=== PATIENT | male | born 1945 | race Caucasian/White ===

== ENCOUNTER 2023-08-13 09:29 | Outpatient (OUT) | payer MEDICARE, SELFPAY ==
--- NOTE | 2023-08-13 09:44 | XR_ITS ---
The [address] [address] Patient Name: JASEN MUELLER MRN: [id number] date: 1945 Sex: M Assigned Patient Location: LAB Current Patient Location: LAB Accession/Order Number: [id number] Exam Date: 08/13/2023 10:05 Report Date: 08/13/2023 10:46 At the request of: PERFECTO LOMELI Procedure: XR thoracic spine 3V EXAMINATION: XR cervical spine 2-3V, XR thoracic spine 3V HISTORY: Kyphosis Of Cervical thoracic region COMPARISON: No relevant comparison available. FINDINGS: BONES: Marked kyphosis of lower cervical and upper thoracic spine; normal lordotic curvature of upper cervical spine. Mild grade 1 anterolisthesis of C4 on 5. Minimal anterior wedging of C6 and C7 vertebral bodies without increased trabecular or endplate density. DISC SPACES: Moderate narrowing and posterior disc-osteophyte complex at C5-6. Mild narrowing C6-C7, C7-T1. Multilevel mild narrowing of the upper thoracic spine. PARASPINOUS: Negative. No paraspinous abnormality is seen. OTHER: Negative. XR/XR thoracic spine 3V IMPRESSION: 1. Multilevel degenerative changes predominantly involving the lower cervical spine. No prior studies for comparison. 2. Marked kyphosis of the cervicothoracic spine. Electronically authenticated by: FABI MADRIGAL Date: 08/13/2023 10:46
--- NOTE | 2023-08-13 09:44 | XR_ITS ---
The [address] [address] Patient Name: JASEN MUELLER MRN: [id number] date: 1945 Sex: M Assigned Patient Location: LAB Current Patient Location: LAB Accession/Order Number: [id number] Exam Date: 08/13/2023 10:05 Report Date: 08/13/2023 10:46 At the request of: PERFECTO LOMELI Procedure: XR cervical spine 2-3V EXAMINATION: XR cervical spine 2-3V, XR thoracic spine 3V HISTORY: Kyphosis Of Cervical thoracic region COMPARISON: No relevant comparison available. FINDINGS: BONES: Marked kyphosis of lower cervical and upper thoracic spine; normal lordotic curvature of upper cervical spine. Mild grade 1 anterolisthesis of C4 on 5. Minimal anterior wedging of C6 and C7 vertebral bodies without increased trabecular or endplate density. DISC SPACES: Moderate narrowing and posterior disc-osteophyte complex at C5-6. Mild narrowing C6-C7, C7-T1. Multilevel mild narrowing of the upper thoracic spine. PARASPINOUS: Negative. No paraspinous abnormality is seen. OTHER: Negative. XR/XR cervical spine 2-3V IMPRESSION: 1. Multilevel degenerative changes predominantly involving the lower cervical spine. No prior studies for comparison. 2. Marked kyphosis of the cervicothoracic spine. Electronically authenticated by: FABI MADRIGAL Date: 08/13/2023 10:46
== END 2023-08-13 09:30 | disposition home or self-care (01) ==
LOC: LAB 09:34
PROVIDERS: PCP Internal Medicine; Visit Provider Internal Medicine
DX: M40.203 Unspecified kyphosis, cervicothoracic region (principal); M47.812 Spondylosis without myelopathy or radiculopathy, cervical region
CPT/HCPCS: 72040; 72072

== ENCOUNTER 2023-09-02 09:05 | Outpatient (OUT) | payer MEDICARE, SELFPAY ==
--- NOTE | 2023-09-02 09:20 | XR_ITS ---
The [address] [address] Patient Name: JASEN MUELLER MRN: [id number] date: 1945 Sex: M Assigned Patient Location: [facility] Current Patient Location: [facility] Accession/Order Number: [id number] Exam Date: 09/02/2023 09:25 Report Date: 09/02/2023 12:28 At the request of: PERFECTO LOMELI Procedure: XR thoracic spine 3V EXAMINATION: XR thoracic spine 3V HISTORY: Kyphosis Of Cervicothoracic Region M40.203 COMPARISON: No relevant comparison available. FINDINGS: BONES: Prominent kyphosis of upper and mid thoracic spine. No significant spondylosis, fracture, or visible bony lesion. DISC SPACES: No significant disc height narrowing, subluxation, or endplate abnormality. PARASPINOUS: Negative. No paraspinous abnormality is seen. OTHER: Negative. XR/XR thoracic spine 3V IMPRESSION: 1. Prominent kyphosis. 2. No compression fracture or significant degenerative changes. Electronically authenticated by: FABI MADRIGAL Date: 09/02/2023 12:28
--- NOTE | 2023-09-02 09:20 | XR_ITS ---
The [address] [address] Patient Name: JASEN MUELLER MRN: [id number] date: 1945 Sex: M Assigned Patient Location: [facility] Current Patient Location: Accession/Order Number: [id number] Exam Date: 09/02/2023 09:25 Report Date: 09/03/2023 06:34 At the request of: PERFECTO LOMELI Procedure: XR cervical spine 2-3V EXAMINATION: XR cervical spine 2-3V HISTORY: Kyphosis Of Cervicothoracic Region M40.203 COMPARISON: XR cervical spine 08/13/2023 FINDINGS: BONES: Reversal normal lordotic curvature C5-T1. Mild grade 1 anterolisthesis of C4 on 5. Multilevel mild-moderate degenerative facet arthropathy. DISC SPACES: Mild narrowing C4-5. Marked narrowing C5-6. Moderate narrowing C6-7 and C7-T1. PARASPINOUS: Negative. No paraspinous abnormality is seen. OTHER: Negative. XR/XR cervical spine 2-3V IMPRESSION: 1. Stable kyphosis and multilevel degenerative changes. Electronically authenticated by: FABI MADRIGAL Date: 09/03/2023 06:34
== END 2023-09-02 09:06 | disposition home or self-care (01) ==
LOC: RAD 09:07
PROVIDERS: PCP Internal Medicine; Visit Provider Internal Medicine
DX: M40.203 Unspecified kyphosis, cervicothoracic region (principal); M47.812 Spondylosis without myelopathy or radiculopathy, cervical region
CPT/HCPCS: 72040; 72072

== ENCOUNTER 2023-09-15 07:58 | Outpatient (OUT) | payer MEDICARE, SELFPAY ==
--- NOTE | 2023-09-15 08:03 | XR_ITS ---
The [address] [address] Patient Name: JASEN MUELLER MRN: [id number] date: 1945 Sex: M Assigned Patient Location: [facility] Current Patient Location: RAD Accession/Order Number: [id number] Exam Date: 09/15/2023 08:10 Report Date: 09/15/2023 08:43 At the request of: PERFECTO LOMELI Procedure: XR DEXA axial skeleton EXAMINATION: XR DEXA axial skeleton HISTORY: Compression Fracture C7 S12.690A COMPARISON: No relevant comparison available. TECHNIQUE: Dual-energy X-ray absorptiometry (DXA) was performed. FINDINGS: SPINE ANALYSIS: Average bone mineral density is 1.193 g/cm2. T-score (standard deviation relative to young adult mean): -0.4 . HIP ANALYSIS: Lowest bone mineral density is within the left femoral neck, 0.826 g/cm2. T-score (standard deviation relative to young adult mean): -1.9 . XR/XR DEXA axial skeleton IMPRESSION: [employer] Classification: Osteopenia - Moderate Fracture Risk Electronically authenticated by: FABI MADRIGAL Date: 09/15/2023 08:43
== END 2023-09-15 07:59 | disposition home or self-care (01) ==
LOC: RAD 07:58
PROVIDERS: PCP Internal Medicine; Visit Provider Internal Medicine
DX: S12.690A Other displaced fracture of seventh cervical vertebra, initial encounter for closed fracture (principal); M85.80 Other specified disorders of bone density and structure, unspecified site
CPT/HCPCS: 77080

== ENCOUNTER 2024-01-08 12:56 | Observation (INO) | payer MEDICARE, SELFPAY ==
[2024-01-08] VITALS (15 sets, daily range): BP systolic 123–164; BP diastolic 63–80; PULSE 66–95; RESP 12–23; TEMP 36.7–36.9; O2SAT 92–99; BMI 27.5; BMI 28.6
--- NOTE | 2024-01-08 13:14 | CT_ITS ---
The [address] [address] Patient Name: JASEN MUELLER MRN: [id number] date: 1945 Sex: M Assigned Patient Location: ER Current Patient Location: Accession/Order Number: [id number] Exam Date: 01/08/2024 13:37 Report Date: 01/08/2024 14:12 At the request of: RITCHIE MCKEON Procedure: CT abdomen pelvis wo con EXAM: CT abdomen pelvis wo con HISTORY: pain COMPARISON: Intermittent vomiting since November 2023, nausea, vomiting, diarrhea, upper abdominal pain beginning today TECHNIQUE: CT abdomen and CT pelvis studies were performed without the use of intravenous contrast. Multiple axial images were obtained. Reformatted coronal and sagittal images were obtained and reviewed. FINDINGS: Abdomen: Mild atelectatic and/or fibrotic changes in the lower lung barrientos greater on the right. Postoperative sternotomy wires are present. Mild to moderate gynecomastia bilaterally. Mildly lobulated contour of the liver which can be correlated for cirrhosis. No obvious hepatic mass or intrahepatic ductal dilatation. Spleen appears mildly enlarged measuring approximately 17.0 x 10.6 x 14.2 cm in longitudinal, transverse and AP dimensions. In the gallbladder there multiple small gallstones without evidence of gallbladder wall thickening or obvious pericholecystic fluid. Mild atrophy of the pancreas without focal mass or ductal dilatation. Adrenal glands appear grossly unremarkable. Retained fluid in the stomach with mild generalized gastric enlargement which is nonspecific. Mild wall thickening of the gastroduodenal junction level, correlate for any possibility of mild gastroduodenitis. Mildly dilated small bowel loops with retained fluid, no obvious transition zone. No obvious bowel obstruction. Atherosclerotic calcifications within the abdominal aorta. No evidence of aneurysm. No evidence of adenopathy in the retroperitoneum. No obvious renal mass or obstructive uropathy. A few small parapelvic left renal cysts and a small parapelvic right renal cyst. Small vascular calcification or nonobstructive calculus at the mid level of the right kidney measuring 2 mm. No evidence of ureteral calculus. Ctnr-tv-[id number] degree of free intraperitoneal fluid throughout the abdomen greatest at the perihepatic level. Findings may be related to cirrhosis. Correlate for gastroduodenitis and generalized gastroenteritis. Peritonitis would be less likely consideration. Correlate clinically. Small to moderate size umbilical hernia with retained fluid, no obvious associated bowel content. Pelvis: Bladder appears grossly unremarkable. Likely enlarged prostate gland. Perirectal fat planes appear grossly intact. Mildly dilated small bowel loops with retained fluid. Fluid within the rectum. Correlate for gastroenteritis. Peritonitis would be less likely consideration. Correlate clinically. Moderate diverticulosis of the sigmoid colon, no evidence of acute diverticulitis. A few calcifications are compatible with phleboliths. Atherosclerotic calcifications within portions of the iliofemoral arteries. No evidence of aneurysm. No evidence of adenopathy. The appendix is suggested and appears retrocecal in position, no evidence of appendicitis. Mild to moderate free intraperitoneal fluid with considerations as noted above. [id number]-cv-[id number] degenerative changes visualized lower dorsal spine with mild degenerative changes in the lumbar spine. Moderate to large size right inguinal hernia with retained fluid, no obvious bowel content. CT/CT abdomen pelvis wo con IMPRESSION: CT abdomen and CT pelvis studies demonstrate findings suggestive of hepatic cirrhosis. Mild splenomegaly. Mild to moderate free intraperitoneal fluid in the abdomen and pelvis which may be related to cirrhosis. Mildly dilated small bowel loops with retained fluid. Mild wall thickening at the gastroduodenal junction level. Correlate for mild gastroduodenitis and gastroenteritis. No obvious bowel obstruction. Peritonitis would be less likely consideration. Correlate clinically. Small gallstones in the gallbladder without obvious associated cholecystitis. Colon diverticulosis without evidence of acute diverticulitis. Small to moderate-sized umbilical hernia with retained fluid, no obvious associated bowel content. Moderate to large right inguinal hernia with fluid content, no evidence of bowel content. Likely bilateral parapelvic renal cysts as noted. Small vascular calcification or nonobstructive calculus in the right kidney. Electronically authenticated by: RUSSELL LIEBERMAN Date: 01/08/2024 14:12
--- NOTE | 2024-01-08 13:14 | ECG_ITS ---
The [facility] Test Date: 2024-01-08 Pat Name: JASEN MUELLER Department: Room: - Gender: Male [employer] Up Operator: : 1945 Requested By: PERFECTO LOMELI Order Number: [id number] Reading MD: HARVINDER JACKSON Measurements Intervals [place] Rate: 74 P: 53 CT: 234 QRS: -19 QRSD: 96 T: -22 QT: 370 QTc: 397 Interpretive Statements 1100 Sinus rhythm 2231 First degree AV block 3634 Inferior myocardial infarction, age undetermined 5233 Voltage criteria for LVH 9150 abnormal ECG No previous ECG available for comparison Electronically Signed On 01-09-2024 7:29:58 EST by HARVINDER JACKSON
[2024-01-08 13:21] LABS: Hematocrit 35.5 % (42.0-54.0); Hemoglobin 11.1 g/dL (14.0-18.0); Mean Corpuscular HGB Conc 31.3 g/dL (29.9-35.2); Mean Corpuscular Hemoglobin 29.6 pg (25.9-34.0); Mean Corpuscular Volume 94.7 fL (80.0-94.0); Mean Platelet Volume 10.9 fL (9.5-13.5); Red Blood Count 3.75 10^6/uL (4.70-6.10); Red Cell Distribution Width 14.8 % (11.0-15.0); White Blood Count 6.4 10^3/uL (4.0-11.0)
[2024-01-08] MEDS: 0.9 % SODIUM CHLORIDE 1,000 ML 999 ML IV (13:25)
[2024-01-08] MEDS: ONDANSETRON PF 4 MG/2 ML VIAL IV (13:25)
--- OUTSIDE RECORDS SUMMARY | 2024-01-08 13:26 | XMS_ITS | CCD ---
Author Name Unknown Address [address] [place] [address] Organization [facility] Care Team Providers Care Kelp Gatherer Name Role Phone MATTI ASH Primary Care Unavailable KWAME CRUZ Admitting Unavailable KWAME CRUZ Attending Unavailable KWAME CRUZ Consulting Unavailable JAYA SR Consulting Unavailable JOHN VENTURA Admitting Unavailable MATTI ASH Primary Care Unavailable JOHN VENTURA Attending Unavailable JOHN VENTURA Consulting Unavailable MATTI ASH Primary Care Unavailable MARIAH BERNARD Admitting Unavailable FABI MADRIGAL Consulting Unavailable CHU BERNARDISON Attending Unavailable PETJOANNE, MARIAH Consulting Unavailable MATTI ASH Primary Care Unavailable KWAME CRUZ Admitting Unavailable KWAME CRUZ Attending Unavailable KWAME CRUZ Consulting Unavailable VARGHESE Ash Primary Care Provider [phone] LISA Soares Attending Provider VARGHESE Ash Referring Provider MD John Ventura Attending Provider Unavailable Estevan Lester Unavailable MD Estevan Lester Attending Provider VARGHESE Ash Referring Provider DO Luciano Ramirez II Attending Provider VARGHESE Ash Primary Care Provider [phone] VARGHESE Ash Referring Provider [phone] DO Luciano Ramirez II Attending Provider [phone] MD Estevan Lester Attending Provider VARGHESE Ash Primary Care Provider VARGHESE Ash Referring Provider [phone] DO Luciano Ramirez II Attending Provider [phone] VARGHESE Ash Primary Care Provider [phone] VARGHESE Ash Referring Provider [phone] LISA Soares Attending Provider DO Mariah Bernard Attending Provider [phone] RIOS CURRY Attending Unavailable MATTI ASH Attending Unavailable Matti Ash MD Unavailable Matti Ash MD Primary Care Provider [phone] Mariah Bernard Admitting Unavailable Mariah Bernard Attending Unavailable Matti Ash Primary Care Unavailable Matti Ash Referring Unavailable Luciano Ramirez II Admitting Unavaila Luciano Salzaar II Attending Unavaila Matti Lee Primary Care Unavailable Matti Ash Primary Care Unavailable Simi Freeman Admitting Unavailable Simi Freeman Attending Unavailable Allergies Allergy Classification Reported Allergen(s) Allergy Type Date of Onset Reaction(s) Facility (13 sources) rOPINIRole Drug Allergy Unknown [facility] Repository (9 sources) rOPINIRole; Translations: [ropinirole] Drug Allergy 09-19-2021 [facility] Medications Current Medications Medication Drug Class(es) Dates Sig (Normalized) Sig (Original) Aspir-81 (12 sources) Aspir-81 Active aspirin 81 mg oral tablet (15 sources) Platelet Aggregation Inhibitor, Nonsteroidal Anti-inflammatory Drug Start: 12-11-2020 take 81 mg by mouth once daily Aspirin Active 81 MG PO Daily December 11, 2020 1:00am Start: 08-14-2020 End: 12-11-2020 take 325 mg by mouth once daily Aspirin Discontinued 3 25 MG PO Daily August 14, 2020 12:00am December 11, 2020 3:13pm take 1 tablet by ablaro th in the morning aspirin 81 MG EC tablet Take 81 mg by mouth in the morning. 0 Active calcium citrate 2380 mg / cholecalciferol 0.01 mg chewable tablet (1 source) Vitamin D Start: 10-05-2023 Calcium Citrate-Vitamin D 500-10 MG-MCG chewable tablet Indications: Osteopenia of neck of left femur Chew 1 tablet in the morning and 1 tablet before bedtime. 60 tablet 11 10/05/2023 Active carvedilol 6.25 mg oral tablet (18 sources) alpha-Adrener gic Anjum, beta-Adrenerg ic Anjum Start: 12-16-2022 take 6.25 mg by mouth twice daily at mealtime Carvedilol Active 6.25 MG PO Twice daily 60 December 16, 2022 1:00am must administer with a meal/food Start: 09-09-2022 End: 12-16-2022 take 3.125 mg by mouth twice daily at mealtime Carvedilol Discontinued 3.125 MG PO Twice daily September 09, 2022 12:00am December 16, 2022 1:42pm must administer with a meal/food furosemide 20 mg oral tablet (19 sources) Loop Diuretic Start: 08-15-2022 take 1 tablet by mouth every twenty-four hours Furosemide 20 MG 1 tablet Orally Once a day for 30 days Jul, Active 3 ml insulin glargine 100 unt/ml pen injector (7 sources) Insulin Analog Start: 06-19-2023 Basaglar KwikPen 100 UNIT/ML pen Indications: 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) TAKE 1 TABLET BY MOUTH TWICE A DAY 180 tablet 3 11/19/2023 Active Start: 08-14-2020 take 1000 mg by mout h twice daily Metformin Active 1000 MG PO Twice daily August 14, 2020 12:00am metFORMIN HCl Ac tive omeprazole 40 mg delayed release oral capsule (16 sources) Proton Pump Inhibitor Start: 11-19-2022 take 1 capsule by mouth once daily Omeprazole 40 MG 1 capsule 30 minutes before morning meal Orally Once a day for 90 days Oct, Active Start: 09-09-2022 take 40 mg by mouth twice diane y Omeprazole Active 40 MG PO Twice daily 112 56 September 09, 2022 12:00am Ozempic (0.25 or 0.5 MG/DOSE) 2 MG/1.5ML (3 sources) Ozempic (0.25 or 0.5 MG/DOSE) 2 MG/1.5ML as directed Subcutaneous Active pramipexole dihydrochloride 0.125 mg oral tablet (20 sources) Nonergot Dopamine Agonist Start: 0 take 0.125 mg by mouth twice daily Pramipexole Active 0.125 MG PO Twice daily August 14, 2020 12:00am Start: 08-14-2020 take 2 mg by mouth twice daily Pramipexole Active 2 MG PO Twice daily August 14, 2020 12:00am take 2 tablets by mo [facility] in the morning pramipexole (Mirapex) 0.125 MG tablet Take 2 tablets by mouth in the morning and 2 tablets before bedtime. 0 Active Pramipexole Dihy drochloride Active pregabalin 200 mg oral capsule (20 sources) Start: 08-14-2020 take 200 mg by mouth twice daily Pregabalin Active 200 MG PO Twice daily August 14, 2020 12:00am take 2 capsules by mouth in the morning pregabalin (Lyrica) 100 MG capsule Take 200 mg by mouth in the morning and 200 mg before bedtime. 0 Active take 1 capsule by mo [facility] every twelve hours Pregabalin 100 MG 1 capsule Orally Twice a day Active Pregabalin Activ e ramipril 5 mg oral capsule (20 sources) Angiotensin Converting Enzyme Inhibitor Start: 08-14-2020 take 10 mg by mouth once daily Ramipril Active 10 MG PO Daily August 14, 2020 12:00am Start: 08-14-2020 take 5 mg by mouth once daily Ramipril Active 5 MG PO Daily August 14, 2020 12:00am take 1 capsule by mo ut in the morning ramipril (Altace) 10 MG capsule Take 10 mg by mouth in the morning. 0 Active Ramipril Active rifAXIMin 550 mg oral tablet (19 sources) Rifamycin Antibacterial Start: 08-15-2022 take 1 tablet by mouth every twelve hours Xifaxan 550 MG 1 tablet Orally Twice a day for 30 day(s) Jul, Active 0.25 mg, 0.5 mg dose 1.5 ml semaglutide 1.34 mg/ml pen injector (4 sources) Ozempic (0.25 or 0.5 MG/DOSE) 2 MG/1.5ML as directed Subcutaneous Active Semaglutide (3 sources) Start: 03-20-2023 Semaglutide (Ozempic) 0.25 mg or 0.5 mg (2 mg/3 mL) Pen Injector Active 0.25 MG SUBCUT every week March 20, 2023 12:00am for 4 weeks semaglutide (Ozempic, 1 MG/DOSE,) 4 MG/3ML solution pen-injector (1 source) Start: 11-12-2023 inject 1 mg by subcutaneous injection every week semaglutide (Ozempic, 1 MG/DOSE,) 4 MG/3ML solution pen-injector Indications: 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 90 tablet 3 07/30/2023 07/29/2024 Active Simvastatin Acti ve spironolactone 50 mg oral tablet (20 sources) Aldosterone Antagonist Start: 08-15-2022 End: 09-15-2022 take 1 tablet by mouth every twenty-four hours Spironolactone 50 MG 1 tablet Orally Once a day for 90 days Jul, Active Completed/Discontinued Medications Medication Drug Class(es) Dates Sig (Normalized) Sig (Original) folic acid 0.8 mg oral capsule (14 sources) Start: 12-11-2020 End: 07-08-2022 take 0.8 mg by mouth once daily Folic Acid Discontinued 0.8 MG PO Daily December 11, 2020 1:00am July 08, 2022 11:01am Start: 08-21-2020 End: 09-25-2020 Folic Acid Discontinued 1 MG PO Daily August 21, 2020 12:00am September 25, 2020 11:31am take one a day for 30 days and then stop 3 ml liraglutide 6 mg/ml pen injector (12 sources) GLP-1 Receptor Agonist Start: 08-14-2020 End: 03-20-2023 Liraglutide (Victoza 2-Ulices) 0.6 mg/0.1 mL (18 mg/3 mL) Pen Injector Discontinued 1.8 MG SUBCUT Q24H August 14, 2020 12:00am March 20, 2023 1:20pm Victoza Active 24 hr metoprolol succinate 25 mg extended release oral tablet (12 sources) beta-Adrenergic Anjum Start: 08-14-2020 End: 09-09-2022 take 12.5 mg by mouth once daily Metoprolol Succinate Discontinued 12.5 MG PO Daily August 14, 2020 12:00am September 09, 2022 1:48pm Metoprolol Tartr ate Active pioglitazone 15 mg oral tablet (7 sources) Peroxisome Proliferator Receptor alpha Agonist, Peroxisome Proliferator Receptor gamma Agonist, Thiazolidinedione Start: 08-14-2020 End: 07-08-2022 take 15 mg by mouth once daily Pioglitazone Discontinued 15 MG PO Daily August 14, 2020 12:00am July 08, 2022 11:02am Problems Active Problems Problem Classification Problem Date Documented Date Episodic/Chronic Anxiety disorders (1 source) Anxiety state; Translations: [Generalized anxiety disorder] Onset: 01-29-20 16 06-19-2023 Chronic Coagulation and hemorrhagic disorders (16 sources) Platelet count below reference range; Translations: [Thrombocytopenia, unspecified] Onset: 02-12-20 16 12-11-2020 Chronic Coronary atherosclerosis and other heart disease (2 sources) Atherosclerotic heart disease of [place] coronary artery without angina pectoris; Translations: [Atherosclerosis of coronary artery without angina pectoris] Onset: 01-29-20 16 06-19-2023 Chronic Deficiency and other anemia (12 sources) Other pancytopenia; Translations: [Other pancytopenia] Onset: 06-21-20 20 07-22-2022 Chronic Deficiency and other anemia (7 sources) Pancytopenia; Translations: [Other pancytopenia] 08-14-2020 Chronic Deficiency and other anemia (5 sources) Iron deficiency anemia, unspecified; Translations: [IRON DEFICIENCY ANEMIA UNSPECIFIED] Onset: 09-05-20 Episodic Deficiency and other anemia (7 sources) Pernicious anemia; Translations: [Vitamin B12 deficiency anemia due to intrinsic factor deficiency] 08-15-2020 Episodic Deficiency and other anemia (7 sources) Iron deficiency anemia; Translations: [Iron deficiency anemia, unspecified] 08-15-2020 Episodic Deficiency and other anemia (1 source) Vitamin B12 deficiency anemia due to intrinsic factor deficiency; Translations: [Vitamin B12 deficiency anemia due to intrinsic factor deficiency] Onset: 12-25-19 Episodic Diabetes mellitus with complications (5 sources) Peripheral vascular disorder due to diabetes mellitus; Translations: [Type 2 diabetes mellitus with diabetic peripheral angiopathy without gangrene] Onset: 08-23-20 Resolved : 06-19-2006-19-2023 Chronic Diabetes mellitus without complication (5 sources) Type 2 diabetes mellitus without complications; Translations: [TYPE 2 DM WITHOUT COMPLICATIONS] Onset: 09-07-20 Chronic Diseases of white blood cells (16 sources) Leukopenia; Translations: [Decreased white blood cell count, unspecified] Onset: 01-13-20 18 07-02-2021 Chronic Disorders of lipid metabolism (1 source) Mixed hyperlipidemia; Translations: [Mixed hyperlipidemia] Onset: 01-29-20 16 06-19-2023 Chronic Disorders of lipid metabolism (1 source) Pure hypercholesterolemia, unspecified; Translations: [PURE HYPERCHOLESTEROLEMIA UNSPEC] Onset: 09-07-20 Esophageal disorders (17 sources) Gastro-esophageal reflux disease without esophagitis; Translations: [Esophageal varices] Onset: 01-29-20 Chronic Essential hypertension (2 sources) Essential (primary) hypertension; Translations: [Benign essential hypertension] Onset: 01-29-20 16 06-19-2023 Chronic Malaise and fatigue (1 source) Weakness; Translations: [Weakness] Onset: 12-01-19 Episodic Other aftercare (1 source) FPC (current) use of oral hypoglycemic drugs; Translations: [PHOTOGRAPHER USE ORAL HYPOGLYCEMIC DX] Onset: 09-07-20 Other and ill-defined cerebrovascular disease (1 source) Cerebrovascular disease; Translations: [Cerebrovascular disease, unspecified] Onset: 01-29-20 16 06-19-2023 Chronic Other and ill-defined heart disease (1 source) Cardiomegaly; Translations: [Cardiomegaly] Onset: 01-29-20 16 06-19-2023 Chronic Other and ill-defined heart disease (1 source) Diastolic dysfunction; Translations: [Other ill-defined heart diseases] Onset: 01-29-20 16 06-19-2023 Chronic Other and ill-defined heart disease (1 source) Left atrial enlargement; Translations: [Cardiomegaly] Onset: 06-19-20 23 06-19-2023 Chronic Other bone disease and musculoskeletal deformities (1 source) Osteopenia; Translations: [Other specified disorders of bone density and structure, left thigh] Onset: 10-05-2010-05-2023 Episodic Other gastrointestinal disorders (7 sources) Splenomegaly; Translations: [Splenomegaly, not elsewhere classified] 10-08-2021 Episodic Other gastrointestinal disorders (7 sources) Splenomegaly, not elsewhere classified; Translations: [Splenomegaly] 07-22-2022 Episodic Other hereditary and degenerative nervous system conditions (1 source) Restless legs; Translations: [Restless legs syndrome] Onset: 01-29-20 16 06-19-2023 Chronic Other liver diseases (13 sources) Cirrhosis of liver; Translations: [Unspecified cirrhosis of liver] Onset: 06-19-2006-19-2023 Chronic Other liver diseases (8 sources) Unspecified cirrhosis of liver Chronic Other nervous system disorders (7 sources) Peripheral nerve disease ; Translations: [Polyneuropathy, unspecified] 12-11-2020 Chronic Other nervous system disorders (7 sources) Polyneuropathy, unspecified; Translations: [Unspecified hereditary and idiopathic peripheral neuropathy] 07-22-2022 Chronic Peripheral and visceral atherosclerosis (1 source) Peripheral vascular disease, unspecified; Translations: [PERIPHERAL VASCULAR DISEASE UNS] Onset: 09-07-20 Chronic Unclassified (1 source) Diarrhea, unspecified; Translations: [Diarrhea, unspecified] Onset: 12-01-19 Past or Other Problems Problem Classification Problem Date Documented Date Episodic/Chronic Immunizations and screening for infectious disease (4 sources) Contact with and (suspected) exposure to other viral communicable diseases; Translations: [CONTCT EXPS OTH VIRL COMMUNICABL DZ] Onset: 08-31-2020 Episodic Nutritional deficiencies (20 sources) Cobalamin deficiency; Translations: [Deficiency of other specified B group vitamins] Onset: 08-27-2020 08-15-2020 Episodic Other aftercare (1 source) Other prison (current) drug therapy; Translations: [OTH HALFWAY CURRENT DRUG THERAPY] Onset: 09-07-2020 Episodic Other aftercare (1 source) Long-term current use of insulin; Translations: [terminal carman (current) use of insulin] Onset: 06-19-2023 06-19-2023 Episodic Other nervous system disorders (1 source) Polyneuropathy; Translations: [Polyneuropathy, unspecified] Onset: 01-29-2016 Resolved: 06-19-2023 06-19-2023 Chronic Other nervous system disorders (1 source) Polyneuropathy associated with another disorder; Translations: [Polyneuropathy in diseases classified elsewhere] Onset: 06-19-2023 Resolved: 06-19-2023 06-19-2023 Chronic Results Test Name Value Interpretation Reference Range Facility Complete Blood Count Auto Di ffon 12-23-2023 Basophils (Bld) [#/Vol] 0.0 10*3/uL Normal 0.0-0.2 [facility] Comment on above: Performed By: #### P TT, PT #### [facility] [address] [place] [address] [place] Basophils/100 WBC (Bld) 0.4 % Normal . [facility] Comment on above: Performed By: #### P TT, PT #### [facility] [address] [place] [address] [place] Eosinophils (Bld) [#/Vol] 0.1 10*3/uL Normal 0.0-0.45 [facility] Comment on above: Performed By: #### P TT, PT #### [facility] [address] [place] [address] [place] Eosinophils/100 WBC (Bld) 2.6 % Normal . [facility] Comment on above: Performed By: #### P TT, PT #### [facility] [address] Erythrocyte distribution width (RBC) [Ratio] 15.2 % High 12.0-14.8 [facility] Comment on above: Performed By: #### P TT, PT #### [facility] [address] Hematocrit (Bld) [Volume fraction] 34.2 % Low 38.8-50.0 [facility] Comment on above: Performed By: #### P TT, PT #### [facility] [address] Hemoglobin (Bld) [Mass/Vol] 11.2 g/dL Low 13.0-17.0 [facility] Comment on above: Performed By: #### P TT, PT #### [facility] [address] Lymphocytes (Bld) [#/Vol] 0.7 10*3/uL Low 1.00-4.8 [facility] Comment on above: Performed By: #### P TT, PT #### [address] Lymphocytes/100 WBC (Bld) 24.6 % Normal . [facility] Comment on above: Performed By: #### P TT, PT #### [address] MCH (RBC) [Entitic mass] 29.4 pg Normal 27.5-35.2 [facility] Comment on above: Performed By: #### P TT, PT #### [address] MCV (RBC) [Entitic vol] 89.5 fL Normal 83.5-101 [facility] Comment on above: Performed By: #### P TT, PT #### [address] Mean Corpuscular HGB Conc 32.9 g/dL Normal 32.5-35.6 [facility] Comment on above: Performed By: #### P TT, PT #### [address] Monocytes (Bld) [#/Vol] 0.3 10*3/uL Normal 0.0-0.8 [facility] Comment on above: Performed By: #### P TT, PT #### [facility] [address] [place] [address] [place] Monocytes/100 WBC (Bld) 12.2 % Normal . [facility] Comment on above: Performed By: #### P TT, PT #### [facility] [address] [place] [address] [place] Neutrophils (Bld) [#/Vol] 1.7 10*3/uL Low 1.8-7.7 [facility] Comment on above: Performed By: #### P TT, PT #### [facility] [address] Neutrophils/100 WBC (Bld) 60.2 % Normal . [facility] Comment on above: Performed By: #### P TT, PT #### [facility] [address] NRBC% 0.2 /100{WBC} Normal 0-0.5 [facility] Comment on above: Performed By: #### P TT, PT #### [facility] [address] [place] [address] [place] Platelet mean volume (Bld) [Entitic vol] 8.8 fL Normal 6.6-10.1 [facility] Comment on above: Performed By: #### P TT, PT #### [facility] [address] [place] [address] [place] Platelets (Bld) [#/Vol] 60 10*3/uL Low 150-450 [facility] Comment on above: Performed By: #### P TT, PT #### [facility] [address] [place] [address] [place] RBC (Bld) [#/Vol] 3.82 10*6/uL Low 3.90-5.60 [facility] Comment on above: Performed By: #### P TT, PT #### [facility] [address] [place] [address] [place] WBC (Bld) [#/Vol] 2.8 10*3/uL Low 4.1-10.5 [facility] Comment on above: Performed By: #### P TT, PT #### [facility] [address] Comprehensive Metabolic Pane alejandra 12-23-2023 Albumin [Mass/Vol] 4.1 g/dL Normal 3.5-5.7 [facility] Comment on above: Performed By: #### P TT, PT #### [facility] [address] Albumin/Globulin [Mass ratio] 1.6 {ratio} Normal [facility] Comment on above: Performed By: #### P TT, PT #### [facility] [address] ALP [Catalytic activity/Vol] 76 U/L Normal 34-104 [facility] Comment on above: Performed By: #### P TT, PT #### [facility] [address] [place] [address] ALT [Catalytic activity/Vol] 19 U/L Normal 7-52 [facility] Comment on above: Performed By: #### P TT, PT #### [facility] [address] [place] [address] Anion gap [Moles/Vol] 11.7 mmol/L Normal 6.0-15.0 [facility] Comment on above: Performed By: #### P TT, PT #### [facility] [address] [place] [address] AST [Catalytic activity/Vol] 26 U/L Normal 13-39 [facility] Comment on above: Performed By: #### P TT, PT #### [facility] [address] [place] [address] [place] Bilirubin [Mass/Vol] 1.0 mg/dL Normal 0.3-1.0 [facility] Comment on above: Performed By: #### P TT, PT #### [facility] [address] [place] [address] Calcium [Mass/Vol] 9.7 mg/dL Normal 8.6-10.3 [facility] Comment on above: Performed By: #### P TT, PT #### [facility] [address] Chloride [Moles/Vol] 104 mmol/L Normal 98-107 [facility] Comment on above: Performed By: #### P TT, PT #### [facility] [address] CO2 [Moles/Vol] 29.3 mmol/L Normal 21.0-31.0 [facility] Comment on above: Performed By: #### P TT, PT #### [facility] [address] Creatinine [Mass/Vol] 1.04 mg/dL Normal 0.70-1.30 [facility] Comment on above: Performed By: #### P TT, PT #### [address] Creatinine Clr Calc Pharmacy 65.87 [facility] Comment on above: Performed By: #### P TT, PT #### [address] GFR/1.73 sq M.predicted MDRD (S/P/Bld) [Vol rate/Area] mL/min/{1.73_m2} [facility] Comment on above: Performed By: #### P TT, PT #### [address] Globulin (S) [Mass/Vol] 2.6 g/dL [facility] Comment on above: Performed By: #### P TT, PT #### [address] Glucose [Mass/Vol] 164 mg/dL High 70-100 [facility] Comment on above: Result Comment: [place] om Glucose Reference Range is dependent on time and content of last meal. Glucose of more than 200 mg/dL in a nonstressed, ambulatory subject supports the diagnosis of Diabetes Mellitus. ADA recommended reference range Performed By: #### P TT, PT #### [address] Potassium [Moles/Vol] 4.0 mmol/L Normal 3.5-5.1 [facility] Comment on above: Performed By: #### P TT, PT #### [address] Protein [Mass/Vol] 6.7 g/dL Normal 6.4-8.9 [facility] Comment on above: Performed By: #### P TT, PT #### [address] Sodium [Moles/Vol] 141 mmol/L Normal 136-145 [facility] Comment on above: Performed By: #### P TT, PT #### [address] Urea nitrogen [Mass/Vol] 21 mg/dL Normal 7-25 [facility] Comment on above: Performed By: #### P TT, PT #### [address] Erythrocyte Sedimentation Ra shreyas 12-23-2023 ESR (Bld) [Velocity] 25 mm/h High 0-19 [facility] Comment on above: Result Comment: PERF ORMED BY: [place] [address] PATHOLOGIST WATCH ENGINEER AGGIE ENGLISH M.D. Performed By: #### P TT, PT #### [address] Erythropoetin (EPO), Serumon 12-23-2023 Erythropoetin (EPO), Serum 41.8 m[iU]/mL High 2.6-18.5 [facility] Comment on above: Result Comment: [place] UniCel DxI 800 Immunoassay System Values obtained with different assay methods or kits cannot be used interchangeably. Results cannot be interpreted as absolute evidence of the presence or absence of malignant disease. Performed at: [address] [id number] Combined [employer] Operator: Otis Sanders PhD, Phone: [phone] Performed By: #### P TT, PT #### [address] Ferritinon 12-23-2023 Ferritin [Mass/Vol] 22.4 ng/mL Low 23.9-336.2 [facility] Comment on above: Performed By: #### P TT, PT #### [address] Free K+L LT Chains, Qn, Son 12-23-2023 Free [place] Light Chains, S 83.8 mg/L High 3.3-19.4 [facility] Comment on above: Performed By: #### P TT, PT #### [address] Free Lambda Light Chains, S 28.9 mg/L High 5.7-26.3 [facility] Comment on above: Performed By: #### P TT, PT #### [address] [place]/Lambda Ratio, S 2.90 High 0.26-1.65 [facility] Comment on above: Result Comment: Perf ormed at: CB - [facility] [place] [id number] Combined Rail Operator: Otis Sanders PhD, Phone: [phone] PERFORMED BY: [place] [address] PATHOLOGIST WATCH ENGINEER AGGIE EGNLISH M.D. Performed By: #### P TT, PT #### [place] [address] [place] Immunofixation,Serumon 12-23 Immunofixation, Serum Normal . [facility] Comment on above: Result Comment: No m onoclonality detected. Performed By: #### P TT, PT #### [place] [address] [place] Immunoglobulin A, Serum 292 mg/dL Normal 61-437 [facility] Comment on above: Performed By: #### P TT, PT #### [place] [address] [place] Immunoglobulin G 1243 mg/dL Normal 603-1613 [facility] Comment on above: Performed By: #### P TT, PT #### [address] Immunoglobulin M, Serum 88 mg/dL Normal 15-143 [facility] Comment on above: Result Comment: Perf ormed at: - [facility] [address] [id number] Combined Rail Operator: Otis Sanders PhD, Phone: [phone] Performed By: #### P TT, PT #### [address] Iron and TIBC Profileon 11-25 % Iron Saturation 15.3 % Low 20-50 [facility] Comment on above: Performed By: #### P TT, PT #### [address] Iron [Mass/Vol] 65 ug/dL Normal 50-212 [facility] Comment on above: Performed By: #### P TT, PT #### [address] Total Iron Binding Capacity 424 ug/dL Normal 255-450 [facility] Comment on above: Performed By: #### P TT, PT #### [address] Transferrin [Mass/Vol] 303 mg/dL Normal 203-362 [facility] Comment on above: Performed By: #### P TT, PT #### [place] [address] [place] Protein Electrophoresis, Ser umon 12-23-2023 Albumin [Mass/Vol] 3.6 g/dL Normal 2.9-4.4 [facility] Comment on above: Performed By: #### P TT, PT #### [address] Albumin/Globulin [Mass ratio] 1.1 {ratio} Normal 0.7-1.7 [facility] Comment on above: Performed By: #### P TT, PT #### [address] Adpsy-5-Msacsbtz 0.3 g/dL Normal 0.0-0.4 [facility] Comment on above: Performed By: #### P TT, PT #### [address] Eovnc-1-Ejltvnid 0.7 g/dL Normal 0.4-1.0 [facility] Comment on above: Performed By: #### P TT, PT #### [facility] [address] [place] [address] Beta Globulin 1.0 g/dL Normal 0.7-1.3 [facility] Comment on above: Performed By: #### P TT, PT #### [facility] [address] [place] [address] Gamma Globulin 1.3 g/dL Normal 0.4-1.8 [facility] Comment on above: Performed By: #### P TT, PT #### [facility] [address] [place] [address] Globulin (S) [Mass/Vol] 3.3 g/dL Normal 2.2-3.9 [facility] Comment on above: Performed By: #### P TT, PT #### [facility] [address] [place] [address] M-Sean Not Observed Normal Not Observed [facility] Comment on above: Performed By: #### P TT, PT #### [address] Protein [Mass/Vol] 6.9 g/dL Normal 6.0-8.5 [facility] Comment on above: Performed By: #### P TT, PT #### [facility] [address] [place] [address] SPE-Note Normal . [facility] Comment on above: Result Comment: Prot ein electrophoresis scan will follow via computer, mail, or machinist mate delivery. Performed By: #### P TT, PT #### [address] Vit. B12/Folate Profileon Cobalamin (Vitamin B12) [Mass/Vol] 597 pg/mL Normal 180-914 [facility] Comment on above: Performed By: #### P TT, PT #### [facility] [address] Folate 15.5 ng/mL Normal >5.9 [facility] Comment on above: Result Comment: So te reference range: >5.9 ng/ml The WHO technical consultation on folate and vitamin b12 deficiencies has determined that folate concentrations less than 4 ng/ml are considered deficient. PERFORMED BY: [place] [address] PATHOLOGIST WATCH ENGINEER AGGIE ENGLISH M.D. Performed By: #### P TT, PT #### [facility] [address] COVID-19 / Flu A/B / RSV PCR on 2023 SARS-CoV-2 (COVID-19) RNA SHERI+probe Ql (Unsp spec) COVID-19 Cepheid Result Negative for SARS-CoV-2 RNA by RT-PCR Flu A Cepheid Result Negative for Flu A RNA by RT-PCR Flu B Cepheid Result Negative for Flu B RNA by RT-PCR RSV Cepheid Result Negative for RSV RNA by RT-PCR COVID19 Blank Space Reference: Negative COVID19 Blank Space Cepheid Disclaimer The Cepheid Xpert Xpress CoV-2/Flu/RSV Plus has Cepheid Disclaimer not been FDA cleared or approved; this test has Cepheid Disclaimer been authorized by FDA under an EUA for use by Cepheid Disclaimer authorized laboratories; this test has been Cepheid Disclaimer authorized only for the simultaneous qualitative Cepheid Disclaimer detection and differentiation of nucleic acids from Cepheid Disclaimer SARS-CoV-2, influenza A, influenza B, and Cepheid Disclaimer respiratory syncytial virus (RSV), and not for any Cepheid Disclaimer other viruses or pathogens; and this test is only Cepheid Disclaimer authorized for the duration of the declaration that Cepheid Disclaimer circumstances exist justifying the authorization of Cepheid Disclaimer emergency use of in vitro diagnostic tests for Cepheid Disclaimer detection and/or diagnosis of COVID-19 under Cepheid Disclaimer Section 564(b)(1) of the Act, 21 U.S.C. 360bbb- Cepheid Disclaimer 3(b)(1), unless the authorization is terminated or Cepheid Disclaimer revoked sooner. PERFORMED BY: [place] [address] PATHOLOGIST WATCH ENGINEER AGGIE ENGLISH M.D. [facility] Comment on above: Performed By: #### F ER, CMP, FE and TIBC, CBC #### [address] abdomen pelvis w conon CT abdomen pelvis w con [facility] [place] [address] [place] [address] CT Scan Report Signed Patient: Galen Doss JR MR#: [id number] : 1945 Acct:[id number] Age/Sex: 78 / M ADM Date: 12/01/23 Loc: ER Room: Type: [facility] ER Attending Dr: Copies to: Simi Freeman MD Ordering Provider: Simi Freeman MD Date of Service: 12/01/23 CT/CT abdomen pelvis w con: generalized abd pain, diarrhea CT ABDOMEN AND PELVIS WITH CONTRAST COMPARISON: 09/23/2021 CLINICAL DATA: Abdominal cramping and diarrhea for the past 5 days. Recent travel to [place]. Spiral images were obtained through the abdomen and pelvis following 80 mL of Isovue-300. This CT exam was performed using one or more following dose reduction techniques: Automated exposure control, adjustment of the mA and/or kV according to patient size, or use of iterative reconstruction technique. Limited cuts through the lung bases show bilateral gynecomastia. There is atelectasis, predominantly dependent. The liver has a nodular contour and there is continued splenomegaly (17.5 cm). The findings are suspicious for cirrhosis. No developing intrahepatic masses are noted. A persistent subtle splenic hypodensity is seen. There are small calcified gallstones. The pancreas and adrenal glands show no acute findings. There is minor bilateral perinephric fibrofatty stranding. Parapelvic renal cysts are visualized. There is no hydronephrosis. There is atherosclerotic plaque involving the aorta and iliac arteries. There is a recanalized umbilical vein. There are small lymph nodes. A small amount of perihepatic and perisplenic ascites is present. The small bowel loops are not distended though there are loops with possible wall thickening. There are clips within the stomach at the fundus. There is mild fluid within the colon and there are some segments with apparent wall thickening. Descending colonic diverticula are present. There is mild degenerative change involving the lower lumbar facets. Images through the pelvis show no dilated small bowel though there are some loops that contain fluid and have possible wall thickening. The distal colon is not well distended and there are some segments of apparent wall thickening. Sigmoid and descending colonic diverticula are noted, without associated active inflammation. The appendix is not obvious. There is trace amount of free pelvic fluid. The bladder shows no abnormalities for the degree of distention. There is an enlarged prostate. Additional atherosclerotic disease is seen. CT/CT abdomen pelvis w con IMPRESSION: MILD BIBASILAR ATELECTASIS. 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 CHOLELITHIASIS. RENAL CYSTS. NO BOWEL OR URINARY TRACT OBSTRUCTION. SEGMENTS OF APPARENT SMALL BOWEL AND COLONIC WALL THICKENING. THIS MAY RELATE TO INCOMPLETE DISTENTION HOWEVER ENTEROCOLITIS IS ALSO POSSIBLE. DIVERTICULOSIS. PROSTATE HYPERTROPHY. Impression dictated by: Allison Amezquita M.D.12/01/2023 12:26 PM Dictation Location: [place] [address] Transcribed By: [facility] 12/01/23 1226 Dictated By: Allison Amezquita MD 12/01/23 1210 Signed By: 12/01/23 1226 [facility] CT angio headon 2023 CT angio head [facility] Main [place] [address] [place] [address] CT Scan Report Signed Patient: Galen Doss JR MR#: [id number] : 1945 Acct:[id number] Age/Sex: 78 / M ADM Date: 12/01/23 Loc: ER Room: Type: [facility] ER Attending Dr: Copies to: Simi Freeman MD Ordering Provider: Simi Freeman MD Date of Service: 12/01/23 CT/CT angio head: balance issues x 1 year, worse x 1 week ([id number]) CT/CT angio neck: balance issues x 1 year, worse x 1 week ([id number]) CT/CT head/brain wo con: balance issues x 1 year, worse x 1 week CLINICAL DATA: Balance issues and unsteady gait for the past year, worsening over the past week. CT BRAIN WITHOUT CONTRAST: COMPARISON: None TECHNIQUE: Contiguous axial unenhanced images were obtained through the brain. This CT exam was performed using one or more following dose reduction techniques: Automated exposure control, adjustment of the mA and/or kV according to patient size, or use of iterative reconstruction technique. FINDINGS: There is generalized atrophy. The ventricles are normal in size and position. Mild periventricular and subcortical hypodensity is present, asymmetric on the left. There is also extension into the basal ganglia region on both sides and also possibly some change at the brianna. This is probably chronic microvascular disease. Physiologic basal ganglia calcifications are present. There are no additional areas of abnormal attenuation. There is no obvious hemorrhage given administration of intravenous contrast a couple hours previous to the exam for an abdominal CT. There is no mass effect or extra-axial collections. There is mucosal thickening of the right maxillary sinus and some at the ethmoid air cells. The mastoid air cells are clear. There is vertebral artery and carotid siphon plaque. CT/CT head/brain wo con IMPRESSION: ATROPHY AND SMALL VESSEL ISCHEMIC CHANGES. 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 NO DEFINITE ACUTE INTRACRANIAL ABNORMALITY. CTA OF THE HEAD AND NECK WITH CONTRAST COMPARISON: None Spiral images were obtained through the head and neck following 70 mL of Isovue 370. Sagittal coronal MIP as well as 3-D volume rendered reconstructions the carotid arteries and [place] were reviewed. Stenosis is evaluated using NASCET criteria. This CT exam was performed using one or more following dose reduction techniques: Automated exposure control, adjustment of the mA and/or kV according to patient size, or use of iterative reconstruction technique. There is mild plaque at the aortic arch. The proximal great vessels are unremarkable. There are bilateral patent vertebral arteries, without focal stenosis or evidence of dissection. The left vertebral is slightly larger in caliber than the right. There is minor plaque at the carotid bulbs on both sides. There is no significant luminal narrowing. There is also mild plaque at the proximal internal carotid artery on the left with less than 50% luminal narrowing. Degenerative changes are present at the cervical spine, greatest at C5-6. The upper imaged lungs show minor apical scarring. There is bilateral V4 plaque, right slightly greater than left where there is mild associated luminal narrowing. The basilar and posterior cerebral arteries show no significant findings. There is carotid siphon plaque with mild to moderate associated stenosis. The anterior and middle cerebral arteries are patent. No focal stenosis or suspected thrombosis is identified. No aneurysms are seen. The dural venous sinuses are patent. IMPRESSION: CAROTID AND VERTEBRAL ATHEROSCLEROTIC DISEASE, WITHOUT HEMODYNAMICALLY SIGNIFICANT STENOSIS. Impression dictated by: Allison Amezquita M.D.12/01/2023 3:09 PM Dictation Location: [place] [address] Transcribed By: [facility] 12/01/23 1509 Dictated By: Allison Amezquita MD 12/01/23 1436 Signed By: 12/01/23 1509 Normal [facility] Cepheid COVID PCR Negativeon 2023 SARS-CoV-2 (COVID-19) RNA SHERI+probe Ql (Unsp spec) Negative Normal Negative [facility] Comment on above: Result Comment: This is a duplicate Cepheid Xpert Xpress CoV-2/Flu/RSV Plus RNA by RT-PCR result to be used for statistical tracking purpose only. PERFORMED BY: [place] [address] PATHOLOGIST WATCH ENGINEER AGGIE ENGLISH M.D. Performed By: #### F ER, CMP, FE and TIBC, CBC #### [address] Clostridium Difficileon Clostridium Difficile Negative Normal Negative [facility] Comment on above: Order Comment: > or = to 3 loose/watery stools in the last 24 HRS? Y Is patient on promotility agents or tube feeding? N Result Comment: Test ing performed by RT-PCR PERFORMED BY: [place] [address] PATHOLOGIST WATCH ENGINEER AGGIE ENGLISH M.D. Performed By: #### P TT, PT #### [address] Complete Blood Count Auto Di ffon 2023 Basophils (Bld) [#/Vol] 0.0 10*3/uL Normal 0.0-0.2 [facility] Comment on above: Result Comment: PERF ORMED BY: [place] [address] PATHOLOGIST WATCH ENGINEER AGGIE ENGLISH M.D. Performed By: #### F ER, CMP, FE and TIBC, CBC #### [address] Basophils/100 WBC (Bld) 0.4 % Normal . [facility] Comment on above: Performed By: #### F ER, CMP, FE and TIBC, CBC #### [address] Eosinophils (Bld) [#/Vol] 0.1 10*3/uL Normal 0.0-0.45 [facility] Comment on above: Performed By: #### F ER, CMP, FE and TIBC, CBC #### [address] Eosinophils/100 WBC (Bld) 1.6 % Normal . [facility] Comment on above: Performed By: #### F ER, CMP, FE and TIBC, CBC #### [address] Erythrocyte distribution width (RBC) [Ratio] 14.6 % Normal 12.0-14.8 [facility] Comment on above: Performed By: #### F ER, CMP, FE and TIBC, CBC #### [address] Hematocrit (Bld) [Volume fraction] 34.4 % Low 38.8-50.0 [facility] Comment on above: Performed By: #### F ER, CMP, FE and TIBC, CBC #### [address] Hemoglobin (Bld) [Mass/Vol] 11.6 g/dL Low 13.0-17.0 [facility] Comment on above: Performed By: #### F ER, CMP, FE and TIBC, CBC #### [address] Lymphocytes (Bld) [#/Vol] 0.6 10*3/uL Low 1.00-4.8 [facility] Comment on above: Performed By: #### F ER, CMP, FE and TIBC, CBC #### [address] Lymphocytes/100 WBC (Bld) 14.9 % Normal . [facility] Comment on above: Performed By: #### F ER, CMP, FE and TIBC, CBC #### [address] MCH (RBC) [Entitic mass] 30.3 pg Normal 27.5-35.2 [facility] Comment on above: Performed By: #### F ER, CMP, FE and TIBC, CBC #### [address] MCV (RBC) [Entitic vol] 89.4 fL Normal 83.5-101 [facility] Comment on above: Performed By: #### F ER, CMP, FE and TIBC, CBC #### [address] Mean Corpuscular HGB Conc 33.8 g/dL Normal 32.5-35.6 [facility] Comment on above: Performed By: #### F ER, CMP, FE and TIBC, CBC #### [address] Monocytes (Bld) [#/Vol] 0.6 10*3/uL Normal 0.0-0.8 [facility] Comment on above: Performed By: #### F ER, CMP, FE and TIBC, CBC #### [address] Monocytes/100 WBC (Bld) 28.77 % High 0.00-20.00 [facility] Comment on above: Result Comment: For adults in ED, MDW > 20.0 may be associated with a higher risk of sepsis during the first 12 hrs of hospital admission Performed By: #### F ER, CMP, FE and TIBC, CBC #### [address] Monocytes/100 WBC (Bld) 14.4 % Normal . [facility] Comment on above: Performed By: #### F ER, CMP, FE and TIBC, CBC #### [address] Neutrophils (Bld) [#/Vol] 3.0 10*3/uL Normal 1.8-7.7 [facility] Comment on above: Performed By: #### F ER, CMP, FE and TIBC, CBC #### [place] [address] [place] Neutrophils/100 WBC (Bld) 68.7 % Normal . [facility] Comment on above: Performed By: #### F ER, CMP, FE and TIBC, CBC #### [place] [address] [place] NRBC% 0.1 /100{WBC} Normal 0-0.5 [facility] Comment on above: Performed By: #### F ER, CMP, FE and TIBC, CBC #### [place] [address] [place] Platelet mean volume (Bld) [Entitic vol] 8.6 fL Normal 6.6-10.1 [facility] Comment on above: Performed By: #### F ER, CMP, FE and TIBC, CBC #### [place] [address] [place] Platelets (Bld) [#/Vol] 81 10*3/uL Low 150-450 [facility] Comment on above: Performed By: #### F ER, CMP, FE and TIBC, CBC #### [address] RBC (Bld) [#/Vol] 3.84 10*6/uL Low 3.90-5.60 [facility] Comment on above: Performed By: #### F ER, CMP, FE and TIBC, CBC #### [address] WBC (Bld) [#/Vol] 4.3 10*3/uL Normal 4.1-10.5 [facility] Comment on above: Performed By: #### F ER, CMP, FE and TIBC, CBC #### [address] Comprehensive Metabolic Pane alejandra 2023 Albumin [Mass/Vol] 3.7 g/dL Normal 3.5-5.7 [facility] Comment on above: Performed By: #### F ER, CMP, FE and TIBC, CBC #### [address] Albumin/Globulin [Mass ratio] 1.2 {ratio} Normal [facility] Comment on above: Performed By: #### F ER, CMP, FE and TIBC, CBC #### [address] ALP [Catalytic activity/Vol] 55 U/L Normal 34-104 [facility] Comment on above: Performed By: #### F ER, CMP, FE and TIBC, CBC #### [address] ALT [Catalytic activity/Vol] 21 U/L Normal 7-52 [facility] Comment on above: Performed By: #### F ER, CMP, FE and TIBC, CBC #### [address] Anion gap [Moles/Vol] 12.0 mmol/L Normal 6.0-15.0 [facility] Comment on above: Performed By: #### F ER, CMP, FE and TIBC, CBC #### [facility] [address] AST [Catalytic activity/Vol] 22 U/L Normal 13-39 [facility] Comment on above: Performed By: #### F ER, CMP, FE and TIBC, CBC #### [address] Bilirubin [Mass/Vol] 1.1 mg/dL High 0.3-1.0 [facility] Comment on above: Performed By: #### F ER, CMP, FE and TIBC, CBC #### [address] Calcium [Mass/Vol] 8.8 mg/dL Normal 8.6-10.3 [facility] Comment on above: Performed By: #### F ER, CMP, FE and TIBC, CBC #### [address] Chloride [Moles/Vol] 107 mmol/L Normal 98-107 [facility] Comment on above: Performed By: #### F ER, CMP, FE and TIBC, CBC #### [address] CO2 [Moles/Vol] 22.6 mmol/L Normal 21.0-31.0 [facility] Comment on above: Performed By: #### F ER, CMP, FE and TIBC, CBC #### [address] Creatinine [Mass/Vol] 1.66 mg/dL High 0.70-1.30 [facility] Comment on above: Performed By: #### F ER, CMP, FE and TIBC, CBC #### [address] Creatinine Clr Calc Pharmacy 41.27 Normal [facility] Comment on above: Performed By: #### F ER, CMP, FE and TIBC, CBC #### [address] [place] [address] [place] GFR/1.73 sq M.predicted MDRD (S/P/Bld) [Vol rate/Area] 41.416 mL/min/{1.73_m2} Normal [facility] Comment on above: Performed By: #### F ER, CMP, FE and TIBC, CBC #### [facility] [address] [place] [address] [place] Globulin (S) [Mass/Vol] 3.0 g/dL [facility] Comment on above: Performed By: #### F ER, CMP, FE and TIBC, CBC #### [facility] [address] [place] [address] [place] Glucose [Mass/Vol] 123 mg/dL High 70-100 [facility] Comment on above: Result Comment: [facility] Glucose Reference Range is dependent on time and content of last meal. Glucose of more than 200 mg/dL in a nonstressed, ambulatory subject supports the diagnosis of Diabetes Mellitus. ADA recommended reference range Performed By: #### F ER, CMP, FE and TIBC, CBC #### [facility] [address] [place] [address] [place] Potassium [Moles/Vol] 3.6 mmol/L Normal 3.5-5.1 [facility] Comment on above: Performed By: #### F ER, CMP, FE and TIBC, CBC #### [facility] [address] [place] [id number] [place] Protein [Mass/Vol] 6.7 g/dL Normal 6.4-8.9 [facility] Comment on above: Performed By: #### F ER, CMP, FE and TIBC, CBC #### [facility] [address] [place] [id number] [place] Sodium [Moles/Vol] 138 mmol/L Normal 136-145 [facility] Comment on above: Performed By: #### F ER, CMP, FE and TIBC, CBC #### [facility] [address] [place] [id number] [place] Urea nitrogen [Mass/Vol] 41 mg/dL High 7-25 [facility] Comment on above: Performed By: #### F ER, CMP, FE and TIBC, CBC #### [facility] [address] [place] [address] [place] Dipstick and Microscopicon 0 2023 Appearance (U) Clear Normal Clear [facility] Comment on above: Order Comment: Name Collection Type:: Clean-Voided Midstream Performed By: #### F ER, CMP, FE and TIBC, CBC #### [facility] [address] [place] [address] [place] Bacteria,Urine None Seen Normal None Seen [facility] Comment on above: Order Comment: Name Collection Type:: Clean-Voided Midstream Performed By: #### F ER, CMP, FE and TIBC, CBC #### [facility] [address] [place] [address] [place] Bilirubin,Urine Negative Normal Negative [facility] Comment on above: Order Comment: Name Collection Type:: Clean-Voided Midstream Performed By: #### F ER, CMP, FE and TIBC, CBC #### [facility] [address] [place] [address] [place] Color (U) Yellow Normal Yellow [facility] Comment on above: Order Comment: Name Collection Type:: Clean-Voided Midstream Performed By: #### F ER, CMP, FE and TIBC, CBC #### [facility] [address] [place] [address] [place] Glucose Ql (U) Normal Normal Normal [facility] Comment on above: Order Comment: Name Collection Type:: Clean-Voided Midstream Performed By: #### F ER, CMP, FE and TIBC, CBC #### [facility] [address] [place] [address] [place] Hyaline Casts,Urine 9-19 High 0-8 [facility] Comment on above: Order Comment: Name Collection Type:: Clean-Voided Midstream Result Comment: PERF ORMED BY: [place] [address] PATHOLOGIST WATCH ENGINEER AGGIE ENGLISH M.D. Performed By: #### F ER, CMP, FE and TIBC, CBC #### [facility] [address] Ketones Ql (U) Trace High Negative [facility] Comment on above: Order Comment: Name Collection Type:: Clean-Voided Midstream Performed By: #### F ER, CMP, FE and TIBC, CBC #### [address] Leukocyte esterase Test strip Ql (U) Negative Normal Negative [facility] Comment on above: Order Comment: Name Collection Type:: Clean-Voided Midstream Performed By: #### F ER, CMP, FE and TIBC, CBC #### [place] [address] [place] Nitrite,Urine Negative Normal Negative [facility] Comment on above: Order Comment: Name Collection Type:: Clean-Voided Midstream Performed By: #### F ER, CMP, FE and TIBC, CBC #### [address] Occult Blood,Urine Negative Normal Negative [facility] Comment on above: Order Comment: Name Collection Type:: Clean-Voided Midstream Result Comment: PERF ORMED BY: [place] [address] PATHOLOGIST WATCH ENGINEER AGGIE ENGLISH M.D. Performed By: #### F ER, CMP, FE and TIBC, CBC #### [address] pH (U) 5.0 [pH] Normal 5.0-9.0 [facility] Comment on above: Order Comment: Name Collection Type:: Clean-Voided Midstream Performed By: #### F ER, CMP, FE and TIBC, CBC #### [place] [address] [place] Protein (U) [Mass/Vol] 30 mg/dL High Negative [facility] Comment on above: Order Comment: Name Collection Type:: Clean-Voided Midstream Performed By: #### F ER, CMP, FE and TIBC, CBC #### [address] RBC LM.HPF (Urine sed) [#/Area] 0 /[HPF] Normal 0-4 [facility] Comment on above: Order Comment: Name Collection Type:: Clean-Voided Midstream Performed By: #### F ER, CMP, FE and TIBC, CBC #### [address] Specificy [place],Urine 1.033 High 1.001-1.03 0 [facility] Comment on above: Order Comment: Name Collection Type:: Clean-Voided Midstream Performed By: #### F ER, CMP, FE and TIBC, CBC #### [address] Squamous Epithelial Cell,Urine 0-1 Normal 0-2 [facility] Comment on above: Order Comment: Name Collection Type:: Clean-Voided Midstream Performed By: #### F ER, CMP, FE and TIBC, CBC #### [address] Urobilinogen,Urine Normal Normal Normal [facility] Comment on above: Order Comment: Name Collection Type:: Clean-Voided Midstream Performed By: #### F ER, CMP, FE and TIBC, CBC #### [address] WBC,Urine 1-2 Normal 0-4 [facility] Comment on above: Order Comment: Name Collection Type:: Clean-Voided Midstream Performed By: #### F ER, CMP, FE and TIBC, CBC #### [address] ECG 12 lead ECGon 2023 ECG 12 lead ECG [facility] Main [place] [address] [place] [address] Electrocardiograph Report Signed Patient: Galen Doss JR MR#: [id number] : 1945 Acct:[id number] Age/Sex: 78 / M ADM Date: 12/01/23 Loc: ER Room: Type: [facility] ER Attending Dr: Ordering Provider: Simi Freeman MD Date of Service: 12/01/2308/16/1327 ECG/ECG 12 lead ECG: Nausea/Vomiting/Diarrhea Copies to: Test Reason : Blood Pressure : / mmHG Vent. Rate : 066 BPM Atrial Rate : 066 BPM P-R Int : 232 ms QRS Dur : 094 ms QT Int : 416 ms P-R-T Axes : 058 -15 -03 degrees QTc Int : 436 ms Sinus rhythm with 1st degree AV block Cannot rule out Anterior infarct , age undetermined Abnormal ECG When compared with ECG of 13-MAY-2011 12:40, No significant change was found Confirmed by Terence Greene DO ([id number]) on 2023 3:25:13 PM Referred By: Electronically Signed By:Terence Greene DO Transcribed By: MUS Signed By Terence Greene DO 4 1525 Normal [facility] Lipaseon 2023 Lipase [Catalytic activity/Vol] 35.0 U/L Normal 11.0-82.0 [facility] Comment on above: Result Comment: PERF ORMED BY: [place] [address] PATHOLOGIST WATCH ENGINEER AGGIE ENGLISH M.D. Performed By: #### F ER, CMP, FE and TIB, CBC #### [address] OVA AND PARASITEon 4 OVA AND PARASITE Final report These results were obtained using wet preparation(s) and trichrome stained smear. This test does not include testing for Cryptosporidium parvum, Cyclospora, or Microsporidia. No ova, cysts, or parasites seen. One negative specimen does not rule out the possibility of a parasitic infection. Performed at: [address] [id number] Combined Rail Operator: Otis Sanders PhD, Phone: [phone] PERFORMED BY: [place] [address] PATHOLOGIST WATCH ENGINEER AGGIE ENGLISH M.D. [facility] Comment on above: Performed By: #### F ER, CMP, FE and TIBC, CBC #### [facility] [address] [place] [id number] [place] Partial Thromboplastin Timeo n 2023 aPTT Coag (Bld) [Time] 29.7 s Normal 25.1-36.5 [facility] Comment on above: Result Comment: A he matocrit value greater than 55% may lead to inaccurate results in coagulation testing. Patients having hematocrit values >55% require a special collection tube for coagulation studies. Please contact the laboratory at [phone] for redraw instructions. PERFORMED BY: [place] [address] PATHOLOGIST WATCH ENGINEER AGGIE ENGLISH M.D. Performed By: #### P TT, PT #### [place] [id number] [facility] Prothrombin Time INRon 12-01 INR Coag (PPP) [Relative time] 1.2 {INR} Normal [facility] Comment on above: Result Comment: INR Therapeutic Range A) Pre- and Peroperative OAT started two weeks before surgery. NOT HIP SURGERY: 1.5 - 2.5 HIP SURGERY: 2 - 3 B) Primary and secondary prevention of venous THROMBOSIS: 2 - 3 C) Active venous thrombosis, pulmonary embolism and prevention of recurrent venous thrombosis: 2 - 3 D) Prevention of arterial thromboembolism including patients with mechanical heart valves: 3 - 4.5 Performed By: #### P TT, PT #### [place] [id number] [facility] PT Coag (PPP) [Time] 13.1 s High 9.0-12.9 [facility] Comment on above: Result Comment: A he matocrit value greater than 55% may lead to inaccurate results in coagulation testing. Patients having hematocrit values >55% require a special collection tube for coagulation studies. Please contact the laboratory at [phone] for redraw instructions. Performed By: #### P TT, PT #### [place] [id number] [facility] Stool Cultureon 2023 Stool culture Negative for Shiga T oxin 1 Negative for Shiga Toxin 2 A negative Shiga Toxin result may occur if the antigen level in the specimen is below the detection limit of the assay. Stool culture results No Salmonella, Shigella, Campy or E. coli 0157:H7 Isolated PERFORMED BY: [facility] [address] [place] [address] PATHOLOGIST WATCH ENGINEER AGGIE ENGLISH M.D. Normal [facility] Comment on above: Performed By: #### F ER, CMP, FE and TIBC, CBC #### [facility] [address] [place] [address] Alanine aminotransferase [En zymatic activity/volume] in Serum or PlasmaOrdered By: Mariah Bernard on 06-22-2023 ALT [Catalytic activity/Vol] 17 U/L 7-52 [facility] Albumin [Mass/volume] in Ser um or Plasma by Bromocresol green (BCG) dye binding methoOrdered By: [facility] on 06-22-2023 Albumin BCG dye [Mass/Vol] 4.5 g/dL 3.5-5.7 [facility] Alkaline phosphatase [Enzyma tic activity/volume] in Serum or PlasmaOrdered By: [facility] on 06-22-2023 ALP [Catalytic activity/Vol] 59 U/L 34-104 [facility] Aspartate aminotransferase [ Enzymatic activity/volume] in Serum or PlasmaOrdered By: [facility] on 06-22-2023 AST [Catalytic activity/Vol] 28 U/L 13-39 [facility] Basophils Auto (Bld) [#/Vol] Ordered By: Mariah Ida on 06-22-2023 Basophils (Bld) [#/Vol] 0.0 10*3/uL 0.0-0.2 [facility] Basophils/100 WBC Auto (Bld) Ordered By: [facility] on 06-22-2023 Basophils/100 WBC (Bld) 0.4 % . [facility] Bilirubin.total [Mass/volume ] in Serum or PlasmaOrdered By: Mariah Bernard on 06-22-2023 Bilirubin [Mass/Vol] 1.2 mg/dL 0.3-1.0 [facility] Calcium [Mass/volume] in Ser um or PlasmaOrdered By: Mariah Bernard on 06-22-2023 Calcium [Mass/Vol] 9.5 mg/dL 8.6-10.3 [facility] Carbon dioxide, total [Moles /volume] in Serum or PlasmaOrdered By: Mariah Bernard on 06-22-2023 CO2 [Moles/Vol] 23.8 mmol/L 21.0-31.0 [facility] Chloride [Moles/volume] in S shy or PlasmaOrdered By: Mariah Bernard on 06-22-2023 Chloride [Moles/Vol] 106 mmol/L 98-107 [facility] Cholesterol [Mass/volume] in Serum or PlasmaOrdered By: Mariah Bernard on 06-22-2023 Cholesterol [Mass/Vol] 98 mg/dL 140-200 [facility] Comment on above: Chol less than 200 m g/dl low riskChol 201-239 mg/dl borderline riskChol 240 mg/dl and greater high risk Cholesterol in LDL Calc [Mas s/Vol]Ordered By: Mariah Bernard on 06-22-2023 Cholesterol in LDL [Mass/Vol] 42 mg/dL 0-100 [facility] Comment on above: LDL ATP III CLASSIFI CATIONLDL less than 100 mg/dL OptimalLDL 100-129 mg/dL Near or above optimalLDL 130-159 mg/dL Borderline highLDL 160-189 mg/dL HighLDL greater than 189 mg/dL Very high Cholesterol in VLDL Calc [Ma ss/Vol]Ordered By: Mariah Bernard on 06-22-2023 Cholesterol in VLDL [Mass/Vol] 28 mg/dL [facility] Complete Blood Count Auto Di ffon 06-22-2023 Basophils (Bld) [#/Vol] 0.0 10*3/uL Normal 0.0-0.2 [facility] Comment on above: Result Comment: PERF ORMED BY: [facility] [address] [place] [address] PATHOLOGIST WATCH ENGINEER AGGIE ENGLISH M.D. Performed By: #### C MP, URMACRERAT, LIPID, TSH3, CBC #### [address] Basophils/100 WBC (Bld) 0.4 % Normal . [facility] Comment on above: Performed By: #### C MP, URMACRERAT, LIPID, TSH3, CBC #### [address] Eosinophils (Bld) [#/Vol] 0.1 10*3/uL Normal 0.0-0.45 [facility] Comment on above: Performed By: #### C MP, URMACRERAT, LIPID, TSH3, CBC #### [address] Eosinophils/100 WBC (Bld) 2.1 % Normal . [facility] Comment on above: Performed By: #### C MP, URMACRERAT, LIPID, TSH3, CBC #### [address] Erythrocyte distribution width (RBC) [Ratio] 14.8 % Normal 12.0-14.8 [facility] Comment on above: Performed By: #### C MP, URMACRERAT, LIPID, TSH3, CBC #### [address] Hematocrit (Bld) [Volume fraction] 36.2 % Low 38.8-50.0 [facility] Comment on above: Performed By: #### C MP, URMACRERAT, LIPID, TSH3, CBC #### [address] Hemoglobin (Bld) [Mass/Vol] 12.3 g/dL Low 13.0-17.0 [facility] Comment on above: Performed By: #### C MP, URMACRERAT, LIPID, TSH3, CBC #### [address] Lymphocytes (Bld) [#/Vol] 1.4 10*3/uL Normal 1.00-4.8 [facility] Comment on above: Performed By: #### C MP, URMACRERAT, LIPID, TSH3, CBC #### [address] Lymphocytes/100 WBC (Bld) 40.1 % Normal . [facility] Comment on above: Performed By: #### C MP, URMACRERAT, LIPID, TSH3, CBC #### [address] MCH (RBC) [Entitic mass] 32.2 pg Normal 27.5-35.2 [facility] Comment on above: Performed By: #### C MP, URMACRERAT, LIPID, TSH3, CBC #### [address] MCV (RBC) [Entitic vol] 94.7 fL Normal 83.5-101 [facility] Comment on above: Performed By: #### C MP, URMACRERAT, LIPID, TSH3, CBC #### [address] Mean Corpuscular HGB Conc 34.0 g/dL Normal 32.5-35.6 [facility] Comment on above: Performed By: #### C MP, URMACRERAT, LIPID, TSH3, CBC #### [address] Monocytes (Bld) [#/Vol] 0.3 10*3/uL Normal 0.0-0.8 [facility] Comment on above: Performed By: #### C MP, URMACRERAT, LIPID, TSH3, CBC #### [address] Monocytes/100 WBC (Bld) 7.7 % Normal . [facility] Comment on above: Performed By: #### C MP, URMACRERAT, LIPID, TSH3, CBC #### [address] Neutrophils (Bld) [#/Vol] 1.7 10*3/uL Low 1.8-7.7 [facility] Comment on above: Performed By: #### C MP, URMACRERAT, LIPID, TSH3, CBC #### [facility] [address] Neutrophils/100 WBC (Bld) 49.7 % Normal . [facility] Comment on above: Performed By: #### C MP, URMACRERAT, LIPID, TSH3, CBC #### [facility] [address] NRBC% 0.1 /100{WBC} Normal 0-0.5 [facility] Comment on above: Performed By: #### C MP, URMACRERAT, LIPID, TSH3, CBC #### [address] Platelet mean volume (Bld) [Entitic vol] 9.4 fL Normal 6.6-10.1 [facility] Comment on above: Performed By: #### C MP, URMACRERAT, LIPID, TSH3, CBC #### [facility] [address] Platelets (Bld) [#/Vol] 56 10*3/uL Low 150-450 [facility] Comment on above: Performed By: #### C MP, URMACRERAT, LIPID, TSH3, CBC #### [facility] [address] RBC (Bld) [#/Vol] 3.82 10*6/uL Low 3.90-5.60 [facility] Comment on above: Performed By: #### C MP, URMACRERAT, LIPID, TSH3, CBC #### [facility] [address] WBC (Bld) [#/Vol] 3.4 10*3/uL Low 4.1-10.5 [facility] Comment on above: Performed By: #### C MP, URMACRERAT, LIPID, TSH3, CBC #### [facility] [address] Comprehensive Metabolic Pane alejandra 06-22-2023 Albumin [Mass/Vol] 4.5 g/dL Normal 3.5-5.7 [facility] Comment on above: Performed By: #### C MP, URMACRERAT, LIPID, TSH3, CBC #### [facility] [address] Albumin/Globulin [Mass ratio] 1.7 {ratio} Normal [facility] Comment on above: Performed By: #### C MP, URMACRERAT, LIPID, TSH3, CBC #### [facility] [address] ALP [Catalytic activity/Vol] 59 U/L Normal 34-104 [facility] Comment on above: Performed By: #### C MP, URMACRERAT, LIPID, TSH3, CBC #### [facility] [address] [place] [address] ALT [Catalytic activity/Vol] 17 U/L Normal 7-52 [facility] Comment on above: Performed By: #### C MP, URMACRERAT, LIPID, TSH3, CBC #### [facility] [address] [place] [address] Anion gap [Moles/Vol] 13.8 mmol/L Normal 6.0-15.0 [facility] Comment on above: Performed By: #### C MP, URMACRERAT, LIPID, TSH3, CBC #### [address] AST [Catalytic activity/Vol] 28 U/L Normal 13-39 [facility] Comment on above: Performed By: #### C MP, URMACRERAT, LIPID, TSH3, CBC #### [address] Bilirubin [Mass/Vol] 1.2 mg/dL High 0.3-1.0 [facility] Comment on above: Performed By: #### C MP, URMACRERAT, LIPID, TSH3, CBC #### [place] [address] [address] Calcium [Mass/Vol] 9.5 mg/dL Normal 8.6-10.3 [facility] Comment on above: Performed By: #### C MP, URMACRERAT, LIPID, TSH3, CBC #### [facility] [address] Chloride [Moles/Vol] 106 mmol/L Normal 98-107 [facility] Comment on above: Performed By: #### C MP, URMACRERAT, LIPID, TSH3, CBC #### [facility] [address] CO2 [Moles/Vol] 23.8 mmol/L Normal 21.0-31.0 [facility] Comment on above: Performed By: #### C MP, URMACRERAT, LIPID, TSH3, CBC #### [facility] [address] Creatinine [Mass/Vol] 1.46 mg/dL High 0.70-1.30 [facility] Comment on above: Performed By: #### C MP, URMACRERAT, LIPID, TSH3, CBC #### [facility] [address] GFR/1.73 sq M.predicted MDRD (S/P/Bld) [Vol rate/Area] 48.616 mL/min/{1.73_m2} [facility] Comment on above: Performed By: #### C MP, URMACRERAT, LIPID, TSH3, CBC #### [facility] [address] Globulin (S) [Mass/Vol] 2.6 g/dL [facility] Comment on above: Performed By: #### C MP, URMACRERAT, LIPID, TSH3, CBC #### [facility] [address] Glucose [Mass/Vol] 73 mg/dL Normal 70-100 [facility] Comment on above: Result Comment: [place] om Glucose Reference Range is dependent on time and content of last meal. Glucose of more than 200 mg/dL in a nonstressed, ambulatory subject supports the diagnosis of Diabetes Mellitus. ADA recommended reference range Performed By: #### C MP, URMACRERAT, LIPID, TSH3, CBC #### [facility] [address] Potassium [Moles/Vol] 5.6 mmol/L High 3.5-5.1 [facility] Comment on above: Result Comment: Hemo lysis is present at a level that could interfere with the result. Performed By: #### C MP, URMACRERAT, LIPID, TSH3, CBC #### [address] Protein [Mass/Vol] 7.1 g/dL Normal 6.4-8.9 [facility] Comment on above: Performed By: #### C MP, URMACRERAT, LIPID, TSH3, CBC #### [address] Sodium [Moles/Vol] 138 mmol/L Normal 136-145 [facility] Comment on above: Performed By: #### C MP, URMACRERAT, LIPID, TSH3, CBC #### [address] Urea nitrogen [Mass/Vol] 34 mg/dL High 7-25 [facility] Comment on above: Performed By: #### C MP, URMACRERAT, LIPID, TSH3, CBC #### [address] Creatinine [Mass/volume] in Serum or PlasmaOrdered By: Mariah Bernard on 06-22-2023 Creatinine [Mass/Vol] 1.46 mg/dL 0.70-1.30 [facility] Creatinine [Mass/volume] in UrineOrdered By: Mariah Bernard on 06-22-2023 Creatinine (U) [Mass/Vol] 116.0 mg/dL 14.0-26.0 [facility] Eosinophils Auto (Bld) [#/Vo l]Ordered By: Mariah Bernard on 06-22-2023 Eosinophils (Bld) [#/Vol] 0.1 10*3/uL 0.0-0.45 [facility] Eosinophils/100 WBC Auto (Bl d)Ordered By: Mariah Bernard on 06-22-2023 Eosinophils/100 WBC (Bld) 2.1 % . [facility] Erythrocyte distribution wid th Auto (RBC) [Ratio]Ordered By: Mariah Bernard on 06-22-2023 Erythrocyte distribution width (RBC) [Ratio] 14.8 % 12.0-14.8 [facility] Globulin Calc (S) [Mass/Vol] Ordered By: Mariah [facility] on 06-22-2023 Globulin (S) [Mass/Vol] 2.6 g/dL [facility] Glucose [Mass/volume] in Ser um or PlasmaOrdered By: Mariah Bernard on 06-22-2023 Glucose [Mass/Vol] 73 mg/dL 70-100 [facility] Comment on above: ADA recommended refe rence rangeRandom Glucose Reference Range is dependent on time and content of last meal. Glucose of more than 200 mg/dL in a nonstressed, ambulatory subject supports the diagnosis of Diabetes Mellitus. Hematocrit Auto (Bld) [Volum e fraction]Ordered By: Mariah Bernard on 06-22-2023 Hematocrit (Bld) [Volume fraction] 36.2 % 38.8-50.0 [facility] Hemoglobin [Mass/volume] in BloodOrdered By: Mariah Bernard on 06-22-2023 Hemoglobin (Bld) [Mass/Vol] 12.3 g/dL 13.0-17.0 [facility] Leukocytes [#/volume] correc [place] for nucleated erythrocytes in Blood by Automated counOrdered By: Mariah Bernard on 06-22-2023 WBC corrected for nucl RBC Auto (Bld) [#/Vol] 3.4 10*3/uL 4.1-10.5 [facility] Lipid Panelon 06-22-2023 Cholesterol [Mass/Vol] 98 mg/dL Low 140-200 [facility] Comment on above: Result Comment: Chol less than 200 mg/dl low risk Chol 201-239 mg/dl borderline risk Chol 240 mg/dl and greater high risk Performed By: #### P TT, PT #### [facility] [address] Cholesterol in HDL [Mass/Vol] 28 mg/dL Normal 23-92 [facility] Comment on above: Result Comment: HDL CHOL ATP-III CLASSIFICATION Cardiovascular Risk HDL > or equal to 60 mg/dL LOW HDL < 40 mg/dL HIGH Performed By: #### P TT, PT #### [facility] [address] Cholesterol.total/Chol esterol in HDL [Mass ratio] 3.5 {ratio} Normal <5.0 [facility] Comment on above: Performed By: #### P TT, PT #### [facility] [address] LDL Cholesterol,Calculated 42 mg/dL Normal 0-100 [facility] Comment on above: Result Comment: LDL ATP III CLASSIFICATION LDL less than 100 mg/dL Optimal LDL 100-129 mg/dL Near or above optimal LDL 130-159 mg/dL Borderline high LDL 160-189 mg/dL High LDL greater than 189 mg/dL Very high Performed By: #### P TT, PT #### [facility] [address] [place] [address] [place] Triglyceride w/Reflex 140 mg/dL Normal 0-149 [facility] Comment on above: Result Comment: TRIG ATP III CLASSIFICATION TRIG less than 150 mg/dL Normal TRIG 150-199 mg/dL Borderline high TRIG 200-500 mg/dL High TRIG greater than 500 mg/dL Very high Standard traceable to the Center for Disease Conrtrol and Prevention (CDC) test method. Performed By: #### P TT, PT #### [facility] [address] [place] [address] [place] VLDL CHOLESTEROL 28 mg/dL Normal [facility] Comment on above: Performed By: #### P TT, PT #### [facility] [address] [place] [address] [place] Lymphocytes Auto (Bld) [#/Vo l]Ordered By: Mariah Bernard on 06-22-2023 Lymphocytes (Bld) [#/Vol] 1.4 10*3/uL 1.00-4.8 [facility] Lymphocytes/100 WBC Auto (Bl d)Ordered By: Mariah Ida on 06-22-2023 Lymphocytes/100 WBC (Bld) 40.1 % . [facility] MCH Auto (RBC) [Entitic mass ]Ordered By: Mariah Ida on 06-22-2023 MCH (RBC) [Entitic mass] 32.2 pg 27.5-35.2 [facility] MCHC Auto (RBC) [Mass/Vol]Or dered By: Mariah Bernard on 06-22-2023 MCHC (RBC) [Mass/Vol] 34.0 g/dL 32.5-35.6 [facility] MCV Auto (RBC) [Entitic vol] Ordered By: Mariah Ida on 06-22-2023 MCV (RBC) [Entitic vol] 94.7 fL 83.5-101 [facility] MicroAlb Creat Ratio,Uon Albumin DL <= 20 mg/L (U) [Mass/Vol] 2.0 mg/dL High 0.0-1.8 [facility] Comment on above: Performed By: #### C MP, URMACRERAT, LIPID, TSH3, CBC #### [facility] [address] Creatinine, Urine (Random) 116.0 mg/dL High 14.0-26.0 [facility] Comment on above: Performed By: #### C MP, URMACRERAT, LIPID, TSH3, CBC #### [facility] [address] Microalbumin/Creatinin e Ratio 17.0 mg/g Normal 0.0-30.0 [facility] Comment on above: Result Comment: 30-3 00 mg/g indicates an increased risk for diabetic nephropathy. Greater than 300 mg/g is consistent with clinical nephropathy. (Am. J. Kidney Disease 1995, 25:107) PERFORMED BY: [place] [address] PATHOLOGIST WATCH ENGINEER JIANLAN SUN M.D. Performed By: #### C MP, URMACRERAT, LIPID, TSH3, CBC #### [facility] [address] Microalbumin [Mass/volume] i n UrineOrdered By: Mariah Bernard on 06-22-2023 Albumin DL <= 20 mg/L (U) [Mass/Vol] 2.0 mg/dL 0.0-1.8 [facility] Monocytes Auto (Bld) [#/Vol] Ordered By: Mariah Bernard on 06-22-2023 Monocytes (Bld) [#/Vol] 0.3 10*3/uL 0.0-0.8 [facility] Monocytes/100 WBC Auto (Bld) Ordered By: Mariah Bernard on 06-22-2023 Monocytes/100 WBC (Bld) 7.7 % . [facility] Neutrophils Auto (Bld) [#/Vo l]Ordered By: Ripley Ida on 06-22-2023 Neutrophils (Bld) [#/Vol] 1.7 10*3/uL 1.8-7.7 [facility] Neutrophils/100 WBC Auto (Bl d)Ordered By: Mariah Ida on 06-22-2023 Neutrophils/100 WBC (Bld) 49.7 % . [facility] No Panel InformationOrdered By: Mariah Bernard on 06-22-2023 Estimated GFR (CKD-EPI) 48.616 mL/Min [facility] Creatinine Clearance (Chem N/A [facility] Nucleated erythrocytes [Pres ence] in Blood by Automated countOrdered By: Mariah Bernard on 06-22-2023 Nucleated RBC Auto Ql (Bld) 0.1 /100{WBC} 0-0.5 [facility] Platelet mean volume Auto (B ld) [Entitic vol]Ordered By: Mariah Bernard on 06-22-2023 Platelet mean volume (Bld) [Entitic vol] 9.4 fL 6.6-10.1 [facility] Platelets Auto (Bld) [#/Vol] Ordered By: Mariah Bernard on 06-22-2023 Platelets (Bld) [#/Vol] 56 10*3/uL 150-450 [facility] Potassium [Moles/volume] in Serum or PlasmaOrdered By: Mariah Bernard on 06-22-2023 Potassium [Moles/Vol] 5.6 mmol/L 3.5-5.1 [facility] Comment on above: Hemolysis is present at a level that could interfere with the result. Protein [Mass/volume] in Ser um or PlasmaOrdered By: Mariah Bernard on 06-22-2023 Protein [Mass/Vol] 7.1 g/dL 6.4-8.9 [facility] RBC Auto (Bld) [#/Vol]Ordere d By: Mariah Bernard on 06-22-2023 RBC (Bld) [#/Vol] 3.82 10*6/uL 3.90-5.60 [facility] Serum or plasma albumin/glob ulin mass ratioOrdered By: Mariah Bernard on 06-22-2023 Albumin/Globulin [Mass ratio] 1.7 {ratio} [facility] Serum or plasma anion gap de terminationOrdered By: Mariah Bernard on 06-22-2023 Anion gap [Moles/Vol] 13.8 mmol/L 6.0-15.0 [facility] Serum or plasma high density lipoprotein (HDL) cholesterol measurementOrdered By: Mariah Bernard on 06-22-2023 Cholesterol in HDL [Mass/Vol] 28 mg/dL 23-92 [facility] Comment on above: HDL CHOL ATP-III CLA SSIFICATION Cardiovascular RiskHDL > or equal to 60 mg/dL LOWHDL < 40 mg/dL HIGH Serum or plasma total choles terol/high density lipoprotein (HDL) cholesterol mass ratOrdered By: Mariah Bernard on 06-22-2023 Cholesterol.total/Chol esterol in HDL [Mass ratio] 3.5 {ratio} <5.0 [facility] Sodium [Moles/volume] in Ser um or PlasmaOrdered By: Mariah Bernard on 06-22-2023 Sodium [Moles/Vol] 138 mmol/L 136-145 [facility] Thyroid Stimulating Hormoneo n 06-22-2023 TSH Qn 2.99 m[IU]/L Normal 0.45-5.33 [facility] Comment on above: Result Comment: PERF ORMED BY: [facility] [address] [place] [address] PATHOLOGIST WATCH ENGINEER AGGIE ENGLISH M.D. Performed By: #### P TT, PT #### [facility] [address] Thyrotropin [Units/volume] i n Serum or PlasmaOrdered By: Mariah Bernard on 06-22-2023 TSH Qn 2.99 m[IU]/L 0.45-5.33 [facility] Triglyceride [Mass/volume] i n Serum or PlasmaOrdered By: Mariah Bernard on 06-22-2023 Triglyceride [Mass/Vol] 140 mg/dL 0-149 [facility] Comment on above: TRIG ATP III CLASSIF ICATIONTRIG less than 150 mg/dL NormalTRIG 150-199 mg/dL Borderline highTRIG 200-500 mg/dL High TRIG greater than 500 mg/dL Very highStandard traceable to the Center for Disease Conrtrol and Prevention (CDC) test method. Urea nitrogen [Mass/volume] in Serum or PlasmaOrdered By: Mariah Bernard on 06-22-2023 Urea nitrogen [Mass/Vol] 34 mg/dL 06-16 [facility] Urine microalbumin/creatinin e mass ratioOrdered By: Mariah Bernard on 06-22-2023 Albumin/Creatinine DL <= 20 mg/L (U) [Mass ratio] 17.0 mg/g 0.0-30.0 [facility] Comment on above: 30-300 mg/g indicate s an increased risk for diabetic nephropathy. Greater than 300 mg/g is consistent with clinical nephropathy. (Am. J. Kidney Disease 1995, 25:107) WBC Auto (Bld) [#/Vol]Ordere d By: Mariah Bernard on 06-22-2023 WBC (Bld) [#/Vol] 3.4 10*3/uL 4.1-10.5 [facility] Alanine aminotransferase [En zymatic activity/volume] in Serum or PlasmaOrdered By: Alisha Soares on 06-19-2023 ALT [Catalytic activity/Vol] 18 U/L 7-52 [facility] Albumin [Mass/volume] in Ser um or Plasma by Bromocresol green (BCG) dye binding methoOrdered By: Alisha Soares on 06-19-2023 Albumin BCG dye [Mass/Vol] 4.5 g/dL 3.5-5.7 [facility] Alkaline phosphatase [Enzyma tic activity/volume] in Serum or PlasmaOrdered By: Alisha Soares on 06-19-2023 ALP [Catalytic activity/Vol] 63 U/L 34-104 [facility] Aspartate aminotransferase [ Enzymatic activity/volume] in Serum or PlasmaOrdered By: Alisha Soares on 06-19-2023 AST [Catalytic activity/Vol] 23 U/L 13-39 [facility] Basophils Auto (Bld) [#/Vol] Ordered By: Luciano Ramirez on 06-19-2023 Basophils (Bld) [#/Vol] 0.0 10*3/uL 0.0-0.2 [facility] Basophils/100 WBC Auto (Bld) Ordered By: Luciano Ramirez on 06-19-2023 Basophils/100 WBC (Bld) 0.4 % . [facility] Bilirubin.total [Mass/volume ] in Serum or PlasmaOrdered By: Alisha Soares on 06-19-2023 Bilirubin [Mass/Vol] 1.1 mg/dL 0.3-1.0 [facility] Calcium [Mass/volume] in Ser um or PlasmaOrdered By: Alisha Soares on 06-19-2023 Calcium [Mass/Vol] 9.6 mg/dL 8.6-10.3 [facility] Carbon dioxide, total [Moles /volume] in Serum or PlasmaOrdered By: Alisha Soares on 06-19-2023 CO2 [Moles/Vol] 26.0 mmol/L 21.0-31.0 [facility] Chloride [Moles/volume] in S shy or PlasmaOrdered By: Alisha Soares on 06-19-2023 Chloride [Moles/Vol] 103 mmol/L 98-107 [facility] Complete Blood Count Auto Di ffon 06-19-2023 Basophils (Bld) [#/Vol] 0.0 10*3/uL Normal 0.0-0.2 [facility] Comment on above: Result Comment: PERF ORMED BY: [place] [address] PATHOLOGIST WATCH ENGINEER AGGIE ENGLISH M.D. Performed By: #### C BC #### [address] Basophils/100 WBC (Bld) 0.4 % Normal . [facility] Comment on above: Performed By: #### C BC #### [address] Eosinophils (Bld) [#/Vol] 0.1 10*3/uL Normal 0.0-0.45 [facility] Comment on above: Performed By: #### C BC #### [address] Eosinophils/100 WBC (Bld) 1.6 % Normal . [facility] Comment on above: Performed By: #### C BC #### [address] Erythrocyte distribution width (RBC) [Ratio] 15.4 % High 12.0-14.8 [facility] Comment on above: Performed By: #### C BC #### [address] Hematocrit (Bld) [Volume fraction] 36.4 % Low 38.8-50.0 [facility] Comment on above: Performed By: #### C BC #### [address] Hemoglobin (Bld) [Mass/Vol] 12.3 g/dL Low 13.0-17.0 [facility] Comment on above: Performed By: #### C BC #### [address] Lymphocytes (Bld) [#/Vol] 1.6 10*3/uL Normal 1.00-4.8 [facility] Comment on above: Performed By: #### C BC #### [address] Lymphocytes/100 WBC (Bld) 34.7 % Normal . [facility] Comment on above: Performed By: #### C BC #### [address] MCH (RBC) [Entitic mass] 31.8 pg Normal 27.5-35.2 [facility] Comment on above: Performed By: #### C BC #### [address] MCV (RBC) [Entitic vol] 93.8 fL Normal 83.5-101 [facility] Comment on above: Performed By: #### C BC #### [address] Mean Corpuscular HGB Conc 33.9 g/dL Normal 32.5-35.6 [facility] Comment on above: Performed By: #### C BC #### [address] Monocytes (Bld) [#/Vol] 0.4 10*3/uL Normal 0.0-0.8 [facility] Comment on above: Performed By: #### C BC #### [address] Monocytes/100 WBC (Bld) 7.9 % Normal . [facility] Comment on above: Performed By: #### C BC #### [address] Neutrophils (Bld) [#/Vol] 2.5 10*3/uL Normal 1.8-7.7 [facility] Comment on above: Performed By: #### C BC #### [address] Neutrophils/100 WBC (Bld) 55.4 % Normal . [facility] Comment on above: Performed By: #### C BC #### [address] NRBC% 0.2 /100{WBC} Normal 0-0.5 [facility] Comment on above: Performed By: #### C BC #### [facility] [address] Platelet mean volume (Bld) [Entitic vol] 9.2 fL Normal 6.6-10.1 [facility] Comment on above: Performed By: #### C BC #### [facility] [address] Platelets (Bld) [#/Vol] 56 10*3/uL Low 150-450 [facility] Comment on above: Performed By: #### C BC #### [facility] [address] RBC (Bld) [#/Vol] 3.88 10*6/uL Low 3.90-5.60 [facility] Comment on above: Performed By: #### C BC #### [address] WBC (Bld) [#/Vol] 4.5 10*3/uL Normal 4.1-10.5 [facility] Comment on above: Performed By: #### C BC #### [address] Comprehensive Metabolic Pane alejandra 06-19-2023 Albumin [Mass/Vol] 4.5 g/dL Normal 3.5-5.7 [facility] Comment on above: Performed By: #### P TT, PT #### [address] Albumin/Globulin [Mass ratio] 1.8 {ratio} Normal [facility] Comment on above: Performed By: #### P TT, PT #### [address] ALP [Catalytic activity/Vol] 63 U/L Normal 34-104 [facility] Comment on above: Performed By: #### P TT, PT #### [address] ALT [Catalytic activity/Vol] 18 U/L Normal 7-52 [facility] Comment on above: Performed By: #### P TT, PT #### [facility] [address] [place] [address] [place] Anion gap [Moles/Vol] 12.8 mmol/L Normal 6.0-15.0 [facility] Comment on above: Performed By: #### P TT, PT #### [facility] [address] AST [Catalytic activity/Vol] 23 U/L Normal 13-39 [facility] Comment on above: Performed By: #### P TT, PT #### [facility] [address] Bilirubin [Mass/Vol] 1.1 mg/dL High 0.3-1.0 [facility] Comment on above: Performed By: #### P TT, PT #### [facility] [address] Calcium [Mass/Vol] 9.6 mg/dL Normal 8.6-10.3 [facility] Comment on above: Performed By: #### P TT, PT #### [facility] [address] [place] [address] [place] Chloride [Moles/Vol] 103 mmol/L Normal 98-107 [facility] Comment on above: Performed By: #### P TT, PT #### [facility] [address] [place] [address] [place] CO2 [Moles/Vol] 26.0 mmol/L Normal 21.0-31.0 [facility] Comment on above: Performed By: #### P TT, PT #### [facility] [address] [place] [address] [place] Creatinine [Mass/Vol] 1.78 mg/dL High 0.70-1.30 [facility] Comment on above: Performed By: #### P TT, PT #### [facility] [address] [place] [address] [place] Creatinine Clr Calc Pharmacy 42.82 Normal [facility] Comment on above: Performed By: #### P TT, PT #### [facility] [address] [place] [address] [place] GFR/1.73 sq M.predicted MDRD (S/P/Bld) [Vol rate/Area] 38.326 mL/min/{1.73_m2} Normal [facility] Comment on above: Performed By: #### P TT, PT #### [facility] [address] Globulin (S) [Mass/Vol] 2.5 g/dL [facility] Comment on above: Performed By: #### P TT, PT #### [address] Glucose [Mass/Vol] 82 mg/dL Normal 70-100 [facility] Comment on above: Result Comment: [place] Glucose Reference Range is dependent on time and content of last meal. Glucose of more than 200 mg/dL in a nonstressed, ambulatory subject supports the diagnosis of Diabetes Mellitus. ADA recommended reference range Performed By: #### P TT, PT #### [address] Potassium [Moles/Vol] 5.8 mmol/L High 3.5-5.1 [facility] Comment on above: Performed By: #### P TT, PT #### [place] [address] [place] Protein [Mass/Vol] 7.0 g/dL Normal 6.4-8.9 [facility] Comment on above: Performed By: #### P TT, PT #### [place] [address] [place] Sodium [Moles/Vol] 136 mmol/L Normal 136-145 [facility] Comment on above: Performed By: #### P TT, PT #### [place] [address] [place] Urea nitrogen [Mass/Vol] 37 mg/dL High 7-25 [facility] Comment on above: Performed By: #### P TT, PT #### [place] [address] [place] Creatinine [Mass/volume] in Serum or PlasmaOrdered By: Alisha Soares on 06-19-2023 Creatinine [Mass/Vol] 1.78 mg/dL 0.70-1.30 [facility] Eosinophils Auto (Bld) [#/Vo l]Ordered By: Luciano Ramirez on 06-19-2023 Eosinophils (Bld) [#/Vol] 0.1 10*3/uL 0.0-0.45 [facility] Eosinophils/100 WBC Auto (Bl d)Ordered By: Luciano Ramirez on 06-19-2023 Eosinophils/100 WBC (Bld) 1.6 % . [facility] Erythrocyte distribution wid th Auto (RBC) [Ratio]Ordered By: Luciano Ramirez on 06-19-2023 Erythrocyte distribution width (RBC) [Ratio] 15.4 % 12.0-14.8 [facility] Ferritinon 06-19-2023 Ferritin [Mass/Vol] 195.7 ng/mL Normal 23.9-336.2 [facility] Comment on above: Result Comment: PERF ORMED BY: [place] [address] PATHOLOGIST WATCH ENGINEER AGGIE ENGLISH M.D. Performed By: #### F ER, CMP, FE and TIBC, CBC #### [address] Ferritin [Mass/volume] in Se rum or PlasmaOrdered By: Alisha Soares on 06-19-2023 Ferritin [Mass/Vol] 195.7 ng/mL 23.9-336.2 [facility] Globulin Calc (S) [Mass/Vol] Ordered By: Alisha Soares on 06-19-2023 Globulin (S) [Mass/Vol] 2.5 g/dL [facility] Glucose [Mass/volume] in Ser um or PlasmaOrdered By: Alisha Soares on 06-19-2023 Glucose [Mass/Vol] 82 mg/dL 70-100 [facility] Comment on above: ADA recommended refe rence rangeRandom Glucose Reference Range is dependent on time and content of last meal. Glucose of more than 200 mg/dL in a nonstressed, ambulatory subject supports the diagnosis of Diabetes Mellitus. Hematocrit Auto (Bld) [Volum e fraction]Ordered By: Luciano Ramirez on 06-19-2023 Hematocrit (Bld) [Volume fraction] 36.4 % 38.8-50.0 [facility] Hemoglobin [Mass/volume] in BloodOrdered By: Luciano Ramirez on 06-19-2023 Hemoglobin (Bld) [Mass/Vol] 12.3 g/dL 13.0-17.0 [facility] Iron [Mass/volume] in Serum or PlasmaOrdered By: Alisha Soares on 06-19-2023 Iron [Mass/Vol] 102 ug/dL 50-212 [facility] Iron and TIBC Profileon 05-24 % Iron Saturation 31.4 % Normal 20-50 [facility] Comment on above: Performed By: #### F ER, CMP, FE and TIBC, CBC #### [facility] [address] [place] [address] [facility] Iron [Mass/Vol] 102 ug/dL Normal 50-212 [facility] Comment on above: Performed By: #### F ER, CMP, FE and TIBC, CBC #### [facility] [address] [place] [address] [place] Total Iron Binding Capacity 325 ug/dL Normal 255-450 [facility] Comment on above: Performed By: #### F ER, CMP, FE and TIBC, CBC #### [facility] [address] [place] [address] [place] Transferrin [Mass/Vol] 232 mg/dL Normal 203-362 [facility] Comment on above: Performed By: #### F ER, CMP, FE and TIBC, CBC #### [facility] [address] [place] [address] [place] Iron binding capacity [Mass/ volume] in Serum or PlasmaOrdered By: Alisha Soares on 06-19-2023 Iron binding capacity [Mass/Vol] 325 ug/dL 255-450 [facility] Iron saturation [Mass Fracti on] in Serum or PlasmaOrdered By: Alisha Soares on 06-19-2023 Iron saturation [Mass fraction] 31.4 % 20-50 [facility] Leukocytes [#/volume] correc [place] for nucleated erythrocytes in Blood by Automated counOrdered By: Luciano Ramirez on 06-19-2023 WBC corrected for nucl RBC Auto (Bld) [#/Vol] 4.5 10*3/uL 4.1-10.5 [facility] Lymphocytes Auto (Bld) [#/Vo l]Ordered By: Luciano Ramirez on 06-19-2023 Lymphocytes (Bld) [#/Vol] 1.6 10*3/uL 1.00-4.8 [facility] Lymphocytes/100 WBC Auto (Bl d)Ordered By: Luciano Ramirez on 06-19-2023 Lymphocytes/100 WBC (Bld) 34.7 % . [facility] MCH Auto (RBC) [Entitic mass ]Ordered By: Luciano Ramirez on 06-19-2023 MCH (RBC) [Entitic mass] 31.8 pg 27.5-35.2 [facility] MCHC Auto (RBC) [Mass/Vol]Or dered By: Luciano Ramirez on 06-19-2023 MCHC (RBC) [Mass/Vol] 33.9 g/dL 32.5-35.6 [facility] MCV Auto (RBC) [Entitic vol] Ordered By: Luciano Ramirez on 06-19-2023 MCV (RBC) [Entitic vol] 93.8 fL 83.5-101 [facility] Monocytes Auto (Bld) [#/Vol] Ordered By: Luciano Ramirez on 06-19-2023 Monocytes (Bld) [#/Vol] 0.4 10*3/uL 0.0-0.8 [facility] Monocytes/100 WBC Auto (Bld) Ordered By: Luciano Ramirez on 06-19-2023 Monocytes/100 WBC (Bld) 7.9 % . [facility] Neutrophils Auto (Bld) [#/Vo l]Ordered By: Luciano Ramirez on 06-19-2023 Neutrophils (Bld) [#/Vol] 2.5 10*3/uL 1.8-7.7 [facility] Neutrophils/100 WBC Auto (Bl d)Ordered By: Luciano Ramirez on 06-19-2023 Neutrophils/100 WBC (Bld) 55.4 % . [facility] No Panel InformationOrdered By: Alisha Soares on 06-19-2023 Estimated GFR (CKD-EPI) 38.326 mL/Min [facility] Creatinine Clearance (Chem 42.82 [facility] Nucleated erythrocytes [Pres ence] in Blood by Automated countOrdered By: Luciano Ramirez on 06-19-2023 Nucleated RBC Auto Ql (Bld) 0.2 /100{WBC} 0-0.5 [facility] Platelet mean volume Auto (B ld) [Entitic vol]Ordered By: Luciano Ramirez on 06-19-2023 Platelet mean volume (Bld) [Entitic vol] 9.2 fL 6.6-10.1 [facility] Platelets Auto (Bld) [#/Vol] Ordered By: Luciano Ramirez on 06-19-2023 Platelets (Bld) [#/Vol] 56 10*3/uL 150-450 [facility] Potassium [Moles/volume] in Serum or PlasmaOrdered By: Alisha Soares on 06-19-2023 Potassium [Moles/Vol] 5.8 mmol/L 3.5-5.1 [facility] Protein [Mass/volume] in Ser um or PlasmaOrdered By: Alisha Soares on 06-19-2023 Protein [Mass/Vol] 7.0 g/dL 6.4-8.9 [facility] RBC Auto (Bld) [#/Vol]Ordere d By: Luciano Ramirez on 06-19-2023 RBC (Bld) [#/Vol] 3.88 10*6/uL 3.90-5.60 [facility] Serum or plasma albumin/glob ulin mass ratioOrdered By: Alisha Soares on 06-19-2023 Albumin/Globulin [Mass ratio] 1.8 {ratio} [facility] Serum or plasma anion gap de terminationOrdered By: Alisha Soares on 06-19-2023 Anion gap [Moles/Vol] 12.8 mmol/L 6.0-15.0 [facility] Sodium [Moles/volume] in Ser um or PlasmaOrdered By: Alisha Soares on 06-19-2023 Sodium [Moles/Vol] 136 mmol/L 136-145 [facility] Transferrin [Mass/volume] in Serum or PlasmaOrdered By: Alisha Rodger on 06-19-2023 Transferrin [Mass/Vol] 232 mg/dL 203-362 [facility] Urea nitrogen [Mass/volume] in Serum or PlasmaOrdered By: Alisha Soares on 06-19-2023 Urea nitrogen [Mass/Vol] 37 mg/dL 7-25 [facility] WBC Auto (Bld) [#/Vol]Ordere d By: Luciano Ramirez on 06-19-2023 WBC (Bld) [#/Vol] 4.5 10*3/uL 4.1-10.5 [facility] Alanine aminotransferase [En zymatic activity/volume] in Serum or PlasmaOrdered By: Luciano Ramirez on 03-18-2023 ALT [Catalytic activity/Vol] 19 U/L 7-52 [facility] Albumin [Mass/volume] in Ser um or Plasma by Bromocresol green (BCG) dye binding methoOrdered By: Luciano Ramirez on 03-18-2023 Albumin BCG dye [Mass/Vol] 4.0 g/dL 3.5-5.7 [facility] Alkaline phosphatase [Enzyma tic activity/volume] in Serum or PlasmaOrdered By: Luciano Ramirez on 03-18-2023 ALP [Catalytic activity/Vol] 58 U/L 34-104 [facility] Aspartate aminotransferase [ Enzymatic activity/volume] in Serum or PlasmaOrdered By: Luciano Ramirez on 03-18-2023 AST [Catalytic activity/Vol] 27 U/L 13-39 [facility] Basophils Auto (Bld) [#/Vol] Ordered By: Luciano Ramirez on 03-18-2023 Basophils (Bld) [#/Vol] 0.0 10*3/uL 0.0-0.2 [facility] Basophils/100 WBC Auto (Bld) Ordered By: Luciano Ramirez on 03-18-2023 Basophils/100 WBC (Bld) 0.3 % . [facility] Bilirubin.total [Mass/volume ] in Serum or PlasmaOrdered By: Luciano Ramirez on 03-18-2023 Bilirubin [Mass/Vol] 0.7 mg/dL 0.3-1.0 [facility] Calcium [Mass/volume] in Ser um or PlasmaOrdered By: Luciano Ramirez on 03-18-2023 Calcium [Mass/Vol] 8.9 mg/dL 8.6-10.3 [facility] Carbon dioxide, total [Moles /volume] in Serum or PlasmaOrdered By: Luciano Ramirez on 03-18-2023 CO2 [Moles/Vol] 25.7 mmol/L 21.0-31.0 [facility] Chloride [Moles/volume] in S shy or PlasmaOrdered By: Luciano Ramirez on 03-18-2023 Chloride [Moles/Vol] 106 mmol/L 98-107 [facility] Complete Blood Count Auto Di ffon 03-18-2023 Basophils (Bld) [#/Vol] 0.0 10*3/uL Normal 0.0-0.2 [facility] Comment on above: Result Comment: PERF ORMED BY: [place] [address] PATHOLOGIST WATCH ENGINEER AGGIE ENGLISH M.D. Performed By: #### F ER, CMP, FE and TIBC, CBC #### [facility] [address] Basophils/100 WBC (Bld) 0.3 % Normal . [facility] Comment on above: Performed By: #### F ER, CMP, FE and TIBC, CBC #### [facility] [address] [place] [address] [place] Eosinophils (Bld) [#/Vol] 0.1 10*3/uL Normal 0.0-0.45 [facility] Comment on above: Performed By: #### F ER, CMP, FE and TIBC, CBC #### [facility] [address] [place] [address] [place] Eosinophils/100 WBC (Bld) 1.9 % Normal . [facility] Comment on above: Performed By: #### F ER, CMP, FE and TIBC, CBC #### [address] Erythrocyte distribution width (RBC) [Ratio] 14.9 % High 12.0-14.8 [facility] Comment on above: Performed By: #### F ER, CMP, FE and TIBC, CBC #### [address] Hematocrit (Bld) [Volume fraction] 31.2 % Low 38.8-50.0 [facility] Comment on above: Performed By: #### F ER, CMP, FE and TIBC, CBC #### [address] Hemoglobin (Bld) [Mass/Vol] 10.2 g/dL Low 13.0-17.0 [facility] Comment on above: Performed By: #### F ER, CMP, FE and TIBC, CBC #### [address] Lymphocytes (Bld) [#/Vol] 0.9 10*3/uL Low 1.00-4.8 [facility] Comment on above: Performed By: #### F ER, CMP, FE and TIBC, CBC #### [address] Lymphocytes/100 WBC (Bld) 33.2 % Normal . [facility] Comment on above: Performed By: #### F ER, CMP, FE and TIBC, CBC #### [address] MCH (RBC) [Entitic mass] 28.9 pg Normal 27.5-35.2 [facility] Comment on above: Performed By: #### F ER, CMP, FE and TIBC, CBC #### [address] MCV (RBC) [Entitic vol] 88.7 fL Normal 83.5-101 [facility] Comment on above: Performed By: #### F ER, CMP, FE and TIBC, CBC #### [address] Mean Corpuscular HGB Conc 32.6 g/dL Normal 32.5-35.6 [facility] Comment on above: Performed By: #### F ER, CMP, FE and TIBC, CBC #### [address] Monocytes (Bld) [#/Vol] 0.3 10*3/uL Normal 0.0-0.8 [facility] Comment on above: Performed By: #### F ER, CMP, FE and TIBC, CBC #### [address] Monocytes/100 WBC (Bld) 10.0 % Normal . [facility] Comment on above: Performed By: #### F ER, CMP, FE and TIBC, CBC #### [address] Neutrophils (Bld) [#/Vol] 1.5 10*3/uL Low 1.8-7.7 [facility] Comment on above: Performed By: #### F ER, CMP, FE and TIBC, CBC #### [address] Neutrophils/100 WBC (Bld) 54.6 % Normal . [facility] Comment on above: Performed By: #### F ER, CMP, FE and TIBC, CBC #### [address] NRBC% 0.1 /100{WBC} Normal 0-0.5 [facility] Comment on above: Performed By: #### F ER, CMP, FE and TIBC, CBC #### [address] Platelet mean volume (Bld) [Entitic vol] 9.0 fL Normal 6.6-10.1 [facility] Comment on above: Performed By: #### F ER, CMP, FE and TIBC, CBC #### [place] [address] [place] Platelets (Bld) [#/Vol] 51 10*3/uL Low 150-450 [facility] Comment on above: Performed By: #### F ER, CMP, FE and TIBC, CBC #### [address] RBC (Bld) [#/Vol] 3.51 10*6/uL Low 3.90-5.60 [facility] Comment on above: Performed By: #### F ER, CMP, FE and TIBC, CBC #### [address] WBC (Bld) [#/Vol] 2.8 10*3/uL Low 4.1-10.5 [facility] Comment on above: Performed By: #### F ER, CMP, FE and TIBC, CBC #### [address] Comprehensive Metabolic Pane alejandra 03-18-2023 Albumin [Mass/Vol] 4.0 g/dL Normal 3.5-5.7 [facility] Comment on above: Performed By: #### F ER, CMP, FE and TIBC, CBC #### [address] Albumin/Globulin [Mass ratio] 1.5 {ratio} Normal [facility] Comment on above: Performed By: #### F ER, CMP, FE and TIBC, CBC #### [address] ALP [Catalytic activity/Vol] 58 U/L Normal 34-104 [facility] Comment on above: Performed By: #### F ER, CMP, FE and TIBC, CBC #### [address] ALT [Catalytic activity/Vol] 19 U/L Normal 7-52 [facility] Comment on above: Performed By: #### F ER, CMP, FE and TIBC, CBC #### [address] Anion gap [Moles/Vol] 10.9 mmol/L Normal 6.0-15.0 [facility] Comment on above: Performed By: #### F ER, CMP, FE and TIBC, CBC #### [address] AST [Catalytic activity/Vol] 27 U/L Normal 13-39 [facility] Comment on above: Performed By: #### F ER, CMP, FE and TIBC, CBC #### [address] Bilirubin [Mass/Vol] 0.7 mg/dL Normal 0.3-1.0 [facility] Comment on above: Performed By: #### F ER, CMP, FE and TIBC, CBC #### [address] Calcium [Mass/Vol] 8.9 mg/dL Normal 8.6-10.3 [facility] Comment on above: Performed By: #### F ER, CMP, FE and TIBC, CBC #### [address] Chloride [Moles/Vol] 106 mmol/L Normal 98-107 [facility] Comment on above: Performed By: #### F ER, CMP, FE and TIBC, CBC #### [address] CO2 [Moles/Vol] 25.7 mmol/L Normal 21.0-31.0 [facility] Comment on above: Performed By: #### F ER, CMP, FE and TIBC, CBC #### [address] Creatinine [Mass/Vol] 1.11 mg/dL Normal 0.70-1.30 [facility] Comment on above: Performed By: #### F ER, CMP, FE and TIBC, CBC #### [address] Creatinine Clr Calc Pharmacy 68.72 Normal [facility] Comment on above: Performed By: #### F ER, CMP, FE and TIBC, CBC #### [address] [place] [address] [place] GFR/1.73 sq M.predicted MDRD (S/P/Bld) [Vol rate/Area] mL/min/{1.73_m2} [facility] Comment on above: Performed By: #### F ER, CMP, FE and TIBC, CBC #### [facility] [address] [place] [address] [place] Globulin (S) [Mass/Vol] 2.7 g/dL [facility] Comment on above: Performed By: #### F ER, CMP, FE and TIBC, CBC #### [facility] [address] [place] [address] [place] Glucose [Mass/Vol] 120 mg/dL High 70-100 [facility] Comment on above: Result Comment: [facility] Glucose Reference Range is dependent on time and content of last meal. Glucose of more than 200 mg/dL in a nonstressed, ambulatory subject supports the diagnosis of Diabetes Mellitus. ADA recommended reference range Performed By: #### F ER, CMP, FE and TIBC, CBC #### [facility] [address] [place] [address] [place] Potassium [Moles/Vol] 4.6 mmol/L Normal 3.5-5.1 [facility] Comment on above: Performed By: #### F ER, CMP, FE and TIBC, CBC #### [facility] [address] [place] [id number] [place] Protein [Mass/Vol] 6.7 g/dL Normal 6.4-8.9 [facility] Comment on above: Performed By: #### F ER, CMP, FE and TIBC, CBC #### [facility] [address] [id number] [place] Sodium [Moles/Vol] 138 mmol/L Normal 136-145 [facility] Comment on above: Performed By: #### F ER, CMP, FE and TIBC, CBC #### [facility] [address] [id number] [place] Urea nitrogen [Mass/Vol] 21 mg/dL Normal 7-25 [facility] Comment on above: Performed By: #### F ER, CMP, FE and TIBC, CBC #### [facility] [address] Creatinine [Mass/volume] in Serum or PlasmaOrdered By: Luciano Ramirez on 03-18-2023 Creatinine [Mass/Vol] 1.11 mg/dL 0.70-1.30 [facility] Eosinophils Auto (Bld) [#/Vo l]Ordered By: Luciano Ramirez on 03-18-2023 Eosinophils (Bld) [#/Vol] 0.1 10*3/uL 0.0-0.45 [facility] Eosinophils/100 WBC Auto (Bl d)Ordered By: Luciano Ramirez on 03-18-2023 Eosinophils/100 WBC (Bld) 1.9 % . [facility] Erythrocyte distribution wid th Auto (RBC) [Ratio]Ordered By: Luciano Ramirez on 03-18-2023 Erythrocyte distribution width (RBC) [Ratio] 14.9 % 12.0-14.8 [facility] Ferritinon 03-18-2023 Ferritin [Mass/Vol] 7.3 ng/mL Low 23.9-336.2 [facility] Comment on above: Result Comment: PERF ORMED BY: [place] [address] PATHOLOGIST WATCH ENGINEER AGGIE ENGLISH M.D. Performed By: #### F ER, CMP, FE and TIBC, CBC #### [facility] [address] Ferritin [Mass/volume] in Se rum or PlasmaOrdered By: Luciano Ramirez on 03-18-2023 Ferritin [Mass/Vol] 7.3 ng/mL 23.9-336.2 [facility] Globulin Calc (S) [Mass/Vol] Ordered By: Luciano Ramirez on 03-18-2023 Globulin (S) [Mass/Vol] 2.7 g/dL [facility] Glucose [Mass/volume] in Ser um or PlasmaOrdered By: Luciano Ramirez on 03-18-2023 Glucose [Mass/Vol] 120 mg/dL 70-100 [facility] Comment on above: ADA recommended refe rence rangeRandom Glucose Reference Range is dependent on time and content of last meal. Glucose of more than 200 mg/dL in a nonstressed, ambulatory subject supports the diagnosis of Diabetes Mellitus. Hematocrit Auto (Bld) [Volum e fraction]Ordered By: Luciano Ramirez on 03-18-2023 Hematocrit (Bld) [Volume fraction] 31.2 % 38.8-50.0 [facility] Hemoglobin [Mass/volume] in BloodOrdered By: Luciano Ramirez on 03-18-2023 Hemoglobin (Bld) [Mass/Vol] 10.2 g/dL 13.0-17.0 [facility] Iron [Mass/volume] in Serum or PlasmaOrdered By: Luciano Ramirez on 03-18-2023 Iron [Mass/Vol] 50 ug/dL 50-212 [facility] Iron and TIBC Profileon 02-22 % Iron Saturation 10.0 % Low 20-50 [facility] Comment on above: Performed By: #### F ER, CMP, FE and TIBC, CBC #### [facility] [address] [id number] [place] Iron [Mass/Vol] 50 ug/dL Normal 50-212 [facility] Comment on above: Performed By: #### F ER, CMP, FE and TIBC, CBC #### [facility] [address] [place] [address] [place] Total Iron Binding Capacity 501 ug/dL High 255-450 [facility] Comment on above: Performed By: #### F ER, CMP, FE and TIBC, CBC #### [facility] [address] [place] [address] [place] Transferrin [Mass/Vol] 358 mg/dL Normal 203-362 [facility] Comment on above: Performed By: #### F ER, CMP, FE and TIBC, CBC #### [facility] [address] [id number] [place] Iron binding capacity [Mass/ volume] in Serum or PlasmaOrdered By: Luciano Ramirez on 03-18-2023 Iron binding capacity [Mass/Vol] 501 ug/dL 255-450 [facility] Iron saturation [Mass Fracti on] in Serum or PlasmaOrdered By: Luciano Ramirez on 03-18-2023 Iron saturation [Mass fraction] 10.0 % 20-50 [facility] Leukocytes [#/volume] correc lebron for nucleated erythrocytes in Blood by Automated counOrdered By: Luciano Ramirez on 03-18-2023 WBC corrected for nucl RBC Auto (Bld) [#/Vol] 2.8 10*3/uL 4.1-10.5 [facility] Lymphocytes Auto (Bld) [#/Vo l]Ordered By: Luciano Ramirez on 03-18-2023 Lymphocytes (Bld) [#/Vol] 0.9 10*3/uL 1.00-4.8 [facility] Lymphocytes/100 WBC Auto (Bl d)Ordered By: Luciano Ramirez on 03-18-2023 Lymphocytes/100 WBC (Bld) 33.2 % . [facility] MCH Auto (RBC) [Entitic mass ]Ordered By: Luciano Ramirez on 03-18-2023 MCH (RBC) [Entitic mass] 28.9 pg 27.5-35.2 [facility] MCHC Auto (RBC) [Mass/Vol]Or dered By: Luciano Ramirez on 03-18-2023 MCHC (RBC) [Mass/Vol] 32.6 g/dL 32.5-35.6 [facility] MCV Auto (RBC) [Entitic vol] Ordered By: Luciano Ramirez on 03-18-2023 MCV (RBC) [Entitic vol] 88.7 fL 83.5-101 [facility] Monocytes Auto (Bld) [#/Vol] Ordered By: Luciano Ramirez on 03-18-2023 Monocytes (Bld) [#/Vol] 0.3 10*3/uL 0.0-0.8 [facility] Monocytes/100 WBC Auto (Bld) Ordered By: Luciano Ramirez on 03-18-2023 Monocytes/100 WBC (Bld) 10.0 % . [facility] Neutrophils Auto (Bld) [#/Vo l]Ordered By: Luciano Ramirez on 03-18-2023 Neutrophils (Bld) [#/Vol] 1.5 10*3/uL 1.8-7.7 [facility] Neutrophils/100 WBC Auto (Bl d)Ordered By: Luciano Ramirez on 03-18-2023 Neutrophils/100 WBC (Bld) 54.6 % . [facility] No Panel InformationOrdered By: Luciano Ramirez on 03-18-2023 Estimated GFR (CKD-EPI) > 60.0 mL/Min [facility] Creatinine Clearance (Chem 68.72 [facility] Nucleated erythrocytes [Pres ence] in Blood by Automated countOrdered By: Luciano Ramirez on 03-18-2023 Nucleated RBC Auto Ql (Bld) 0.1 /100{WBC} 0-0.5 [facility] Platelet mean volume Auto (B ld) [Entitic vol]Ordered By: Luciano Ramirez on 03-18-2023 Platelet mean volume (Bld) [Entitic vol] 9.0 fL 6.6-10.1 [facility] Platelets Auto (Bld) [#/Vol] Ordered By: Luciano Ramirez on 03-18-2023 Platelets (Bld) [#/Vol] 51 10*3/uL 150-450 [facility] Potassium [Moles/volume] in Serum or PlasmaOrdered By: Luciano Ramirez on 03-18-2023 Potassium [Moles/Vol] 4.6 mmol/L 3.5-5.1 [facility] Protein [Mass/volume] in Ser um or PlasmaOrdered By: Luciano Ramirez on 03-18-2023 Protein [Mass/Vol] 6.7 g/dL 6.4-8.9 [facility] RBC Auto (Bld) [#/Vol]Ordere d By: Luciano Ramirez on 03-18-2023 RBC (Bld) [#/Vol] 3.51 10*6/uL 3.90-5.60 [facility] Serum or plasma albumin/glob ulin mass ratioOrdered By: Luciano Ramirez on 03-18-2023 Albumin/Globulin [Mass ratio] 1.5 {ratio} [facility] Serum or plasma anion gap de terminationOrdered By: Luciano Ramirez on 03-18-2023 Anion gap [Moles/Vol] 10.9 mmol/L 6.0-15.0 [facility] Sodium [Moles/volume] in Ser um or PlasmaOrdered By: Luciano Ramirez on 03-18-2023 Sodium [Moles/Vol] 138 mmol/L 136-145 [facility] Transferrin [Mass/volume] in Serum or PlasmaOrdered By: Luciano Ramirez on 03-18-2023 Transferrin [Mass/Vol] 358 mg/dL 203-362 [facility] Urea nitrogen [Mass/volume] in Serum or PlasmaOrdered By: Luciano Ramirez on 03-18-2023 Urea nitrogen [Mass/Vol] 21 mg/dL 7-25 [facility] WBC Auto (Bld) [#/Vol]Ordere d By: Luciano Ramirez on 03-18-2023 WBC (Bld) [#/Vol] 2.8 10*3/uL 4.1-10.5 [facility] Complete Blood Count Auto Di ffon 03-04-2023 Basophils (Bld) [#/Vol] 0.0 10*3/uL Normal 0.0-0.2 [facility] Comment on above: Result Comment: PERF ORMED BY: [place] [place] [address] PATHOLOGIST WATCH ENGINEER AGGIE ENGLISH M.D. Performed By: #### P TT, PT #### [facility] [address] [place] [address] [place] Basophils/100 WBC (Bld) 0.2 % Normal . [facility] Comment on above: Performed By: #### P TT, PT #### [facility] [address] [place] [address] [place] Eosinophils (Bld) [#/Vol] 0.0 10*3/uL Normal 0.0-0.45 [facility] Comment on above: Performed By: #### P TT, PT #### [facility] [address] [place] [address] [place] Eosinophils/100 WBC (Bld) 1.1 % Normal . [facility] Comment on above: Performed By: #### P TT, PT #### [address] Erythrocyte distribution width (RBC) [Ratio] 14.8 % Normal 12.0-14.8 [facility] Comment on above: Performed By: #### P TT, PT #### [address] Hematocrit (Bld) [Volume fraction] 32.7 % Low 38.8-50.0 [facility] Comment on above: Performed By: #### P TT, PT #### [address] Hemoglobin (Bld) [Mass/Vol] 10.7 g/dL Low 13.0-17.0 [facility] Comment on above: Performed By: #### P TT, PT #### [address] Lymphocytes (Bld) [#/Vol] 1.0 10*3/uL Normal 1.00-4.8 [facility] Comment on above: Performed By: #### P TT, PT #### [address] Lymphocytes/100 WBC (Bld) 31.9 % Normal . [facility] Comment on above: Performed By: #### P TT, PT #### [address] MCH (RBC) [Entitic mass] 29.0 pg Normal 27.5-35.2 [facility] Comment on above: Performed By: #### P TT, PT #### [address] MCV (RBC) [Entitic vol] 88.7 fL Normal 83.5-101 [facility] Comment on above: Performed By: #### P TT, PT #### [address] Mean Corpuscular HGB Conc 32.7 g/dL Normal 32.5-35.6 [facility] Comment on above: Performed By: #### P TT, PT #### [facility] [address] [place] [address] [place] Monocytes (Bld) [#/Vol] 0.2 10*3/uL Normal 0.0-0.8 [facility] Comment on above: Performed By: #### P TT, PT #### [facility] [address] [place] [address] [place] Monocytes/100 WBC (Bld) 8.3 % Normal . [facility] Comment on above: Performed By: #### P TT, PT #### [facility] [address] Neutrophils (Bld) [#/Vol] 1.7 10*3/uL Low 1.8-7.7 [facility] Comment on above: Performed By: #### P TT, PT #### [address] Neutrophils/100 WBC (Bld) 58.5 % Normal . [facility] Comment on above: Performed By: #### P TT, PT #### [facility] [address] [place] [address] NRBC% 0.3 /100{WBC} Normal 0-0.5 [facility] Comment on above: Performed By: #### P TT, PT #### [facility] [address] Platelet mean volume (Bld) [Entitic vol] 9.6 fL Normal 6.6-10.1 [facility] Comment on above: Performed By: #### P TT, PT #### [facility] [address] [place] [address] [place] Platelets (Bld) [#/Vol] 59 10*3/uL Low 150-450 [facility] Comment on above: Performed By: #### P TT, PT #### [facility] [address] [place] [address] [place] RBC (Bld) [#/Vol] 3.69 10*6/uL Low 3.90-5.60 [facility] Comment on above: Performed By: #### P TT, PT #### [facility] [address] [place] [address] WBC (Bld) [#/Vol] 3.0 10*3/uL Low 4.1-10.5 [facility] Comment on above: Performed By: #### P TT, PT #### [address] Ferritinon 03-04-2023 Ferritin [Mass/Vol] 6.6 ng/mL Low 23.9-336.2 [facility] Comment on above: Result Comment: PERF ORMED BY: [place] [place] [address] PATHOLOGIST WATCH ENGINEER AGGIE ENGLISH M.D. Performed By: #### P TT, PT #### [address] Iron and TIBC Profileon 02-21 % Iron Saturation 8.4 % Low 20-50 [facility] Comment on above: Performed By: #### P TT, PT #### [address] Iron [Mass/Vol] 44 ug/dL Low 50-212 [facility] Comment on above: Performed By: #### P TT, PT #### [address] Total Iron Binding Capacity 525 ug/dL High 255-450 [facility] Comment on above: Performed By: #### P TT, PT #### [address] Transferrin [Mass/Vol] 375 mg/dL High 203-362 [facility] Comment on above: Performed By: #### P TT, PT #### [address] Complete Blood Count Auto Di ffon 02-10-2023 Basophils (Bld) [#/Vol] 0.0 10*3/uL Normal 0.0-0.2 [facility] Comment on above: Result Comment: PERF ORMED BY: [place] [place] [address] PATHOLOGIST WATCH ENGINEER AGGIE ENGLISH M.D. Performed By: #### P TT, PT #### [address] Basophils/100 WBC (Bld) 0.3 % Normal . [facility] Comment on above: Performed By: #### P TT, PT #### [facility] [address] [place] [address] [place] Eosinophils (Bld) [#/Vol] 0.0 10*3/uL Normal 0.0-0.45 [facility] Comment on above: Performed By: #### P TT, PT #### [address] Eosinophils/100 WBC (Bld) 0.9 % Normal . [facility] Comment on above: Performed By: #### P TT, PT #### [address] Erythrocyte distribution width (RBC) [Ratio] 13.9 % Normal 12.0-14.8 [facility] Comment on above: Performed By: #### P TT, PT #### [address] Hematocrit (Bld) [Volume fraction] 32.3 % Low 38.8-50.0 [facility] Comment on above: Performed By: #### P TT, PT #### [place] [address] [place] Hemoglobin (Bld) [Mass/Vol] 10.7 g/dL Low 13.0-17.0 [facility] Comment on above: Performed By: #### P TT, PT #### [address] Lymphocytes (Bld) [#/Vol] 1.3 10*3/uL Normal 1.00-4.8 [facility] Comment on above: Performed By: #### P TT, PT #### [address] Lymphocytes/100 WBC (Bld) 32.0 % Normal . [facility] Comment on above: Performed By: #### P TT, PT #### [address] MCH (RBC) [Entitic mass] 29.6 pg Normal 27.5-35.2 [facility] Comment on above: Performed By: #### P TT, PT #### [address] MCV (RBC) [Entitic vol] 89.3 fL Normal 83.5-101 [facility] Comment on above: Performed By: #### P TT, PT #### [address] Mean Corpuscular HGB Conc 33.1 g/dL Normal 32.5-35.6 [facility] Comment on above: Performed By: #### P TT, PT #### [address] Monocytes (Bld) [#/Vol] 0.4 10*3/uL Normal 0.0-0.8 [facility] Comment on above: Performed By: #### P TT, PT #### [address] Monocytes/100 WBC (Bld) 9.4 % Normal . [facility] Comment on above: Performed By: #### P TT, PT #### [address] Neutrophils (Bld) [#/Vol] 2.3 10*3/uL Normal 1.8-7.7 [facility] Comment on above: Performed By: #### P TT, PT #### [address] Neutrophils/100 WBC (Bld) 57.4 % Normal . [facility] Comment on above: Performed By: #### P TT, PT #### [place] [address] [place] NRBC% 0.1 /100{WBC} Normal 0-0.5 [facility] Comment on above: Performed By: #### P TT, PT #### [address] Platelet mean volume (Bld) [Entitic vol] 9.3 fL Normal 6.6-10.1 [facility] Comment on above: Performed By: #### P TT, PT #### [address] Platelets (Bld) [#/Vol] 61 10*3/uL Low 150-450 [facility] Comment on above: Performed By: #### P TT, PT #### [address] RBC (Bld) [#/Vol] 3.62 10*6/uL Low 3.90-5.60 [facility] Comment on above: Performed By: #### P TT, PT #### [address] WBC (Bld) [#/Vol] 3.9 10*3/uL Low 4.1-10.5 [facility] Comment on above: Performed By: #### P TT, PT #### [address] Ferritinon 02-10-2023 Ferritin [Mass/Vol] 9.5 ng/mL Low 23.9-336.2 [facility] Comment on above: Result Comment: PERF ORMED BY: [place] [place] [address] PATHOLOGIST WATCH ENGINEER AGGIE ENGLISH M.D. Performed By: #### P TT, PT #### [address] Iron and TIBC Profileon 01-22 % Iron Saturation 16.1 % Low 20-50 [facility] Comment on above: Performed By: #### P TT, PT #### [address] Iron [Mass/Vol] 85 ug/dL Normal 50-212 [facility] Comment on above: Performed By: #### P TT, PT #### [facility] [address] Total Iron Binding Capacity 528 ug/dL High 255-450 [facility] Comment on above: Performed By: #### P TT, PT #### [facility] [address] Transferrin [Mass/Vol] 377 mg/dL High 203-362 [facility] Comment on above: Performed By: #### P TT, PT #### [facility] [address] Basophils Auto (Bld) [#/Vol] Ordered By: Estevan Lester on 12-16-2022 Basophils (Bld) [#/Vol] 0.0 10*3/uL 0.0-0.2 [facility] Basophils/100 WBC Auto (Bld) Ordered By: Estevan Lester on 12-16-2022 Basophils/100 WBC (Bld) 0.3 % . [facility] Eosinophils Auto (Bld) [#/Vo l]Ordered By: Estevan Lester on 12-16-2022 Eosinophils (Bld) [#/Vol] 0.0 10*3/uL 0.0-0.45 [facility] Eosinophils/100 WBC Auto (Bl d)Ordered By: Estevan Lester on 12-16-2022 Eosinophils/100 WBC (Bld) 1.0 % . [facility] Erythrocyte distribution wid th Auto (RBC) [Ratio]Ordered By: Estevan Lester on 12-16-2022 Erythrocyte distribution width (RBC) [Ratio] 15.2 % 12.0-14.8 [facility] Glucose Glucometer (BldC) [M ass/Vol]Ordered By: Estevan Lester on 12-16-2022 Glucose [Mass/Vol] 230 mg/dL [facility] Comment on above: Random Glucose Refer ence Range is dependent on time and content of last meal. Glucose of more than 200 mg/dL in a nonstressed, ambulatory subject supports the diagnosis of Diabetes Mellitus. Hematocrit Auto (Bld) [Volum e fraction]Ordered By: Estevan Lester on 12-16-2022 Hematocrit (Bld) [Volume fraction] 31.5 % 38.8-50.0 [facility] Hemoglobin [Mass/volume] in BloodOrdered By: Estevan Lester on 12-16-2022 Hemoglobin (Bld) [Mass/Vol] 10.5 g/dL 13.0-17.0 [facility] Laboratory - CoagulationOrde red By: Estevan Lester on 12-16-2022 PT Coag (PPP) [Time] 12.9 s 9.0-12.9 [facility] Leukocytes [#/volume] correc lebron for nucleated erythrocytes in Blood by Automated counOrdered By: Estevan Lester on 12-16-2022 WBC corrected for nucl RBC Auto (Bld) [#/Vol] 3.0 10*3/uL 4.1-10.5 [facility] Lymphocytes Auto (Bld) [#/Vo l]Ordered By: Estevan Lester on 12-16-2022 Lymphocytes (Bld) [#/Vol] 0.7 10*3/uL 1.00-4.8 [facility] Lymphocytes/100 WBC Auto (Bl d)Ordered By: Estevan Lester on 12-16-2022 Lymphocytes/100 WBC (Bld) 23.9 % . [facility] MCH Auto (RBC) [Entitic mass ]Ordered By: Estevan Lester on 12-16-2022 MCH (RBC) [Entitic mass] 30.3 pg 27.5-35.2 [facility] MCHC Auto (RBC) [Mass/Vol]Or dered By: Estevan Lester on 12-16-2022 MCHC (RBC) [Mass/Vol] 33.4 g/dL 32.5-35.6 [facility] MCV Auto (RBC) [Entitic vol] Ordered By: Estevan Lester on 12-16-2022 MCV (RBC) [Entitic vol] 90.9 fL 83.5-101 [facility] Monocytes Auto (Bld) [#/Vol] Ordered By: Estevan Lester on 12-16-2022 Monocytes (Bld) [#/Vol] 0.3 10*3/uL 0.0-0.8 [facility] Monocytes/100 WBC Auto (Bld) Ordered By: Esetvan Lester on 12-16-2022 Monocytes/100 WBC (Bld) 10.1 % . [facility] Neutrophils Auto (Bld) [#/Vo l]Ordered By: Estevan Lester on 12-16-2022 Neutrophils (Bld) [#/Vol] 2.0 10*3/uL 1.8-7.7 [facility] Neutrophils/100 WBC Auto (Bl d)Ordered By: Estevan Lester on 12-16-2022 Neutrophils/100 WBC (Bld) 64.7 % . [facility] No Panel InformationOrdered By: Estevan Lester on 12-16-2022 Bedside Glucose Comment Glu2: cleaned meter [facility] Nucleated erythrocytes [Pres ence] in Blood by Automated countOrdered By: Estevan Lester on 12-16-2022 Nucleated RBC Auto Ql (Bld) 0.2 /100{WBC} 0-0.5 [facility] Platelet mean volume Auto (B ld) [Entitic vol]Ordered By: Estevan Lester on 12-16-2022 Platelet mean volume (Bld) [Entitic vol] 8.6 fL 6.6-10.1 [facility] Platelet poor plasma interna tional normalized ratio (INR) by coagulation assay (relatOrdered By: Estevan Lester on 12-16-2022 INR Coag (PPP) [Relative time] 1.1 {INR} [facility] Comment on above: INR Therapeutic Rang e A) Pre- and Peroperative OAT started two weeks before surgery. NOT HIP SURGERY: 1.5 - 2.5 HIP SURGERY: 2 - 3B) Primary and secondary prevention of venous THROMBOSIS: 2 - 3C) Active venous thrombosis, pulmonary embolismand prevention of recurrent venous thrombosis: 2 - 3D) Prevention of arterial thromboembolismincluding patients with mechanical heart valves: 3 - 4.5 Platelets Auto (Bld) [#/Vol] Ordered By: Estevan Lester on 12-16-2022 Platelets (Bld) [#/Vol] 54 10*3/uL 150-450 [facility] RBC Auto (Bld) [#/Vol]Ordere d By: Estevan Lester on 12-16-2022 RBC (Bld) [#/Vol] 3.46 10*6/uL 3.90-5.60 [facility] WBC Auto (Bld) [#/Vol]Ordere d By: Estevan Lester on 12-16-2022 WBC (Bld) [#/Vol] 3.0 10*3/uL 4.1-10.5 [facility] Basophils Auto (Bld) [#/Vol] Ordered By: Luciano Ramirez on 12-15-2022 Basophils (Bld) [#/Vol] 0.0 10*3/uL 0.0-0.2 [facility] Basophils/100 WBC Auto (Bld) Ordered By: Luciano Ramirez on 12-15-2022 Basophils/100 WBC (Bld) 0.4 % . [facility] CT biopsyOrdered By: Luciano Ramirez on 12-15-2022 Transferrin [Mass/Vol] 337 mg/dL 180-380 [facility] Eosinophils Auto (Bld) [#/Vo l]Ordered By: Luciano Ramirez on 12-15-2022 Eosinophils (Bld) [#/Vol] 0.0 10*3/uL 0.0-0.45 [facility] Eosinophils/100 WBC Auto (Bl d)Ordered By: Luciano Ramirez on 12-15-2022 Eosinophils/100 WBC (Bld) 1.4 % . [facility] Erythrocyte distribution wid th Auto (RBC) [Ratio]Ordered By: Luciano Ramirez on 12-15-2022 Erythrocyte distribution width (RBC) [Ratio] 15.7 % 12.0-14.8 [facility] Ferritin [Mass/volume] in Se rum or PlasmaOrdered By: Luciano Ramirez on 12-15-2022 Ferritin [Mass/Vol] See comment 23.9-336.2 [facility] Comment on above: REDRAW SPECIMEN Hematocrit Auto (Bld) [Volum e fraction]Ordered By: Luciano Ramirez on 12-15-2022 Hematocrit (Bld) [Volume fraction] 33.3 % 38.8-50.0 [facility] Hemoglobin [Mass/volume] in BloodOrdered By: Luciano Ramirez on 12-15-2022 Hemoglobin (Bld) [Mass/Vol] 10.9 g/dL 13.0-17.0 [facility] Iron [Mass/volume] in Serum or PlasmaOrdered By: Luciano Ramirez on 12-15-2022 Iron [Mass/Vol] 64 ug/dL 40-160 [facility] Iron binding capacity [Mass/ volume] in Serum or PlasmaOrdered By: Luciano Ramirez on 12-15-2022 Iron binding capacity [Mass/Vol] 472 ug/dL 255-450 [facility] Iron saturation [Mass Fracti on] in Serum or PlasmaOrdered By: Luciano Ramirez on 12-15-2022 Iron saturation [Mass fraction] 13.6 % 20-50 [facility] Leukocytes [#/volume] correc lebron for nucleated erythrocytes in Blood by Automated counOrdered By: Luciano Ramirez on 12-15-2022 WBC corrected for nucl RBC Auto (Bld) [#/Vol] 3.5 10*3/uL 4.1-10.5 [facility] Lymphocytes Auto (Bld) [#/Vo l]Ordered By: Luciano Ramirez on 12-15-2022 Lymphocytes (Bld) [#/Vol] 1.1 10*3/uL 1.00-4.8 [facility] Lymphocytes/100 WBC Auto (Bl d)Ordered By: Luciano Ramirez on 12-15-2022 Lymphocytes/100 WBC (Bld) 31.2 % . [facility] MCH Auto (RBC) [Entitic mass ]Ordered By: Luciano Ramirez on 12-15-2022 MCH (RBC) [Entitic mass] 30.0 pg 27.5-35.2 [facility] MCHC Auto (RBC) [Mass/Vol]Or dered By: Luciano Ramirez on 12-15-2022 MCHC (RBC) [Mass/Vol] 32.7 g/dL 32.5-35.6 [facility] MCV Auto (RBC) [Entitic vol] Ordered By: Luciano Ramirez on 12-15-2022 MCV (RBC) [Entitic vol] 91.5 fL 83.5-101 [facility] Monocytes Auto (Bld) [#/Vol] Ordered By: Luciano Ramirez on 12-15-2022 Monocytes (Bld) [#/Vol] 0.3 10*3/uL 0.0-0.8 [facility] Monocytes/100 WBC Auto (Bld) Ordered By: Luciano Ramirez on 12-15-2022 Monocytes/100 WBC (Bld) 9.7 % . [facility] Neutrophils Auto (Bld) [#/Vo l]Ordered By: Luciano Ramirez on 12-15-2022 Neutrophils (Bld) [#/Vol] 2.0 10*3/uL 1.8-7.7 [facility] Neutrophils/100 WBC Auto (Bl d)Ordered By: Luciano Ramirez on 12-15-2022 Neutrophils/100 WBC (Bld) 57.3 % . [facility] Nucleated erythrocytes [Pres ence] in Blood by Automated countOrdered By: Luciano Ramirez on 12-15-2022 Nucleated RBC Auto Ql (Bld) 0.2 /100{WBC} 0-0.5 [facility] Platelet mean volume Auto (B ld) [Entitic vol]Ordered By: Luciano Ramirez on 12-15-2022 Platelet mean volume (Bld) [Entitic vol] 8.9 fL 6.6-10.1 [facility] Platelets Auto (Bld) [#/Vol] Ordered By: Luciano Ramirez on 12-15-2022 Platelets (Bld) [#/Vol] 71 10*3/uL 150-450 [facility] RBC Auto (Bld) [#/Vol]Ordere d By: Luciano Ramirez on 12-15-2022 RBC (Bld) [#/Vol] 3.64 10*6/uL 3.90-5.60 [facility] WBC Auto (Bld) [#/Vol]Ordere d By: Luciano Ramirez on 12-15-2022 WBC (Bld) [#/Vol] 3.5 10*3/uL 4.1-10.5 [facility] Laboratory - Hematology and Cell countsOrdered By: Luciano Ramirez on 10-09-2022 Nucleated RBC/100 WBC (Bld) [Ratio] 0.2 % 0-0.5 [facility] Basophils Auto (Bld) [#/Vol] Ordered By: Alisha Soares on 09-15-2022 Basophils (Bld) [#/Vol] 0.0 10*3/uL 0.0-0.2 [facility] Basophils/100 WBC Auto (Bld) Ordered By: Alisha Soares on 09-15-2022 Basophils/100 WBC (Bld) 0.3 % . [facility] CT biopsyOrdered By: Alisha Gonzalez on 09-15-2022 Transferrin [Mass/Vol] 396 mg/dL 180-380 [facility] Eosinophils Auto (Bld) [#/Vo l]Ordered By: Alisha Soares on 09-15-2022 Eosinophils (Bld) [#/Vol] 0.0 10*3/uL 0.0-0.45 [facility] Eosinophils/100 WBC Auto (Bl d)Ordered By: Alisha Soares on 09-15-2022 Eosinophils/100 WBC (Bld) 1.2 % . [facility] Erythrocyte distribution wid th Auto (RBC) [Ratio]Ordered By: Alisha Soares on 09-15-2022 Erythrocyte distribution width (RBC) [Ratio] 16.3 % 12.0-14.8 [facility] Ferritin [Mass/volume] in Se rum or PlasmaOrdered By: Alisha Soares on 09-15-2022 Ferritin [Mass/Vol] 29.4 ng/mL 23.9-336.2 [facility] Hematocrit Auto (Bld) [Volum e fraction]Ordered By: Alisha Soares on 09-15-2022 Hematocrit (Bld) [Volume fraction] 30.3 % 38.8-50.0 [facility] Hemoglobin [Mass/volume] in BloodOrdered By: Alisha Soares on 09-15-2022 Hemoglobin (Bld) [Mass/Vol] 9.7 g/dL 13.0-17.0 [facility] Iron [Mass/volume] in Serum or PlasmaOrdered By: Alisha Soares on 09-15-2022 Iron [Mass/Vol] 42 ug/dL 40-160 [facility] Iron binding capacity [Mass/ volume] in Serum or PlasmaOrdered By: Alisha Soares on 09-15-2022 Iron binding capacity [Mass/Vol] 554 ug/dL 255-450 [facility] Iron saturation [Mass Fracti on] in Serum or PlasmaOrdered By: Alisha Soares on 09-15-2022 Iron saturation [Mass fraction] 7.0 % 20-50 [facility] Laboratory - Hematology and Cell countsOrdered By: Alisha Soares on 09-15-2022 Nucleated RBC/100 WBC (Bld) [Ratio] 0.1 % 0-0.5 [facility] Leukocytes [#/volume] in Blo od by Automated countOrdered By: Alisha Soares on 09-15-2022 WBC (Bld) [#/Vol] 3.6 10*3/uL 4.5-11.0 [facility] Lymphocytes Auto (Bld) [#/Vo l]Ordered By: Alisha Soares on 09-15-2022 Lymphocytes (Bld) [#/Vol] 1.0 10*3/uL 1.00-4.8 [facility] Lymphocytes/100 WBC Auto (Bl d)Ordered By: Alisha Soares on 09-15-2022 Lymphocytes/100 WBC (Bld) 27.1 % . [facility] MCH Auto (RBC) [Entitic mass ]Ordered By: Alisha Soares on 09-15-2022 MCH (RBC) [Entitic mass] 26.6 pg 27.5-35.2 [facility] MCHC Auto (RBC) [Mass/Vol]Or dered By: Alisha Soares on 09-15-2022 MCHC (RBC) [Mass/Vol] 32.1 g/dL 32.5-35.6 [facility] MCV Auto (RBC) [Entitic vol] Ordered By: Alisha Soares on 09-15-2022 MCV (RBC) [Entitic vol] 83.1 fL 83.5-101 [facility] Monocytes Auto (Bld) [#/Vol] Ordered By: Alisha Soares on 09-15-2022 Monocytes (Bld) [#/Vol] 0.3 10*3/uL 0.0-0.8 [facility] Monocytes/100 WBC Auto (Bld) Ordered By: Alisha Rodger on 09-15-2022 Monocytes/100 WBC (Bld) 8.3 % . [facility] Neutrophils Auto (Bld) [#/Vo l]Ordered By: Alisha Rodger on 09-15-2022 Neutrophils (Bld) [#/Vol] 2.3 10*3/uL 1.8-7.7 [facility] Neutrophils/100 WBC Auto (Bl d)Ordered By: Alisha Rodger on 09-15-2022 Neutrophils/100 WBC (Bld) 63.1 % . [facility] Platelet mean volume Auto (B ld) [Entitic vol]Ordered By: Alisha Rodger on 09-15-2022 Platelet mean volume (Bld) [Entitic vol] 8.9 fL 6.6-10.1 [facility] Platelets Auto (Bld) [#/Vol] Ordered By: Alisha Rodger on 09-15-2022 Platelets (Bld) [#/Vol] 77 10*3/uL 150-450 [facility] RBC Auto (Bld) [#/Vol]Ordere d By: Alisha Rodger on 09-15-2022 RBC (Bld) [#/Vol] 3.65 10*6/uL 3.90-5.60 [facility] Glucose Glucometer (dC) [M ass/Vol]Ordered By: Estevan Lester on 09-09-2022 Glucose [Mass/Vol] 139 mg/dL [facility] Comment on above: Random Glucose Refer ence Range is dependent on time and content of last meal. Glucose of more than 200 mg/dL in a nonstressed, ambulatory subject supports the diagnosis of Diabetes Mellitus. No Panel InformationOrdered By: Estevan Lester on 09-09-2022 Bedside Glucose Comment Glu2: cleaned meter [facility] COVID-19 Positive/NegativeOr dered By: Estevan Lester on 09-05-2022 SARS-CoV-2 (COVID-19) N gene SHERI+probe Ql (Resp) Negative Negative [facility] Comment on above: Testing for SARS-CoV -2 by RT-PCRThis test was developed and its performance characteristics determined by [employer] ([employer]) and validated at the [facility]. This test has not been FDA cleared or approved. This test has been authorized by FDA under an Emergency Use Authorization (EUA). This test has been validated in accordance with the FDA's Guidance Document (Policy for Diagnostics Testing in Laboratories Certified to Perform High Complexity Testing under CLIA prior to Emergency Use Authorization for Coronavirus Disease-2019 during the Public Health Emergency) issued on February 23, 2020. This test is only authorized for the duration of time the declaration that circumstances exist justifying the authorization of the emergency use of in vitro diagnostic tests for detection of SARS-CoV-2 virus and/or diagnosis of COVID-19 infection under section 564(b)(1) of the Act, 21 U.S.C. 360bbb-3(b)(1), unless the authorization is terminated or revoked sooner. Actin smooth muscle IgG Ab [ Units/volume] in SerumOrdered By: Estevan Lester on 08-15-2022 Actin smooth muscle IgG Qn (S) 10 Units 0-19 [facility] Comment on above: Negative 0 - 19 Weak positive 20 - 30 Moderate to strong positive >30 Actin Antibodies are found in 52-85% of patients with autoimmune hepatitis or chronic active hepatitis and in 22% of patients with primary biliary cirrhosis.Performed at: [facility] [id number] Director: Otis Sanders PhD, Phone: [phone] Albumin [Mass/volume] in Ser um or PlasmaOrdered By: Estevan Lester on 08-15-2022 Albumin [Mass/Vol] 3.8 g/dL 3.2-5.5 [facility] Basophils Auto (Bld) [#/Vol] Ordered By: Estevan Lester on 08-15-2022 Basophils (Bld) [#/Vol] 0.0 10*3/uL 0.0-0.2 [facility] Basophils/100 WBC Auto (Bld) Ordered By: Estevan Lester on 08-15-2022 Basophils/100 WBC (Bld) 0.3 % . [facility] CT biopsyOrdered By: Estevan Lester on 08-15-2022 Transferrin [Mass/Vol] 392 mg/dL 180-380 [facility] Cholesterol [Mass/volume] in Serum or PlasmaOrdered By: Estevan Lester on 08-15-2022 Cholesterol [Mass/Vol] 119 mg/dL 140-200 [facility] Comment on above: Chol less than 200 m g/dl low riskChol 201-239 mg/dl borderline riskChol 240 mg/dl and greater high risk Cholesterol in LDL Calc [Mas s/Vol]Ordered By: Estevan Lester on 08-15-2022 Cholesterol in LDL [Mass/Vol] 68 mg/dL 0-100 [facility] Comment on above: LDL ATP III CLASSIFI CATIONLDL less than 100 mg/dL OptimalLDL 100-129 mg/dL Near or above optimalLDL 130-159 mg/dL Borderline highLDL 160-189 mg/dL HighLDL greater than 189 mg/dL Very high Cholesterol in VLDL Calc [Ma ss/Vol]Ordered By: Estevan Lester on 08-15-2022 Cholesterol in VLDL [Mass/Vol] 16 mg/dL [facility] Creatinine and Glomerular fi ltration rate.predicted panel (S/P/Bld)Ordered By: Estevan Lester on 08-15-2022 Creatinine [Mass/Vol] 0.82 mg/dL 0.64-1.27 [facility] Direct bilirubin measurement Ordered By: Estevan Lester on 08-15-2022 Bilirubin.direct [Mass/Vol] 0.2 mg/dL 0.0-0.4 [facility] Eosinophils Auto (Bld) [#/Vo l]Ordered By: Estevan Lester on 08-15-2022 Eosinophils (Bld) [#/Vol] 0.0 10*3/uL 0.0-0.45 [facility] Eosinophils/100 WBC Auto (Bl d)Ordered By: Estevan Lester on 08-15-2022 Eosinophils/100 WBC (Bld) 0.5 % . [facility] Erythrocyte distribution wid th Auto (RBC) [Ratio]Ordered By: Estevan Lester on 08-15-2022 Erythrocyte distribution width (RBC) [Ratio] 15.3 % 12.0-14.8 [facility] Estimated glomerular filtrat ion rate (GFR) non- AmericanOrdered By: Estevan Lester on 08-15-2022 GFR/1.73 sq M.predicted among non-blacks MDRD (S/P/Bld) [Vol rate/Area] > 60 mL/Min [facility] Ferritin [Mass/volume] in Se rum or PlasmaOrdered By: Estevan Lester on 08-15-2022 Ferritin [Mass/Vol] 6.4 ng/mL 23.9-336.2 [facility] Globulin Calc (S) [Mass/Vol] Ordered By: Estevan Lester on 08-15-2022 Globulin (S) [Mass/Vol] 3.1 g/dL [facility] Hematocrit Auto (Bld) [Volum e fraction]Ordered By: Estevan Lester on 08-15-2022 Hematocrit (Bld) [Volume fraction] 31.8 % 38.8-50.0 [facility] Hemoglobin [Mass/volume] in BloodOrdered By: Estevan Lester on 08-15-2022 Hemoglobin (Bld) [Mass/Vol] 10.3 g/dL 13.0-17.0 [facility] Hepatitis B virus surface Ag [Presence] in Serum or Plasma by ImmunoassayOrdered By: Estevan Lester on 08-15-2022 HBV surface Ag IA Ql Negative Negative [facility] Iron [Mass/volume] in Serum or PlasmaOrdered By: Estevan Lester on 08-15-2022 Iron [Mass/Vol] 40 ug/dL 40-160 [facility] Iron binding capacity [Mass/ volume] in Serum or PlasmaOrdered By: Estevan Lester on 08-15-2022 Iron binding capacity [Mass/Vol] 549 ug/dL 255-450 [facility] Iron saturation [Mass Fracti on] in Serum or PlasmaOrdered By: Estevan Lester on 08-15-2022 Iron saturation [Mass fraction] 7.0 % 20-50 [facility] Laboratory - CoagulationOrde red By: Estevan Lester on 08-15-2022 PT Coag (PPP) [Time] 12.8 s 9.0-12.9 [facility] - Hematology and Cell countsOrdered By: Estevan Lester on 08-15-2022 Nucleated RBC/100 WBC (Bld) [Ratio] 0.0 % 0-0.5 [facility] Leukocytes [#/volume] in Blo od by Automated countOrdered By: Estevan Lester on 08-15-2022 WBC (Bld) [#/Vol] 2.9 10*3/uL 4.5-11.0 [facility] Lymphocytes Auto (Bld) [#/Vo l]Ordered By: Estevan Lester on 08-15-2022 Lymphocytes (Bld) [#/Vol] 0.6 10*3/uL 1.00-4.8 [facility] Lymphocytes/100 WBC Auto (Bl d)Ordered By: Estevan Lester on 08-15-2022 Lymphocytes/100 WBC (Bld) 19.3 % . [facility] MCH Auto (RBC) [Entitic mass ]Ordered By: Estevan Lester on 08-15-2022 MCH (RBC) [Entitic mass] 27.2 pg 27.5-35.2 [facility] MCHC Auto (RBC) [Mass/Vol]Or dered By: Estevan Lester on 08-15-2022 MCHC (RBC) [Mass/Vol] 32.4 g/dL 32.5-35.6 [facility] MCV Auto (RBC) [Entitic vol] Ordered By: Estevan Lester on 08-15-2022 MCV (RBC) [Entitic vol] 83.9 fL 83.5-101 [facility] Monocytes Auto (Bld) [#/Vol] Ordered By: Estevan Lester on 08-15-2022 Monocytes (Bld) [#/Vol] 0.2 10*3/uL 0.0-0.8 [facility] Monocytes/100 WBC Auto (Bld) Ordered By: Estevan Lester on 08-15-2022 Monocytes/100 WBC (Bld) 6.8 % . [facility] Neutrophils Auto (Bld) [#/Vo l]Ordered By: Estevan Lester on 08-15-2022 Neutrophils (Bld) [#/Vol] 2.1 10*3/uL 1.8-7.7 [facility] Neutrophils/100 WBC Auto (Bl d)Ordered By: Estevan Lester on 08-15-2022 Neutrophils/100 WBC (Bld) 73.1 % . [facility] No Panel InformationOrdered By: Estevan Lester on 08-15-2022 Estimated GFR () > 60 mL/Min [facility] Comment on above: GFR estimated refere nce range: According to KDOQI guidelines, <60 ml/min/1.73m2 is sufficient to diagnose a patient with chronic kidney disease. Hepatitis B Core Total Antibody Negative Negative [facility] Comment on above: Performed at: [facility] [employer] [address] [id number] Director: Otis Sanders PhD, Phone: [phone] Hepatitis C Interpretation See comment . [facility] Comment on above: NegativeNot infected with HCV, unless recent infection issuspected or other evidence exists to indicate HCVinfection. Hepatitis C RNA Quantitative N/A [facility] Creatinine Clearance (Chem N/A [facility] Platelet mean volume Auto (B ld) [Entitic vol]Ordered By: Estevan Lester on 08-15-2022 Platelet mean volume (Bld) [Entitic vol] 8.6 fL 6.6-10.1 [facility] Platelet poor plasma interna tional normalized ratio (INR) by coagulation assay (relatOrdered By: Estevan Lester on 08-15-2022 INR Coag (PPP) [Relative time] 1.1 {INR} [facility] Comment on above: INR Therapeutic Rang e A) Pre- and Peroperative OAT started two weeks before surgery. NOT HIP SURGERY: 1.5 - 2.5 HIP SURGERY: 2 - 3B) Primary and secondary prevention of venous THROMBOSIS: 2 - 3C) Active venous thrombosis, pulmonary embolismand prevention of recurrent venous thrombosis: 2 - 3D) Prevention of arterial thromboembolismincluding patients with mechanical heart valves: 3 - 4.5 Platelets Auto (Bld) [#/Vol] Ordered By: Estevan Lester on 08-15-2022 Platelets (Bld) [#/Vol] 68 10*3/uL 150-450 [facility] Protein [Mass/volume] in Ser um or PlasmaOrdered By: Estevan Lester on 08-15-2022 Protein [Mass/Vol] 6.9 g/dL 6.1-7.9 [facility] RBC Auto (Bld) [#/Vol]Ordere d By: Estevan Lester on 08-15-2022 RBC (Bld) [#/Vol] 3.79 10*6/uL 3.90-5.60 [facility] Serum [id number] me asurementOrdered By: Estevan Lester on 08-15-2022 Alpha 1 antitrypsin [Mass/Vol] 173 mg/dL 101-187 [facility] Comment on above: Performed at: [address] Director: Otis Sanders PhD, Phone: [phone] Serum hepatitis B virus surf ida antibody detectionOrdered By: Estevan Lester on 08-15-2022 HBV surface Ab Ql (S) Non-Reactive . [facility] Comment on above: Non Reactive: Incons istent with immunity, less than 10 mIU/mL Reactive: Consistent with immunity, greater than 9.9 mIU/mL Serum or plasma alanine abraham otransferase measurement without P-5'-P (enzymatic activiOrdered By: Estevan Lester on 08-15-2022 ALT No additional P-5'-P [Catalytic activity/Vol] 26 U/L 10-60 [facility] Serum or plasma albumin/glob ulin mass ratioOrdered By: Estevan Lester on 08-15-2022 Albumin/Globulin [Mass ratio] 1.2 {ratio} [facility] Serum or plasma alkaline clayton sphatase measurement (enzymatic activity/volume)Ordered By: Estevan Lester on 08-15-2022 ALP [Catalytic activity/Vol] 63 U/L 32-92 [facility] Serum or plasma [id number] protein tumor marker measurement (mass/volume)Ordered By: Estevan Lester on 08-15-2022 AFP.tumor marker [Mass/Vol] 1.6 ng/mL 0.0-8.4 [facility] Comment on above: [facility] [employer] El ectrochemiluminescence Immunoassay(ECLIA)Values obtained with different assay methods or kits cannotbe used interchangeably. Results cannot be interpreted asabsolute evidence of the presence or absence of malignantdisease.This test is not interpretable in females.Performed at: [facility] [address] [id number] Director: Otis Sanders PhD, Phone: [phone] Serum or plasma anion gap de terminationOrdered By: Estevan Lester on 08-15-2022 Anion gap [Moles/Vol] 14.7 mmol/L 6.0-15.0 [facility] Serum or plasma aspartate am inotransferase measurement (enzymatic activity/volume)Ordered By: Estevan Lester on 08-15-2022 AST [Catalytic activity/Vol] 34 U/L 10-42 [facility] Serum or plasma calcium avelina urement (mass/volume)Ordered By: Estevan Lester on 08-15-2022 Calcium [Mass/Vol] 9.4 mg/dL 8.2-10.2 [facility] Serum or plasma ceruloplasmi n measurement (mass/volume)Ordered By: Estevan Lester on 08-15-2022 Ceruloplasmin [Mass/Vol] 26.4 mg/dL 16.0-31.0 [facility] Serum or plasma chloride veronica surement (moles/volume)Ordered By: Estevan Lester on 08-15-2022 Chloride [Moles/Vol] 101 mmol/L 95-114 [facility] Serum or plasma free cefurox george measurement (mass/volume)Ordered By: Estevan Lester on 08-15-2022 Cefuroxime free [Mass/Vol] Negative Negative [facility] Comment on above: Performed at: [facility] [address] [id number] Director: Otis Sanders PhD, Phone: [phone] Serum or plasma glucose avelina urement (mass/volume)Ordered By: Estevan Lester on 08-15-2022 Glucose [Mass/Vol] 139 mg/dL 70-100 [facility] Comment on above: ADA recommended refe rence rangeRandom Glucose Reference Range is dependent on time and content of last meal. Glucose of more than 200 mg/dL in a nonstressed, ambulatory subject supports the diagnosis of Diabetes Mellitus. Serum or plasma hepatitis C virus antibody signal/cutoff ratio by immunoassay (relatiOrdered By: Estevan Lester on 08-15-2022 HCV Ab Signal/Cutoff IA [Rel units/Vol] <0.1 s/co ratio 0.0-0.9 [facility] Serum or plasma high density lipoprotein (HDL) cholesterol measurementOrdered By: Estevan Lester on 08-15-2022 Cholesterol in HDL [Mass/Vol] 35 mg/dL 29-71 [facility] Comment on above: HDL CHOL ATP-III CLA SSIFICATION Cardiovascular RiskHDL > or equal to 60 mg/dL LOWHDL < 40 mg/dL HIGH Serum or plasma non-glucuron idated bilirubin measurement (mass/volume)Ordered By: Estevan Lester on 08-15-2022 Bilirubin.indirect [Mass/Vol] 0.8 mg/dL [facility] Serum or plasma potassium me asurement (moles/volume)Ordered By: Estevan Lester on 08-15-2022 Potassium [Moles/Vol] 4.3 mmol/L 3.5-5.1 [facility] Serum or plasma sodium measu rement (moles/volume)Ordered By: Estevan Lester on 08-15-2022 Sodium [Moles/Vol] 138 mmol/L 136-146 [facility] Serum or plasma total biliru bin measurement (mass/volume)Ordered By: Estevan Lester on 08-15-2022 Bilirubin [Mass/Vol] 1.0 mg/dL 0.3-1.2 [facility] Serum or plasma total carbon dioxide measurement (moles/volume)Ordered By: Estevan Lester on 08-15-2022 CO2 [Moles/Vol] 26.6 mmol/L 22.0-30.0 [facility] Serum or plasma total choles terol/high density lipoprotein (HDL) cholesterol mass ratOrdered By: Estevan Lester on 08-15-2022 Cholesterol.total/Chol esterol in HDL [Mass ratio] 3.4 {ratio} <5.0 [facility] Serum or plasma urea nitroge n measurement (mass/volume)Ordered By: Estevan Lester on 08-15-2022 Urea nitrogen [Mass/Vol] 12 mg/dL 08-15 [facility] Triglyceride [Mass/volume] i n Serum or PlasmaOrdered By: Estevan Lester on 08-15-2022 Triglyceride [Mass/Vol] 80 mg/dL 35-149 [facility] Comment on above: TRIG ATP III CLASSIF ICATIONTRIG less than 150 mg/dL NormalTRIG 150-199 mg/dL Borderline highTRIG 200-500 mg/dL High TRIG greater than 500 mg/dL Very highStandard traceable to the Center for Disease Conrtrol and Prevention (CDC) test method. HIV 1 and HIV-2 antibody ass ay with HIV-1 p24 antigen detectionOrdered By: Alisha Soares on 07-22-2022 HIV 1+2 Ab+HIV1 p24 Ag IA Ql Non-Reactive Non Reactive [facility] Comment on above: HIV Negative HIV-1/HIV-2 antibodies and HIV-1 p24 antigen were NOT detected. There is no laboratory evidence of HIV infection. Performed at: [facility] [id number] [employer] Operator: Otis Sanders PhD, Phone: [phone] HIV NegativeHIV-1/HI V-2 antibodies and HIV-1 p24 antigen were NOTdetected. There is no laboratory evidence of HIV infection.Performed at: [facility] [id number] Director: Otis Sanders PhD, Phone: [phone] Hepatitis B virus surface Ag [Presence] in Serum or Plasma by ImmunoassayOrdered By: Alisha Soaers on 07-22-2022 HBV surface Ag IA Ql Negative Negative [facility] Monocyte %Ordered By: Alisha tcuker on 07-22-2022 Monocyte % 133 ug/dL 69-132 [facility] Comment on above: This test was christopher deal and its performance characteristics determined by [employer]. It has not been cleared or approved by the Food and Drug Administration. Detection Limit = 5 Performed at: [facility] [employer] [id number] [employer] Operator: Di Matamoros MD, Phone: [phone] This test was develo ped and its performance characteristicsdetermined by [employer]. It has not been cleared orapproved by the Food and Drug Administration. Detection Limit = 5Performed at: [facility] [employer] [id number] Director: Di Matamoros MD, Phone: [phone] No Panel InformationOrdered By: Alisha Soares on 07-22-2022 Hepatitis B Core Total Antibody Negative Negative [facility] Comment on above: Performed at: [facility] [employer] [address] [id number] [employer] Operator: Otis Sanders PhD, Phone: [phone] Performed at: [facility] [address] [id number] Director: Otis Sanders PhD, Phone: [phone] Hepatitis C Interpretation See comment . [facility] Comment on above: Negative Not infected with HCV, unless recent infection is suspected or other evidence exists to indicate HCV infection. NegativeNot infected with HCV, unless recent infection issuspected or other evidence exists to indicate HCVinfection. Hepatitis C RNA Quantitative N/A [facility] Serum hepatitis B virus surf ida antibody detectionOrdered By: Alisha Soares on 07-22-2022 HBV surface Ab Ql (S) Non-Reactive . [facility] Comment on above: Non Reactive: Incons istent with immunity, less than 10 mIU/mL Reactive: Consistent with immunity, greater than 9.9 mIU/mL Non Reactive: Incons istent with immunity, less than 10 mIU/mL Reactive: Consistent with immunity, greater than 9.9 mIU/mL Serum mitochondria M2 IgG an tibody assay (units/volume)Ordered By: Alisha Soares on 07-22-2022 Mitochondria M2 IgG Qn (S) <20.0 Units 0.0-20.0 [facility] Comment on above: Negative 0.0 - 20.0 Equivocal 20.1 - 24.9 Positive >24.9 Mitochondrial (M2) Antibodies are found in 90-96% of patients with primary biliary cirrhosis. Performed at: [facility] [address], [place] [id number] [employer] Operator: Otis Sanders PhD, Phone: [phone] Negative 0.0 - 20.0 Equivocal 20.1 - 24.9 Positive >24.9Mitochondrial (M2) Antibodies are found in 90-96% ofpatients with primary biliary cirrhosis.Performed at: [facility] [employer] [id number] Director: Otis Sanders PhD, Phone: [phone] Serum or plasma hepatitis C virus antibody signal/cutoff ratio by immunoassay (relatiOrdered By: Alisha Soares on 07-22-2022 HCV Ab Signal/Cutoff IA [Rel units/Vol] <0.1 s/co ratio 0.0-0.9 [facility] Basophils Auto (Bld) [#/Vol] Ordered By: John Ventura on 07-04-2022 Basophils (Bld) [#/Vol] 0.0 10*3/uL 0.0-0.2 [facility] Basophils/100 WBC Auto (Bld) Ordered By: John Ventura on 07-04-2022 Basophils/100 WBC (Bld) 0.2 % . [facility] Blood hemoglobin measurement (mass/volume)Ordered By: John Ventura on 07-04-2022 Hemoglobin (Bld) [Mass/Vol] 11.2 g/dL 13.0-17.0 [facility] Blood leukocytes automated c ount (number/volume)Ordered By: John Ventura on 07-04-2022 WBC (Bld) [#/Vol] 2.5 10*3/uL 4.5-11.0 [facility] CT biopsyOrdered By: John hinojosa on 07-04-2022 Transferrin [Mass/Vol] 387 mg/dL 180-380 [facility] Eosinophils Auto (Bld) [#/Vo l]Ordered By: John Ventura on 07-04-2022 Eosinophils (Bld) [#/Vol] 0.0 10*3/uL 0.0-0.45 [facility] Eosinophils/100 WBC Auto (Bl d)Ordered By: John Ventura on 07-04-2022 Eosinophils/100 WBC (Bld) 0.7 % . [facility] Erythrocyte distribution wid th Auto (RBC) [Ratio]Ordered By: John Ventura on 07-04-2022 Erythrocyte distribution width (RBC) [Ratio] 15.4 % 12.0-14.8 [facility] Ferritin [Mass/volume] in Se rum or PlasmaOrdered By: John Ventura on 07-04-2022 Ferritin [Mass/Vol] 7.1 ng/mL 23.9-336.2 [facility] Hematocrit Auto (Bld) [Volum e fraction]Ordered By: John Ventura on 07-04-2022 Hematocrit (Bld) [Volume fraction] 34.5 % 38.8-50.0 [facility] Iron [Mass/volume] in Serum or PlasmaOrdered By: John Ventura on 07-04-2022 Iron [Mass/Vol] 46 ug/dL 40-160 [facility] Iron binding capacity [Mass/ volume] in Serum or PlasmaOrdered By: John Ventura on 07-04-2022 Iron binding capacity [Mass/Vol] 542 ug/dL 255-450 [facility] Iron saturation [Mass Fracti on] in Serum or PlasmaOrdered By: John Ventura on 07-04-2022 Iron saturation [Mass fraction] 8.0 % 20-50 [facility] - Hematology and Cell countsOrdered By: John Ventura on 07-04-2022 Nucleated RBC/100 WBC (Bld) [Ratio] 0.1 % 0-0.5 [facility] Lymphocytes Auto (Bld) [#/Vo l]Ordered By: John Ventura on 07-04-2022 Lymphocytes (Bld) [#/Vol] 0.7 10*3/uL 1.00-4.8 [facility] Lymphocytes/100 WBC Auto (Bl d)Ordered By: John Ventura on 07-04-2022 Lymphocytes/100 WBC (Bld) 27.6 % . [facility] MCH Auto (RBC) [Entitic mass ]Ordered By: John Ventura on 07-04-2022 MCH (RBC) [Entitic mass] 27.8 pg 27.5-35.2 [facility] MCHC Auto (RBC) [Mass/Vol]Or dered By: John Ventura on 07-04-2022 MCHC (RBC) [Mass/Vol] 32.4 g/dL 32.5-35.6 [facility] MCV Auto (RBC) [Entitic vol] Ordered By: John Ventura on 07-04-2022 MCV (RBC) [Entitic vol] 85.8 fL 83.5-101 [facility] Monocytes Auto (Bld) [#/Vol] Ordered By: John Ventura on 07-04-2022 Monocytes (Bld) [#/Vol] 0.2 10*3/uL 0.0-0.8 [facility] Monocytes/100 WBC Auto (Bld) Ordered By: John Ventura on 07-04-2022 Monocytes/100 WBC (Bld) 10.0 % . [facility] Neutrophils Auto (Bld) [#/Vo l]Ordered By: John Ventura on 07-04-2022 Neutrophils (Bld) [#/Vol] 1.5 10*3/uL 1.8-7.7 [facility] Neutrophils/100 WBC Auto (Bl d)Ordered By: John Ventura on 07-04-2022 Neutrophils/100 WBC (Bld) 61.5 % . [facility] Platelet mean volume Auto (B ld) [Entitic vol]Ordered By: John Ventura on 07-04-2022 Platelet mean volume (Bld) [Entitic vol] 8.8 fL 6.6-10.1 [facility] Platelets Auto (Bld) [#/Vol] Ordered By: John Ventura on 07-04-2022 Platelets (Bld) [#/Vol] 69 10*3/uL 150-450 [facility] RBC Auto (Bld) [#/Vol]Ordere d By: John Ventura on 07-04-2022 RBC (Bld) [#/Vol] 4.03 10*6/uL 3.90-5.60 [facility] Creatinine and Glomerular fi ltration rate.predicted panel (S/P/Bld)Ordered By: Lars Zhang on 09-23-2021 Creatinine [Mass/Vol] 0.84 mg/dL 0.64-1.27 [facility] Estimated glomerular filtrat ion rate (GFR) non- AmericanOrdered By: Lars Zhang on 09-23-2021 GFR/1.73 sq M.predicted among non-blacks MDRD (S/P/Bld) [Vol rate/Area] > 60 mL/Min [facility] No Panel InformationOrdered By: Lars Zhang on 09-23-2021 Estimated GFR () > 60 mL/Min [facility] Comment on above: GFR estimated refere nce range: According to KDOQI guidelines, <60 ml/min/1.73m2 is sufficient to diagnose a patient with chronic kidney disease. Pharmacy Creatinine Clearance (Chem 92.77 [facility] Serum or plasma urea nitroge n measurement (mass/volume)Ordered By: Lars Zhang on 09-23-2021 Urea nitrogen [Mass/Vol] 18 mg/dL 9 [facility] Body fluid albumin measureme nt (mass/volume)Ordered By: John Ventura on 06-25-2021 Albumin (Body fld) [Mass/Vol] 4.0 g/dL 3.2-5.5 [facility] Globulin Calc (S) [Mass/Vol] Ordered By: John Ventura on 06-25-2021 Globulin (S) [Mass/Vol] 2.4 g/dL [facility] No Panel InformationOrdered By: Lars Zhang on 06-25-2021 Methylmalonic Acid Comment See comment . [facility] Comment on above: This test was develo ped and its performance characteristics determined by [employer]. It has not been cleared or approved by the Food and Drug Administration. Performed at: [facility] [address] [id number] [employer] Operator: Di Matamoros MD, Phone: [phone] This test was develo ped and its performance characteristicsdetermined by [employer]. It has not been cleared orapproved by the Food and Drug Administration.Performed at: [facility] [address] [id number] Director: Di Matamoros MD, Phone: [phone] Vitamin B12 Level > 7500 pg/mL 180-914 [facility] Protein [Mass/volume] in Ser um or PlasmaOrdered By: John Ventura on 06-25-2021 Protein [Mass/Vol] 6.4 g/dL 6.1-7.9 [facility] Serum or plasma alanine abraham otransferase measurement without P-5'-P (enzymatic activiOrdered By: John Ventura on 06-25-2021 ALT No additional P-5'-P [Catalytic activity/Vol] 36 U/L 10-60 [facility] Serum or plasma albumin/glob ulin mass ratioOrdered By: John Ventura on 06-25-2021 Albumin/Globulin [Mass ratio] 1.7 {ratio} [facility] Serum or plasma alkaline clayton sphatase measurement (enzymatic activity/volume)Ordered By: John Ventura on 06-25-2021 ALP [Catalytic activity/Vol] 64 U/L 32-92 [facility] Serum or plasma aspartate am inotransferase measurement (enzymatic activity/volume)Ordered By: John Ventura on 06-25-2021 AST [Catalytic activity/Vol] 50 U/L 10-42 [facility] Serum or plasma calcium avelina urement (mass/volume)Ordered By: John Ventura on 06-25-2021 Calcium [Mass/Vol] 9.0 mg/dL 8.2-10.2 [facility] Serum or plasma chloride veronica surement (moles/volume)Ordered By: John Ventura on 06-25-2021 Chloride [Moles/Vol] 98 mmol/L 95-114 [facility] Serum or plasma glucose avelina urement (mass/volume)Ordered By: John Ventura on 06-25-2021 Glucose [Mass/Vol] 133 mg/dL 70-100 [facility] Comment on above: ADA recommended refe rence range Random Glucose Reference Range is dependent on time and content of last meal. Glucose of more than 200 mg/dL in a nonstressed, ambulatory subject supports the diagnosis of Diabetes Mellitus. ADA recommended refe rence rangeRandom Glucose Reference Range is dependent on time and content of last meal. Glucose of more than 200 mg/dL in a nonstressed, ambulatory subject supports the diagnosis of Diabetes Mellitus. Serum or plasma methylmalona te measurement (moles/volume)Ordered By: Lars Zhang on 06-25-2021 Methylmalonate [Moles/Vol] 287 nmol/L 0-378 [facility] Serum or plasma potassium me asurement (moles/volume)Ordered By: John Ventura on 06-25-2021 Potassium [Moles/Vol] See comment 3.5-5.1 [facility] Comment on above: Specimen hemolyzed, redraw requested Serum or plasma sodium measu rement (moles/volume)Ordered By: John Ventura on 06-25-2021 Sodium [Moles/Vol] 135 mmol/L 136-146 [facility] Serum or plasma total biliru bin measurement (mass/volume)Ordered By: John Ventura on 06-25-2021 Bilirubin [Mass/Vol] 1.4 mg/dL 0.3-1.2 [facility] Comment on above: Samples from patient s who have taken Naproxen have shown spurious elevation in Total Bilirubin levels. A metabolite of Naproxen, O-desmethylnaproxen, has been shown to interfere with the Sahara-Jomar method for measuring Total Bilirubin. Serum or plasma total carbon dioxide measurement (moles/volume)Ordered By: John Ventura on 06-25-2021 CO2 [Moles/Vol] 27.4 mmol/L 22.0-30.0 [facility] Blood copper measurement (ma ss/volume)on 03-27-2021 Copper (Bld) [Mass/Vol] 0.72 ug/mL 0.50-1.50 [facility] Comment on above: Analysis performed b y Inductively-Coupled Plasma/Mass Spectrometry (ICP/MS). This test was developed and its performance characteristics determined by [employer]. It has not been cleared or approved by the Food and Drug Administration. Performed at: [facility] [address] [place] [id number] [employer] Operator: Aura Ramires [facility], Phone: [phone] Analysis performed b y Inductively-Coupled Plasma/MassSpectrometry (ICP/MS).This test was developed and its performance characteristicsdetermined by [employer]. It has not been cleared or approvedby the Food and Drug Administration.Performed at: [facility] [place] [id number] Director: Aura Ramires [facility], Phone: [phone] Folate [Mass/volume] in Seru m or Plasmaon 03-27-2021 Folate [Mass/Vol] ng/mL >5.9 [facility] Comment on above: Folate reference ran ge: >5.9 ng/ml The WHO technical consultation on folate and vitamin b12 deficiencies has determined that folate concentrations less than 4 ng/ml are considered deficient. Folate reference ran ge: >5.9 ng/mlThe [facility] technical consultation on folate and vitamin [id number] has determined that folate concentrations lessthan 4 ng/ml are considered deficient. No Panel Informationon 03-27 Whole Blood Zinc 660 ug/dL 440-860 [facility] Comment on above: Performed at: [facility] [address] [id number] [employer] Operator: Di Matamoros MD, Phone: [phone] Performed at: [facility] [address] [id number] Director: Di Matamoros MD, Phone: [phone] CBC AUTO DIFFon 12-04-2020 Basophils (Bld) [#/Vol] 0.0 103/ul Normal 0.0-0.1 [facility] Comment on above: Performed By: #### C BC #### [facility] [address] [place] [address] Iram Allison Basophils/100 WBC (Bld) 0.5 % Normal 0.2-2.0 [facility] Comment on above: Performed By: #### C BC #### [facility] [address] [place], [place] [address] Iram Allison Eosinophils (Bld) [#/Vol] 0.0 103/ul Normal 0.0-0.7 [facility] Comment on above: Performed By: #### C BC #### [facility] [address] [place], [place] [address] Iram Allison Eosinophils/100 WBC (Bld) 0.8 % Critically low 0.9-7.0 [facility] Comment on above: Performed By: #### C BC #### [facility] [address] [place], [place] [address] Iram Allison Erythrocyte distribution width (RBC) [Ratio] 14.6 % Normal 11.0-15.0 [facility] Comment on above: Performed By: #### C BC #### [facility] [address] [place], [place] [address] Iram Allison Hematocrit (Bld) [Volume fraction] 43.2 % Normal 42.0-54.0 [facility] Comment on above: Performed By: #### C BC #### [facility] [address] [place] [address] Iram Allison Hemoglobin (Bld) [Mass/Vol] 13.7 g/dL Critically low 14.0-18.0 [facility] Comment on above: Performed By: #### C BC #### [facility] [address] [place] [address] Iram Allison IG # 0.02 10e3/ul Normal 0.00-0.03 [facility] Comment on above: Performed By: #### C BC #### [facility] [address] [place] [address] Iram Allison IG % 0.5 % Normal 0.0-0.5 [facility] Comment on above: Performed By: #### C BC #### [facility] [address] [place] [address] Iram Allison Lymphocytes (Bld) [#/Vol] 1.4 103/ul Normal 1.2-3.8 [facility] Comment on above: Performed By: #### C BC #### [facility] [address] [place], [place] [address] Iram Allison Lymphocytes/100 WBC (Bld) 34.8 % Normal 20.5-60.0 [facility] Comment on above: Performed By: #### C BC #### [facility] [address] [place] [address] Iram Allison MANUAL DIFF REQ NO Normal [facility] Comment on above: Performed By: #### C BC #### [facility] [address] [place] [address] Iram Cooper MCH (RBC) [Entitic mass] 29.7 pg Normal 25.9-34.0 [facility] Comment on above: Performed By: #### C BC #### [facility] [address] [place] [id number] Iram Cooper MCHC (RBC) [Mass/Vol] 31.7 g/dL Normal 29.9-35.2 [facility] Comment on above: Performed By: #### C BC #### [facility] [address] [place], [place] [address] Iramelvira Cooper MCV (RBC) [Entitic vol] 93.5 fL Normal 80.0-94.0 [facility] Comment on above: Performed By: #### C BC #### [facility] [address] [place], [place] [address] Iram Allison Monocytes (Bld) [#/Vol] 0.3 103/ul Normal 0.3-0.8 [facility] Comment on above: Performed By: #### C BC #### [facility] [address] [place], [place] [address] Iramelvira Nielsonen Monocytes/100 WBC (Bld) 8.4 % Normal 1.7-12.0 [facility] Comment on above: Performed By: #### C BC #### [facility] [address] [place], [place] [address] Iram Allison Neutrophils (Bld) [#/Vol] 2.2 103/ul Normal 1.4-6.5 [facility] Comment on above: Performed By: #### C BC #### [facility] [address] [place], [place] [address] Iram Allison Neutrophils/100 WBC (Bld) 55.0 % Normal 43.0-75.0 [facility] Comment on above: Performed By: #### C BC #### [facility] [address] [place], [place] [address] Iramelvira Cooper Platelet mean volume (Bld) [Entitic vol] 10.7 fL Normal 9.5-13.5 [facility] Comment on above: Performed By: #### C BC #### [facility] [address] [place], [place] [address] Iramelvira Cooper Platelets (Bld) [#/Vol] 76 103/ul Critically low 150-450 [facility] Comment on above: Performed By: #### C BC #### [facility] [address] [place] [address] Iramelvira Nielsonen RBC (Bld) [#/Vol] 4.62 106/ul Critically low 4.70-6.10 [facility] Comment on above: Performed By: #### C BC #### [facility] [address] [place], [place] [address] Iram Allison WBC (Bld) [#/Vol] 3.9 103/ul Critically low 4.0-11.0 [facility] Comment on above: Performed By: #### C BC #### [facility] [address] [place], [place] [address] Iram Cooper PROF 14(COMP METB)on 021 Albumin [Mass/Vol] 3.7 g/dL Normal 3.5-5.0 [facility] Comment on above: Performed By: #### C MP #### [facility] [address] [place], [place] [address] Iram Allison Albumin/Globulin [Mass ratio] 0.9 {ratio} Normal [facility] Comment on above: Performed By: #### C MP #### [facility] [address] [place], [place] [address] Iram Allison ALP [Catalytic activity/Vol] 79 U/L Normal 38-126 [facility] Comment on above: Performed By: #### C MP #### [facility] [address] [place], [place] [address] Iram Allison ALT [Catalytic activity/Vol] 48 U/L Normal 21-72 [facility] Comment on above: Performed By: #### C MP #### [facility] [address] [place], [place] [address] Iram Allison Anion gap [Moles/Vol] 10.5 mmol/L Normal [facility] Comment on above: Performed By: #### C MP #### [facility] [address] [place] [address] Iram Allison AST [Catalytic activity/Vol] 47 U/L Normal 17-59 [facility] Comment on above: Performed By: #### C MP #### [facility] [address] [place] [address] Iram Allison Bilirubin Ql (U) 0.6 mg/dL Normal 0.2-1.3 [facility] Comment on above: Performed By: #### C MP #### [facility] [address] [place] [address] Iram Allison Calcium [Mass/Vol] 9.8 mg/dL Normal 8.4-10.2 [facility] Comment on above: Performed By: #### C MP #### [facility] [address] [place] [address] Iram Allison Chloride [Moles/Vol] 101 mmol/L Normal 98-107 [facility] Comment on above: Performed By: #### C MP #### [facility] [address] [place] [address] Iram Allison CO2 [Moles/Vol] 30.0 mmol/L Normal 22.0-30.0 [facility] Comment on above: Performed By: #### C MP #### [facility] [address] [place] [address] Iram Allison Creatinine [Mass/Vol] 0.89 mg/dL Normal 0.66-1.25 [facility] Comment on above: Performed By: #### C MP #### [facility] [address] [place] [address] Iram Allison EGFR-AF GIBRALTARIAN >60 Normal >=60 [facility] Comment on above: Performed By: #### C MP #### [facility] [address] [place], [place] [address] Iram Allison EGFR-NON AF GIBRALTARIAN >60 Normal >=60 [facility] Comment on above: Performed By: #### C MP #### [facility] [address] [place], [place] [address] Iram Allison Globulin (S) [Mass/Vol] 3.9 g/dL Normal [facility] Comment on above: Performed By: #### C MP #### [facility] [address] [place] [id number] Iram Allison Glucose [Mass/Vol] 154 mg/dL Critically high 74-106 [facility] Comment on above: Performed By: #### C MP #### [facility] [address] [place] [id number] Iram Allison Potassium [Moles/Vol] 4.5 mmol/L Normal 3.4-5.0 [facility] Comment on above: Performed By: #### C MP #### [facility] [address] [place] [address] Iram Allison Protein [Mass/Vol] 7.6 g/dL Normal 6.1-8.2 [facility] Comment on above: Performed By: #### C MP #### [facility] [address] [place] [address] Iram Allison Sodium [Moles/Vol] 137 mmol/L Normal 137-145 [facility] Comment on above: Performed By: #### C MP #### [facility] [address] [place] [address] Iram Allison Urea nitrogen [Mass/Vol] 20.0 mg/dL Normal 9.0-20.0 [facility] Comment on above: Performed By: #### C MP #### [facility] [address] [place] [id number] Iram Allison Urea nitrogen/Creatinine [Mass ratio] 22.5 mg/mg Normal [facility] Comment on above: Performed By: #### C MP #### [facility] [address] [place], [place] [address] [facility] - Hematology and Cell countson 10-16-2020 WBC (Bld) [#/Vol] 3.7 10*3/uL 4.5-11.0 [facility] POINT OF CARE GLUCOSEon 08-23 Glucose [Mass/Vol] 169 mg/dL Critically high 74-106 [facility] Comment on above: Performed By: #### P OCGLUC #### [facility] [address] [place] [id number] Iram Cooper COVID-19 PCRon 09-01-2020 SARS-CoV-2, SHERI Not Detected Normal Not Detected [facility] Comment on above: Result Comment: This nucleic acid amplification test was developed and its performance characteristics determined by [employer]. Nucleic acid amplification tests include PCR and TMA. This test has not been FDA cleared or approved. This test has been authorized by FDA under an Emergency Use Authorization (EUA). This test is only authorized for the duration of time the declaration that circumstances exist justifying the authorization of the emergency use of in vitro diagnostic tests for detection of SARS-CoV-2 virus and/or diagnosis of COVID-19 infection under section 564(b)(1) of the Act, 21 U.S.C. 360bbb-3(b) (1), unless the authorization is terminated or revoked sooner. When diagnostic testing is negative, the possibility of a false negative result should be considered in the context of a patient's recent exposures and the presence of clinical signs and symptoms consistent with COVID-19. An individual without symptoms of COVID-19 and who is not shedding SARS-CoV-2 virus would expect to have a negative (not detected) result in this assay. Performed By: #### C VDSTAT, CVDPCR #### [facility] [address] [place] [address] Iram Cooper PRIORITY COVID PROCESSINGon 09-01-2020 Comment Comment Normal [facility] Comment on above: Result Comment: Rece ived Performed By: #### C VDSTAT, CVDPCR #### [facility] [address] [place] [address] Iram Cooper Serum or plasma gastrin avelina urement (mass/volume)on 08-21-2020 Gastrin [Mass/Vol] 238 pg/mL 0-115 [facility] Comment on above: Siemens Immulite 200 0 Immunochemiluminometric assay (ICMA) Values obtained with different assay methods or kits cannot be used interchangeably. Results cannot be interpreted as absolute evidence of the presence or absence of malignant disease. Performed at: [address] [id number] [employer] Operator: Di Matamoros MD, Phone: [phone] Siemens Immulite 200 0 Immunochemiluminometric assay (ICMA)Values obtained with different assay methods or kits cannotbe used interchangeably. Results cannot be interpreted asabsolute evidence of the presence or absence of malignantdisease.Performed at: [facility] [place] [id number] Director: Di Matamoros MD, Phone: [phone] Serum parietal cell antibody assay (units/volume)on 08-21-2020 Parietal cell Ab Qn (S) 84.7 Units 0.0-20.0 [facility] Comment on above: Negative 0.0 - 20.0 Equivocal 20.1 - 24.9 Positive >24.9 Parietal Cell Antibodies are found in 90% of patients with pernicious anemia and 30% of first degree relatives with pernicious anemia. Performed at: [facility] [place] [id number] [employer] Operator: Otis Sanders PhD, Phone: [phone] Negative 0.0 - 20.0 Equivocal 20.1 - 24.9 Positive >24.9Parietal Cell Antibodies are found in 90% of patientswith pernicious anemia and 30% of first degreerelatives with pernicious anemia.Performed at: [address] [id number] Director: Otis Sanders PhD, Phone: [phone] Albumin [Mass/volume] in Ser um or Plasmaon 08-14-2020 Albumin [Mass/Vol] 3.6 g/dL 2.9-4.4 [facility] Direct bilirubin measurement on 08-14-2020 Bilirubin.direct [Mass/Vol] 0.2 mg/dL 0.0-0.4 [facility] Immunoglobulin light chains. kappa.free [Mass/volume] in Serumon 08-14-2020 Immunoglobulin light chains.kappa.free (S) [Mass/Vol] 36.3 mg/L 3.3-19.4 [facility] Immunoglobulin light chains. kappa.free/Immunoglobulin light chains.lambda.free [Mariana 08-14-2020 Immunoglobulin light chains.kappa.free/Immu noglobulin light chains.lambda.free (S) [Mass ratio] 2.11 0.26-1.65 [facility] Comment on above: Performed at: [address] [id number] [employer]: Otis Sanders PhD, Phone: [phone] Performed at: [address] [id number] Director: Otis Sanders PhD, Phone: [phone] Immunoglobulin light chains. lambda.free [Mass/volume] in Serum or Plasmaon 08-14-2020 Immunoglobulin light chains.lambda.free [Mass/Vol] 17.2 mg/L 5.7-26.3 [facility] No Panel Informationon 08-14 Absolute Reticulocyte Count 0.078 10*6/uL 0.024-0.08 4 [facility] Percent Reticulocyte Count 1.9 % 0.5-1.5 [facility] Protein Electrophoresis M-Sean Not observed g/dL Not Observed [facility] Protein Electrophoresis Note See comment . [facility] Comment on above: Protein electrophore sis scan will follow via computer, mail, or machinist mate delivery. Performed at: [facility] [place] [id number] [employer] Operator: Otis Sanders PhD, Phone: [phone] Protein electrophore sis scan will follow via computer,mail, or machinist mate delivery.Performed at: [facility] [place] [id number] Director: Otis Sanders PhD, Phone: [phone] Serum Immunofixation Reflexed N/A [facility] Protein [Mass/volume] in Ser um or Plasmaon 08-14-2020 Protein [Mass/Vol] 7.2 g/dL 6.0-8.5 [facility] Serum globulin measurement ( mass/volume)on 08-14-2020 Globulin (S) [Mass/Vol] 3.6 g/dL 2.2-3.9 [facility] Serum or plasma albumin/glob ulin mass ratioon 08-14-2020 Albumin/Globulin [Mass ratio] 1.0 {ratio} 0.7-1.7 [facility] Serum or plasma alpha 1 glob ulin measurement by electrophoresis (mass/volume)on 08-14-2020 Alpha 1 globulin Elph [Mass/Vol] 0.3 g/dL 0.0-0.4 [facility] Serum or plasma alpha 2 glob ulin measurement by electrophoresis (mass/volume)on 08-14-2020 Alpha 2 globulin Elph [Mass/Vol] 0.9 g/dL 0.4-1.0 [facility] Serum or plasma beta globuli n measurement by electrophoresis (mass/volume)on 08-14-2020 Beta globulin Elph [Mass/Vol] 1.2 g/dL 0.7-1.3 [facility] Serum or plasma gamma globul in measurement by electrophoresis (mass/volume)on 08-14-2020 Gamma globulin Elph [Mass/Vol] 1.1 g/dL 0.4-1.8 [facility] Serum or plasma non-glucuron idated bilirubin measurement (mass/volume)on 08-14-2020 Bilirubin.indirect [Mass/Vol] 0.8 mg/dL [facility] TSH DL <= 0.005 mIU/L Qnon 0 08-14-2020 TSH Qn 4.44 m[IU]/L 0.45-5.33 [facility] US SINGLE QUAD RT UPPERon US SINGLE QUAD RT UPPER EXAMINATION: US SINGLE QUAD RT UPPER HISTORY: Pancytopenia COMPARISON: No relevant comparison available. TECHNIQUE: Transabdominal evaluation of the right upper quadrant. FINDINGS: LIVER: Trace amount of fluid along the lateral margin of the liver, 8 mm in thickness. Normal size and echotexture of the liver except for small area of fatty sparing adjacent to gallbladder.. Color Doppler demonstrates patent hepatic veins. PORTAL VEIN: Duplex Doppler demonstrates normal hepatopetal flow pattern with flow velocity averaging 32 cm/s. GALLBLADDER: Contains an 8 mm concrete stone fabricator a small amount sludge. No visible gallstones, wall thickening, or pericholecystic free fluid. Negative sonographic Bautista's sign. BILIARY: No abnormal dilation or stones. Common bile duct diameter is within normal limits. PANCREASE: No visible mass, abnormal atrophy, or duct dilation. KIDNEY: No hydronephrosis. No visible mass or stones. Size: 12.6 cm in length IMPRESSION: 1. Cholelithiasis without acute cholecystitis. 2. Trace amount of fluid along the lateral margin of the liver of uncertain etiology. Electronically authenticated by: FABI MADRIGAL Date: 2020-06-21 09:49 Normal [facility] Vital Signs Date Time Vital Sign Value Performing Clinician Facility 10-01-2023 14:30-0500 Body height 187.96 cm Estevan Lester Other [facility] Other 10-01-2023 14:30-0500 Body mass index (BMI) [Ratio] 26.86 kg/m2 Estevan Lester Other [facility] Other 10-01-2023 14:30-0500 Body weight 94.89 kg Estevan Lester Other [facility] Other 10-01-2023 14:30-0500 Diastolic blood pressure 69 mm[Hg] Estevan Lester Other [facility] Other 10-01-2023 14:30-0500 Systolic blood pressure 151 mm[Hg] Estevan Lester Other [facility] Other 06-22-2023 09:37-0400 Body height 187.96 cm II Matti Ash Work Phone: [facility] 06-22-2023 09:37-0400 Body temperature 97.4 [degF] II Matti Ash Work Phone: [facility] 06-22-2023 09:37-0400 Body weight 92.44 kg II Matti Ash Work Phone: [facility] 06-22-2023 09:37-0400 Diastolic blood pressure 68 mm[Hg] II Matti Ash Work Phone: [facility] 06-22-2023 09:37-0400 Heart rate 52 /min II Matti Ash Work Phone: [facility] 06-22-2023 09:37-0400 Respiratory rate 20 /min II Matti Ash Work Phone: [facility] 06-22-2023 09:37-0400 SaO2% (BldA) [Mass fraction] 96 % II Matti Ash Work Phone: [facility] 06-22-2023 09:37-0400 Systolic blood pressure 121 mm[Hg] II Matti Ash Work Phone: [facility] 03-20-2023 13:21-0400 Body temperature 97.8 [degF] II Matti Ash Work Phone: [facility] 03-20-2023 13:21-0400 Body weight 101.6 kg II Matti Ash Work Phone: [facility] 03-20-2023 13:21-0400 Diastolic blood pressure 78 mm[Hg] II Matti Ash Work Phone: [facility] 03-20-2023 13:21-0400 Heart rate 66 /min II Matti Ash Work Phone: [facility] 03-20-2023 13:21-0400 Respiratory rate 16 /min II Matti Ash Work Phone: [facility] 03-20-2023 13:21-0400 SaO2% (BldA) [Mass fraction] 98 % II Matti Ash Work Phone: [facility] 03-20-2023 13:21-0400 Systolic blood pressure 122 mm[Hg] II Matti Ash Work Phone: [facility] 01-21-2023 13:00-0500 Body height 187.96 cm Estevan Lester Other [facility] Other 01-21-2023 13:00-0500 Body mass index (BMI) [Ratio] 29.53 kg/m2 Estevan Lester Other [facility] Other 01-21-2023 13:00-0500 Body weight 104.33 kg Estevan Lester Other [facility] [employer] Other 01-21-2023 13:00-0500 Diastolic blood pressure 64 mm[Hg] Estevan Lester Other [facility] [employer] Other 01-21-2023 13:00-0500 Systolic blood pressure 133 mm[Hg] Estevan Lester Other [facility] [employer] Other 12-16-2022 13:12-0500 Diastolic blood pressure 73 mm[Hg] II Matti Ash Work Phone: [facility] 12-16-2022 13:12-0500 Heart rate 61 /min II Matti Ash Work Phone: [facility] 12-16-2022 13:12-0500 Respiratory rate 18 /min II Matti Ash Work Phone: [facility] 12-16-2022 13:12-0500 SaO2% (BldA) [Mass fraction] 100 % II Matti Ash Work Phone: [facility] 12-16-2022 13:12-0500 Systolic blood pressure 146 mm[Hg] II Matti Ash Work Phone: [facility] 12-16-2022 11:34-0500 Body height 187.96 cm II Matti Ash Work Phone: [facility] 12-16-2022 11:34-0500 Body temperature 98.2 [degF] II Matti Ash Work Phone: [facility] 12-16-2022 11:34-0500 Body weight 104.32 kg II Matti Ash Work Phone: [facility] 09-26-2022 15:02-0400 Body temperature 97.8 [degF] II Matti Ash Work Phone: [facility] 09-26-2022 15:02-0400 Diastolic blood pressure 57 mm[Hg] II Matti Ash Work Phone: [facility] 09-26-2022 15:02-0400 Heart rate 68 /min II Matti Ash Work Phone: [facility] 09-26-2022 15:02-0400 Respiratory rate 18 /min II Matti Ash Work Phone: [facility] 09-26-2022 15:02-0400 SaO2% (BldA) [Mass fraction] 99 % II Matti Ash Work Phone: [facility] 09-26-2022 15:02-0400 Systolic blood pressure 133 mm[Hg] II Matti Ash Work Phone: [facility] 09-15-2022 14:40-0400 Body height 187.96 cm II Matti Ash Work Phone: [facility] 09-15-2022 14:40-0400 Body weight 101.78 kg II Matti Ash Work Phone: [facility] 09-15-2022 14:40-0400 Diastolic blood pressure 91 mm[Hg] II Matti Ash Work Phone: [facility] 09-15-2022 14:40-0400 Heart rate 55 /min II Matti Ash Work Phone: [facility] 09-15-2022 14:40-0400 Respiratory rate 18 /min II Matti Ash Work Phone: [facility] 09-15-2022 14:40-0400 SaO2% (BldA) [Mass fraction] 99 % II Matti Ash Work Phone: [facility] 09-15-2022 14:40-0400 Systolic blood pressure 151 mm[Hg] II Matti Ash Work Phone: [facility] 09-09-2022 14:17-0400 Diastolic blood pressure 64 mm[Hg] II Matti Ash Work Phone: [facility] 09-09-2022 14:17-0400 Heart rate 88 /min II Matti Ash Work Phone: [facility] 09-09-2022 14:17-0400 Respiratory rate 16 /min II Matti Ash Work Phone: [facility] 09-09-2022 14:17-0400 SaO2% (BldA) [Mass fraction] 98 % II Matti Ash Work Phone: [facility] 09-09-2022 14:17-0400 Systolic blood pressure 125 mm[Hg] II Matti Ash Work Phone: [facility] 09-09-2022 12:49-0400 Body height 187.96 cm II Matti Ash Work Phone: [facility] 09-09-2022 12:49-0400 Body weight 97.52 kg II Matti Ash Work Phone: [facility] 08-15-2022 10:45-0400 Body weight 102.06 kg Estevan Lester Other [facility] [employer] Other 07-08-2022 12:01-0400 Body weight 0 kg II Matti Ash Work Phone: [facility] 07-08-2022 11:04-0400 Body temperature 97.5 [degF] II Matti Ash Work Phone: [facility] 07-08-2022 11:04-0400 Body weight 103.87 kg II Matti Ash Work Phone: [facility] 07-08-2022 11:04-0400 Diastolic blood pressure 80 mm[Hg] II Matti Ash Work Phone: [facility] 07-08-2022 11:04-0400 Heart rate 59 /min II Matti Ash Work Phone: [facility] 07-08-2022 11:04-0400 Respiratory rate 16 /min II Matti Ash Work Phone: [facility] 07-08-2022 11:04-0400 SaO2% (BldA) [Mass fraction] 98 % II Matti Ash Work Phone: [facility] 07-08-2022 11:04-0400 Systolic blood pressure 158 mm[Hg] II Matti Ash Work Phone: [facility] 08-14-2020 09:08-0400 Body height 187.96 cm II Matti Ash Work Phone: [facility] Encounters Encounter Date Encounter Type Care Provider Facility Start: 12-25-2023 ambulatory Matti Ash Facility:[facility] Start: 12-23-2023 External Result Encounter Luciano Ramirez DO Work Phone: [facility] Unsolicited Start: 12-23-2023 External Result Encounter Luciano Ryanne Ramirez DO Work Phone: [facility] Unsolicited Start: 12-15-2023 End: 12-15-2023 ambulatory Estevan Lester Other [facility] Other Start: 12-15-2023 Telephone encounter [facility] Start: 12-03-2023 End: 12-03-2023 ambulatory RIOS CURRY Not Available Start: 12-02-2023 End: 12-02-2023 ambulatory Estevan Lester Other [facility] Other Start: 12-02-2023 Telephone encounter [facility] Start: 2023 End: 2023 Emergency department patient visit Matti Ash Facility:[facility] Start: 10-05-2023 End: 10-05-2023 ambulatory MATTI Raj ARMANI Not Available Start: 10-01-2023 End: 10-01-2023 ambulatory Estevan Lester Other [facility] Other Start: 10-01-2023 Patient encounter procedure Estevan Fannieantoinettemaicol [facility] Start: 07-30-2023 End: 07-30-2023 ambulatory Estevan Fannieantoinettemaicol Other [facility] Other Start: 07-30-2023 Telephone encounter Estevan Lester [facility] Start: 06-22-2023 End: 06-22-2023 ambulatory Mariah Bernard Facility:[facility] Start: 06-22-2023 End: 06-22-2023 Patient encounter procedure II Matti Ash Work Phone: [facility] [place] Work Phone: Start: 06-22-2023 End: 06-22-2023 ambulatory II Matti Ahs Work Phone: [facility] Work Phone: Start: 06-22-2023 End: 06-22-2023 Registered Recurring II Matti Ash Work Phone: [facility] Work Phone: Start: 03-20-2023 End: 03-20-2023 ambulatory II Matti Ash Work Phone: [facility] Work Phone: Start: 03-20-2023 End: 03-20-2023 Registered Recurring II Matti Ash Work Phone: [facility] Work Phone: Start: 01-21-2023 End: 01-21-2023 ambulatory Estevan Fannieantoinettemaicol Other [facility] Other Start: 01-21-2023 Patient encounter procedure Estevan Fanniewest [facility] Start: 01-08-2023 End: 01-08-2023 ambulatory Estevan Fannieantoinettemaicol Other [facility] Other Start: 01-08-2023 Telephone encounter Estevan [facility] Start: 12-17-2022 End: 12-17-2022 ambulatory Estevan Lester Other [facility] Other Start: 12-17-2022 Telephone encounter Estevan [facility] Start: 12-16-2022 End: 12-16-2022 Admission to same day surgery center II Matti Ash Work Phone: [facility] Work Phone: Start: 12-16-2022 End: 12-16-2022 ambulatory II Mtati Ash Work Phone: [facility] Work Phone: Start: 12-15-2022 End: 12-15-2022 ambulatory Estevan Lester Other [facility] Other Start: 12-15-2022 Telephone encounter Estevan [facility] Start: 12-15-2022 Registered Recurring II Matti Ash Work Phone: [facility] Work Phone: Start: 11-13-2022 End: 11-13-2022 ambulatory Estevan Lester Other [facility] Other Start: 11-13-2022 Telephone encounter Estevan [facility] Start: 09-15-2022 End: 09-15-2022 ambulatory II Matti Ash Work Phone: [facility] Work Phone: Start: 09-15-2022 End: 09-15-2022 Registered Recurring II [facility] Start: 09-10-2022 End: 09-10-2022 ambulatory Estevan Lester Other [facility] Other Start: 09-10-2022 Telephone encounter Estevan [facility] Start: 09-09-2022 End: 09-09-2022 Admission to same day surgery center II Matti Ash Work Phone: [facility] Start: 09-09-2022 End: 09-09-2022 ambulatory II Matti Ash Work Phone: [facility] Work Phone: Start: 09-05-2022 End: 09-05-2022 Patient encounter procedure II Matti Ash Work Phone: [facility] Start: 08-15-2022 End: 08-15-2022 ambulatory Estevan Lester Other [facility] Other Start: 08-15-2022 End: 08-15-2022 Patient encounter procedure Estevan [facility] Start: 07-22-2022 Registered Recurring II Matti Ash Work Phone: [facility] Start: 07-09-2022 End: 07-09-2022 Patient encounter procedure II Matti Ash Work Phone: [facility] Start: 12-04-2020 End: 12-05-2020 Patient encounter procedure JOHN VENTURA Facility:[facility] Start: 09-05-2020 End: 09-05-2020 Patient encounter procedure MATTI ASH Facility:[facility] Start: 08-31-2020 End: 09-01-2020 Patient encounter procedure MATTI ASH Facility:[facility] Start: 06-21-2020 End: 06-22-2020 Patient encounter procedure MATTI ASH Facility:[facility] Procedures Date Procedure Procedure Detail Performing Clinician Start: 12-16-2022 Esophagogastroduodenoscopy II Matti fernandez Work Phone: Start: 09-09-2022 Esophagogastroduodenoscopy II Matti Leong ry Work Phone: Start: 07-09-2022 DH Fibroscan (Not Applicable) II Matti Ash Work Phone: Start: 09-23-2021 Computed tomography of abdomen and pelvis with contrast II Matti Ash Work Phone: Start: 02-12-2021 US scan of spleen II Matti Ash Work Phone: Start: 01-29-2016 History of coronary artery bypass grafting History of coronary artery bypass graft Luciano Ramirez DO Work Phone: Plan of Treatment Date Care Activity Detail Author Start: 07-30-2024 Medicare Annual Well ness (AWV) Medicare Annual Wellness (AWV) [facility] Start: 07-06-2024 Urine screening for protein Diabetes: Urine Protein Screening [facility] Start: 05-22-2024 Influenza vaccination Influenza Vacc ine (#1) [facility] Comment on above: Postponed from 07/24 (Patient Refused) Start: 04-04-2024 End: 04-04-2024 Patient encounter procedure 04/04/2024 8:30 AM EDT Office Visit [facility] [address] [facility] [address] [place] [address] Matti Ash MD [address] [facility] [address] [place] [address] [facility] Start: 01-21-2024 End: 01-21-2024 Patient encounter procedure 01/21/2024 9:45 AM EST Office Visit [facility] [address] [place] [id number] Mariah Bernard DO [address] [place] [address] [facility] Start: 12-23-2023 Hemoglobin A1c measurement Luz betes: Hemoglobin A1C [facility] Start: 08-01-2023 Glaucoma screening Diabetes: R etinopathy Screening [facility] Start: 06-22-2023 [facility] Start: 05-13-2023 [facility] Start: 03-27-2023 [facility] Start: 03-20-2023 [facility] Start: 03-09-2023 [facility] Start: 12-19-2022 [facility] Start: 12-16-2022 [facility] Start: 11-11-2022 [facility] Start: 10-14-2022 [facility] Start: 09-26-2022 [facility] Start: 09-19-2022 [facility] Start: 09-09-2022 [facility] Start: 07-22-2022 Registered Recurring B12 deficiency [facility] Start: 07-09-2022 [facility] Start: 04-14-2022 [facility] Start: 03-04-2022 End: 03-04-2022 [facility] Start: 12-10-2021 [facility] Start: 02-19-2021 [facility] Start: 02-12-2021 [facility] Start: 01-07-2021 [facility] Start: 09-19-2020 [facility] Start: 09-04-2020 [facility] Start: 08-28-2020 End: 08-28-2020 [facility] Start: 08-28-2020 [facility] Start: 1951 Pneumococcal Vaccine : 65+ Years (1 - PCV) Pneumococcal Vaccine: 65+ Years (1 - PCV) [facility] Alanine aminotransfe rase [Enzymatic activity/volume] in Serum or Plasma by No addition of P-5'-P [facility] Albumin [Mass/volume ] in Serum or Plasma [facility] Albumin/Globulin ratio [facility] Alkaline phosphatase [Enzymatic activity/volume] in Serum or Plasma [facility] Cohpt-6-mqlohzlwzxq. tumor marker [Mass/volume] in Serum or Plasma [facility] Anion gap measurement [facility] Aspartate aminotrans ferase [Enzymatic activity/volume] in Serum or Plasma [facility] Bilirubin.total [Mass/volume] in Serum or Plasma [facility] Calcium [Mass/volume ] in Serum or Plasma [facility] Carbon dioxide, tota l [Moles/volume] in Serum or Plasma [facility] Chloride [Moles/volu me] in Serum or Plasma [facility] Comprehensive metabo lic 1999 panel - Serum or Plasma [facility] Comprehensive metabo lic 1999 panel - Serum or Plasma [facility] Comprehensive metabo lic 1999 panel - Serum or Plasma [facility] Creatinine and Glome rular filtration rate.predicted panel - Serum, Plasma or Blood [facility] Erythropoietin (EPO) [Units/volume] in Serum or Plasma [facility] Ferritin [Mass/volum e] in Serum or Plasma [facility] Work Phone: Ferritin [Mass/volum e] in Serum or Plasma [facility] Ferritin [Mass/volum e] in Serum or Plasma [facility] Globulin [Mass/volum e] in Serum [facility] Glucose [Mass/volume ] in Serum or Plasma [facility] IMMUNOFIXATION,SERUM ([facility]) IMMUNOFIXATION,SERUM ([facility]) Lab Routine 12/23/2023 12:11 PM EST [facility] Work Phone: Measurement of renal function [facility] Patient Education Gastritis [facility] Work Phone: Potassium [Moles/vol ume] in Serum or Plasma [facility] Protein [Mass/volume ] in Serum or Plasma [facility] Sodium [Moles/volume ] in Serum or Plasma [facility] Urea nitrogen [Mass/volume] in Serum or Plasma [facility] Work Phone: [facility] Immunizations Immunization Date Immunization Notes Care Provider Lea irby 10-24-2022 Moderna Bivalent [place] [facility] Vaccination Luciano Ramirez DO Work Phone: [facility] Payers Date Payer Category Payer Self-pay [id number] 2022 Unknown AARP AARP [id number] 2022-Present [address] [place] [address] [id number] 2008 Medicare MEDICARE MEDICAR E PART B [id number] 2008-Present [address] [address] [place] [address] Medicare [id number] 1959 Medicare [id number] 1959 Unknown [id number] 1943 Unknown [id number] 1943 Unknown [id number] 1943 Unknown [id number] 1943 Unknown [id number] 1943 Unknown [id number] 1943 Unknown [id number] Unknown [id number] Unknown [id number] Unknown [id number] Social History Date Type Detail Facility Start: 07-08-2022 End: 05-02-2023 Tobacco smoking status NHIS Never smoked tobacco (finding) [facility] Start: 1945 Sex Assigned At Male [facility] Start: 06-19-2023 End: 07-30-2023 Sex Assigned At [facility] Other Start: 05-02-2023 Tobacco use and exposure Smokeless tobacco non-user [facility] Start: 12-03-2023 Alcohol intake Lifetime non-d mary (finding) [facility] Start: 06-19-2023 End: 07-30-2023 History of Social function [facility] How often to you hav e a drink containing alcohol? Never [facility] How many standard drinks containing alcohol do you have on a typical day? Patient does not drink [facility] Start: 1945 Sex Assigned At Not on file [facility] Medical Equipment Procedure Code Equipment Code Equipment Original Text Equipment Identifier Dates 1 each by Other route in the morning. [id number] INJECT SUBCUTANE OUSLY TWICE A DAY [id number] Start: 04-30-2023 1 each by Other route in the morning. [id number] Start: 06-19-2023 End: 06-18-2024 Goals Date Patient Goal Desired Activity /State Clinical Notes 08-14-2020 to 12-15-2023 Note Date & Type Note Facility 12-15-2023 Evaluation note Encounter Date Diagnosis Assessment Notes Nov, Cirrhosis of liver (ICD-10 - K74.60) [facility] Other 11-09-2023 Evaluation note* Encounter Date Diagnosis Assessment Notes Treatment Notes Treatment Clinical Notes Sep, Cirrhosis of liver (ICD-10 - K74.60) Pt states he is moving his bowels ok Pt RTO in 6 months Labs ordered Sep, Esophageal varices (ICD-10 - I85.00) [facility] Other 09-07-2023 Evaluation note* Encounter Date Diagnosis Assessment Notes Treatment Notes Treatment Clinical Notes Jul, Cirrhosis of liver (ICD-10 - K74.60) [facility] Other 04-28-2023 Progress note Author Alisha Soares [facility] March 20, 2023 3:21pm Note Date/Time March 20, 2023 2:0 4pm [facility] at [address] [address] Hem/Onc Follow Up Note - OP Signed Patient: Galen Doss JR MR#: [id number] : 1945 Acct:[id number] Age/Sex: 77 / M Type: REG RCR Copies to: MD Luciano Cabral II, VARGHESE, DO~ Date of Service: 03/20/2023 Time of Service: 13:57 - Assessment & Plan (1) Iron deficiency Plan: Esophageal varices and 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 He has persistently been iron deficient despite IV iron repletion in aug 2020. aug 2022 will order additional IV Injectafer x 2 doses February 2023 iron studies low, will get additional IV Injectafer x 2 Pancytopenia - secondary to cirrhosis likely, offered. BM biopsy and he declined. February 2023 considering bone marrow, he will call us if he wants this scheduled B12 deficiency Continues B12 injections. Thrombocytopenia Possibly due to liver disease Fibroscan was consistent with cirrhosis. Flow cytometry done in September 2021 revealed 3% monoclonal B-cells. No further work-up done at the time. (2) Thrombocytopenia Follow Up Instructions: Injectafer today and next week cbc, cmp, iron studies in 3mo follow-up in 3mo - History of Present Illness Chief Complaint: Patient is here for a 6 month follow up visit for iron deficiency and thrombocytopenia and go over labs HPI: This is a 75-year-old gentleman with a history of pernicious anemia, splenomegaly with resultant leukopenia and thrombocytopenia and iron deficiency. He is receiving parenteral B12 monthly and doing well with this. 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 He is on folic acid and I recommend that he stop this for now. He had a CT of the abdomen which confirmed splenomegaly. The CT is reviewed below: IMPRESSION: There is no evidence of bowel obstruction or obstructive uropathy. There is findings suggesting hepatic cirrhosis with a small amount of intra-abdominal ascites. There is splenomegaly with the spleen measuring 16.9 cm in craniocaudal dimension. There is a nonenhancing 14 mm focus within the spleen posterior to the hilum andinferiorly. This is of uncertain etiology. An underlying malignancy is not excluded. Uncomplicated colonic diverticula are noted. Impression dictated by: Hardik Gutierrez M.D.09/23/2021 3:06 PM He is also on iron which was started not too far ago. We talked about iron deficiency in people his age, AVM or angiodysplasia related. His iron stores are noted today and not optimal. I have recommended that he stop the oral iron as I want a second see what his iron stores do the next couple months. If he елена patient needs iron we will either put him back on it or consider IV iron. In sum, I recommend he stop the iron and folic acid today. We will check his CBC in 2 months and continue the parenteral IM B12. He has chronic leukopenia and thrombocytopenia likely secondary to splenomegaly. The cause of the splenomegaly is either idiopathic portal hypertension, liver disease etc. he does not have any symptoms or signs of lymphoma at this time. He is followed by Dr. Ash. He had an EGD and colonoscopy which were negative. He presented last year with pernicious anemia presenting with pancytopenia found to have B12 deficiency and iron deficiency. He did receive supplemental B12 and IV iron. He was then put on oral iron recently in my absence. 07/08/22 He feels well overall, without new complaints His energy is stable, maybe a bit lower than his normal. He is active still, butcan get winded with activity denies dyspnea at rest, chest pain, new pain anywhere. No fevers, chills, sweats, weight loss, appetite changes He was told his spleen is enlarged, but has not been told outright that he has any cirrhosis of his liver or not wbc, plt, hgb appear to be trending down a bit. continues to be iron deficient despite IV replacement 09/15/22 [facility] EGD perforemd by Dr. Lester. STOMACH: Mild antral gastritis, biopsies obtained, bottle 1-rule out H. pylori. There was a blood clot observed on the anterior body wall best viewed in retroflexed position, when washed away this revealed 2 punctate lesions without ulcerated base consistent with Dieulafoy, actively bleeding. A resolution 360 Endo Clip was placed over both of these lesions with hemostasis observed. No gastric varices ESOPHAGUS: Diaphragmatic hiatus was 45 cm from incisors and GE junction (upper margin of gastric folds) was at 45 cm from incisors. Squamocolumnar junction was at 45 cm from incisors. There was a hypertrophic, muscular appearance of the esophagus. MThere were 2-3 columns of large esophageal varices. Gastroscopewas subsequently withdrawn and reintroduced after placing 7 speed band ligator. A total of 3 bands were deployed with last band placement approximately at 30 cmfrom the incisors. All bands successfully deployed with ligation of varices and complete collapse proximally. His fibroscan was f4 cirrhosis and s4 steatosis. He feels well enough overall. He fell and is very sore on his left chest wall. Energy is a bit low. 03/20/23 He thinks he feels well/fine, his notes he is more tired than usual recently fell off a seat and bumped his head, no other injuries associated with this. States he dozed off and fell he denies shortness of breath, chest pain, dark/tarry stool or other new complaints hgb 10.2, iron saturation 10%, ferritin 7.3. wbc 2.8, plt 51 - Physical Exam ECOG PS: 0 General : patient is alert and oriented to person place and time, no acute distress. He has a cut and mild bruise on his scalp related to a recent fall Neck: no JVD or thyromegaly. Lymph: no cervical, supraclavicular, axillary adenopathy. Heart: regular rate and rhythm no murmurs rubs or gallops. Abdomen: soft nontender nondistended, no hepatosplenomegaly. Lungs: cta bl, no wheezes, rales, rhonchi. Extremities: no clubbing cyanosis. - Time with Patient Coordination of Care & Counseling Time: Greater than 50% of time spent with patient was for coordination of care (as documented) and [id number]-[id number]-[id number] counseling of patient and/or family. [facility] - Medical History Medical History: Medical History (Last Reviewed 12/16/22 @ 11:36 by Payal Valentin RN) Aneurysm artery, iliac Anxiety CAD (coronary artery disease) Diabetes mellitus, type 2 Neuropathy Restless leg - Surgical History Surgical History: Surgical History (Last Reviewed 12/16/22 @ 11:36 by Payal Valentin RN) History of heart bypass surgery Hx of tonsillectomy - Family History Family History: Family History (Last Reviewed 12/16/22 @ 11:36 by Payal Valentin RN) Other Diabetes mellitus, type 2 Hypertension - Social History Smoking Status: Never smoker Substance Use Type: None Additional Data - Additional Objective Data Height/Weight: Height 6 ft 2 in Weight 101.605 kg BSA for Today's Weight 2.35 Vital Signs: 03/20/23 13:21 Temperature 97.8 F Pulse Rate [Right Brachial] 66 Respiratory Rate 16 Blood Pressure [Left Arm] 122/78 02 Sat by Pulse Oximetry 98 Oxygen Delivery Method Room Air Distress Screening: RN Distress Screening Start: 08/14/20 08:52 Freq: Status: Active Protocol: Document 08/14/20 09:09 AA (Rec: 08/14/20 09:09 AA [id number]) Distress Screening Distress Score: 0 No worry/distress Distress Screening Total 0 - Lab Results Diagram of Most Recent CBC and CMP 03/18/23 08:37 03/18/23 08:37 Labs - Last 7 Days 03/18/23 08:37: PHA Creatinine Clear 68.72, Sodium 138, Potassium 4.6, Chloride 106, Carbon Dioxide 25.7, Anion Gap 10.9, BUN 21, Creatinine 1.11, Est GFR (CKD-EPI) > 60.0, Glucose 120 H, Calcium 8.9, Iron 50, TIBC 501 H, Iron Saturation 10.0 L, Transferrin 358, Ferritin 7.3 L, Total Bilirubin 0.7, AST 27,ALT 19, Alkaline Phosphatase 58, Total Protein 6.7, Albumin 4.0, Globulin 2.7, Albumin/Globulin Ratio 1.5 03/18/23 08:37: Corrected WBC 2.8 L, Uncorrected WBC Count 2.8 L, RBC 3.51 L, Hgb 10.2 L, Hct 31.2 L, MCV 88.7, MCH 28.9, MCHC 32.6, RDW 14.9 H, Plt Count 51 L, MPV 9.0, Neut % (Auto) 54.6, Lymph % (Auto) 33.2, [place] % (Auto) 10.0, Eos % (Auto) 1.9, Baso % (Auto) 0.3, Nucleat RBC Rel Count 0.1, Neut # (Auto) 1.5 L, Lymph # (Auto) 0.9 L, [place] # (Auto) 0.3, Eos # (Auto) 0.1, Baso # (Auto) 0.0 - Home Medications and Allergies Allergies/Adverse Reactions: Allergies ropinirole [From Requip] Allergy (Verified 03/20/23 13:21) Fainting Home Medications: Home Medications metformin 1,000 mg tablet 1,000 mg PO BID 08/14/20 [History Confirmed 03/20/23] pramipexole 0.125 mg tablet 0.125 mg PO BID 08/14/20 [History Confirmed 03/20/23] pregabalin 100 mg capsule 200 mg PO BID 08/14/20 [History Confirmed 03/20/23] ramipril 5 mg capsule 10 mg PO DAILY 08/14/20 [History Confirmed 03/20/23] simvastatin 20 mg tablet 20 mg PO HS 08/14/20 [History Confirmed 03/20/23] aspirin 81 mg tablet 81 mg PO DAILY 12/11/20 [History Confirmed 03/20/23] furosemide 20 mg tablet 20 mg PO DAILY 09/09/22 [History Confirmed 03/20/23] omeprazole 40 mg capsule,delayed release 40 mg PO BID 8 weeks #112 caps 09/09/22[Rx Confirmed 03/20/23] rifaximin 550 mg tablet (Xifaxan) 550 mg PO BID 09/09/22 [History Confirmed 03/20/23] carvedilol 6.25 mg tablet 6.25 mg PO BID #60 tabs 12/16/22 [Rx Confirmed 03/20/23] spironolactone 50 mg tablet 50 mg PO DAILY 12/16/22 [History Confirmed 03/20/23] semaglutide 0.25 mg or 0.5 mg (2 mg/3 mL) subcutaneous pen injector (Ozempic) 0.25 mg subcut QWEEK 03/20/23 [History Confirmed 03/20/23] Dictated By: Alisha Soares APRN DD/ 1357 Signed By: <Electronically signed by LISA Soares> 03/20/23 1521 [facility] Work Phone: 1(219) 687-216003-01-2023 Evaluation note* Encounter Date Diagnosis Assessment Notes Treatment Notes Treatment Clinical Notes Jan, Cirrhosis of liver (ICD-10 - K74.60) Continue Aldactone 50 mg daily Continue Xifaxan 550 mg twice a day Continue Lasix 20 mg daily Rto 6 months Jan, Esophageal varices (ICD-10 - I85.00) [facility] Other 02-16-2023 Evaluation note* Encounter Date Diagnosis Assessment Notes Treatment Notes Treatment Clinical Notes Dec, Cirrhosis of liver (ICD-10 - K74.60) [facility] Author Luciano Ramirez [facility] September 15, 2022 3:31pm Note Date/Time September 15, 2022 3 :13pm [facility] at [address] [address] Hem/Onc Follow Up Note - OP Signed Patient: Galen Doss JR MR#: [id number] : 1945 Acct:[id number] Age/Sex: 76 / M Type: REG RCR Copies to: Matti Ash II, MD~ Date of Service: 09/15/2022 Time of Service: 15:12 - Assessment & Plan (1) Iron deficiency Plan: Esophageal varices and 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 He has persistently been iron deficient despite IV iron repletion in aug 2020. aug 2022 will order additional IV Injectafer x 2 doses Pancytopenia - secondary to cirrhosis likely, offered. BM biopsy and he declined. B12 deficiency Resume B12 injections. Thrombocytopenia Possibly due to liver disease Fibroscan was consistent with cirrhosis. Flow cytometry done in September 2021 revealed 3% monoclonal B-cells. No further work-up done at the time. (2) Thrombocytopenia Follow Up Instructions: cbc, iron studies monthly cmp prior to f/u in 6 months. f/u with deyanira in 6 months. cont monthly b12 give IV iron injectafer 750mg x 2 - History of Present Illness Chief Complaint: Patient is here for a 2 month follow up with labs 09/15/2022 for review. Had EGD with Dr Lester 09/09/2022. No concerns voiced at this time. HPI: This is a 75-year-old gentleman with a history of pernicious anemia, splenomegaly with resultant leukopenia and thrombocytopenia and iron deficiency. He is receiving parenteral B12 monthly and doing well with this. 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 He is on folic acid and I recommend that he stop this for now. He had a CT of the abdomen which confirmed splenomegaly. The CT is reviewed below: IMPRESSION: There is no evidence of bowel obstruction or obstructive uropathy. There is findings suggesting hepatic cirrhosis with a small amount of intra-abdominal ascites. There is splenomegaly with the spleen measuring 16.9 cm in craniocaudal dimension. There is a nonenhancing 14 mm focus within the spleen posterior to the hilum andinferiorly. This is of uncertain etiology. An underlying malignancy is not excluded. Uncomplicated colonic diverticula are noted. Impression dictated by: Hardik Gutierrez M.D.09/23/2021 3:06 PM He is also on iron which was started not too far ago. We talked about iron deficiency in people his age, AVM or angiodysplasia related. His iron stores are noted today and not optimal. I have recommended that he stop the oral iron as I want a second see what his iron stores do the next couple months. If he елена patient needs iron we will either put him back on it or consider IV iron. In sum, I recommend he stop the iron and folic acid today. We will check his CBC in 2 months and continue the parenteral IM B12. He has chronic leukopenia and thrombocytopenia likely secondary to splenomegaly. The cause of the splenomegaly is either idiopathic portal hypertension, liver disease etc. he does not have any symptoms or signs of lymphoma at this time. He is followed by Dr. Ash. He had an EGD and colonoscopy which were negative. He presented last year with pernicious anemia presenting with pancytopenia found to have B12 deficiency and iron deficiency. He did receive supplemental B12 and IV iron. He was then put on oral iron recently in my absence. 07/08/22 He feels well overall, without new complaints His energy is stable, maybe a bit lower than his normal. He is active still, butcan get winded with activity denies dyspnea at rest, chest pain, new pain anywhere. No fevers, chills, sweats, weight loss, appetite changes He was told his spleen is enlarged, but has not been told outright that he has any cirrhosis of his liver or not wbc, plt, hgb appear to be trending down a bit. continues to be iron deficient despite IV [facility] Dr. L[facility]. STOMACH: Mild antral gastritis, biopsies obtained, bottle 1-rule out H. pylori. There was a blood clot observed on the anterior body wall best viewed in retroflexed position, when washed away this revealed 2 punctate lesions without ulcerated base consistent with Dieulafoy, actively bleeding. A resolution 360 Endo Clip was placed over both of these lesions with hemostasis observed. No gastric varices ESOPHAGUS: Diaphragmatic hiatus was 45 cm from incisors and GE junction (upper margin of gastric folds) was at 45 cm from incisors. Squamocolumnar junction was at 45 cm from incisors. There was a hypertrophic, muscular appearance of the esophagus. MThere were 2-3 columns of large esophageal varices. Gastroscopewas subsequently withdrawn and reintroduced after placing 7 speed band ligator. A total of 3 bands were deployed with last band placement approximately at 30 cmfrom the incisors. All bands successfully deployed with ligation of varices and complete collapse proximally. His fibroscan was f4 cirrhosis and s4 steatosis. He feels well enough overall. He fell and is very sore on his left chest wall. Energy is a bit low. . - Physical Exam ECOG PS: 0 General : patient is alert and oriented to person place and time, no acute distress. Neck: no JVD or thyromegaly. Lymph: no cervical, supraclavicular, axillary adenopathy. Heart: regular rate and rhythm no murmurs rubs or gallops. Abdomen: soft nontender nondistended, no hepatosplenomegaly. Lungs: cta bl, no wheezes, rales, rhonchi. Extremities: no clubbing cyanosis. - Time with Patient Coordination of Care & Counseling Time: Greater than 50% of time spent with patient was for coordination of care (as documented) and [id number] counseling of patient and/or family. [facility] - Medical History Medical History: Medical History (Last Reviewed 09/09/22 @ 12:50 by Stephanie Austin RN) Aneurysm artery, iliac Anxiety CAD (coronary artery disease) Diabetes mellitus, type 2 Neuropathy Restless leg - Surgical History Surgical History: Surgical History (Last Reviewed 09/09/22 @ 12:50 by Stephanie Austin RN) History of heart bypass surgery Hx of tonsillectomy - Family History Family History: Family History (Last Reviewed 09/09/22 @ 12:50 by Stephanie Austin RN) Other Diabetes mellitus, type 2 Hypertension - Social History Smoking Status: Never smoker Substance Use Type: None Additional Data - Additional Objective Data Height/Weight: Height 6 ft 2 in Weight 101.786 kg BSA for Today's Weight 2.35 Vital Signs: 09/15/22 14:40 Pulse Rate [Right Brachial] 55 L Respiratory Rate 18 Blood Pressure [Right Arm] 151/91 H 02 Sat by Pulse Oximetry 99 Oxygen Delivery Method Room Air Distress Screening: RN Distress Screening Start: 08/14/20 08:52 Freq: Status: Active Protocol: Document 08/14/20 09:09 GAGAN (Rec: 08/14/20 09:09 [id number]) Distress Screening Distress Score: 0 No worry/distress Distress Screening Total 0 - Lab Results Diagram of Most Recent CBC and CMP 09/15/22 09:08 09/23/21 08:40 Labs - Last 7 Days 09/15/22 09:08: Iron 42, TIBC 554 H, Iron Saturation 7.0 L, Transferrin 396 H, Ferritin 29.4 09/15/22 09:08: Corrected WBC 3.6 L, Uncorrected WBC Count 3.6 L, RBC 3.65 L, Hgb 9.7 L, Hct 30.3 L, MCV 83.1 L, MCH 26.6 L, MCHC 32.1 L, RDW 16.3 H, Plt Count 77 L, MPV 8.9, Neut % (Auto) 63.1, Lymph % (Auto) 27.1, [place] % (Auto) 8.3, Eos % (Auto) 1.2, Baso % (Auto) 0.3, Neut # (Auto) 2.3, Lymph # (Auto) 1.0, [place]# (Auto) 0.3, Eos # (Auto) 0.0, Baso # (Auto) 0.0, Nucleated RBC % (auto) 0.1 - Home Medications and Allergies Allergies/Adverse Reactions: Allergies ropinirole [From Requip] Allergy (Verified 09/15/22 14:40) Fainting Home Medications: Home Medications liraglutide 0.6 mg/0.1 mL (18 mg/3 mL) subcutaneous pen injector (Victoza 2- Ulices)1.8 mg subcut Q24H 08/14/20 [History Confirmed 09/15/22] metformin 1,000 mg tablet 1,000 mg PO BID 08/14/20 [History Confirmed 09/15/22] pramipexole 0.125 mg tablet 0.125 mg PO BID 08/14/20 [History Confirmed 09/15/22] pregabalin 100 mg capsule 200 mg PO BID 08/14/20 [History Confirmed 09/15/22] ramipril 5 mg capsule 10 mg PO DAILY 08/14/20 [History Confirmed 09/15/22] simvastatin 20 mg tablet 20 mg PO HS 08/14/20 [History Confirmed 09/15/22] aspirin 81 mg tablet 81 mg PO DAILY 12/11/20 [History Confirmed 09/15/22] carvedilol 3.125 mg tablet 3.125 mg PO BID #60 tabs 09/09/22 [Rx Confirmed 09/15/22] furosemide 20 mg tablet 20 mg PO DAILY 09/09/22 [History Confirmed 09/15/22] insulin glargine 100 unit/mL (3 mL) subcutaneous pen (Basaglar KwikPen U-100 Insulin) 35 unit subcut DAILY 09/09/22 [History Confirmed 09/15/22] omeprazole 40 mg capsule,delayed release 40 mg PO BID 8 weeks #112 caps 09/09/22[Rx Confirmed 09/15/22] rifaximin 550 mg tablet (Xifaxan) 550 mg PO BID 09/09/22 [History Confirmed 09/15/22] Dictated By: Luciano Ramirez II, DO DD/ 1512 Signed By: <Electronically signed by Luciano Ramirez II, DO> 09/15/22 1531 [facility] Work Phone: [phone]) 707-325710-19-2022 Evaluation note* Encounter Date Diagnosis Assessment Notes Treatment Notes Treatment Clinical Notes Aug, Cirrhosis of liver (ICD-10 - K74.60) [facility] Other 10-19-2022 Evaluation note* Encounter Date Diagnosis Assessment Notes Treatment Notes Treatment Clinical Notes Aug, Cirrhosis (ICD-10 - K74.60) Aug, Esophageal varices (ICD-10 - I85.00) [facility]* Encounter Date Diagnosis Assessment Notes Treatment Notes Treatment Clinical Notes Jul, Cirrhosis of liver (ICD-10 - K74.60) no family history of liver, lung disease patient was not a heavy alcohol drinker, no auto immune disease patient is advised we will order some labs at this time we will order the above medication at this time. [facility] Other 08-17-2022 Reason for visit NarrativePATIENT HERE AT THE REQUEST OF ALISHA PEARL NP FOR EVALUATION & TREATMENT OF CIRRHOSIS. (FIBROS CAN DONE 07/09/22), PATIENT DENIES ANY PAIN OR DISCOMFORT, PATIENT HAS NOT NOTICED ANY JAUNDICE. PATIENT STATES IMMUNE SYSTEM IS DOWN AND THATS WHY HE WAS SENT HERE.[facility] Other 08-16-2022 Progress note Author Luciano Ramirez [facility] July 08, 2022 3:04pm Note Date/Time July 08, 2022 12 :49pm [facility] [place] [address] Hem/Onc Follow Up Note - OP Signed Patient: Galen Doss JR MR#: [id number] : 1945 Acct:[id number] Age/Sex: 76 / M Type: REG RCR Copies to: Matti Ash II, MD~ Date of Service: 07/08/2022 Time of Service: 12:46 - Assessment & Plan (1) Iron deficiency Plan: Last GI work-up in 2019 negative for source of bleeding. He has persistently been iron deficient despite IV iron repletion to date --June 2022 will order additional IV Injectafer x 2 doses B12 deficiency Previously received monthly B12 injections, last dose April 2022 Splenomegaly Thrombocytopenia Possibly due to liver disease --Refer to GI --Get fibroscan, hepatitis panel, copper level and antimitochondrial antibody prior to GI consult Flow cytometry done in September 2021 revealed 3% monoclonal B-cells. No further work-up done at the time. June 2022 wbc, hgb and platelets trending down a bit. We discussed in detail his flow cytometry report and the potential causes of his pancytopenia includingunderlying malignancy, splenomegaly, cirrhotic liver, etc.. He would like to getGI work-up done regarding his liver/spleen disease to start and will tentativelyplan for bone marrow biopsy after GI work-up completed. He will follow-up with Dr. Ramirez after GI consult to discuss findings and schedule his bone marrow biopsy, likely in about 2 months. (2) Thrombocytopenia Follow Up Instructions: IV Injectafer x 2 doses refer to GI schedule fibroscan check hepatitis panel, antimitochondrial antibody, copper follow-up in [address] Mendez cbc, cmp, iron studies prior to follow-up - History of Present Illness Chief Complaint: Patient is here today for a 9 month follow up visit and go overlabs HPI: This is a 75-year-old gentleman with a history of pernicious anemia, splenomegaly with resultant leukopenia and thrombocytopenia and iron deficiency. He is receiving parenteral B12 monthly and doing well with this. 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 He is on folic acid and I recommend that he stop this for now. He had a CT of the abdomen which confirmed splenomegaly. The CT is reviewed below: IMPRESSION: There is no evidence of bowel obstruction or obstructive uropathy. There is findings suggesting hepatic cirrhosis with a small amount of intra-abdominal ascites. There is splenomegaly with the spleen measuring 16.9 cm in craniocaudal dimension. There is a nonenhancing 14 mm focus within the spleen posterior to the hilum andinferiorly. This is of uncertain etiology. An underlying malignancy is not excluded. Uncomplicated colonic diverticula are noted. Impression dictated by: Hardik Gutierrez M.D.09/23/2021 3:06 PM He is also on iron which was started not too far ago. We talked about iron deficiency in people his age, AVM or angiodysplasia related. His iron stores are noted today and not optimal. I have recommended that he stop the oral iron as I want a second see what his iron stores do the next couple months. If he елена patient needs iron we will either put him back on it or consider IV iron. In sum, I recommend he stop the iron and folic acid today. We will check his CBC in 2 months and continue the parenteral IM B12. He has chronic leukopenia and thrombocytopenia likely secondary to splenomegaly. The cause of the splenomegaly is either idiopathic portal hypertension, liver disease etc. he does not have any symptoms or signs of lymphoma at this time. He is followed by Dr. Ash. He had an EGD and colonoscopy which were negative. He presented last year with pernicious anemia presenting with pancytopenia found to have B12 deficiency and iron deficiency. He did receive supplemental B12 and IV iron. He was then put on oral iron recently in my absence. 07/08/22 He feels well overall, without new complaints His energy is stable, maybe a bit lower than his normal. He is active still, butcan get winded with activity denies dyspnea at rest, chest pain, new pain anywhere. No fevers, chills, sweats, weight loss, appetite changes He was told his spleen is enlarged, but has not been told outright that he has any cirrhosis of his liver or not wbc, plt, hgb appear to be trending down a bit. continues to be iron deficient despite IV replacement - Physical Exam CONSTITUTIONAL: The patient is in no acute distress. HEAD / FACE: Normocephalic. EYES: Pupils are equal and reactive to light. Conjunctivae and lids are benign in appearance. Ocular movement intact. EARS: Hearing grossly intact. Apparent cutaneous horn on right ear, chronic per pt NOSE / MOUTH / THROAT: Nose, mouth, tongue and oropharynx are benign in appearance. No signs of inflammation. NECK / THYROID: Neck is supple. Thyroid is symmetrical, without thyromegaly, masses or palpable nodules. LYMPHATIC: No palpable cervical, supraclavicular, axillary, or inguinal adenopathy--unchanged firm right inguinal area from prior sentinel LNB. RESPIRATORY: Normal to inspection. Lungs clear to auscultation and percussion. No wheezing, rales, rhonchi or rubs. Normal effort. CARDIOVASCULAR: Regular rate and rhythm. No murmurs, gallops, or rubs. ABDOMEN: Bowel sounds normoactive. Soft, nontender and non-distended. No hepatosplenomegaly. No masses. INTEGUMENTARY: The skin is unremarkable. No rashes. No suspicious lesions. MUSCULOSKELETAL: Normal musculature, no joint deformities or abnormalities. EXTREMITIES: no cyanosis or clubbing. No edema NEUROLOGICAL: Alert and oriented. Cranial nerves intact. No gross motor or sensory deficits. PSYCHIATRIC: No anxiety or evidence of depression. - Time with Patient Coordination of Care & Counseling Time: Greater than 50% of time spent with patient was for coordination of care (as documented) and [id number] counseling of patient and/or family. [facility] - Medical History Medical History: Medical History (Last Updated 08/14/20 @ 09:06 by Flakita Ruano RN) Aneurysm artery, iliac Anxiety CAD (coronary artery disease) Diabetes mellitus, type 2 Neuropathy Restless leg - Surgical History Surgical History: Surgical History (Last Updated 08/13/20 @ 13:39 by Flakita Ruano RN) History of heart bypass surgery Hx of tonsillectomy - Family History Family History: Family History (Last Updated 08/13/20 @ 13:40 by Flakita Ruano RN) Other Diabetes mellitus, type 2 Hypertension - Social History Smoking Status: Never smoker Substance Use Type: None Additional Data - Additional Objective Data Height/Weight: Height 6 ft 2 in Weight 103.873 kg BSA for Today's Weight 2.35 Vital Signs: 07/08/22 11:04 Temperature 97.5 F L Pulse Rate [Right Brachial] 59 L Respiratory Rate 16 Blood Pressure [Left Arm] 158/80 H 02 Sat by Pulse Oximetry 98 Oxygen Delivery Method Room Air Distress Screening: RN Distress Screening Start: 08/14/20 08:52 Freq: Status: Active Protocol: Document 08/14/20 09:09 GAGAN (Rec: 08/14/20 09:09 AA [id number]) Distress Screening Distress Score: 0 No worry/distress Distress Screening Total 0 - Lab Results Diagram of Most Recent CBC and CMP 07/04/22 08:43 09/23/21 08:40 Labs - Last 7 Days 07/04/22 08:43: Iron 46, TIBC 542 H, Iron Saturation 8.0 L, Transferrin 387 H, Ferritin 7.1 L 07/04/22 08:43: Corrected WBC 2.5 L, Uncorrected WBC Count 2.5 L, RBC 4.03, Hgb 11.2 L, Hct 34.5 L, MCV 85.8, MCH 27.8, MCHC 32.4 L, RDW 15.4 H, Plt Count 69 L,MPV 8.8, Neut % (Auto) 61.5, Lymph % (Auto) 27.6, [place] % (Auto) 10.0, Eos % (Auto) 0.7, Baso % (Auto) 0.2, Neut # (Auto) 1.5 L, Lymph # (Auto) 0.7 L, [place] #(Auto) 0.2, Eos # (Auto) 0.0, Baso # (Auto) 0.0, Nucleated RBC % (auto) 0.1 - Home Medications and Allergies Allergies/Adverse Reactions: Allergies ropinirole [From Requip] Allergy (Verified 07/08/22 11:03) Fainting Home Medications: Home Medications liraglutide 0.6 mg/0.1 mL (18 mg/3 mL) subcutaneous pen injector (Victoza 2- Ulices)1.8 mg subcut Q24H 08/14/20 [History Confirmed 07/08/22] metformin 1,000 mg tablet 1,000 mg PO BID 08/14/20 [History Confirmed 07/08/22] metoprolol succinate 25 mg tablet,extended release 24 hr 12.5 mg PO DAILY 08/14/20 [History Confirmed 07/08/22] pramipexole 0.125 mg tablet 2 mg PO BID 08/14/20 [History Confirmed 07/08/22] pregabalin 100 mg capsule 200 mg PO BID 08/14/20 [History Confirmed 07/08/22] ramipril 5 mg capsule 5 mg PO DAILY 08/14/20 [History Confirmed 07/08/22] simvastatin 20 mg tablet 20 mg PO HS 08/14/20 [History Confirmed 07/08/22] aspirin 81 mg tablet 81 mg PO DAILY 12/11/20 [History Confirmed 07/08/22] Dictated By: Alisha Soares APRN DD/ [id number] Signed By: <Electronically signed by LISA Soares> 07/08/22 1308 <Electronically signed by Luciano Ramirez II, DO> 07/08/22 1504 [facility] Work Phone: [phone]) 857-168211-16-2021 Progress note Author John Ventura [facility] October 08, 2021 10:15am Note Date/Time October 08, 2021 10:10am [facility] [place] [address] Hem/Onc Follow Up Note - OP Signed Patient: Galen Doss JR MR#: [id number] : 1945 Acct:[id number] Age/Sex: 75 / M Type: REG RCR Copies to: Matti Ash II, MD~ Subjective Date/Time of Service: Date of Service: 10/08/2021 Time of Service: 10:07 Chief Complaint: Patient is here today for 3 month follow up visit and to go over labs and CT scan. No new concerns HPI: This is a 75-year-old gentleman with a history of pernicious anemia, splenomegaly with resultant leukopenia and thrombocytopenia and iron deficiency. He is receiving parenteral B12 monthly and doing well with this. 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 He is on folic acid and I recommend that he stop this for now. He had a CT of the abdomen which confirmed splenomegaly. The CT is reviewed below: IMPRESSION: There is no evidence of bowel obstruction or obstructive uropathy. There is findings suggesting hepatic cirrhosis with a small amount of intra-abdominal ascites. There is splenomegaly with the spleen measuring 16.9 cm in craniocaudal dimension. There is a nonenhancing 14 mm focus within the spleen posterior to the hilum andinferiorly. This is of uncertain etiology. An underlying malignancy is not excluded. Uncomplicated colonic diverticula are noted. Impression dictated by: Hardik Gutierrez M.D.09/23/2021 3:06 PM He is also on iron which was started not too far ago. We talked about iron deficiency in people his age, AVM or angiodysplasia related. His iron stores are noted today and not optimal. I have recommended that he stop the oral iron as I want a second see what his iron stores do the next couple months. If he елена patient needs iron we will either put him back on it or consider IV iron. In sum, I recommend he stop the iron and folic acid today. We will check his CBC in 2 months and continue the parenteral IM B12. He has chronic leukopenia and thrombocytopenia likely secondary to splenomegaly. The cause of the splenomegaly is either idiopathic portal hypertension, liver disease etc. he does not have any symptoms or signs of lymphoma at this time. He is followed by Dr. Ash. He had an EGD and colonoscopy which were negative. He presented last year with pernicious anemia presenting with pancytopenia found to have B12 deficiency and iron deficiency. He did receive supplemental B12 and IV iron. He was then put on oral iron recently in my absence. ROS Details: All systems reviewed & no additional complaints except as documented Subjective/ROS - Narrative: Overall negative and noncontributory. [facility] - Medical History Medical History: Medical History (Last Updated 08/14/20 @ 09:06 by Flakita Ruano, RN) Aneurysm artery, iliac Anxiety CAD (coronary artery disease) Diabetes mellitus, type 2 Neuropathy Restless leg - Surgical History Surgical History: Surgical History (Last Updated 08/13/20 @ 13:39 by Flakita Ruano, RN) History of heart bypass surgery Hx of tonsillectomy - Family History Family History: Family History (Last Updated 08/13/20 @ 13:40 by Flakita Ruano RN) Other Diabetes mellitus, type 2 Hypertension - Social History Smoking Status: Never smoker Substance Use Type: None Home Medications & Allergies Allergies ropinirole [From Requip] Allergy (Verified 10/08/21 09:52) Fainting Home Medications liraglutide 0.6 mg/0.1 mL (18 mg/3 mL) subcutaneous pen injector ([employer]za 2- Ulices)1.8 mg SUBCUT Q24H 08/14/20 [History Confirmed 10/08/21] metformin 1,000 mg tablet 1,000 mg PO BID 08/14/20 [History Confirmed 10/08/21] metoprolol succinate 25 mg tablet,extended release 24 hr 12.5 mg PO DAILY 08/14/20 [History Confirmed 10/08/21] pioglitazone 15 mg tablet 15 mg PO DAILY 08/14/20 [History Confirmed 10/08/21] pramipexole 0.125 mg tablet 2 mg PO BID 08/14/20 [History Confirmed 10/08/21] pregabalin 100 mg capsule 200 mg PO BID 08/14/20 [History Confirmed 10/08/21] ramipril 5 mg capsule 5 mg PO DAILY 08/14/20 [History Confirmed 10/08/21] simvastatin 20 mg tablet 20 mg PO HS 08/14/20 [History Confirmed 10/08/21] aspirin 81 mg tablet 81 mg PO DAILY 12/11/20 [History Confirmed 10/08/21] folic acid 0.8 mg capsule 0.8 mg PO DAILY #90 cap 12/11/20 [Rx Confirmed 10/08/21] Objective - Height/Weight Height/Weight: Height 6 ft 2 in Weight 103.419 kg BSA for Today's Weight 2.35 - Vital Signs Vital Signs: 10/08/21 09:53 Temperature 98.0 F Pulse Rate [Right Brachial] 99 H Respiratory Rate 20 Blood Pressure [Left Arm] 177/80 H 02 Sat by Pulse Oximetry 99 - Distress Screening Distress Screen Results: RN Distress Screening Start: 08/14/20 08:52 Freq: Status: Active Protocol: Document 08/14/20 09:09 AA (Rec: 08/14/20 09:09 AA [id number]) Distress Screening Distress Score: 0 No worry/distress Distress Screening Total 0 Physical Exam Narrative: Essentially negative and noncontributory at this time. - ECOG Performance Status ECOG Score: 1 Results - Labs Labs: Diagram of Most Recent CBC and CMP 09/23/21 08:40 09/23/21 08:40 Assessment and Plan (1) B12 deficiency Continue IM B12. CBC and iron stores in 2 months and then every 3 months. See me yearly. (2) Iron deficiency The patient required IV iron last year and more recently was put on oral iron. His iron stores are not optimal. I recommend he stop the oral iron as a trial to see essentially what his iron stores and CBC does. We will check his CBC andiron stores in 2 months. If he drops again I will recommend going back to IV iron given that while on chronic oral iron his iron stores were really not optimal. (3) Thrombocytopenia Likely secondary to splenomegaly (4) Leukopenia Qualifiers: Neutropenia type: other As above, secondary to splenomegaly. (5) Splenomegaly Could be secondary to chronic liver disease or idiopathic portal hypertension. At this time I will recommend observation only. In my opinion it is the cause of his leukopenia and thrombocytopenia. - Time with Patient Time Spent with Patient (Follow Up Visit): 35 minutes Coordination of Care & Counseling Time: Greater than 50% of time spent with patient was for coordination of care (as documented) and [id number] counseling of patient and/or family. Dictated By: John Ventura MD DD/ 1007 Signed By: <Electronically signed by MD John Ventura> 10/08/21 101 [facility] Work Phone: [phone]) 470-777608-10-2021 Progress note Author Bill Leal [facility] July 02, 2021 10:36am Note Date/Time July 02, 2021 10 :30am [facility] [place] [address] Hem/Onc Follow Up Note - OP Signed Patient: Galen Doss JR MR#: [id number] : 1945 Acct:[id number] Age/Sex: 75 / M Type: REG RCR Copies to: Matti Ash II, MD~ Subjective Date/Time of Service: Date of Service: 07/02/2021 Time of Service: 10:26 Chief Complaint: Patient is here today for a 3 month follow up visit for iron and B-12 deficiency and to review labs. No new concerns HPI: He is here for routine follow-up. His repeat CBC shows that his anemia has resolved and his iron studies are appropriate. He still has thrombocytopenia and leukopenia which is thought to be secondary to his unexplained splenomegaly. Hehas complaints today. He reports that his energy has improved. He denies fevers, chills, night sweats. He has lost about 5 kgs over the past few months;however he was started on Victoza which has decreased his appetite. PREVIOUS ENCOUNTER (02APR2021): I am covering Dr. Ventura. Mr. Doss presents of up. He is on IM B12 monthly. He feels well. He has chronic neuropathy for a couple of years, no memory loss. He has intermittent diarrhea. He denies bleeding. His EGD and colonoscopy at [place] were negative. He denies infections, he does not drink alcohol. ROS Details: All systems reviewed & no additional complaints except as documented Subjective/ROS - Narrative: CONSTITUTIONAL: Fevers [-], Chills [-], Nightsweats [-], Weight Loss [+], Hot Flashes [-], Fatigue [-] HEENT: Changes in Vision [-], Changes in Hearing [-], Eye Pain [-], Ear Pain [- ], Mouth Sores [-], Change in Taste [-], Sore Throat [-], Hoarseness [-] CARDIOVASCULAR: Palpitations [-], Chest Pain [-], Chest Tightness [-], Swellingin Extremities [-] RESPIRATORY: Cough [-], Shortness of Breath [-], Dyspnea on Exertion [-], Wheezing [-] GASTROINTESTINAL: Abdominal Pain [-], Diarrhea [-], Constipation [-], Nausea [- ], Vomiting [-], Early Satiety [-], Hematochezia [-], Melena [-], Decreased Appetite [+] LYMPHATIC: Swollen Glands [-], Enlarged Lymph Nodes [-] INTEGUMENTARY: Rashes [-], Nodules [-], Ulcers [-], Blisters [-], Pigmentation Changes [-] HEMATOLOGIC: Easy Bruising [-], Gum Bleeding [-], Epistaxis [-], Prolonged Bleeding [-], Heavy Menses [-] GENITOURINARY: Hematuria [-], Difficulty Voiding [-], Pain with Voiding [-], Frequent Voiding [-] NEUROLOGIC: Numbness [-], Tingling [-], Altered Gait [-], Muscle Weakness [-] MUSCULOSKELETAL: Muscle Pain [-], Bone Pain [-], Joint Pain [-] PSYCHIATRIC: Depressed Mood [-], Anxiety [-], Stressed [-] [facility] - Medical History Medical History: Medical History (Last Updated 08/14/20 @ 09:06 by Flakita Ruano, LUCA) Aneurysm artery, iliac Anxiety CAD (coronary artery disease) Diabetes mellitus, type 2 Neuropathy Restless leg - Surgical History Surgical History: Surgical History (Last Updated 08/13/20 @ 13:39 by Flakita Ruano, RN) History of heart bypass surgery Hx of tonsillectomy - Family History Family History: Family History (Last Updated 08/13/20 @ 13:40 by Flakita Ruano, RN) Other Diabetes mellitus, type 2 Hypertension - Social History Smoking Status: Never smoker Substance Use Type: None Home Medications & Allergies Allergies ropinirole [From Requip] Allergy (Verified 07/02/21 09:53) Fainting Home Medications liraglutide 0.6 mg/0.1 mL (18 mg/3 mL) subcutaneous pen injector (Victoza 2- Ulices)1.8 mg SUBCUT Q24H 08/14/20 [History Confirmed 07/02/21] metformin 1,000 mg tablet 1,000 mg PO BID 08/14/20 [History Confirmed 07/02/21] metoprolol succinate 25 mg tablet,extended release 24 hr 12.5 mg PO DAILY 08/14/20 [History Confirmed 07/02/21] pioglitazone 15 mg tablet 15 mg PO DAILY 08/14/20 [History Confirmed 07/02/21] pramipexole 0.125 mg tablet 2 mg PO BID 08/14/20 [History Confirmed 07/02/21] pregabalin 100 mg capsule 200 mg PO BID 08/14/20 [History Confirmed 07/02/21] ramipril 5 mg capsule 5 mg PO DAILY 08/14/20 [History Confirmed 07/02/21] simvastatin 20 mg tablet 20 mg PO HS 08/14/20 [History Confirmed 07/02/21] aspirin 81 mg tablet 81 mg PO DAILY 12/11/20 [History Confirmed 07/02/21] folic acid 0.8 mg capsule 0.8 mg PO DAILY #90 cap 12/11/20 [Rx Confirmed 07/02/21] Objective - Height/Weight Height/Weight: Height 6 ft 2 in Weight 99.337 kg BSA for Today's Weight 2.35 - Vital Signs Vital Signs: 07/02/21 09:54 Pulse Rate [Right Brachial] 57 L Respiratory Rate 20 Blood Pressure [Left Arm] 143/68 H 02 Sat by Pulse Oximetry 100 - Emotional Needs Assessment Emotional Needs Assessment: Emotional Needs Identified? No Physical Exam Narrative: CONSTITUTIONAL: Awake, Alert and in No Acute Distress HEENT: Eyes were reactive to light bilaterally, anicteric sclere without conjunctival pallor. Nasal mucosa was non-erythematous. Mucous membranes were moist. Oral mucosa was without lesions or petechiae. Dentition was normal. NECK: There were no masses in the neck. Trachea was midline. Thyroid was not enlarged. GASTROINTESTINAL: Abdomen was non-tender. The liver was not enlarged. The spleen was not present. There were no hernias present. LYMPHATIC: No auricular, anterior/posterior cervical, supraclavicular, infraclavicular, axillary, or inguinal adenopathy appreciated MUSCULOSKELETAL: Gait was normal. No clubbing or cyanosis noted. SKIN: No rashes, lesions, nodules, ecchymoses, erythema or petechiae were noted. PSYCHIATRIC: Oriented to time, place and person. Memory was intact. Mood was normal and affect was appropriate to mood. Patient demonstrated insight into his diagnosis and judgment was adequate. Results - Labs Labs: Diagram of Most Recent CBC and CMP 06/25/21 10:59 06/25/21 10:59 Laboratory Last Values WBC 3.7 x10E3/uL (4.5-11.0) L 10/16/20 14:37 Corrected WBC 3.5 X10E3/uL (4.1-10.5) L 06/25/21 10:59 Uncorrected WBC Count 3.5 x10E3/uL (4.5-11.0) L 06/25/21 10:59 RBC 4.14 x10E6/uL (3.90-5.60) 06/25/21 10:59 Hgb 13.1 g/dL (13.0-17.0) 06/25/21 10:59 Hct 38.9 % (38.8-50.0) 06/25/21 10:59 MCV 93.9 fl (83.5-101) 06/25/21 10:59 MCH 31.7 pg (27.5-35.2) 06/25/21 10:59 MCHC 33.8 g/dL (32.5-35.6) 06/25/21 10:59 RDW 13.7 % (12.0-14.8) 06/25/21 10:59 Plt Count 75 x10E3/uL (150-450) L 06/25/21 10:59 MPV 8.4 fl (6.6-10.1) 06/25/21 10:59 Neut % (Auto) 62.7 % (.) 06/25/21 10:59 Lymph % (Auto) 28.2 % (.) 06/25/21 10:59 [place] % (Auto) 7.5 % (.) 06/25/21 10:59 Eos % (Auto) 1.2 % (.) 06/25/21 10:59 Baso % (Auto) 0.4 % (.) 06/25/21 10:59 Neut # (Auto) 2.2 x10E3/uL (1.8-7.7) 06/25/21 10:59 Lymph # (Auto) 1.0 x10E3/uL (1.00-4.8) 06/25/21 10:59 [place] # (Auto) 0.3 x10E3/uL (0.0-0.8) 06/25/21 10:59 Eos # (Auto) 0.0 x10E3/uL (0.0-0.45) 06/25/21 10:59 Baso # (Auto) 0.0 x10E3/uL (0.0-0.2) 06/25/21 10:59 Nucleated RBC % (auto) 0.0 % (0-0.5) 06/25/21 10:59 Absolute Retic 0.078 x10^6/uL (0.024-0.084) 08/14/20 09:38 Percent Retic 1.9 % (0.5-1.5) H 08/14/20 09:38 PHA Creatinine Clear 96.22 06/25/21 10:59 Sodium 135 mmol/L (136-146) L 06/25/21 10:59 Potassium mmol/L (3.5-5.1) 06/25/21 10:59 Chloride 98 mmol/L (95-114) 06/25/21 10:59 Carbon Dioxide 27.4 mmol/L (22.0-30.0) 06/25/21 10:59 BUN 13 mg/dL (9-23) 06/25/21 10:59 Creatinine 0.83 mg/dL (0.64-1.27) 06/25/21 10:59 Est GFR ( Amer) > 60 mL/Min 06/25/21 10:59 Est GFR (Non-Af Amer) > 60 mL/Min 06/25/21 10:59 Glucose 133 mg/dL (70-100) H 06/25/21 10:59 Calcium 9.0 mg/dL (8.2-10.2) 06/25/21 10:59 Iron 76 ug/dL (40-160) 06/25/21 10:59 TIBC 367 ug/dL (255-450) 06/25/21 10:59 Iron Saturation 20.0 % (20-50) 06/25/21 10:59 Transferrin 262 mg/dL (180-380) 06/25/21 10:59 Ferritin 109.1 ng/mL (23.9-336.2) 06/25/21 10:59 Direct Bilirubin 0.2 mg/dL (0.0-0.4) 08/14/20 09:38 Total Bilirubin 1.4 mg/dL (0.3-1.2) H 06/25/21 10:59 Indirect Bilirubin 0.8 mg/dL 08/14/20 09:38 AST 50 U/L (10-42) H 06/25/21 10:59 ALT 36 U/L (10-60) 06/25/21 10:59 Alkaline Phosphatase 64 U/L (32-92) 06/25/21 10:59 Serum Total Protein 7.2 g/dL (6.0-8.5) 08/14/20 09:38 Albumin (Send Out) 3.6 g/dL (2.9-4.4) 08/14/20 09:38 Total Protein 6.4 gm/dL (6.1-7.9) 06/25/21 10:59 Globulin (PEP) 3.6 g/dL (2.2-3.9) 08/14/20 09:38 Albumin/Globulin (PEP) 1.0 (0.7-1.7) 08/14/20 09:38 Albumin 4.0 gm/dL (3.2-5.5) 06/25/21 10:59 Opdiw-7-Debckcjvs 0.3 g/dL (0.0-0.4) 08/14/20 09:38 Vuhcv-1-Oitikrqqt 0.9 g/dL (0.4-1.0) 08/14/20 09:38 Beta Globulins 1.2 g/dL (0.7-1.3) 08/14/20 09:38 Globulin 2.4 gm/dL 06/25/21 10:59 Albumin/Globulin Ratio 1.7 06/25/21 10:59 Gamma Globulins 1.1 g/dL (0.4-1.8) 08/14/20 09:38 M-Sean Not observed g/dL (Not Observed) 08/14/20 09:38 PEP Note (.) 08/14/20 09:38 Vitamin B12 > 7500 pg/mL (180-914) H 06/25/21 10:59 Methylmalonic Acid 287 nmol/L (0-378) 06/25/21 10:59 MMA Comment (.) 06/25/21 10:59 Folate > 22.3 ng/mL (>5.9) 03/27/21 09:40 Gastrin 238 pg/mL (0-115) H 08/21/20 09:32 TSH 3rd Generation 4.44 uIU/mL (0.45-5.33) 08/14/20 09:38 Serum Immunofix Reflex N/A 08/14/20 09:38 RBC Copper 0.72 ug/mL (0.50-1.50) 03/27/21 09:40 Whole Blood Zinc 660 ug/dL (440-860) 03/27/21 09:40 Anti-Parietal Cell Ab 84.7 Units (0.0-20.0) H 08/21/20 09:32 Free [place] LC, Quant 36.3 mg/L (3.3-19.4) H 08/14/20 09:38 Free Lambda LC, Quant 17.2 mg/L (5.7-26.3) 08/14/20 09:38 Free [place]/Lambda Ratio 2.11 (0.26-1.65) H 08/14/20 09:38 Assessment and Plan (1) B12 deficiency 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 B12 level today is improving, maintain B12 therapy monthly injection. -B12 level is replete -He should stay on Folic acid supplement, prescribed in the past. (2) Iron deficiency ? Malabsorption, GI work up negative, tolerated IV iron well. -Received IV iron, anemia normalized. -Continue ferrous sulfate 325 mg daily, return 3 months with a CBC and iron studies. (3) Thrombocytopenia Splenomegaly 15 cm, no clear cause. He does not drink alcohol, no liver diseaseon ultrasound done at [place] except for a small patch of fatty infiltration. Normal copper levels. Can consider Peripheral Blood Flow Cytometry with his next lab draw to look for a lymphoproliferative process. We will also obtain a CT Abd/Pelvis for the same reason and to better evaluate his liver and spleen. 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 Patient and the asked many questions, all answered to their satisfaction. - Time with Patient Time Spent with Patient (Follow Up Visit): 35 minutes Coordination of Care & Counseling Time: Greater than 50% of time spent with patient was for coordination of care (as documented) and [id number] counseling of patient and/or family. Dictated By: Bill Leal MD DD/ 1026 Signed By: <Electronically signed by Bill Leal MD> 07/02/21 1036 [facility] Work Phone: [phone]) 656-292205-11-2021 Progress note Author Lars Zhang [facility] April 02, 2021 6:05pm Note Date/Time April 02, 2021 6:01p m [facility] [place] [address] Hem/Onc Follow Up Note - OP Signed Patient: Galen Doss JR MR#: [id number] : 1945 Acct:[id number] Age/Sex: 75 / M Type: REG RCR Copies to: Matti Ash II, MD~ Subjective Date/Time of Service: Date of Service: 04/02/2021 Time of Service: 10:00 Chief Complaint: Patient is here for a 2 month follow up with labs for review. HPI: I am covering Dr. Ventura. Mr. Doss presents of up. He is on IM B12 monthly. He feels well. He has chronic neuropathy for a couple of years, no memory loss. He has intermittent diarrhea. He denies bleeding. His EGD and colonoscopy at [place] were negative. He denies infections, he does not drink alcohol. ROS Details: All systems reviewed & no additional complaints except as documented [facility] - Medical History Medical History: Medical History (Last Updated 08/14/20 @ 09:06 by Flakita Ruano, RN) Aneurysm artery, iliac Anxiety CAD (coronary artery disease) Diabetes mellitus, type 2 Neuropathy Restless leg - Surgical History Surgical History: Surgical History (Last Updated 08/13/20 @ 13:39 by Flakita Ruano, RN) History of heart bypass surgery Hx of tonsillectomy - Family History Family History: Family History (Last Updated 08/13/20 @ 13:40 by Flakita Ruano, RN) Other Diabetes mellitus, type 2 Hypertension - Social History Smoking Status: Never smoker Substance Use Type: None Home Medications & Allergies Allergies ropinirole [From Requip] Allergy (Verified 04/02/21 10:25) Fainting Home Medications liraglutide [Victoza 2-Ulices] 1.8 mg SUBCUT Q24H 08/14/20 [History Confirmed 04/02/21] metformin 1,000 mg PO BID 08/14/20 [History Confirmed 04/02/21] metoprolol succinate 12.5 mg PO DAILY 08/14/20 [History Confirmed 04/02/21] pioglitazone 15 mg PO DAILY 08/14/20 [History Confirmed 04/02/21] pramipexole 2 mg PO BID 08/14/20 [History Confirmed 04/02/21] pregabalin 200 mg PO BID 08/14/20 [History Confirmed 04/02/21] ramipril 5 mg PO DAILY 08/14/20 [History Confirmed 04/02/21] simvastatin 20 mg PO HS 08/14/20 [History Confirmed 04/02/21] aspirin 81 mg PO DAILY 12/11/20 [History Confirmed 04/02/21] folic acid 0.8 mg PO DAILY #90 cap 12/11/20 [Rx Confirmed 04/02/21] Objective - Height/Weight Height/Weight: Height 6 ft 2 in Weight 104.871 kg BSA for Today's Weight 2.35 - Vital Signs Vital Signs: 04/02/21 10:26 Temperature 97.5 F L Pulse Rate [Right Brachial] 64 Respiratory Rate 18 Blood Pressure [Right Arm] 151/71 H 02 Sat by Pulse Oximetry 99 - Emotional Needs Assessment Emotional Needs Assessment: Emotional Needs Identified? No Physical Exam Narrative: GEN: NAD LUNGS: Breathing comfortably on room air. ABD : Soft, NT, ND EXT: No edema Neuro: Grossly intact. He has good memory. Results - Labs Labs: Diagram of Most Recent CBC and CMP 03/27/21 09:40 10/16/20 14:37 Labs - Last 7 Days 03/27/21 09:40: Methylmalonic Acid 278, MMA Comment , RBC Copper 0.72, Whole Blood Zinc 660 03/27/21 09:40: Iron 95, TIBC 381, Iron Saturation 24.0, Transferrin 272, Ferritin 172.4, Vitamin B12 251, Folate > 22.3 03/27/21 09:40: Corrected WBC 3.3 L, Uncorrected WBC Count 3.3 L, RBC 4.55, Hgb 14.2, Hct 42.7, MCV 93.8, MCH 31.1, MCHC 33.2, RDW 16.3 H, Plt Count 72 L, MPV 8.5, Neut % (Auto) 61.4, Lymph % (Auto) 29.2, [place] % (Auto) 7.7, Eos % (Auto) 1.1, Baso % (Auto) 0.6, Neut # (Auto) 2.0, Lymph # (Auto) 1.0, [place] # (Auto) 0.3, Eos # (Auto) 0.0, Baso # (Auto) 0.0, Nucleated RBC % (auto) 0.0 Assessment and Plan (1) B12 deficiency 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 B12 level today is improving, maintain B12 therapy monthly injection. -B12 level is still on the lower end, normal. -Return in 3 months with methylmalonic acid and B12 level. -he should stay on Folic acid supplement, prescribed in the past. (2) Iron deficiency ? Malabsorption, GI work up negative, tolerated IV iron well. -Received IV iron, anemia normalized. -Continue ferrous sulfate 325 mg daily, return 3 months with a CBC and iron studies. (3) Thrombocytopenia Splenomegaly 15 cm, no clear cause. He does not drink alcohol, no liver diseaseon ultrasound done at [place]. Normal s[place] copper level. -It is stable, will monitor for now. If needed, updated imaging to evaluate cirrhosis. 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 Patient and the asked many questions, all answered to their satisfaction. (5) Peripheral neuropathy - Time with Patient Time Spent with Patient (Follow Up Visit): 25 minutes Coordination of Care & Counseling Time: Greater than 50% of time spent with patient was for coordination of care (as documented) and [id number] counseling of patient and/or family. Dictated By: Lars Zhang MD DD/ 1800 Signed By: <Electronically signed by Lars Zhang MD> 04/02/21 9500 [facility] Work Phone: [phone]) [phone] Progress note Author Lars Zhang [facility] February 05, 2021 11:20am Note Date/Time February 05, 2021 11: 15am [facility] at [address] [address] Hem/Onc Follow Up Note - OP Signed Patient: Galen Doss JR MR#: [id number] : 1945 Acct:[id number] Age/Sex: 75 / M Type: REG RCR Copies to: Matti Ash II, MD~ Subjective Date/Time of Service: Date of Service: 02/05/2021 Time of Service: 11:14 Chief Complaint: Patient is here for a 2 month follow up with labs for review. He voices no new concerns. HPI: I am covering Dr. Ventura. Mr. Doss presents of up. He is on IM B12 monthly. He feels well. He has chronic neuropathy for a couple of years, no memory loss. He has intermittent diarrhea. He denies bleeding. His EGD and colonoscopy at [place] were negative. He denies infections, he does not drink alcohol. He thinks he had imaging studies of the abdomen about a year ago, but could not remember for sure. ROS Details: All systems reviewed & no additional complaints except as documented [facility] - Medical History Medical History: Medical History (Last Updated 08/14/20 @ 09:06 by Flakita Ruano RN) Aneurysm artery, iliac Anxiety CAD (coronary artery disease) Diabetes mellitus, type 2 Neuropathy Restless leg - Surgical History Surgical History: Surgical History (Last Updated 08/13/20 @ 13:39 by Flakita Ruano RN) History of heart bypass surgery Hx of tonsillectomy - Family History Family History: Family History (Last Updated 08/13/20 @ 13:40 by Flakita Ruano RN) Other Diabetes mellitus, type 2 Hypertension - Social History Smoking Status: Never smoker Substance Use Type: None Home Medications & Allergies Allergies ropinirole [From Requip] Allergy (Verified 02/05/21 10:24) Fainting Home Medications liraglutide [Victoza 2-Ulices] 1.8 mg SUBCUT Q24H 08/14/20 [History Confirmed 02/05/21] metformin 1,000 mg PO BID 08/14/20 [History Confirmed 02/05/21] metoprolol succinate 12.5 mg PO DAILY 08/14/20 [History Confirmed 02/05/21] pioglitazone 15 mg PO DAILY 08/14/20 [History Confirmed 02/05/21] pramipexole 2 mg PO BID 08/14/20 [History Confirmed 02/05/21] pregabalin 200 mg PO BID 08/14/20 [History Confirmed 02/05/21] ramipril 5 mg PO DAILY 08/14/20 [History Confirmed 02/05/21] simvastatin 20 mg PO HS 08/14/20 [History Confirmed 02/05/21] aspirin 81 mg PO DAILY 12/11/20 [History Confirmed 02/05/21] folic acid 0.8 mg PO DAILY #90 cap 12/11/20 [Rx Confirmed 02/05/21] Objective - Height/Weight Height/Weight: Height 6 ft 2 in Weight 107.637 kg - Vital Signs Vital Signs: 02/05/21 10:24 Temperature 97.4 F L Pulse Rate [Right Brachial] 64 Respiratory Rate 20 Blood Pressure [Right Arm] 187/90 H 02 Sat by Pulse Oximetry 98 - Emotional Needs Assessment Emotional Needs Assessment: Emotional Needs Identified? No Physical Exam Narrative: GEN: NAD LUNGS: Breathing comfortably on room air. ABD : Soft, NT, ND EXT: No edema Neuro: Grossly intact. He has good memory. Results - Labs Labs: Diagram of Most Recent CBC and CMP 01/30/21 10:17 10/16/20 14:37 Labs - Last 7 Days 01/30/21 10:17: Iron 55, TIBC 461 H, Iron Saturation 11.0 L, Transferrin 329, Ferritin 19.3 L, Vitamin B12 247, Folate > 22.3 01/30/21 10:17: Corrected WBC 3.6 L, Uncorrected WBC Count 3.6 L, RBC 4.21, Hgb 12.9 L, Hct 38.6 L, MCV 91.7, MCH 30.7, MCHC 33.5, RDW 14.1, Plt Count 70 L, MPV8.8, Neut % (Auto) 58.1, Lymph % (Auto) 32.5, [place] % (Auto) 8.4, Eos % (Auto) 0.7, Baso % (Auto) 0.3, Neut # (Auto) 2.1, Lymph # (Auto) 1.2, [place] # (Auto) 0.3, Eos # (Auto) 0.0, Baso # (Auto) 0.0, Nucleated RBC % (auto) 0.1 Assessment and Plan (1) B12 deficiency 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 B12 level today is improving, maintain B12 therapy monthly injection. -B12 level is still on the lower end, I will see him in 2 months with methylmalonic acid and B12 level, if methylmalonic acid level is still high, mayneed to alert another loading dose. -he should stay on Folic acid supplement, prescribed in the past. (2) Iron deficiency ? Malabsorption, GI work up negative, tolerated IV iron well. -Iron is low, anemia, will give another course of IV iron. Also start on ferrous sulfate 325 mg daily, he will let me know if he could not tolerate it. -see in 2 month with iron studies. (3) Leukopenia ? Nutritional, no liver disease, it is stable, monitor. -If stays low after replacing B12, may need a bone marrow biopsy. We will checkcopper and zinc levels. (4) Thrombocytopenia ? Nutritional, no liver disease, stable, monitor. -I will obtain his abdominal imaging data, if needed, updated imaging to evaluate cirrhosis and splenomegaly. (5) Peripheral neuropathy - Time with Patient Time Spent with Patient (Follow Up Visit): 25 minutes Coordination of Care & Counseling Time: Greater than 50% of time spent with patient was for coordination of care (as documented) and [id number] counseling of patient and/or family. Dictated By: Lars Zhang MD DD/ 1114 Signed By: <Electronically signed by Lars Zhang MD> 02/05/21 1120 [facility] Work Phone: [phone] Progress note Author Lars Zhang [facility] December 11, 2020 8:35pm Note Date/Time December 11, 2020 3 :00pm [facility] [place] [id number] Hem/Onc Follow Up Note - OP Signed Patient: Galen Doss JR MR#: [id number] : 1945 Acct:[id number] Age/Sex: 75 / M Type: REG RCR Copies to: Matti Ash II, MD~ Subjective Date/Time of Service: Date of Service: 12/11/2020 Time of Service: 15:00 Chief Complaint: Patient is here for a 2 month follow up for pancytopenia. HPI: I am covering Dr. Ventura. Mr. Doss presents of up. He is on IM B12 monthly. He had iron infusion, feels better. He has chronic neuropathy for a couple of years, no memory loss. He has intermittent diarrhea. He had IV iron, feels better. He denies bleeding. His EGD and colonoscopy at [place] were negative. He denies infections, he does not drink alcohol. ROS Details: All systems reviewed & no additional complaints except as documented [facility] - Medical History Medical History: Medical History (Last Updated 08/14/20 @ 09:06 by Flakita Ruano, LUCA) Aneurysm artery, iliac Anxiety CAD (coronary artery disease) Diabetes mellitus, type 2 Neuropathy Restless leg - Surgical History Surgical History: Surgical History (Last Updated 08/13/20 @ 13:39 by Flakita Ruano, RN) History of heart bypass surgery Hx of tonsillectomy - Family History Family History: Family History (Last Updated 08/13/20 @ 13:40 by Flakita Ruano, RN) Other Diabetes mellitus, type 2 Hypertension - Social History Smoking Status: Never smoker Substance Use Type: None Home Medications & Allergies Allergies ropinirole [From Requip] Allergy (Verified 08/28/20 10:54) Fainting Home Medications liraglutide [Victoza 2-Ulices] 1.8 mg SUBCUT Q24H 08/14/20 [History Confirmed 12/11/20] metformin 1,000 mg PO BID 08/14/20 [History Confirmed 12/11/20] metoprolol succinate 12.5 mg PO DAILY 08/14/20 [History Confirmed 12/11/20] pioglitazone 15 mg PO DAILY 08/14/20 [History Confirmed 12/11/20] pramipexole 2 mg PO BID 08/14/20 [History Confirmed 12/11/20] pregabalin 200 mg PO BID 08/14/20 [History Confirmed 12/11/20] ramipril 5 mg PO DAILY 08/14/20 [History Confirmed 12/11/20] simvastatin 20 mg PO HS 08/14/20 [History Confirmed 12/11/20] aspirin 81 mg PO DAILY 12/11/20 [History Confirmed 12/11/20] folic acid 0.8 mg PO DAILY #90 cap 12/11/20 [Rx] Objective - Height/Weight Height/Weight: Height 6 ft 2 in Weight 107.093 kg - Vital Signs Vital Signs: 12/11/20 14:16 Temperature 97.4 F L Pulse Rate [Right Brachial] 74 Respiratory Rate 20 Blood Pressure [Left Arm] 172/83 H 02 Sat by Pulse Oximetry 95 - Emotional Needs Assessment Emotional Needs Assessment: Emotional Needs Identified? No Distress Screening Total 0 Physical Exam Narrative: GEN: NAD LUNGS: Breathing comfortably on room air. ABD : Soft, NT, ND EXT: No edema Neuro: Grossly intact. He has good memory. Results - Labs Labs: Diagram of Most Recent CBC and CMP 10/16/20 14:37 10/16/20 14:37 Outside Labs: Reviewed, WBC and plt counts are improving. 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 B12 level today is improving, maintain B12 therapy monthly injection. -I will see him in 2 months with labs and B12 level. He should stay on Folic acid supplement, E-prescribed. (2) Iron deficiency ? Malabsorption, GI work up negative, tolerated IV iron well. -See in 2 month with iron studies. (3) Leukopenia ? Nutritional, no liver disease, it is improving, monitor. -If stays low after replacing B12, will perform a bone marrow biopsy. (4) Thrombocytopenia ? Nutritional, no liver disease, it is improving, monitor. -If stays low after replacing B12, will perform a bone marrow biopsy. (5) Peripheral neuropathy Could be due to B12 deficiency, he is also diabetic, free light chain level no spike. - Time with Patient Total Time Spent with Patient: 30 min Coordination of Care & Counseling Time: Greater than 50% of time spent with patient was for coordination of care (as documented) and [id number] counseling of patient and/or family. Dictated By: Lars Zhang MD DD/ 1500 Signed By: <Electronically signed by Lars Zhang MD> 12/11/202034 [facility] Work Phone: [phone] 625-628511-24-2020 Progress note Author John Ventura [facility] October 16, 2020 2:32pm Note Date/Time October 16, 2020 2:31pm [facility] at [address] [address] Hem/Onc Follow Up Note - OP Signed Patient: Galen Doss JR MR#: [id number] : 1945 Acct:[id number] Age/Sex: 74 / M Type: REG RCR Copies to: Matti Ash II, MD~ Subjective Date/Time of Service: Date of Service: 10/16/2020 Time of Service: 14:30 Chief Complaint: Patient is here for follow up, continues monthly B12 injectionswhich is due today. Last lab on 09/25 HPI: Galen presents of up today October 16. We will maintain his IM B12 monthly. We will check his labs today. I will see him in 2 months. If he continues to respond I will have Dr. Ash manage his monthly B12. Galen presents in follow-up. He is on B12 supplementation and has had IV iron. His EGD and colonoscopy were negative. His white count is a little bit better but still low. His hemoglobin is better but he is still somewhat anemic. His platelet count is actually down. According to his he does not feel or is doing better. The patient was diagnosed with pernicious anemia after presenting with pancytopenia found to have B12 deficiency and iron deficiency. He has been getting supplemental IM B12 and did receive IV iron. [facility] - Medical History Medical History: Medical History (Last Updated 08/14/20 @ 09:06 by Flakita Ruano RN) Aneurysm artery, iliac Anxiety CAD (coronary artery disease) Diabetes mellitus, type 2 Neuropathy Restless leg - Surgical History Surgical History: Surgical History (Last Updated 08/13/20 @ 13:39 by Flakita Ruano RN) History of heart bypass surgery Hx of tonsillectomy - Family History Family History: Family History (Last Updated 08/13/20 @ 13:40 by Flakita Ruano RN) Other Diabetes mellitus, type 2 Hypertension - Social History Smoking Status: Never smoker Substance Use Type: None Home Medications & Allergies Allergies ropinirole [From Requip] Allergy (Verified 08/28/20 10:54) Fainting Home Medications aspirin 325 mg PO DAILY 08/14/20 [History Confirmed 10/16/20] liraglutide [Victoza 2-Ulices] 1.8 mg SUBCUT Q24H 08/14/20 [History Confirmed 10/16/20] metformin 1,000 mg PO BID 08/14/20 [History Confirmed 10/16/20] metoprolol succinate 12.5 mg PO DAILY 08/14/20 [History Confirmed 10/16/20] pioglitazone 15 mg PO DAILY 08/14/20 [History Confirmed 10/16/20] pramipexole 2 mg PO BID 08/14/20 [History Confirmed 10/16/20] pregabalin 200 mg PO BID 08/14/20 [History Confirmed 10/16/20] ramipril 5 mg PO DAILY 08/14/20 [History Confirmed 10/16/20] simvastatin 20 mg PO HS 08/14/20 [History Confirmed 10/16/20] Objective - Height/Weight Height/Weight: Height 6 ft 2 in Weight 106 kg - Vital Signs Vital Signs: 10/16/20 14:11 Temperature 97.3 F L Pulse Rate [Right Brachial] 57 L Respiratory Rate 18 Blood Pressure [Left Arm] 169/79 H 02 Sat by Pulse Oximetry 99 - Emotional Needs Assessment Emotional Needs Assessment: Emotional Needs Identified? No Distress Screening Total 0 Physical Exam Narrative: Unchanged and noncontributory Results - Labs Labs: Diagram of Most Recent CBC and CMP 09/25/20 10:56 09/25/20 10:56 Assessment and Plan (1) B12 deficiency Maintain B12 therapy today and in 1 month. I will see him in 2 months for lab work and clinical follow-up. If he continues to respond I will refer him back to his primary care doctor Dr. Ash who can manage his monthly B12 (2) Iron deficiency See above - Time with Patient Coordination of Care & Counseling Time: Greater than 50% of time spent with patient was for coordination of care (as documented) and [id number] counseling of patient and/or family. Dictated By: John Ventura MD DD/ 29 Signed By: <Electronically signed by MD John Ventura> 10/16/20 143 [facility] Work Phone: [phone] 630-150911-03-2020 Progress note Author John Ventura [facility] September 25, 2020 12:45pm Note Date/Time September 25, 2020 1 2:40pm [facility] [place] [address] Hem/Onc Follow Up Note - OP Signed Patient: Galen Doss JR MR#: [id number] : 1945 Acct:[id number] Age/Sex: 74 / M Type: REG RCR Copies to: DO Matti Arredondo II, MD~ Subjective Date/Time of Service: Date of Service: 09/25/2020 Time of Service: 12:39 Chief Complaint: Patient is here for one month follow up, patient had EGD and colon since last visit. Patient is geting IM B12 and had IV Iron x2 last month. HPI: Galen presents in follow-up. He is on B12 supplementation and has had IV iron. His EGD and colonoscopy were negative. His white count is a little bit better but still low. His hemoglobin is better but he is still somewhat anemic. His platelet count is actually down. According to his he does not feel or is doing better. The patient was diagnosed with pernicious anemia after presenting with pancytopenia found to have B12 deficiency and iron deficiency. He has been getting supplemental IM B12 and did receive IV iron. [facility] - Medical History Medical History: Medical History (Last Updated 08/14/20 @ 09:06 by Flakita Ruano RN) Aneurysm artery, iliac Anxiety CAD (coronary artery disease) Diabetes mellitus, type 2 Neuropathy Restless leg - Surgical History Surgical History: Surgical History (Last Updated 08/13/20 @ 13:39 by Flakita Ruano RN) History of heart bypass surgery Hx of tonsillectomy - Family History Family History: Family History (Last Updated 08/13/20 @ 13:40 by Flakita Ruano RN) Other Diabetes mellitus, type 2 Hypertension - Social History Smoking Status: Never smoker Substance Use Type: None Home Medications & Allergies Allergies ropinirole [From Requip] Allergy (Verified 08/28/20 10:54) Fainting Home Medications aspirin 325 mg PO DAILY 08/14/20 [History Confirmed 09/25/20] liraglutide [Victoza 2-Ulices] 1.8 mg SUBCUT Q24H 08/14/20 [History Confirmed 09/25/20] metformin 1,000 mg PO BID 08/14/20 [History Confirmed 09/25/20] metoprolol succinate 12.5 mg PO DAILY 08/14/20 [History Confirmed 09/25/20] pioglitazone 15 mg PO DAILY 08/14/20 [History Confirmed 09/25/20] pramipexole 2 mg PO BID 08/14/20 [History Confirmed 09/25/20] pregabalin 200 mg PO BID 08/14/20 [History Confirmed 09/25/20] ramipril 5 mg PO DAILY 08/14/20 [History Confirmed 09/25/20] simvastatin 20 mg PO HS 08/14/20 [History Confirmed 09/25/20] Objective - Height/Weight Height/Weight: Height 6 ft 2 in Weight 107.048 kg - Vital Signs Vital Signs: 09/25/20 10:34 Temperature 97.4 F L Pulse Rate [Right Brachial] 56 L Respiratory Rate 18 Blood Pressure [Left Arm] 173/74 H 02 Sat by Pulse Oximetry 99 - Emotional Needs Assessment Emotional Needs Assessment: Emotional Needs Identified? No Distress Screening Total 0 Physical Exam Narrative: Unchanged and noncontributory Results - Labs Labs: Diagram of Most Recent CBC and CMP 09/25/20 10:56 09/25/20 10:56 Labs - Last 7 Days 09/25/20 10:56: PHA Creatinine Clear 98.68, Sodium 138, Potassium 4.4, Chloride 103, Carbon Dioxide 24.5, BUN 21, Creatinine 0.83, Est GFR ( Amer) > 60, Est GFR (Non-Af Amer) > 60, Glucose 153 H, Calcium 9.3, Total Bilirubin 0.9, AST45 H, ALT 49, Alkaline Phosphatase 66, Total Protein 6.8, Albumin 3.9, Globulin 2.9, Albumin/Globulin Ratio 1.3 09/25/20 10:56: WBC 3.3 L, Corrected WBC 3.3 L, RBC 4.48, Hgb 12.8 L, Hct 38.9, MCV 86.8, MCH 28.5, MCHC 32.8, RDW 22.8 H, Plt Count 62 L, MPV 8.8, Neut % (Auto) 62.5, Lymph % (Auto) 28.3, [place] % (Auto) 7.9, Eos % (Auto) 1.1, Baso % (Auto) 0.2, Neut # (Auto) 2.1, Lymph # (Auto) 0.9 L, [place] # (Auto) 0.3, Eos # (Auto) 0.0, Baso # (Auto) 0.0, Nucleated RBC % (auto) 0.1 Assessment and Plan (1) B12 deficiency We will continue B12 for now. His next B12 shot will be with his follow-up visit on October 16. If he is not near normalized at this we will look for other causes of cytopenias and may consider bone marrow biopsy. (2) Iron deficiency Resolved after IV iron. His hemoglobin is better after IV iron. His EGD and colonoscopy were negative. - Time with Patient Coordination of Care & Counseling Time: Greater than 50% of time spent with patient was for coordination of care (as documented) and [id number] counseling of patient and/or family. Dictated By: John Ventura MD DD/ 1239 Signed By: <Electronically signed by MD John Ventura> 09/25/20 1245 [facility] Work Phone: [phone] 451-569110-06-2020 Progress note Author John Ventura [facility] August 28, 2020 9:24am Note Date/Time August 28, 2020 9: 21am [facility] [place] [address] Hem/Onc Follow Up Note - OP Signed Patient: Galen Doss JR MR#: [id number] : 1945 Acct:[id number] Age/Sex: 74 / M Type: REG RCR Copies to: DO Matti Arredondo II, MD~ Subjective Date/Time of Service: Date of Service: 08/28/2020 Time of Service: 09:17 Chief Complaint: Patient is here for one week follow up for review of lab work. Patient is getting Iron infusion today. Patient has colonoscopy on the . No concerns voiced. HPI: The patient has antiparietal cell antibodies. He is presenting with pernicious anemia, with pancytopenia, B12 deficiency and iron deficiency. He is borderlinediabetic and does follow with Dr. Bernard. He does have neuropathy. He was started on B12 IM last week and will be given 30 days of folic acid. He will start IV iron today. My concern is with iron absorption with his diagnosis of pernicious anemia. Iron deficiency can be seen as a complication of pernicious anemia likely from achlorhydria. He will be getting colonoscopy next on September 05. [facility] - Medical History Medical History: Medical History (Last Updated 08/14/20 @ 09:06 by Flakita Ruano RN) Aneurysm artery, iliac Anxiety CAD (coronary artery disease) Diabetes mellitus, type 2 Neuropathy Restless leg - Surgical History Surgical History: Surgical History (Last Updated 08/13/20 @ 13:39 by Flakita Ruano RN) History of heart bypass surgery Hx of tonsillectomy - Family History Family History: Family History (Last Updated 08/13/20 @ 13:40 by Flakita Ruano RN) Other Diabetes mellitus, type 2 Hypertension - Social History Smoking Status: Never smoker Substance Use Type: None Home Medications & Allergies Allergies ropinirole [From Requip] Allergy (Verified 08/14/20 09:05) Fainting Home Medications aspirin 325 mg PO DAILY 08/14/20 [History Confirmed 08/28/20] liraglutide [Victoza 2-Ulices] 1.2 mg SUBCUT Q24H 08/14/20 [History Confirmed 08/28/20] metformin 1,000 mg PO BID 08/14/20 [History Confirmed 08/28/20] metoprolol succinate 12.5 mg PO DAILY 08/14/20 [History Confirmed 08/28/20] pioglitazone 15 mg PO DAILY 08/14/20 [History Confirmed 08/28/20] pramipexole 2 mg PO BID 08/14/20 [History Confirmed 08/28/20] pregabalin 200 mg PO BID 08/14/20 [History Confirmed 08/28/20] ramipril 5 mg PO DAILY 08/14/20 [History Confirmed 08/28/20] simvastatin 20 mg PO HS 08/14/20 [History Confirmed 08/28/20] folic acid 1 mg PO DAILY #30 tab 08/21/20 [Rx Confirmed 08/28/20] Objective - Height/Weight Height/Weight: Height 6 ft 2 in Weight 107.955 kg - Vital Signs Vital Signs: 08/28/20 09:00 Temperature 97.2 F L Pulse Rate [Right Brachial] 64 Respiratory Rate 18 Blood Pressure [Right Arm] 177/65 H 02 Sat by Pulse Oximetry 100 - Emotional Needs Assessment Emotional Needs Assessment: Emotional Needs Identified? No Distress Screening Total 0 Physical Exam Narrative: The patient is healthy-appearing. Head is atraumatic normocephalic. No obviousevidence of scleral icterus. Cranial nerves II through XII appear to be and grossly intact. Examination of the neck shows no lymphadenopathy. Remainder physical exam is noncontributory. Results - Labs Labs: Diagram of Most Recent CBC and CMP 08/14/20 09:38 08/14/20 09:38 Labs - Last 7 Days 08/21/20 09:32: Gastrin 238 H, Anti-Parietal Cell Ab 84.7 H Assessment and Plan (1) B12 deficiency The patient will be given B12 weekly x4 and then started on B12 monthly. The patient has pernicious anemia with antiparietal cell antibodies. The patient marshall 30 days of folic acid as well. (2) Iron deficiency The patient will be given IV iron today August 28 and in 1 week on September 04. Iron deficiency can be seen in B12 deficiency as a complication of achlorhydria. Still, I will recommend GI work-up and the patient is set to receive colonoscopy next week. I will see him in 1 month. - Time with Patient Coordination of Care & Counseling Time: Greater than 50% of time spent with patient was for coordination of care (as documented) and [id number] counseling of patient and/or family. Dictated By: John Ventura MD DD/ 6 Signed By: <Electronically signed by MD John Ventura> 08/28/20923 [facility] Work Phone: [phone] Progress note Author John Ventura [facility] August 21, 2020 9:33am Note Date/Time August 21, 2020 9:27am [facility] [place] [address] Hem/Onc Follow Up Note - OP Signed Patient: Galen Doss JR MR#: [id number] : 1945 Acct:[id number] Age/Sex: 74 / M Type: REG RCR Copies to: DO Matti Arredondo II, MD~ Subjective Date/Time of Service: Date of Service: 08/21/2020 Time of Service: 09:27 Chief Complaint: Patient is here for weekly follow up to review lab results. HPI: Galen presents in follow-up. He was found to have concomitant B12 deficiency and iron deficiency. He has never had a colonoscopy. At this point we will start him on IM B12. My concern is that he may have pernicious anemia, atrophic gastritis, or some other cause that will cause both B12 and iron deficiency. He may not be able to properly absorb oral iron. Given this I will recommend IV iron. The patient will be checked with antiparietal cell antibodies today as well as aserum gastrin level for atrophic gastritis. He will need to be seen by gastroenterology. I will make that referral now. Also, I typically recommend 30 days of folic acid while starting to treat B12. I will see him in 1 week. This is a very nice 74-year-old gentleman whose family doctor is Dr. Darron Ash and who also follows with Dr. Mariah Bernard who manages his diabetes. He wasreferred here with progressive pancytopenia. In May he was found to have a white count of 3.3, hemoglobin 11.2 and platelet count of 101. More recently onSeptember 4 his white count was down to 2.8, hemoglobin down to 10.4 and platelet count at 73. The patient does have a sustained transaminitis with an elevated AST at 44. As far back as April 2011 his AST was a bit high as well. It should be noted in April 2011 his CBC was essentially normal except for a mildly low platelet count at 128. According to his he seems tired a lot. He has exertional fatigue. He has not started any new medications. His Victozawas started over a year ago. He is retired and used to work at [employer]. He has been for 52 years. He denies night sweats fevers or weight loss. He presented August 14, 2020 in consultation. [facility] - Medical History Medical History: Medical History (Last Updated 08/14/20 @ 09:06 by Flakita Ruano RN) Aneurysm artery, iliac Anxiety CAD (coronary artery disease) Diabetes mellitus, type 2 Neuropathy Restless leg - Surgical History Surgical History: Surgical History (Last Updated 08/13/20 @ 13:39 by Flakita Ruano RN) History of heart bypass surgery Hx of tonsillectomy - Family History Family History: Family History (Last Updated 08/13/20 @ 13:40 by Flakita Ruano RN) Other Diabetes mellitus, type 2 Hypertension - Social History Smoking Status: Never smoker Substance Use Type: None Home Medications & Allergies Allergies ropinirole [From Requip] Allergy (Verified 08/14/20 09:05) Fainting Home Medications aspirin 325 mg PO DAILY 08/14/20 [History Confirmed 08/21/20] liraglutide [Victoza 2-Ulices] 1.2 mg SUBCUT Q24H 08/14/20 [History Confirmed 08/21/20] metformin 1,000 mg PO BID 08/14/20 [History Confirmed 08/21/20] metoprolol succinate 12.5 mg PO DAILY 08/14/20 [History Confirmed 08/21/20] pioglitazone 15 mg PO DAILY 08/14/20 [History Confirmed 08/21/20] pramipexole 2 mg PO BID 08/14/20 [History Confirmed 08/21/20] pregabalin 200 mg PO BID 08/14/20 [History Confirmed 08/21/20] ramipril 5 mg PO DAILY 08/14/20 [History Confirmed 08/21/20] simvastatin 20 mg PO HS 08/14/20 [History Confirmed 08/21/20] folic acid 1 mg PO DAILY #30 tab 08/21/20 [Rx] Objective - Height/Weight Height/Weight: Height 6 ft 2 in Weight 107.501 kg - Vital Signs Vital Signs: 08/21/20 09:01 Temperature 97.9 F Pulse Rate [Right Brachial] 64 Respiratory Rate 20 Blood Pressure [Right Arm] 162/69 H 02 Sat by Pulse Oximetry 96 - Emotional Needs Assessment Emotional Needs Assessment: Emotional Needs Identified? No Distress Screening Total 0 Support System Spouse Physical Exam Narrative: The patient is healthy-appearing. Head is atraumatic normocephalic. No obviousevidence of scleral icterus. Cranial nerves II through XII appear to be and grossly intact. Examination of the neck shows no lymphadenopathy. Examination of the axilla shows no evidence of lymphadenopathy. With the patient supine with percussion and palpation there is no evidence of hepatomegaly. Likewise with the patient supine I can detect no spleen tip. Remainder physical exam is noncontributory. Results - Labs Labs: Diagram of Most Recent CBC and CMP 08/14/20 09:38 08/14/20 09:38 Labs - Last 7 Days 08/14/20 09:38: Serum Total Protein 7.2, Albumin (Send Out) 3.6, Globulin (PEP) 3.6, Albumin/Globulin (PEP) 1.0, Vbbje-4-Wdwewyvuc 0.3, Wslsv-1-Cjuhyoyax 0.9, Beta Globulins 1.2, Gamma Globulins 1.1, M-Sean Not observed, PEP Note , Methylmalonic Acid 1016 H, MMA Comment , Serum Immunofix Reflex N/A, Free [place] LC, Quant 36.3 H, Free Lambda LC, Quant 17.2, Free [place]/Lambda Ratio 2.11 H 08/14/20 09:38: PHA Creatinine Clear 89.00, Sodium 137, Potassium 4.2, Chloride 100, Carbon Dioxide 24.1, BUN 20, Creatinine 0.92, Est GFR ( Amer) > 60, Est GFR (Non-Af Amer) > 60, Glucose 150 H, Calcium 9.4, Iron 30 L, TIBC 571 H, Iron Saturation 5.0 L, Transferrin 408 H, Ferritin 6.3 L, Total Bilirubin 1.0, Direct Bilirubin 0.2, Indirect Bilirubin 0.8, AST 34, ALT 30, Alkaline Phosphatase 53, Total Protein 7.3, Albumin 4.2, Globulin 3.1, Albumin/Globulin Ratio 1.4, Vitamin B12 89 L, Folate > 22.3, TSH 3rd Generation 4.44 08/14/20 09:38: WBC 2.5 L, Corrected WBC 2.5 L, RBC 4.16, Hgb 10.8 L, Hct 33.9 L, MCV 81.6 L, MCH 26.1 L, MCHC 32.0 L, RDW 16.7 H, Plt Count 78 L, MPV 8.7, Neut% (Auto) 63.5, Lymph % (Auto) 29.3, [place] % (Auto) 6.4, Eos % (Auto) 0.5, Baso % (Auto) 0.3, Neut # (Auto) 1.6 L, Lymph # (Auto) 0.7 L, [place] # (Auto) 0.2, Eos # (Auto) 0.0, Baso # (Auto) 0.0, Nucleated RBC % (auto) 0.2, Absolute Retic 0.078,Percent Retic 1.9 H Assessment and Plan (1) B12 deficiency Patient will be started on IM B12 today. I do have some concerns that he may have atrophic gastritis or some other cause leading to iron malabsorption given his iron deficiency. Given this I will recommend IV iron to fully address his iron deficiency. He will need EGD and colonoscopy and I will refer him to gastroenterology. I will check serum gastrin and antiparietal cell antibodies as well. I will start the patient on folic acid 1 mg a day for 30 days. I willsee him in 1 week for follow-up and for another B12 shot. (2) Iron deficiency See above - Time with Patient Coordination of Care & Counseling Time: Greater than 50% of time spent with patient was for coordination of care (as documented) and cutl-xj-wpek counseling of patient and/or family. Dictated By: John Ventura MD DD/ 6 Signed By: <Electronically signed by MD John Ventura> 08/21/20932 [facility] Work Phone: [phone] 150-995509-22-2020 Consult note Author John Ventura [facility] August 14, 2020 9:38am Note Date/Time August 14, 2020 9:29am [facility] [place] [address] Hem/Onc Consult Note - OP Signed Patient: Galen Doss JR MR#: [id number] : 1945 Acct:[id number] Age/Sex: 74 / M Type: REG RCR Copies to: DO Matti Arredondo II, MD~ HPI Date/Time of Service: Date of Service: 08/14/2020 Time of Service: 09:28 Referring Provider/PCP: Referring Provider: Matti Ash II, MD PCP: Matti Ash II, MD - History of Present Illness Reason for Consultation: Referred here with progressive pancytopenia Chief Complaint: Patient is here for new visit for pancytopenia. HPI: This is a very nice 74-year-old gentleman whose family doctor is Dr. Darron Ash and who also follows with Dr. Mariah Bernard who manages his diabetes. He is referred here with progressive pancytopenia. In May he was found to have a white count of 3.3, hemoglobin 11.2 and platelet count of 101. More recently onSeptember 4 his white count was down to 2.8, hemoglobin down to 10.4 and platelet count at 73. The patient does have a sustained transaminitis with an elevated AST at 44. As far back as April 2011 his AST was a bit high as well. It should be noted in April 2011 his CBC was essentially normal except for a mildly low platelet count at 128. According to his he seems tired a lot. He has exertional fatigue. He has not started any new medications. His Victozawas started over a year ago. He is retired and used to work at [employer]. He has been for 52 years. He denies night sweats fevers or weight loss. He is presenting today August 14, 2020 in consultation. [facility] - Medical History Medical History: Medical History (Last Updated 08/14/20 @ 09:06 by Flakita Ruano RN) Aneurysm artery, iliac Anxiety CAD (coronary artery disease) Diabetes mellitus, type 2 Neuropathy Restless leg - Surgical History Surgical History: Surgical History (Last Updated 08/13/20 @ 13:39 by Flakita Ruano RN) History of heart bypass surgery Hx of tonsillectomy - Family History Family History: Family History (Last Updated 08/13/20 @ 13:40 by Flakita Ruano RN) Other Diabetes mellitus, type 2 Hypertension - Social History Smoking Status: Never smoker Substance Use Type: None Home Medications & Allergies Allergies ropinirole [From Requip] Allergy (Verified 08/14/20 09:05) Fainting Home Medications aspirin 325 mg PO DAILY 08/14/20 [History Confirmed 08/14/20] liraglutide [Victoza 2-Ulices] 1.2 mg SUBCUT Q24H 08/14/20 [History Confirmed 08/14/20] metformin 1,000 mg PO BID 08/14/20 [History Confirmed 08/14/20] metoprolol succinate 12.5 mg PO DAILY 08/14/20 [History Confirmed 08/14/20] pioglitazone 15 mg PO DAILY 08/14/20 [History Confirmed 08/14/20] pramipexole 2 mg PO BID 08/14/20 [History Confirmed 08/14/20] pregabalin 200 mg PO BID 08/14/20 [History Confirmed 08/14/20] ramipril 5 mg PO DAILY 08/14/20 [History Confirmed 08/14/20] simvastatin 20 mg PO HS 08/14/20 [History Confirmed 08/14/20] Objective - Height/Weight Height/Weight: Height 6 ft 2 in Weight 107 kg - Vital Signs Vital Signs: 08/14/20 09:10 Temperature 97.1 F L Pulse Rate [Right Brachial] 60 Respiratory Rate 20 Blood Pressure [Right Arm] 175/81 H 02 Sat by Pulse Oximetry 98 - Emotional Needs Assessment Emotional Needs Assessment: Emotional Needs Identified? No Distress Screening Total 0 Support System Spouse Physical Exam Narrative: The patient is healthy-appearing. Head is atraumatic normocephalic. No obviousevidence of scleral icterus. Cranial nerves II through XII appear to be and grossly intact. Examination of the neck shows no lymphadenopathy. Examination of the axilla shows no evidence of lymphadenopathy. With the patient supine with percussion and palpation there is no evidence of hepatomegaly. Likewise with the patient supine I can detect no spleen tip. Remainder physical exam is noncontributory. Assessment and Plan (1) Pancytopenia Patient is presenting with progressive pancytopenia. He does have a sustained transaminitis. Physical exam is overall negative. We discussed common causes including B12, folate deficiency and thyroid dysfunction, potentially medicationeffects, primary marrow problems as well. We will start with a basic hematologic profile. We will proceed with CBC, BMP, retic count, LFTs, iron studies and B12 and folate. I will check a methylmalonic acid. We will also checka TSH. Free light chain assay, serum protein electrophoresis and serum IMELDA willalso be checked. I am a little concerned given the progressive cytopenias and that it might point toward a primary marrow problem such as myelodysplastic syndrome. All 3 major cell lines appear to be getting progressively worse. I will see him back in 1 week and if the above assays are negative we will proceedwith bone marrow biopsy to assess for potential MDS, etc. - Time with Patient Coordination of Care & Counseling Time: Greater than 50% of time spent with patient was for coordination of care (as documented) and snbv-dd-drew counseling of patient and/or family. Dictated By: John Ventura MD DD/ 7 Signed By: <Electronically signed by MD John Ventura> 08/14/20937 [facility] Work Phone: Evaluation note* Diagnosis Onset Date Resolution Status B12 deficiency acute Pancytopenia acute Splenomegaly acute Iron deficiency chronic Leukopenia chronic Peripheral neuropathy chroni c Thrombocytopenia chronic [facility] Work Phone: Evaluation noteNo [facility] Other History and physical note Author Estevan Lester [facility] September 09, 2022 1:31pm Note Date/Time September 09, 2022 1 :31pm [facility] [address] [place] [address] Gastroenterology H&P Signed Patient: Galen Doss JR MR#: [id number] : 1945 Acct:[id number] Age/Sex: 76 / M Adm Date: 2 Loc: Room: Type: [facility] Attending Dr: Estevan Lester MD Copies to: MD Matti Mera II, MD~ Date of Service: 09/09/2022 HISTORY & PHYSICAL: Patient's history with special attention to the cardiovascular, pulmonary systems and the current problem was reviewed with the patient immediately prior to the procedure. Present medications and doses reviewed in the EMR. Allergies and pertinent laboratory tests were also reviewedat this time in the EMR. The physical examination, as below, was then performed. 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 No PHYSICAL EXAMINATION Mouth and Pharynx : Moist mucus membranes, normal dentition Cardiac: Regular rate, regular rhythm Pulmonary: Clear to auscultation bilaterally, no wheezing Neurological: Alert and oriented x3, no focal deficits noted Abdomen: Abdomen soft, non-tender REVIEW OF SYSTEMS Constitutional: Denies malaise, fevers Cardiovascular: Denies chest pain, palpitations Respiratory: Denies shortness of breath, wheezing Gastrointestinal: Per HPI Genitourinary: Denies dysuria, polyuria Musculoskeletal: Denies joint swelling, joint stiffness Neurological: Denies numbness, tingling Integumentary: Denies rashes, skin lesions Endocrine: Denies fatigue, weight loss Written informed consent obtained from the patient. Risks (including but not limited to perforation, infection, bloating, bleeding, need for emergent surgeryand loss of life), benefits and alternatives explained and questions answered. The patient verbalized understanding. Based on history patient is an appropriate candidate for the procedure. Estevan Lester MD Documented By: Estevan Lester MD 09/09/221329 Signed By: <Electronically signed by Estevan Lester MD> 09/09/221 [facility] Work Phone: History and physical note Author Estevan Lester [facility] December 16, 2022 12:34pm Note Date/Time December 16, 2022 1 2:34pm [facility] [address] [place] [address] Gastroenterology H&P Signed Patient: Galen Doss JR MR#: [id number] : 1945 Acct:[id number] Age/Sex: 77 / M Adm Date: 3 Loc: Room: Type: [facility] Attending Dr: Estevan Lester MD Copies to: MD Matti Mera II, MD~ Date of Service: 12/16/2022 HISTORY & PHYSICAL: Patient's history with special attention to the cardiovascular, pulmonary systems and the current problem was reviewed with the patient immediately prior to the procedure. Present medications and doses reviewed in the EMR. Allergies and pertinent laboratory tests were also reviewedat this time in the EMR. The physical examination, as below, was then performed. Indication, assessment and HPI: 77-year-old male with a history of cirrhosis presents for variceal surveillance Family history of GI malignancy? No PHYSICAL EXAMINATION Mouth and Pharynx : Moist mucus membranes, normal dentition Cardiac: Regular rate, regular rhythm Pulmonary: Clear to auscultation bilaterally, no wheezing Neurological: Alert and oriented x3, no focal deficits noted Abdomen: Abdomen soft, non-tender REVIEW OF SYSTEMS Constitutional: Denies malaise, fevers Cardiovascular: Denies chest pain, palpitations Respiratory: Denies shortness of breath, wheezing Gastrointestinal: Per HPI Genitourinary: Denies dysuria, polyuria Musculoskeletal: Denies joint swelling, joint stiffness Neurological: Denies numbness, tingling Integumentary: Denies rashes, skin lesions Endocrine: Denies fatigue, weight loss Written informed consent obtained from the patient. Risks (including but not limited to perforation, infection, bloating, bleeding, need for emergent surgeryand loss of life), benefits and alternatives explained and questions answered. The patient verbalized understanding. Based on history patient is an appropriate candidate for the procedure. Estevan Lester MD Documented By: Estevan Lester MD 12/16/22 1235 Signed By: <Electronically signed by Estevan Lester MD> 12/16/22 7967 [facility] Work Phone: Hospital Discharge instructions Additional Instructions DISCHARGE INSTRUCTIONS FOR UPPER ENDOSCOPY WHAT TO EXPECT: - You may feel full, gassy or cramping after your procedure. In some cases, this may be from a few hours to a day. Walking may help relieve the discomfort. - Your throat may feel sore today from the scope that the doctor passed through your throat to visualize your stomach. Take a throat lozenge or suck on ice to ease the discomfort. - You may notice some streaks of blood in your sputum if the doctor has taken a biopsy. - You should begin to recover from anesthesia within 1 hour of the procedure, however may feel groggy for the next 24 hours. DO's AND DON'Ts: - Call your doctor right away if you have a hard abdomen, severe pain, vomiting or if you cough up large amounts of blood. - Call your doctor if you develop any rashes, hives or difficulty breathing. - If you take 81 mg aspirin for your heart it is safe to resume this medication. - If you take other blood thinner medications your doctor will instruct you when these can safely be resumed. - Do NOT drive for 24 hours. - Do NOT operate machinery such as power tools, Keelvarn mowers, snow Veenomewers, sewing machines, etc. for 24 hours. - Avoid alcoholic beverages and drugs for allergies, nerves, or sleep. - Do NOT stay alone. Do NOT leave your child unattended. - Do NOT make important personal or business decisions or sign any legal documents. - Eat solid foods and drink liquids in smaller amounts than usual until normal appetite returns. If you should experience an upset stomach, liquids high in sugar content (soda, Dat-Aid, non-acid juices) are recommended. - Do NOT smoke. - Do take it easy today. You need not stay in bed, but avoid strenuous activities such as jogging or working out. FOLLOW UP & RECOMMENDATIONS: - Stop metoprolol - Start carvedilol 3.125 mg twice daily -Start omeprazole 40 mg twice daily, take this 30 minutes before your first meal and 30 minutes before your last meal of the day - Continue your water pills - Dr. Lester's office will arrange a repeat EGD for you in about 3 months - Notify the doctor if you have any problems. - Follow up with PCP. - Office number [phone].[facility] Work Phone: Hospital Discharge instructions Additional Instructions DISCHARGE INSTRUCTIONS FOR UPPER ENDOSCOPY WHAT TO EXPECT: - You may feel full, gassy or cramping after your procedure. In some cases, this may be from a few hours to a day. Walking may help relieve the discomfort. - Your throat may feel sore today from the scope that the doctor passed through your throat to visualize your stomach. Take a throat lozenge or suck on ice to ease the discomfort. - You may notice some streaks of blood in your sputum if the doctor has taken a biopsy. - You should begin to recover from anesthesia within 1 hour of the procedure, however may feel groggy for the next 24 hours. DO's AND DON'Ts: - Call your doctor right away if you have a hard abdomen, severe pain, vomiting or if you cough up large amounts of blood. - Call your doctor if you develop any rashes, hives or difficulty breathing. - If you take 81 mg aspirin for your heart it is safe to resume this medication. - If you take other blood thinner medications your doctor will instruct you when these can safely be resumed. - Do NOT drive for 24 hours. - Do NOT operate machinery such as power tools, Keelvarn mowers, snow blowers, sewing machines, etc. for 24 hours. - Avoid alcoholic beverages and drugs for allergies, nerves, or sleep. - Do NOT stay alone. Do NOT leave your child unattended. - Do NOT make important personal or business decisions or sign any legal documents. - Eat solid foods and drink liquids in smaller amounts than usual until normal appetite returns. If you should experience an upset stomach, liquids high in sugar content (soda, Dat-Aid, non-acid juices) are recommended. - Do NOT smoke. - Do take it easy today. You need not stay in bed, but avoid strenuous activities such as jogging or working out. FOLLOW UP & RECOMMENDATIONS: -Follow-up with Dr. Lester in the office as scheduled -Increase your carvedilol to 6.25 mg twice daily -Notify the doctor if you have any problems. -Follow up with PCP. 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 He has persistently been iron deficient despite IV iron repletion in aug 2020. aug 2022 will order additional IV Injectafer x 2 doses Pancytopenia - secondary to cirrhosis likely, offered. BM biopsy and he declined. B12 deficiency Resume B12 injections. Thrombocytopenia Possibly due to liver disease Fibroscan was consistent with cirrhosis. Flow cytometry done in September 2021 revealed 3% monoclonal B-cells. No further work-up done at the time. (2) Thrombocytopenia Follow Up Instructions: cbc, iron studies monthly cmp prior to f/u in 6 months. f/u with deyanira in 6 months. cont monthly b12 give IV iron injectafer 750mg x 2 - History of Present Illness Chief Complaint: Patient is here for a 2 month follow up with labs 09/15/2022 for review. Had EGD with Dr Lester 09/09/2022. No concerns voiced at this time. HPI: This is a 75-year-old gentleman with a history of pernicious anemia, splenomegaly with resultant leukopenia and thrombocytopenia and iron deficiency. He is receiving parenteral B12 monthly and doing well with this. 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 He is on folic acid and I recommend that he stop this for now. He had a CT of the abdomen which confirmed splenomegaly. The CT is reviewed below: IMPRESSION: There is no evidence of bowel obstruction or obstructive uropathy. There is findings suggesting hepatic cirrhosis with a small amount of intra-abdominal ascites. There is splenomegaly with the spleen measuring 16.9 cm in craniocaudal dimension. There is a nonenhancing 14 mm focus within the spleen posterior to the hilum andinferiorly. This is of uncertain etiology. An underlying malignancy is not excluded. Uncomplicated colonic diverticula are noted. Impression dictated by: Hardik Gutierrez M.D.09/23/2021 3:06 PM He is also on iron which was started not too far ago. We talked about iron deficiency in people his age, AVM or angiodysplasia related. His iron stores are noted today and not optimal. I have recommended that he stop the oral iron as I want a second see what his iron stores do the next couple months. If he елена patient needs iron we will either put him back on it or consider IV iron. In sum, I recommend he stop the iron and folic acid today. We will check his CBC in 2 months and continue the parenteral IM B12. He has chronic leukopenia and thrombocytopenia likely secondary to splenomegaly. The cause of the splenomegaly is either idiopathic portal hypertension, liver disease etc. he does not have any symptoms or signs of lymphoma at this time. He is followed by Dr. Ash. He had an EGD and colonoscopy which were negative. He presented last year with pernicious anemia presenting with pancytopenia found to have B12 deficiency and iron deficiency. He did receive supplemental B12 and IV iron. He was then put on oral iron recently in my absence. 07/08/22 He feels well overall, without new complaints His energy is stable, maybe a bit lower than his normal. He is active still, butcan get winded with activity denies dyspnea at rest, chest pain, new pain anywhere. No fevers, chills, sweats, weight loss, appetite changes He was told his spleen is enlarged, but has not been told outright that he has any cirrhosis of his liver or not wbc, plt, hgb appear to be trending down a bit. continues to be iron deficient despite [facility] Dr. Lester. STOMACH: Mild antral gastritis, biopsies obtained, bottle 1-rule out H. pylori. There was a blood clot observed on the anterior body wall best viewed in retroflexed position, when washed away this revealed 2 punctate lesions without ulcerated base consistent with Dieulafoy, actively bleeding. A resolution 360 Endo Clip was placed over both of these lesions with hemostasis observed. No gastric varices ESOPHAGUS: Diaphragmatic hiatus was 45 cm from incisors and GE junction (upper margin of gastric folds) was at 45 cm from incisors. Squamocolumnar junction was at 45 cm from incisors. There was a hypertrophic, muscular appearance of the esophagus. MThere were 2-3 columns of large esophageal varices. Gastroscopewas subsequently withdrawn and reintroduced after placing 7 speed band ligator. A total of 3 bands were deployed with last band placement approximately at 30 cmfrom the incisors. All bands successfully deployed with ligation of varices and complete collapse proximally. His fibroscan was f4 cirrhosis and s4 steatosis. He feels well enough overall. He fell and is very sore on his left chest wall. Energy is a bit low. . - Physical Exam ECOG PS: 0 General : patient is alert and oriented to person place and time, no acute distress. Neck: no JVD or thyromegaly. Lymph: no cervical, supraclavicular, axillary adenopathy. Heart: regular rate and rhythm no murmurs rubs or gallops. Abdomen: soft nontender nondistended, no hepatosplenomegaly. Lungs: cta bl, no wheezes, rales, rhonchi. Extremities: no clubbing cyanosis. - Time with Patient Coordination of Care & Counseling Time: Greater than 50% of time spent with patient was for coordination of care (as documented) and hosa-dm-toom counseling of patient and/or family. [facility] - Medical History Medical History: Medical History (Last Reviewed 09/09/22 @ 12:50 by Stephanie Austin RN) Aneurysm artery, iliac Anxiety CAD (coronary artery disease) Diabetes mellitus, type 2 Neuropathy Restless leg - Surgical History Surgical History: Surgical History (Last Reviewed 09/09/22 @ 12:50 by Stephanie Austin RN) History of heart bypass surgery Hx of tonsillectomy - Family History Family History: Family History (Last Reviewed 09/09/22 @ 12:50 by Stephanie Austin RN) Other Diabetes mellitus, type 2 Hypertension - Social History Smoking Status: Never smoker Substance Use Type: None Additional Data - Additional Objective Data Height/Weight: Height 6 ft 2 in Weight 101.786 kg BSA for Today's Weight 2.35 Vital Signs: 09/15/22 14:40 Pulse Rate [Right Brachial] 55 L Respiratory Rate 18 Blood Pressure [Right Arm] 151/91 H 02 Sat by Pulse Oximetry 99 Oxygen Delivery Method Room Air Distress Screening: RN Distress Screening Start: 08/14/20 08:52 Freq: Status: Active Protocol: Document 08/14/20 09:09 GAGAN (Rec: 08/14/20 09:09 GAGAN [id number]) Distress Screening Distress Score: 0 No worry/distress Distress Screening Total 0 - Lab Results Diagram of Most Recent CBC and CMP 09/15/22 09:08 09/23/21 08:40 Labs - Last 7 Days 09/15/22 09:08: Iron 42, TIBC 554 H, Iron Saturation 7.0 L, Transferrin 396 H, Ferritin 29.4 09/15/22 09:08: Corrected WBC 3.6 L, Uncorrected WBC Count 3.6 L, RBC 3.65 L, Hgb 9.7 L, Hct 30.3 L, MCV 83.1 L, MCH 26.6 L, MCHC 32.1 L, RDW 16.3 H, Plt Count 77 L, MPV 8.9, Neut % (Auto) 63.1, Lymph % (Auto) 27.1, [place] % (Auto) 8.3, Eos % (Auto) 1.2, Baso % (Auto) 0.3, Neut # (Auto) 2.3, Lymph # (Auto) 1.0, [place]# (Auto) 0.3, Eos # (Auto) 0.0, Baso # (Auto) 0.0, Nucleated RBC % (auto) 0.1 - Home Medications and Allergies Allergies/Adverse Reactions: Allergies ropinirole [From Requip] Allergy (Verified 09/15/22 14:40) Fainting Home Medications: Home Medications liraglutide 0.6 mg/0.1 mL (18 mg/3 mL) subcutaneous pen injector (Cloudmarkza 2- Ulices)1.8 mg subcut Q24H 08/14/20 [History Confirmed 09/15/22] metformin 1,000 mg tablet 1,000 mg PO BID 08/14/20 [History Confirmed 09/15/22] pramipexole 0.125 mg tablet 0.125 mg PO BID 08/14/20 [History Confirmed 09/15/22] pregabalin 100 mg capsule 200 mg PO BID 08/14/20 [History Confirmed 09/15/22] ramipril 5 mg capsule 10 mg PO DAILY 08/14/20 [History Confirmed 09/15/22] simvastatin 20 mg tablet 20 mg PO HS 08/14/20 [History Confirmed 09/15/22] aspirin 81 mg tablet 81 mg PO DAILY 12/11/20 [History Confirmed 09/15/22] carvedilol 3.125 mg tablet 3.125 mg PO BID #60 tabs 09/09/22 [Rx Confirmed 09/15/22] furosemide 20 mg tablet 20 mg PO DAILY 09/09/22 [History Confirmed 09/15/22] insulin glargine 100 unit/mL (3 mL) subcutaneous pen (Basaglar KwikPen U-100 Insulin) 35 unit subcut DAILY 09/09/22 [History Confirmed 09/15/22] omeprazole 40 mg capsule,delayed release 40 mg PO BID 8 weeks #112 caps 09/09/22[Rx Confirmed 09/15/22] rifaximin 550 mg tablet (Xifaxan) 550 mg PO BID 09/09/22 [History Confirmed 09/15/22] Dictated By: Luciano Ramirez II, DO DD/ 1512 Signed By: <Electronically signed by Luciano Ramirez II DO> 09/15/22 1531 [facility] Work Phone: Progress note Author Alisha Soares [facility] March 20, 2023 3:21pm Note Date/Time March 20, 2023 2:0 4pm [facility] [place] [address] Hem/Onc Follow Up Note - OP Signed Patient: ArmidaeleazarGalen JR MR#: [id number] : 1945 Acct:[id number] Age/Sex: 77 / M Type: REG RCR Copies to: MD Luciano Cabral II, II, DO~ Date of Service: 03/20/2023 Time of Service: 13:57 - Assessment & Plan (1) Iron deficiency Plan: Esophageal varices and 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 He has persistently been iron deficient despite IV iron repletion in aug 2020. aug 2022 will order additional IV Injectafer x 2 doses February 2023 iron studies low, will get additional IV Injectafer x 2 Pancytopenia - secondary to cirrhosis likely, offered. BM biopsy and he declined. February 2023 considering bone marrow, he will call us if he wants this scheduled B12 deficiency Continues B12 injections. Thrombocytopenia Possibly due to liver disease Fibroscan was consistent with cirrhosis. Flow cytometry done in September 2021 revealed 3% monoclonal B-cells. No further work-up done at the time. (2) Thrombocytopenia Follow Up Instructions: Injectafer today and next week cbc, cmp, iron studies in 3mo follow-up in 3mo - History of Present Illness Chief Complaint: Patient is here for a 6 month follow up visit for iron deficiency and thrombocytopenia and go over labs HPI: This is a 75-year-old gentleman with a history of pernicious anemia, splenomegaly with resultant leukopenia and thrombocytopenia and iron deficiency. He is receiving parenteral B12 monthly and doing well with this. 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 He is on folic acid and I recommend that he stop this for now. He had a CT of the abdomen which confirmed splenomegaly. The CT is reviewed below: IMPRESSION: There is no evidence of bowel obstruction or obstructive uropathy. There is findings suggesting hepatic cirrhosis with a small amount of intra-abdominal ascites. There is splenomegaly with the spleen measuring 16.9 cm in craniocaudal dimension. There is a nonenhancing 14 mm focus within the spleen posterior to the hilum andinferiorly. This is of uncertain etiology. An underlying malignancy is not excluded. Uncomplicated colonic diverticula are noted. Impression dictated by: Hardik Gutierrez M.D.09/23/2021 3:06 PM He is also on iron which was started not too far ago. We talked about iron deficiency in people his age, AVM or angiodysplasia related. His iron stores are noted today and not optimal. I have recommended that he stop the oral iron as I want a second see what his iron stores do the next couple months. If he елена patient needs iron we will either put him back on it or consider IV iron. In sum, I recommend he stop the iron and folic acid today. We will check his CBC in 2 months and continue the parenteral IM B12. He has chronic leukopenia and thrombocytopenia likely secondary to splenomegaly. The cause of the splenomegaly is either idiopathic portal hypertension, liver disease etc. he does not have any symptoms or signs of lymphoma at this time. He is followed by Dr. Ash. He had an EGD and colonoscopy which were negative. He presented last year with pernicious anemia presenting with pancytopenia found to have B12 deficiency and iron deficiency. He did receive supplemental B12 and IV iron. He was then put on oral iron recently in my absence. 07/08/22 He feels well overall, without new complaints His energy is stable, maybe a bit lower than his normal. He is active still, butcan get winded with activity denies dyspnea at rest, chest pain, new pain anywhere. No fevers, chills, sweats, weight loss, appetite changes He was told his spleen is enlarged, but has not been told outright that he has any cirrhosis of his liver or not wbc, plt, hgb appear to be trending down a bit. continues to be iron deficient despite IV replacement 09/15/22 [facility] EGD perforemd by Dr. Lester. STOMACH: Mild antral gastritis, biopsies obtained, bottle 1-rule out H. pylori. There was a blood clot observed on the anterior body wall best viewed in retroflexed position, when washed away this revealed 2 punctate lesions without ulcerated base consistent with Dieulafoy, actively bleeding. A resolution 360 Endo Clip was placed over both of these lesions with hemostasis observed. No gastric varices ESOPHAGUS: Diaphragmatic hiatus was 45 cm from incisors and GE junction (upper margin of gastric folds) was at 45 cm from incisors. Squamocolumnar junction was at 45 cm from incisors. There was a hypertrophic, muscular appearance of the esophagus. MThere were 2-3 columns of large esophageal varices. Gastroscopewas subsequently withdrawn and reintroduced after placing 7 speed band ligator. A total of 3 bands were deployed with last band placement approximately at 30 cmfrom the incisors. All bands successfully deployed with ligation of varices and complete collapse proximally. His fibroscan was f4 cirrhosis and s4 steatosis. He feels well enough overall. He fell and is very sore on his left chest wall. Energy is a bit low. 03/20/23 He thinks he feels well/fine, his notes he is more tired than usual recently fell off a seat and bumped his head, no other injuries associated with this. States he dozed off and fell he denies shortness of breath, chest pain, dark/tarry stool or other new complaints hgb 10.2, iron saturation 10%, ferritin 7.3. wbc 2.8, plt 51 - Physical Exam ECOG PS: 0 General : patient is alert and oriented to person place and time, no acute distress. He has a cut and mild bruise on his scalp related to a recent fall Neck: no JVD or thyromegaly. Lymph: no cervical, supraclavicular, axillary adenopathy. Heart: regular rate and rhythm no murmurs rubs or gallops. Abdomen: soft nontender nondistended, no hepatosplenomegaly. Lungs: cta bl, no wheezes, rales, rhonchi. Extremities: no clubbing cyanosis. - Time with Patient Coordination of Care & Counseling Time: Greater than 50% of time spent with patient was for coordination of care (as documented) and [id number] counseling of patient and/or family. [facility] - Medical History Medical History: Medical History (Last Reviewed 12/16/22 @ 11:36 by Payal Valentin RN) Aneurysm artery, iliac Anxiety CAD (coronary artery disease) Diabetes mellitus, type 2 Neuropathy Restless leg - Surgical History Surgical History: Surgical History (Last Reviewed 12/16/22 @ 11:36 by Payal Valentin RN) History of heart bypass surgery Hx of tonsillectomy - Family History Family History: Family History (Last Reviewed 12/16/22 @ 11:36 by Payal Valentin RN) Other Diabetes mellitus, type 2 Hypertension - Social History Smoking Status: Never smoker Substance Use Type: None Additional Data - Additional Objective Data Height/Weight: Height 6 ft 2 in Weight 101.605 kg BSA for Today's Weight 2.35 Vital Signs: 03/20/23 13:21 Temperature 97.8 F Pulse Rate [Right Brachial] 66 Respiratory Rate 16 Blood Pressure [Left Arm] 122/78 02 Sat by Pulse Oximetry 98 Oxygen Delivery Method Room Air Distress Screening: RN Distress Screening Start: 08/14/20 08:52 Freq: Status: Active Protocol: Document 08/14/20 09:09 AA (Rec: 08/14/20 09:09 AA [id number]) Distress Screening Distress Score: 0 No worry/distress Distress Screening Total 0 - Lab Results Diagram of Most Recent CBC and CMP 03/18/23 08:37 03/18/23 08:37 Labs - Last 7 Days 03/18/23 08:37: PHA Creatinine Clear 68.72, Sodium 138, Potassium 4.6, Chloride 106, Carbon Dioxide 25.7, Anion Gap 10.9, BUN 21, Creatinine 1.11, Est GFR (CKD-EPI) > 60.0, Glucose 120 H, Calcium 8.9, Iron 50, TIBC 501 H, Iron Saturation 10.0 L, Transferrin 358, Ferritin 7.3 L, Total Bilirubin 0.7, AST 27,ALT 19, Alkaline Phosphatase 58, Total Protein 6.7, Albumin 4.0, Globulin 2.7, Albumin/Globulin Ratio 1.5 03/18/23 08:37: Corrected WBC 2.8 L, Uncorrected WBC Count 2.8 L, RBC 3.51 L, Hgb 10.2 L, Hct 31.2 L, MCV 88.7, MCH 28.9, MCHC 32.6, RDW 14.9 H, Plt Count 51 L, MPV 9.0, Neut % (Auto) 54.6, Lymph % (Auto) 33.2, [place] % (Auto) 10.0, Eos % (Auto) 1.9, Baso % (Auto) 0.3, Nucleat RBC Rel Count 0.1, Neut # (Auto) 1.5 L, Lymph # (Auto) 0.9 L, [place] # (Auto) 0.3, Eos # (Auto) 0.1, Baso # (Auto) 0.0 - Home Medications and Allergies Allergies/Adverse Reactions: Allergies ropinirole [From Requip] Allergy (Verified 03/20/23 13:21) Fainting Home Medications: Home Medications metformin 1,000 mg tablet 1,000 mg PO BID 08/14/20 [History Confirmed 03/20/23] pramipexole 0.125 mg tablet 0.125 mg PO BID 08/14/20 [History Confirmed 03/20/23] pregabalin 100 mg capsule 200 mg PO BID 08/14/20 [History Confirmed 03/20/23] ramipril 5 mg capsule 10 mg PO DAILY 08/14/20 [History Confirmed 03/20/23] simvastatin 20 mg tablet 20 mg PO HS 08/14/20 [History Confirmed 03/20/23] aspirin 81 mg tablet 81 mg PO DAILY 12/11/20 [History Confirmed 03/20/23] furosemide 20 mg tablet 20 mg PO DAILY 09/09/22 [History Confirmed 03/20/23] omeprazole 40 mg capsule,delayed release 40 mg PO BID 8 weeks #112 caps 09/09/22[Rx Confirmed 03/20/23] rifaximin 550 mg tablet (Xifaxan) 550 mg PO BID 09/09/22 [History Confirmed 03/20/23] carvedilol 6.25 mg tablet 6.25 mg PO BID #60 tabs 12/16/22 [Rx Confirmed 03/20/23] spironolactone 50 mg tablet 50 mg PO DAILY 12/16/22 [History Confirmed 03/20/23] semaglutide 0.25 mg or 0.5 mg (2 mg/3 mL) subcutaneous pen injector (Ozempic) 0.25 mg subcut QWEEK 03/20/23 [History Confirmed 03/20/23] Dictated By: Alisha Soares APRN DD/ [id number] Signed By: <Electronically signed by LISA Soares> 03/20/23 1521 [facility] Work Phone: Progress note Author Luciano Ramirez [facility] June 23, 2023 4:06pm Note Date/Time June 22, 2023 10:1 8am [facility] at [address] [address] Hem/Onc Follow Up Note - OP Signed Patient: Galen Dsos MR#: [id number] : 1945 Acct:[id number] Age/Sex: 77 / M Type: REG RCR Copies to: Matti Ash II, MD~ Date of Service: 06/22/2023 Time of Service: 10:17 - Assessment & Plan (1) Iron deficiency Plan: Renal disease He does have worsening creatinine on labs in May 2023. This was discussed extensively with him. He will follow-up with his primary care provider Dr. Ash. As of 2019 he did not have any evidence of a paraprotein, we will recheck this in November 2023. Esophageal varices and 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 He has persistently been iron deficient despite IV iron repletion in aug 2020. aug 2022 will order additional IV Injectafer x 2 doses February 2023 iron studies low, will get additional IV Injectafer x 2 As of May 2023 hemoglobin is 12.3 and his iron studies are okay. Pancytopenia - secondary to cirrhosis likely, offered. BM biopsy and he declined. February 2023 considering bone marrow, he will call us if he wants this scheduled B12 deficiency Continues B12 injections. Thrombocytopenia Possibly due to liver disease Fibroscan was consistent with cirrhosis. Flow cytometry done in September 2021 revealed 3% monoclonal B-cells. No further work-up done at the time. (2) Thrombocytopenia Follow Up Instructions: f/u in 6 months. CBC, CMP, iron studies, b12, folate, spep sflc simmunofixation, esr, epo prior to f/u. make f/u with Dr. Ash, his pcp to discuss renal function. cont b12 injections. - History of Present Illness Chief Complaint: Patient is here for a 3 month follow up, with labs for review. Last seen by Deyanira. Patient reports some fatigue. HPI: This is a 75-year-old gentleman with a history of pernicious anemia, splenomegaly with resultant leukopenia and thrombocytopenia and iron deficiency. He is receiving parenteral B12 monthly and doing well with this. 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 He is on folic acid and I recommend that he stop this for now. He had a CT of the abdomen which confirmed splenomegaly. The CT is reviewed below: IMPRESSION: There is no evidence of bowel obstruction or obstructive uropathy. There is findings suggesting hepatic cirrhosis with a small amount of intra-abdominal ascites. There is splenomegaly with the spleen measuring 16.9 cm in craniocaudal dimension. There is a nonenhancing 14 mm focus within the spleen posterior to the hilum andinferiorly. This is of uncertain etiology. An underlying malignancy is not excluded. Uncomplicated colonic diverticula are noted. Impression dictated by: Hardik Gutierrez M.D.09/23/2021 3:06 PM He is also on iron which was started not too far ago. We talked about iron deficiency in people his age, AVM or angiodysplasia related. His iron stores are noted today and not optimal. I have recommended that he stop the oral iron as I want a second see what his iron stores do the next couple months. If he елена patient needs iron we will either put him back on it or consider IV iron. In sum, I recommend he stop the iron and folic acid today. We will check his CBC in 2 months and continue the parenteral IM B12. He has chronic leukopenia and thrombocytopenia likely secondary to splenomegaly. The cause of the splenomegaly is either idiopathic portal hypertension, liver disease etc. he does not have any symptoms or signs of lymphoma at this time. He is followed by Dr. Ash. He had an EGD and colonoscopy which were negative. He presented last year with pernicious anemia presenting with pancytopenia found to have B12 deficiency and iron deficiency. He did receive supplemental B12 and IV iron. He was then put on oral iron recently in my absence. 07/08/22 He feels well overall, without new complaints His energy is stable, maybe a bit lower than his normal. He is active still, butcan get winded with activity denies dyspnea at rest, chest pain, new pain anywhere. No fevers, chills, sweats, weight loss, appetite changes He was told his spleen is enlarged, but has not been told outright that he has any cirrhosis of his liver or not wbc, plt, hgb appear to be trending down a bit. continues to be iron deficient despite IV replacement 09/15/22 [facility] EGD perforemd by Dr. Lester. STOMACH: Mild antral gastritis, biopsies obtained, bottle 1-rule out H. pylori. There was a blood clot observed on the anterior body wall best viewed in retroflexed position, when washed away this revealed 2 punctate lesions without ulcerated base consistent with Dieulafoy, actively bleeding. A resolution 360 Endo Clip was placed over both of these lesions with hemostasis observed. No gastric varices ESOPHAGUS: Diaphragmatic hiatus was 45 cm from incisors and GE junction (upper margin of gastric folds) was at 45 cm from incisors. Squamocolumnar junction was at 45 cm from incisors. There was a hypertrophic, muscular appearance of the esophagus. MThere were 2-3 columns of large esophageal varices. Gastroscopewas subsequently withdrawn and reintroduced after placing 7 speed band ligator. A total of 3 bands were deployed with last band placement approximately at 30 cmfrom the incisors. All bands successfully deployed with ligation of varices and complete collapse proximally. His fibroscan was f4 cirrhosis and s4 steatosis. He feels well enough overall. He fell and is very sore on his left chest wall. Energy is a bit low. 03/20/23 He thinks he feels well/fine, his notes he is more tired than usual recently fell off a seat and bumped his head, no other injuries associated with this. States he dozed off and fell he denies shortness of breath, chest pain, dark/tarry stool or other new complaints hgb 10.2, iron saturation 10%, ferritin 7.3. wbc 2.8, plt 51 06/22/23 He is doing well. just got back from [place] and upcoming trip to [place] for vacation, [facility] [place]. iron good. follows with [facility] for DM and Dr. Ash is PCP. creat deteriorating. hb 12.3 now. - Physical Exam ECOG PS: 0 General : patient is alert and oriented to person place and time, no acute distress. He has a cut and mild bruise on his scalp related to a recent fall Neck: no JVD or thyromegaly. Lymph: no cervical, supraclavicular, axillary adenopathy. Heart: regular rate and rhythm no murmurs rubs or gallops. Abdomen: soft nontender nondistended, no hepatosplenomegaly. Lungs: cta bl, no wheezes, rales, rhonchi. Extremities: no clubbing cyanosis. - Time with Patient Coordination of Care & Counseling Time: Greater than 50% of time spent with patient was for coordination of care (as documented) and [id number] counseling of patient and/or family. [facility] - Medical History Medical History: Medical History (Last Reviewed 12/16/22 @ 11:36 by Paayl Valentin RN) Aneurysm artery, iliac Anxiety CAD (coronary artery disease) Diabetes mellitus, type 2 Neuropathy Restless leg - Surgical History Surgical History: Surgical History (Last Reviewed 12/16/22 @ 11:36 by Payal Valentin RN) History of heart bypass surgery Hx of tonsillectomy - Family History Family History: Family History (Last Reviewed 12/16/22 @ 11:36 by Payal Valentin RN) Other Diabetes mellitus, type 2 Hypertension - Social History Smoking Status: Never smoker Substance Use Type: None Additional Data - Additional Objective Data Height/Weight: Height 6 ft 2 in Weight 92.442 kg BSA for Today's Weight 2.35 Vital Signs: 06/22/23 09:37 Temperature 97.4 F L Pulse Rate [Right Brachial] 52 L Respiratory Rate 20 Blood Pressure [Right Arm] 121/68 02 Sat by Pulse Oximetry 96 Oxygen Delivery Method Room Air Distress Screening: RN Distress Screening Start: 08/14/20 08:52 Freq: Status: Active Protocol: Document 08/14/20 09:09 GAGAN (Rec: 08/14/20 09:09 [id number]) Distress Screening Distress Score: 0 No worry/distress Distress Screening Total 0 - Lab Results Diagram of Most Recent CBC and CMP 06/19/23 09:35 06/19/23 09:35 Labs - Last 7 Days 06/19/23 09:35: PHA Creatinine Clear 42.82, Sodium 136, Potassium 5.8 H, Chloride 103, Carbon Dioxide 26.0, Anion Gap 12.8, BUN 37 H, Creatinine 1.78 H, Est GFR (CKD-EPI) 38.326, Glucose 82, Calcium 9.6, Iron 102, TIBC 325, Iron Saturation 31.4, Transferrin 232, Ferritin 195.7, Total Bilirubin 1.1 H, AST 23,ALT 18, Alkaline Phosphatase 63, Total Protein 7.0, Albumin 4.5, Globulin 2.5, Albumin/Globulin Ratio 1.8 06/19/23 09:35: Corrected WBC 4.5, Uncorrected WBC Count 4.5, RBC 3.88 L, Hgb 12.3 L, Hct 36.4 L, MCV 93.8, MCH 31.8, MCHC 33.9, RDW 15.4 H, Plt Count 56 L, MPV 9.2, Neut % (Auto) 55.4, Lymph % (Auto) 34.7, [place] % (Auto) 7.9, Eos % (Auto) 1.6, Baso % (Auto) 0.4, Nucleat RBC Rel Count 0.2, Neut # (Auto) 2.5, Lymph # (Auto) 1.6, [place] # (Auto) 0.4, Eos # (Auto) 0.1, Baso # (Auto) 0.0 - Home Medications and Allergies Allergies/Adverse Reactions: Allergies ropinirole [From Requip] Allergy (Verified 03/20/23 13:21) Fainting Home Medications: Home Medications metformin 1,000 mg tablet 1,000 mg PO BID 08/14/20 [History Confirmed 06/22/23] pramipexole 0.125 mg tablet 0.125 mg PO BID 08/14/20 [History Confirmed 06/22/23] pregabalin 100 mg capsule 200 mg PO BID 08/14/20 [History Confirmed 06/22/23] ramipril 5 mg capsule 10 mg PO DAILY 08/14/20 [History Confirmed 06/22/23] simvastatin 20 mg tablet 20 mg PO HS 08/14/20 [History Confirmed 06/22/23] aspirin 81 mg tablet 81 mg PO DAILY 12/11/20 [History Confirmed 06/22/23] furosemide 20 mg tablet 20 mg PO DAILY 09/09/22 [History Confirmed 06/22/23] omeprazole 40 mg capsule,delayed release 40 mg PO BID 8 weeks #112 caps 09/09/22[Rx Confirmed 06/22/23] rifaximin 550 mg tablet (Xifaxan) 550 mg PO BID 09/09/22 [History Confirmed 06/22/23] carvedilol 6.25 mg tablet 6.25 mg PO BID #60 tabs 12/16/22 [Rx Confirmed 06/22/23] spironolactone 50 mg tablet 50 mg PO DAILY 12/16/22 [History Confirmed 06/22/23] semaglutide 0.25 mg or 0.5 mg (2 mg/3 mL) subcutaneous pen injector (Ozempic) 0.25 mg subcut QWEEK 03/20/23 [History Confirmed 06/22/23] Dictated By: Luciano Ramirez II, DO DD/ 1017 Signed By: <Electronically signed by Luciano Ramirez II, DO> 06/23/23 1606 [facility] Work Phone: Summary Purpose Family History No Family History Records Found Relationship Condition Age at Onset Recorded Date/T george Not Specified Type 2 diabetes mellitus Unknown Hypertension Unknown Advance Directives No Advanced Directives Records Found Advance Directive Response Recorded Date/ Time Advance Directives No July 2:20pm Advance Directive Response Recorded Date/ Time Advance Directives No July 1:20pm Procedure Findings Note OPERATIVE NOTE FIRST PROCEDU RE OPERATION DATE: 09-05-20 ANESTHETIC:Propofol as per the anesthesia team. PREOPERATIVE DIAGNOSIS:Unexplained anemia. POSTOPERATIVE DIAGNOSIS:Normal EGD. PROCEDURE NAME:Esophagogastroduodenoscopy. PROCEDURE: The patient was placed in the left lateral decubitus position. The Olympus 180 gastroscope passed in the hypopharynx and easily advanced. The esophagus, stomach, and duodenum were closely inspected and found to be normal. The endoscope with withdrawn. FINAL DIAGNOSIS: Normal EGD. cc:Dr. Matti Ash. Dr. John Ventura. [facility] Signed and Approved by: DR KWAME CRUZ 10/03/2020 07:52:00 Note OPERATIVE NOTE SECOND PROCED URE OPERATION DATE: 09-05-20 ANESTHETIC:Propofol as per the anesthesia team. PREOPERATIVE DIAGNOSIS:Unexplained anemia, no prior colonoscopy. POSTOPERATIVE DIAGNOSIS:Normal inspection of the entire colon into the cecum. PROCEDURE NAME:Colonoscopy to the cecum. PROCEDURE: The patient is placed once again, in the left lateral decubitus position. The Olympus 180 colonoscope inserted into the rectum and advanced under direct vision. No abnormalities were seen. There was no polyp or neoplasm. The cecum is reached and entered. The endoscope is slowly withdrawn. FINAL DIAGNOSIS: Normal colonoscopy. RECOMMENDATION: No plans for repeat colonoscopy on this 74 year-old patient. cc:Dr. Matti Ash. Dr. John Ventura. IF Signed and Approved by: DR KWAME CRUZ 10/03/2020 07:52:00 Chief Complaint and Reason for Visit Chief Complaint Cirrhosis Pancytopenia. Reason for Visit B12 deficiency Pancytopenia Splenomegaly Iron deficiency Leukopenia Peripheral neuropathy Thrombocytopenia Chief Complaint Cirrhosis Pancytopenia. K74.60 Cirrhosis of Liver Cirrhosis of Liver Reason for Visit B12 deficiency Pancytopenia Splenomegaly Iron deficiency Leukopenia Peripheral neuropathy Thrombocytopenia Chief Complaint Cirrhosis K74.60 Cirrhosis of Liver Cirrhosis of Liver Pancytopenia. Reason for Visit B12 deficiency Pancytopenia Splenomegaly Iron deficiency Leukopenia Peripheral neuropathy Thrombocytopenia Chief Complaint Pancytopenia. Cirrhosis, Esophageal Varices Reason for Visit B12 deficiency Pancytopenia Splenomegaly Iron deficiency Leukopenia Peripheral neuropathy Thrombocytopenia Chief Complaint Pancytopenia. Reason for Visit B12 deficiency Pancytopenia Splenomegaly Iron deficiency Leukopenia Peripheral neuropathy Thrombocytopenia Chief Complaint Pancytopenia. e11.42 Reason for Visit B12 deficiency Pancytopenia Splenomegaly Iron deficiency Leukopenia Peripheral neuropathy Thrombocytopenia Additional Source Comments (unrecognized sect ion and content) No Status Records FoundNo Status Records FoundNo Status Records Found INFORMATION SOURCE (unrecogn ized section and content) DATE CREATED AUTHOR 12/12/2020 [facility] DATE CREATED AUTHOR AUTHOR'S ORGANIZ ATION 12/05/[address] [facility] EPIC DATE CREATED AUTHOR AUTHOR'S ORGANIZ ATION 01/01/2024 [facility] Care Teams (unrecognized sec tion and content) Team Status: Active Member Role Status Dates Matti Ash II MD Primary Care Provider Active Team Status: Inactive Member Role Status Dates Matti Ash II MD Primary Care Provider Active Mariah Bernard DO Attending Provider Active Team Status: Active Member Role Status Dates Matti Ash II MD Primary Care Provider, Referring Provider Active Luciano Ramirez II, DO Active Alisha Soares APRN Attending Provider Acti ve Team Status: Active Member Role Status Dates Matti Ash II MD Primary Care Provider, Referring Provider Active Luciano Ramirez II, Attending Provider Active Team Status: Inactive Member Role Status Dates Matti Ash II MD Primary Care Provider Active Alisha Soares APRN Attending Provider Acti ve Team Status: Active Member Role Status Dates Matti Ash II MD Primary Care Provider, Referring Provider Active John Ventura MD Attending Provider Active Team Status: Inactive Member Role Status Dates Matti Ash II MD Primary Care Provider Active Estevan Lester MD Attending Provider Active Kelp Gatherer Relationship Specialty Start Date End Date Matti Ash MD [address] [place] [address] PCP - ACO Reach 04/16/23 Matti Ash MD [address] [facility] [address] [id number] PCP - General Internal Medicine 06/18/23 REASON FOR VISIT (unrecogniz ed section and content) RefillsEGDRefillsRefillsNo I nformationRefillsPatient here for follow up EGD done for cirrhosis.PHARMACY CHANGE/NEW RX NEEDEDPT IS HERE FOR A 6 MONTH FOLLOW UPrefill requestelectronic refill request Goals (unrecognized section and content) Goals may be documented in a n alternate section FOR RECORDS PERTAINING TO PATIENTS WHO ARE OR HAVE BEEN ENROLLED IN A CHEMICAL DEPENDENCY/SUBSTANCEABUSE PROGRAM, SOME INFORMATION MAY BE OMITTED. This clinical summary was aggregated from multiple sources. Caution should be exercised in using it in the provision of clinical care. This summary normalizes information from multiple sources, and as a consequence, information in this document may materially change the coding, format and clinical context of patient data. In addition, data may be omitted in some cases. CLINICAL DECISIONS SHOULD BE BASED ON THE PRIMARY CLINICAL RECORDS. [employer] provides no warranty or guarantee of the accuracy or completeness of information in this document.
--- NOTE | 2024-01-08 13:31 | ED.ABDPAIN1 ---
Documented by User: Flakita Najera 01/08/24 15:38 HPI - Abdominal Pain General Chief Complaint: Abdominal Pain Stated Complaint: ABD PAIN Time Seen by Provider: 01/08/24 13:11 Source: patient Mode of arrival: ambulance History of Present Illness HPI narrative: 78-year-old male presents to the emergency roomWith a chief complaint of nausea, vomiting and diarrhea. Patient said a history of vomiting with near syncopal event witnessed at home by earlier today. Family reports he was in [facility] last month for suspected C. difficile after a trip to [place] on a cruise. C. difficile was negative. Patient has been home for a month. Over the past week he has had increased nausea vomiting and loose mucus-like stools. He denies any known history of Crohn's IBS or diverticulitis. He does have a history of cirrhosis and enlarged spleen. He is type II diabetic. Patient is alert and oriented. He is afebrile.Appear weak and dehydrated Related Data Home Medications Medication Instructions Recorded Confirmed carvedilol 3.125 mg tablet 3.125 mg PO BID 01/08/24 01/08/24 furosemide 20 mg tablet 20 mg PO DAILY 01/08/24 01/08/24 insulin glargine 100 unit/mL (3 30 unit subcut QAM 01/08/24 01/08/24 mL) subcutaneous pen (Basaglar KwikPen U-100 Insulin) metformin 1,000 mg tablet 1,000 mg PO BID 01/08/24 01/08/24 omeprazole 40 mg capsule,delayed 40 mg PO QAM 01/08/24 01/08/24 release pramipexole 0.125 mg tablet 0.25 mg PO BID 01/08/24 01/08/24 pregabalin 100 mg capsule 200 mg PO BID 01/08/24 01/08/24 rifaximin 550 mg tablet (Xifaxan) 550 mg PO BID 01/08/24 01/08/24 semaglutide 1 mg/dose (4 mg/3 mL) 1 mg subcut QWEEK 01/08/24 01/08/24 subcutaneous pen injector (Ozempic) simvastatin 20 mg tablet 20 mg PO QPM 01/08/24 01/08/24 spironolactone 50 mg tablet 50 mg PO DAILY 01/08/24 01/08/24 Allergies Allergy/AdvReac Type Severity Reaction Status Date / Time calcium carbonate Allergy Severe Verified 01/08/24 12:58 [From Equilet] Review of Systems ROS Narrative All Systems are negative except as noted/marked. 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 (ICD-10) Family History (Updated 01/08/24 @ 16:35 by Nia Sullivan LPN) Father Family history of stroke Family history of diabetes mellitus Mother Family history of cancer Family history of diabetes mellitus Sister Family history of diabetes mellitus Other Family history of CHF (congestive heart failure) Social History (Updated 01/08/24 @ 16:36 by Nia Sullivan LPN) Within the past year, how often did you have a drink containing alcohol: never Within the past year, how often did you have six or more drinks on one occasion: never Score interpretation: A score less than 4 is consistent with normal alcohol consumption. Smoking status: Never smoker Second hand tobacco smoke exposure: No Non-prescribed substance use: denies use Known occupational exposures/hazards: No Highest level of school completed/degree received: some college, no degree Are you now , , , , never or living with a partner: In a typical week, how many times do you talk on the telephone with family, friends, or neighbors: twice per week How often do you get together with friends or relatives: twice per week How often do you attend pentecostalism or anabaptism services: never Do you belong to any clubs or organizations such as pentecostalism groups unions, fraternal or athletic groups, or school groups: yes Total score: 3 Score interpretation: A score of greater than or equal to 2 indicates the lowest level of social isolation. Little interest or pleasure in doing things: not at all Feeling down, depressed, or hopeless: not at all Feel stressed/tense/nervous/anxious/difficulty sleeping: not at all Due to disability, difficulty making decisions: No Do you think of yourself as: straight/heterosexual Gender Identity: male Exam Narrative Exam Narrative: Nurses note and vital signs reviewed and patient is not hypoxic. General: The patient appears ILL, WEAK Patient vomiting during interview Skin: Warm, dry, pallor noted. There is no rash noted. Head: Normocephalic, atraumatic Eye: Normal conjunctiva, no drainage, EOMI. PERRL Ears, Nose, Mouth, and Throat: oral mucosa is moist. Nares patent. Mouth without vesicles. Ear canals patent. Tm's without Erythema Cardiovascular: Regular Rate and Rhythm Respiratory: Patient is in no distress, no accessory muscle use, lungs are clear to auscultation, no wheezing, rales or rhonchi Back: non-tender, no CVA tenderness bilaterally to percussion. GI: Normal bowel sounds, no tenderness to palpation, no masses appreciated. No rebound, guarding, or rigidity noted. Musculoskeletal: The patient has no evidence of calf tenderness, no pitting edema, symmetrical pulses noted bilaterally Neurological: A&O x3 , normal speech Psychiatric: Cooperative Constitutional Vital Signs, click to edit/add: Last Vital Signs Temp 98.4 F 01/08/24 16:50 Pulse 84 01/08/24 16:50 Resp 16 01/08/24 17:28 BP 162/80 H 01/08/24 16:50 Pulse Ox 94 L 01/08/24 17:28 O2 Del Method Room Air 01/08/24 17:28 Course Vital Signs Vital signs: Vital Signs Temperature 98.1 F 01/08/24 12:58 Pulse Rate 76 01/08/24 12:58 Respiratory Rate 20 01/08/24 12:58 Blood Pressure 159/71 H 01/08/24 12:58 Pulse Oximetry 99 01/08/24 12:58 Oxygen Delivery Method Room Air 01/08/24 12:58 Temperature 98.4 F 01/08/24 16:50 Pulse Rate 84 01/08/24 16:50 Respiratory Rate 16 01/08/24 17:28 Blood Pressure 162/80 H 01/08/24 16:50 Pulse Oximetry 94 L 01/08/24 17:28 Oxygen Delivery Method Room Air 01/08/24 17:28 MDM - Abdominal Pain MDM Narrative Medical decision making narrative: 78-year-old male with a history of splenomegaly and cirrhosis of the liver with nausea and diarrhea for the last month presents here to the emergency room. He has been seen in evaluated another facility has been home for a month. states today patient has gotten increasingly weak with nausea vomiting she found him on the commode slumped over he was too weak to get up. He did not actually pass out but he felt lightheaded as if he was going to. He said he had increased weakness at home. CBC BMP are evaluated today. Patient has a mildly elevated lactic acid of 2.3. Upon arrival to the emergency room IV was established patient was given a liter of fluids. He did perk up immediately after the liter of fluids and was started on a second liter of fluids here in emergency room. CT scan shows no acute changes other than his chronic history of splenomegaly and cirrhosis of the liver. I spoke to Dr. Kilgore who agrees to admit the patient for weakness, dehydration, near syncopal event. Patient and family members are made aware and agree with plan of care as well. Patient is stable at this time he states he feels much better. Vital signs are stable. Differential Diagnosis Differential diagnosis: Likely abdominal pain, constipation, diverticulitis and gastroenteritis Medical Records Attestation: I reviewed the patient's medical records. Lab Data Attestation: I reviewed the patient's lab results. Labs: Lab Results 01/08/24 Range/Units 13:10 WBC 6.4 (4.0-11.0) 10^3/uL RBC 3.75 L (4.70-6.10) 10^6/uL Hgb 11.1 L (14.0-18.0) g/dL Hct 35.5 L (42.0-54.0) % MCV 94.7 H (80.0-94.0) fL MCH 29.6 (25.9-34.0) pg MCHC 31.3 (29.9-35.2) g/dL RDW 14.8 (11.0-15.0) % Plt Count 65 L (150-450) 10^3/uL MPV 10.9 (9.5-13.5) fL Seg Neuts % (Manual) 80.0 Band Neutrophils % 2.0 (0-5) % Lymphocytes % (Manual) 9.0 L (20.5-60.0) % Monocytes % (Manual) 7.0 (1.7-12.0) % Eosinophils % (Manual) 2.0 (0.9-7.0) % Basophils % (Manual) 0.0 L (0.2-2.0) % Neutrophils # (Manual) 5.12 (1.4-6.5) 10^3/uL Band Neutrophils # 0.1 (0.0-0.3) 10^3/uL Lymphocytes # (Manual) 0.57 L (1.20-3.80) 10^3/uL Monocytes # (Manual) 0.44 (0.30-0.80) 10^3/uL Eosinophils # (Manual) 0.12 (0.00-0.70) 10^3/uL Basophils # (Manual) 0.00 (0.00-0.10) 10^3/uL PT 10.9 (9.0-11.6) sec INR 1.03 Sodium 140 (136-145) mmol/L Potassium 4.2 (3.5-5.1) mmol/L Chloride 105 (98-107) mmol/L Carbon Dioxide 25.4 (21.0-32.0) mmol/L Anion Gap 13.8 BUN 24.0 H (7.0-18.0) mg/dL Creatinine 1.08 (0.70-1.30) mg/dL Est GFR ( Amer) >60 (>=60) Est GFR (Non-Af Amer) >60 (>=60) BUN/Creatinine Ratio 22.2 Glucose 260 H (74-106) mg/dL Lactate 2.3 H* (0.4-2.0) mmol/L Calcium 9.3 (8.5-10.1) mg/dL Total Bilirubin 1.3 H (0.2-1.0) mg/dL AST 31 (15-37) U/L ALT 29 (16-63) U/L Alkaline Phosphatase 90 (46-116) U/L Total Creatine Kinase 54 (39-308) U/L CK-MB (CK-2) 1.54 (<=3.60) ng/mL Troponin I High Sens 5.5 (4.0-76.1) pg/mL Total Protein 7.6 (6.4-8.2) g/dL Albumin 3.5 (3.4-5.0) g/dL Globulin 4.1 g/dL Albumin/Globulin Ratio 0.[address] scan - abdomen: Radiologist's impression: ITS Impressions Abdomen/Pelvis CT 01/08/24 13:14 IMPRESSION: CT abdomen and CT pelvis studies demonstrate findings suggestive of hepatic cirrhosis. Mild splenomegaly. Mild to moderate free intraperitoneal fluid in the abdomen and pelvis which may be related to cirrhosis. Mildly dilated small bowel loops with retained fluid. Mild wall thickening at the gastroduodenal junction level. Correlate for mild gastroduodenitis and gastroenteritis. No obvious bowel obstruction. Peritonitis would be less likely consideration. Correlate clinically. Small gallstones in the gallbladder without obvious associated cholecystitis. Colon diverticulosis without evidence of acute diverticulitis. Small to moderate-sized umbilical hernia with retained fluid, no obvious associated bowel content. Moderate to large right inguinal hernia with fluid content, no evidence of bowel content. Likely bilateral parapelvic renal cysts as noted. Small vascular calcification or nonobstructive calculus in the right kidney. Electronically authenticated by: RUSSELL LIEBERMAN Date: 01/08/2024 14:12 ECG Data Interpretation: 1259 Normal sinus rhythm with a rate of 74 bpm, NJ interval 234 ms, QRS duration 96 ms, no STEMI Discharge Plan Discharge Chief Complaint: Abdominal Pain Clinical Impression: Near syncope, Gastroenteritis, Nausea & vomiting, Weakness Patient Disposition: Admitted as Observation Time of Disposition Decision: 15:35 Condition: Fair Discharge Date/Time: 01/08/24 16:14 Documented by User: Yasmany Squires MD 01/08/24 20:19 HPI - Abdominal Pain General Chief Complaint: Abdominal Pain Stated Complaint: ABD PAIN Time Seen by Provider: 01/08/24 13:11 Related Data Home Medications Medication Instructions Recorded Confirmed carvedilol 3.125 mg tablet 3.125 mg PO BID 01/08/24 01/08/24 furosemide 20 mg tablet 20 mg PO DAILY 01/08/24 01/08/24 insulin glargine 100 unit/mL (3 30 unit subcut QAM 01/08/24 01/08/24 mL) subcutaneous pen (Basaglar KwikPen U-100 Insulin) metformin 1,000 mg tablet 1,000 mg PO BID 01/08/24 01/08/24 omeprazole 40 mg capsule,delayed 40 mg PO QAM 01/08/24 01/08/24 release pramipexole 0.125 mg tablet 0.25 mg PO BID 01/08/24 01/08/24 pregabalin 100 mg capsule 200 mg PO BID 01/08/24 01/08/24 rifaximin 550 mg tablet (Xifaxan) 550 mg PO BID 01/08/24 01/08/24 semaglutide 1 mg/dose (4 mg/3 mL) 1 mg subcut QWEEK 01/08/24 01/08/24 subcutaneous pen injector (Ozempic) simvastatin 20 mg tablet 20 mg PO QPM 01/08/24 01/08/24 spironolactone 50 mg tablet 50 mg PO DAILY 01/08/24 01/08/24 Allergies Allergy/AdvReac Type Severity Reaction Status Date / Time calcium carbonate Allergy Severe Verified 01/08/24 12:58 [From [facility]ile[facility]] [facility] Medical History (Updated 01/08/24 @ 16:33 by Nia Sullivan LPN) Diabetes mellitus ?E11.9 - Type 2 diabetes mellitus without complications (ICD-10) Surgical History (Updated 01/08/24 @ 16:33 by Nia Sullivan LPN) S/P tonsillectomy ?Z90.89 - Acquired absence of other organs (ICD-10) 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 (ICD-10) Family History (Updated 01/08/24 @ 16:35 by Nia Sullivan LPN) Father Family history of stroke Family history of diabetes mellitus Mother Family history of cancer Family history of diabetes mellitus Sister Family history of diabetes mellitus Other Family history of CHF (congestive heart failure) Social History (Updated 01/08/24 @ 16:36 by Nia Sullivan LPN) Within the past year, how often did you have a drink containing alcohol: never Within the past year, how often did you have six or more drinks on one occasion: never Score interpretation: A score less than 4 is consistent with normal alcohol consumption. Smoking status: Never smoker Second hand tobacco smoke exposure: No Non-prescribed substance use: denies use Known occupational exposures/hazards: No Highest level of school completed/degree received: some college, no degree Are you now , , , , never or living with a partner: In a typical week, how many times do you talk on the telephone with family, friends, or neighbors: twice per week How often do you get together with friends or relatives: twice per week How often do you attend pentecostalism or anabaptism services: never Do you belong to any clubs or organizations such as pentecostalism groups unions, [employer] or athletic groups, or school groups: yes Total score: 3 Score interpretation: A score of greater than or equal to 2 indicates the lowest level of social isolation. Little interest or pleasure in doing things: not at all Feeling down, depressed, or hopeless: not at all Feel stressed/tense/nervous/anxious/difficulty sleeping: not at all Due to disability, difficulty making decisions: No Do you think of yourself as: straight/heterosexual Gender Identity: male Exam Constitutional Vital Signs, click to edit/add: Last Vital Signs Temp 98.4 F 01/08/24 16:50 Pulse 84 01/08/24 16:50 Resp 16 01/08/24 17:28 BP 162/80 H 01/08/24 16:50 Pulse Ox 94 L 01/08/24 17:28 O2 Del Method Room Air 01/08/24 17:28 Course Vital Signs Vital signs: Vital Signs Temperature 98.1 F 01/08/24 12:58 Pulse Rate 76 01/08/24 12:58 Respiratory Rate 20 01/08/24 12:58 Blood Pressure 159/71 H 01/08/24 12:58 Pulse Oximetry 99 01/08/24 12:58 Oxygen Delivery Method Room Air 01/08/24 12:58 Temperature 98.4 F 01/08/24 16:50 Pulse Rate 84 01/08/24 16:50 Respiratory Rate 16 01/08/24 17:28 Blood Pressure 162/80 H 01/08/24 16:50 Pulse Oximetry 94 L 01/08/24 17:28 Oxygen Delivery Method Room Air 01/08/24 17:28 MDM - Abdominal Pain MDM Narrative Medical decision making narrative: 78-year-old male with a history of splenomegaly and cirrhosis of the liver with nausea and diarrhea for the last month presents here to the emergency room. He has been seen in evaluated another facility has been home for a month. states today patient has gotten increasingly weak with nausea vomiting she found him on the commode slumped over he was too weak to get up. He did not actually pass out but he felt lightheaded as if he was going to. He said he had increased weakness at home. CBC BMP are evaluated today. Patient has a mildly elevated lactic acid of 2.3. Upon arrival to the emergency room IV was established patient was given a liter of fluids. He did perk up immediately after the liter of fluids and was started on a second liter of fluids here in emergency room. CT scan shows no acute changes other than his chronic history of splenomegaly and cirrhosis of the liver. I spoke to Dr. Kilgore who agrees to admit the patient for weakness, dehydration, near syncopal event. Patient and family members are made aware and agree with plan of care as well. Patient is stable at this time he states he feels much better. Vital signs are stable. I, Dr Squires, have reviewed the above progress note and course of action in the ER; agree with the above. I have gone over history and physical, and discussed disposition and treatment plan with the patient. Lab Data Labs: Lab Results 01/08/24 Range/Units 13:10 WBC 6.4 (4.0-11.0) 10^3/uL RBC 3.75 L (4.70-6.10) 10^6/uL Hgb 11.1 L (14.0-18.0) g/dL Hct 35.5 L (42.0-54.0) % MCV 94.7 H (80.0-94.0) fL MCH 29.6 (25.9-34.0) pg MCHC 31.3 (29.9-35.2) g/dL RDW 14.8 (11.0-15.0) % Plt Count 65 L (150-450) 10^3/uL MPV 10.9 (9.5-13.5) fL Seg Neuts % (Manual) 80.0 Band Neutrophils % 2.0 (0-5) % Lymphocytes % (Manual) 9.0 L (20.5-60.0) % Monocytes % (Manual) 7.0 (1.7-12.0) % Eosinophils % (Manual) 2.0 (0.9-7.0) % Basophils % (Manual) 0.0 L (0.2-2.0) % Neutrophils # (Manual) 5.12 (1.4-6.5) 10^3/uL Band Neutrophils # 0.1 (0.0-0.3) 10^3/uL Lymphocytes # (Manual) 0.57 L (1.20-3.80) 10^3/uL Monocytes # (Manual) 0.44 (0.30-0.80) 10^3/uL Eosinophils # (Manual) 0.12 (0.00-0.70) 10^3/uL Basophils # (Manual) 0.00 (0.00-0.10) 10^3/uL PT 10.9 (9.0-11.6) sec INR 1.03 Sodium 140 (136-145) mmol/L Potassium 4.2 (3.5-5.1) mmol/L Chloride 105 (98-107) mmol/L Carbon Dioxide 25.4 (21.0-32.0) mmol/L Anion Gap 13.8 BUN 24.0 H (7.0-18.0) mg/dL Creatinine 1.08 (0.70-1.30) mg/dL Est GFR ( Amer) >60 (>=60) Est GFR (Non-Af Amer) >60 (>=60) BUN/Creatinine Ratio 22.2 Glucose 260 H (74-106) mg/dL Lactate 2.3 H* (0.4-2.0) mmol/L Calcium 9.3 (8.5-10.1) mg/dL Total Bilirubin 1.3 H (0.2-1.0) mg/dL AST 31 (15-37) U/L ALT 29 (16-63) U/L Alkaline Phosphatase 90 (46-116) U/L Total Creatine Kinase 54 (39-308) U/L CK-MB (CK-2) 1.54 (<=3.60) ng/mL Troponin I High Sens 5.5 (4.0-76.1) pg/mL Total Protein 7.6 (6.4-8.2) g/dL Albumin 3.5 (3.4-5.0) g/dL Globulin 4.1 g/dL Albumin/Globulin Ratio 0.[address] scan - abdomen: Radiologist's impression: ITS Impressions Abdomen/Pelvis CT 01/08/24 13:14 IMPRESSION: CT abdomen and CT pelvis studies demonstrate findings suggestive of hepatic cirrhosis. Mild splenomegaly. Mild to moderate free intraperitoneal fluid in the abdomen and pelvis which may be related to cirrhosis. Mildly dilated small bowel loops with retained fluid. Mild wall thickening at the gastroduodenal junction level. Correlate for mild gastroduodenitis and gastroenteritis. No obvious bowel obstruction. Peritonitis would be less likely consideration. Correlate clinically. Small gallstones in the gallbladder without obvious associated cholecystitis. Colon diverticulosis without evidence of acute diverticulitis. Small to moderate-sized umbilical hernia with retained fluid, no obvious associated bowel content. Moderate to large right inguinal hernia with fluid content, no evidence of bowel content. Likely bilateral parapelvic renal cysts as noted. Small vascular calcification or nonobstructive calculus in the right kidney. Electronically authenticated by: RUSSELL LIEBERMAN Date: 01/08/2024 14:12 Discharge Plan Discharge Chief Complaint: Abdominal Pain Clinical Impression: Near syncope, Gastroenteritis, Nausea & vomiting, Weakness Patient Disposition: Admitted as Observation Time of Disposition Decision: 15:35 Condition: Fair Discharge Date/Time: 01/08/24 16:14
[2024-01-08 13:45] LABS: Platelet Count 65 10^3/uL (150-450)
[2024-01-08 13:46] LABS: Band Neutrophils Absolute 0.1 10^3/uL (0.0-0.3); Eosinophils Absolute Manual 0.12 10^3/uL (0.00-0.70); Lymphocytes Absolute Manual 0.57 10^3/uL (1.20-3.80); Monocytes Absolute Manual 0.44 10^3/uL (0.30-0.80); Segmented Neut Absolute Manual 5.12 10^3/uL (1.4-6.5)
[2024-01-08 13:58] LABS: Alanine Aminotransferase 29 U/L (16-63); Albumin Globulin Ratio 0.9; Albumin Level 3.5 g/dL (3.4-5.0); Alkaline Phosphatase 90 U/L (46-116); Anion Gap 13.8; Aspartate Amino Transferase 31 U/L (15-37); BUN Creatinine Ratio 22.2; Bilirubin Total 1.3 mg/dL (0.2-1.0); Calcium 9.3 mg/dL (8.5-10.1); Carbon Dioxide 25.4 mmol/L (21.0-32.0); Chloride 105 mmol/L (98-107); Estimated GFR (African America >60 (>=60); Estimated GFR (Non-African Ame >60 (>=60); Globulin 4.1 g/dL; Glucose 260 mg/dL (74-106); Potassium 4.2 mmol/L (3.5-5.1); Sodium 140 mmol/L (136-145); Total Protein 7.6 g/dL (6.4-8.2)
[2024-01-08 14:04] LABS: INR 1.03; Prothrombin Time 10.9 sec (9.0-11.6)
[2024-01-08 14:06] LABS: Troponin I High Sensitivity 5.5 pg/mL (4.0-76.1)
[2024-01-08 14:13] LABS: Lactate/Lactic Acid 2.3 mmol/L (0.4-2.0)
[2024-01-08 14:15] LABS: Creatine Kinase 54 U/L (39-308); Creatine Kinase MB 1.54 ng/mL (<=3.60)
[2024-01-08] MEDS: 0.9 % SODIUM CHLORIDE 1,000 ML 1000 ML IV (15:36)
--- OUTSIDE RECORDS SUMMARY | 2024-01-08 16:36 | XMS_ITS | CCD ---
Author Name Unknown Address [address] [place] [address] Organization [facility] Care Team Providers Care Film Splicer Name Role Phone MATTI ASH Primary Care [...] Consulting Unavailable VARGHESE Ash Primary Care Provider [phone] LISA Soares Attending Provider VARGHESE Ash Referring Provider MD John Ventura Attending Provider Unavailable Estevan Lester Unavailable MD Estevan Lester Attending Provider VARGHESE Ash Referring Provider DO Luciano Ramirez II Attending Provider VARGHESE Ash Primary Care Provider VARGHESE Ash Referring Provider [phone] DO Luciano Ramirez II Attending Provider MD Estevan Lester Attending Provider [phone] VARGHESE Ash Primary Care Provider VARGHESE Ash Referring Provider [phone] DO Luciano Ramirez II Attending Provider [phone] VARGHESE Ash Primary Care Provider [phone] VARGHESE Ash Referring Provider LISA Soares Attending Provider DO Mariah Bernard Attending Provider [phone] RIOS CURRY Attending Unavailable MATTI ASH Attending Unavailable Matti Ash MD Unavailable Matti Ash MD Primary Care Provider Mariah Bernard Admitting Unavailable Mariah Bernard Attending Unavailable Matti Ash Primary Care Unavailable Matti Ash Referring Unavailable Luciano Ramirez II Admitting Unavaila Luciano Salazar II Attending Unavaila Matti Lee Primary Care Unavailable Matti Ash Primary Care Unavailable Simi Freeman Admitting Unavailable Simi Freeman Attending Unavailable Allergies Allergy Classification Reported Allergen(s) Allergy Type Date of Onset Reaction(s) Facility (13 sources) rOPINIRole Drug Allergy Unknown [facility] Repository (9 sources) rOPINIRole; Translations: [ropinirole] Drug Allergy 09-19-2021 [facility] Medications Current Medications Medication Drug Class(es) Dates [...] 11, 2020 3:13pm take 1 tablet by albaro th in the morning aspirin 81 MG [...] 2020 12:00am take 2 tablets by mo [facility] in the morning [...] 0 Active take 1 capsule by mo [facility] every twelve hours [...] disease (2 sources) Atherosclerotic heart disease of [place] coronary artery without angina pectoris; Translations: [Atherosclerosis [...] Onset: 12-01-19 Episodic Other aftercare (1 source) senior care (current) use of oral hypoglycemic drugs; Translations: [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 [facility] Comment on above: Performed By: #### P TT, PT #### [facility] [address] [place] [address] [place] Eosinophils (Bld) [#/Vol] 0.1 10*3/uL Normal 0.0-0.45 [facility] Comment on above: Performed By: #### P TT, PT #### [facility] [address] [place] [address] [place] Eosinophils/100 WBC (Bld) 2.6 % Normal . [facility] Comment on above: Performed By: #### P TT, PT #### [facility] [address] Erythrocyte distribution width (RBC) [Ratio] 15.2 % High 12.0-14.8 [facility] Comment on above: Performed By: #### P TT, PT #### [facility] [address] Hematocrit (Bld) [Volume fraction] 34.2 % Low 38.8-50.0 [facility] Comment on above: Performed By: #### P TT, PT #### [facility] [address] Hemoglobin (Bld) [Mass/Vol] 11.2 g/dL Low 13.0-17.0 [facility] Comment on above: Performed By: #### P TT, PT #### [facility] [address] Lymphocytes (Bld) [#/Vol] 0.7 10*3/uL Low 1.00-4.8 [facility] Comment on above: Performed By: #### P TT, PT #### [address] Lymphocytes/100 WBC (Bld) 24.6 % Normal . [facility] Comment on above: Performed By: #### P TT, PT #### [address] MCH (RBC) [Entitic mass] 29.4 pg Normal 27.5-35.2 [facility] Comment on above: Performed By: #### P TT, PT #### [address] MCV (RBC) [Entitic vol] 89.5 fL Normal 83.5-101 [facility] Comment on above: Performed By: #### P TT, PT #### [address] Mean Corpuscular HGB Conc 32.9 g/dL Normal 32.5-35.6 [facility] Comment on above: Performed By: #### P TT, PT #### [address] Monocytes (Bld) [#/Vol] 0.3 10*3/uL Normal 0.0-0.8 [facility] Comment on above: Performed By: #### P TT, PT #### [facility] [address] [place] [address] [place] Monocytes/100 WBC (Bld) 12.2 % Normal . [facility] Comment on above: Performed By: #### P TT, PT #### [facility] [address] [place] [address] [place] Neutrophils (Bld) [#/Vol] 1.7 10*3/uL Low 1.8-7.7 [facility] Comment on above: Performed By: #### P TT, PT #### [facility] [address] Neutrophils/100 WBC (Bld) 60.2 % Normal . [facility] Comment on above: Performed By: #### P TT, PT #### [facility] [address] NRBC% 0.2 /100{WBC} Normal 0-0.5 [facility] Comment on above: Performed By: #### P TT, PT #### [facility] [address] [place] [address] [place] Platelet mean volume (Bld) [Entitic vol] 8.8 fL Normal 6.6-10.1 [facility] Comment on above: Performed By: #### P TT, PT #### [facility] [address] [place] [address] [place] Platelets (Bld) [#/Vol] 60 10*3/uL Low 150-450 [facility] Comment on above: Performed By: #### P TT, PT #### [facility] [address] [place] [address] [place] RBC (Bld) [#/Vol] 3.82 10*6/uL Low 3.90-5.60 [facility] Comment on above: Performed By: #### P TT, PT #### [facility] [address] [place] [address] [place] WBC (Bld) [#/Vol] 2.8 10*3/uL Low 4.1-10.5 [facility] Comment on above: Performed By: #### P TT, PT #### [facility] [address] Comprehensive Metabolic Pane alejandra 12-23-2023 Albumin [Mass/Vol] 4.1 g/dL Normal 3.5-5.7 [facility] Comment on above: Performed By: #### P TT, PT #### [facility] [address] Albumin/Globulin [Mass ratio] 1.6 {ratio} Normal [facility] Comment on above: Performed By: #### P TT, PT #### [facility] [address] ALP [Catalytic activity/Vol] 76 U/L Normal 34-104 [facility] Comment on above: Performed By: #### P TT, PT #### [facility] [address] [place] [address] ALT [Catalytic activity/Vol] 19 U/L Normal 7-52 [facility] Comment on above: Performed By: #### P TT, PT #### [facility] [address] [place] [address] Anion gap [Moles/Vol] 11.7 mmol/L Normal 6.0-15.0 [facility] Comment on above: Performed By: #### P TT, PT #### [facility] [address] [place] [address] AST [Catalytic activity/Vol] 26 U/L Normal 13-39 [facility] Comment on above: Performed By: #### P TT, PT #### [facility] [address] [place] [address] [place] Bilirubin [Mass/Vol] 1.0 mg/dL Normal 0.3-1.0 [facility] Comment on above: Performed By: #### P TT, PT #### [facility] [address] [place] [address] Calcium [Mass/Vol] 9.7 mg/dL Normal 8.6-10.3 [facility] Comment on above: Performed By: #### P TT, PT #### [facility] [address] Chloride [Moles/Vol] 104 mmol/L Normal 98-107 [facility] Comment on above: Performed By: #### P TT, PT #### [facility] [address] CO2 [Moles/Vol] 29.3 mmol/L Normal 21.0-31.0 [facility] Comment on above: Performed By: #### P TT, PT #### [facility] [address] Creatinine [Mass/Vol] 1.04 mg/dL Normal 0.70-1.30 [facility] Comment on above: Performed By: #### P TT, PT #### [address] Creatinine Clr Calc Pharmacy 65.87 [facility] Comment on above: Performed By: #### P TT, PT #### [address] GFR/1.73 sq M.predicted MDRD (S/P/Bld) [Vol rate/Area] mL/min/{1.73_m2} [facility] Comment on above: Performed By: #### P TT, PT #### [address] Globulin (S) [Mass/Vol] 2.6 g/dL [facility] Comment on above: Performed By: #### P TT, PT #### [address] Glucose [Mass/Vol] 164 mg/dL High 70-100 [facility] Comment on above: Result Comment: [place] om Glucose Reference Range is dependent on time and content of last meal. Glucose of more than 200 mg/dL in a nonstressed, ambulatory subject supports the diagnosis of Diabetes Mellitus. ADA recommended reference range Performed By: #### P TT, PT #### [address] Potassium [Moles/Vol] 4.0 mmol/L Normal 3.5-5.1 [facility] Comment on above: Performed By: #### P TT, PT #### [address] Protein [Mass/Vol] 6.7 g/dL Normal 6.4-8.9 [facility] Comment on above: Performed By: #### P TT, PT #### [address] Sodium [Moles/Vol] 141 mmol/L Normal 136-145 [facility] Comment on above: Performed By: #### P TT, PT #### [address] Urea nitrogen [Mass/Vol] 21 mg/dL Normal 7-25 [facility] Comment on above: Performed By: #### P TT, PT #### [address] Erythrocyte Sedimentation Ra shreyas 12-23-2023 ESR (Bld) [Velocity] 25 mm/h High 0-19 [facility] Comment on above: Result Comment: PERF ORMED BY: [place] [address] PATHOLOGIST MASTER SHIP AGGIE ENGLISH M.D. Performed By: #### P TT, PT #### [address] Erythropoetin (EPO), Serumon 12-23-2023 Erythropoetin (EPO), Serum 41.8 m[iU]/mL High 2.6-18.5 [facility] Comment on above: Result Comment: [email or web address] UniCel DxI 800 Immunoassay System Values obtained with different assay methods or kits cannot be used interchangeably. Results cannot be interpreted as absolute evidence of the presence or absence of malignant disease. Performed at: [address] [id number] Liquor Tester: Otis Sanders PhD, Phone: [phone] Performed By: #### P TT, PT #### [address] Ferritinon 12-23-2023 Ferritin [Mass/Vol] 22.4 ng/mL Low 23.9-336.2 [facility] Comment on above: Performed By: #### P TT, PT #### [address] Free K+L LT Chains, Qn, Son 12-23-2023 Free [place] Light Chains, S 83.8 mg/L High 3.3-19.4 [facility] Comment on above: Performed By: #### P TT, PT #### [address] Free Lambda Light Chains, S 28.9 mg/L High 5.7-26.3 [facility] Comment on above: Performed By: #### P TT, PT #### [address] [place]/Lambda Ratio, S 2.90 High 0.26-1.65 [facility] Comment on above: Result Comment: Perf ormed at: CB - [facility] [place] [id number] Liquor Tester: Otis Sanders PhD, Phone: [phone] PERFORMED BY: [place] [address] PATHOLOGIST MASTER SHIP AGGIE ENGLISH M.D. Performed By: #### P TT, PT #### [place] [address] [place] Immunofixation,Serumon 12-23 Immunofixation, Serum Normal . [facility] Comment on above: Result Comment: No m onoclonality detected. Performed By: #### P TT, PT #### [place] [address] [place] Immunoglobulin A, Serum 292 mg/dL Normal 61-437 [facility] Comment on above: Performed By: #### P TT, PT #### [place] [address] [place] Immunoglobulin G 1243 mg/dL Normal 603-1613 [facility] Comment on above: Performed By: #### P TT, PT #### [address] Immunoglobulin M, Serum 88 mg/dL Normal 15-143 [facility] Comment on above: Result Comment: Perf ormed at: - [facility] [address] [id number] Liquor Tester: Otis Sanders PhD, Phone: [phone] Performed By: #### P TT, PT #### [address] Iron and TIBC Profileon 11-25 % Iron Saturation 15.3 % Low 20-[address] [facility] Comment on above: Performed By: #### P TT, PT #### [address] Iron [Mass/Vol] 65 ug/dL Normal 50-212 [facility] Comment on above: Performed By: #### P TT, PT #### [address] Total Iron Binding Capacity 424 ug/dL Normal 255-450 [facility] Comment on above: Performed By: #### P TT, PT #### [address] Transferrin [Mass/Vol] 303 mg/dL Normal 203-362 [facility] Comment on above: Performed By: #### P TT, PT #### [place] [address] [place] Protein Electrophoresis, Ser umon 12-23-2023 Albumin [Mass/Vol] 3.6 g/dL Normal 2.9-4.4 [facility] Comment on above: Performed By: #### P TT, PT #### [address] Albumin/Globulin [Mass ratio] 1.1 {ratio} Normal 0.7-1.7 [facility] Comment on above: Performed By: #### P TT, PT #### [address] Sofum-9-Cxvkibhc 0.3 g/dL Normal 0.0-0.4 [facility] Comment on above: Performed By: #### P TT, PT #### [address] Ojddd-6-Hibdeald 0.7 g/dL Normal 0.4-1.0 [facility] Comment on above: Performed By: #### P TT, PT #### [facility] [address] [place] [address] Beta Globulin 1.0 g/dL Normal 0.7-1.3 [facility] Comment on above: Performed By: #### P TT, PT #### [facility] [address] [place] [address] Gamma Globulin 1.3 g/dL Normal 0.4-1.8 [facility] Comment on above: Performed By: #### P TT, PT #### [facility] [address] [place] [address] Globulin (S) [Mass/Vol] 3.3 g/dL Normal 2.2-3.9 [facility] Comment on above: Performed By: #### P TT, PT #### [facility] [address] [place] [address] M-Sean Not Observed Normal Not Observed [facility] Comment on above: Performed By: #### P TT, PT #### [address] Protein [Mass/Vol] 6.9 g/dL Normal 6.0-8.5 [facility] Comment on above: Performed By: #### P TT, PT #### [facility] [address] [place] [address] SPE-Note Normal . [facility] Comment on above: Result Comment: Prot ein electrophoresis scan will follow via computer, mail, or economic history teacher delivery. Performed By: #### P TT, PT #### [address] Vit. B12/Folate Profileon Cobalamin (Vitamin B12) [Mass/Vol] 597 pg/mL Normal 180-914 [facility] Comment on above: Performed By: #### P TT, PT #### [facility] [address] Folate 15.5 ng/mL Normal >5.9 [facility] Comment on above: Result Comment: So te reference range: >5.9 ng/ml The WHO technical consultation on folate and vitamin b12 deficiencies has determined that folate concentrations less than 4 ng/ml are considered deficient. PERFORMED BY: [place] [address] PATHOLOGIST MASTER SHIP AGGIE ENGLISH M.D. Performed By: #### P TT, PT #### [facility] [address] COVID-19 / Flu A/B / RSV [...] or Cepheid Disclaimer revoked sooner. PERFORMED BY: [place] [address] PATHOLOGIST MASTER SHIP AGGIE ENGLISH M.D. [facility] Comment on above: Performed By: #### F ER, CMP, FE and TIBC, CBC #### [address] abdomen pelvis w conon CT abdomen pelvis w con [facility] [place] [address] [place] [address] CT Scan Report Signed Patient: Galen Doss JR MR#: [id number] : 1945 Acct:[id number] Age/Sex: 78 / M ADM Date: 12/01/23 Loc: ER Room: Type: [facility] ER Attending Dr: Copies to: Simi [...] Allison Amezquita M.D.12/01/2023 12:26 PM Dictation Location: [place] [address] Transcribed By: [facility] 12/01/23 1226 Dictated By: Allison Amezquita MD 12/01/23 1210 Signed By: 12/01/23 1226 [facility] CT angio headon 2023 CT angio head [facility] [place] [address] [place] [address] CT Scan Report Signed Patient: Galen Doss JR MR#: [id number] : 1945 Acct:[id number] Age/Sex: 78 / M ADM Date: 12/01/23 Loc: ER Room: Type: [facility] ER Attending Dr: Copies to: Simi Freeman MD Ordering Provider: Simi Freeman MD Date of Service: 12/01/23 CT/CT angio head: balance issues x 1 year, worse x 1 week ([id number]) CT/CT angio neck: balance issues x 1 year, worse x 1 week ([id number]) CT/CT head/brain wo con: balance issues x [...] volume rendered reconstructions the carotid arteries and [place] were reviewed. Stenosis is evaluated [...] Allison Amezquita M.D.12/01/2023 3:09 PM Dictation Location: [place] [address] Transcribed By: [facility] 12/01/23 1509 Dictated By: Allison Amezquita MD 12/01/23 1436 Signed By: 12/01/23 1509 Normal [facility] Cepheid COVID PCR Negativeon 2023 SARS-CoV-2 (COVID-19) RNA SHERI+probe Ql (Unsp spec) Negative Normal Negative [facility] Comment on above: Result Comment: This is a duplicate Cepheid Xpert Xpress CoV-2/Flu/RSV Plus RNA by RT-PCR result to be used for statistical tracking purpose only. PERFORMED BY: [place] [address] PATHOLOGIST MASTER SHIP AGGIE ENGLISH M.D. Performed By: #### F ER, CMP, FE and TIBC, CBC #### [address] Clostridium Difficileon Clostridium Difficile Negative Normal Negative [facility] Comment on above: Order Comment: > or = to 3 loose/watery stools in the last 24 HRS? Y Is patient on promotility agents or tube feeding? N Result Comment: Test ing performed by RT-PCR PERFORMED BY: [place] [address] PATHOLOGIST MASTER SHIP AGGIE ENGLISH M.D. Performed By: #### P TT, PT #### [address] Complete Blood Count Auto Di ffon 2023 Basophils (Bld) [#/Vol] 0.0 10*3/uL Normal 0.0-0.2 [facility] Comment on above: Result Comment: PERF ORMED BY: [place] [address] PATHOLOGIST MASTER SHIP AGGIE ENGLISH M.D. Performed By: #### F ER, CMP, FE and TIBC, CBC #### [address] Basophils/100 WBC (Bld) 0.4 % Normal . [facility] Comment on above: Performed By: #### F ER, CMP, FE and TIBC, CBC #### [address] Eosinophils (Bld) [#/Vol] 0.1 10*3/uL Normal 0.0-0.45 [facility] Comment on above: Performed By: #### F ER, CMP, FE and TIBC, CBC #### [address] Eosinophils/100 WBC (Bld) 1.6 % Normal . [facility] Comment on above: Performed By: #### F ER, CMP, FE and TIBC, CBC #### [address] Erythrocyte distribution width (RBC) [Ratio] 14.6 % Normal 12.0-14.8 [facility] Comment on above: Performed By: #### F ER, CMP, FE and TIBC, CBC #### [address] Hematocrit (Bld) [Volume fraction] 34.4 % Low 38.8-50.0 [facility] Comment on above: Performed By: #### F ER, CMP, FE and TIBC, CBC #### [address] Hemoglobin (Bld) [Mass/Vol] 11.6 g/dL Low 13.0-17.0 [facility] Comment on above: Performed By: #### F ER, CMP, FE and TIBC, CBC #### [address] Lymphocytes (Bld) [#/Vol] 0.6 10*3/uL Low 1.00-4.8 [facility] Comment on above: Performed By: #### F ER, CMP, FE and TIBC, CBC #### [address] Lymphocytes/100 WBC (Bld) 14.9 % Normal . [facility] Comment on above: Performed By: #### F ER, CMP, FE and TIBC, CBC #### [address] MCH (RBC) [Entitic mass] 30.3 pg Normal 27.5-35.2 [facility] Comment on above: Performed By: #### F ER, CMP, FE and TIBC, CBC #### [address] MCV (RBC) [Entitic vol] 89.4 fL Normal 83.5-101 [facility] Comment on above: Performed By: #### F ER, CMP, FE and TIBC, CBC #### [address] Mean Corpuscular HGB Conc 33.8 g/dL Normal 32.5-35.6 [facility] Comment on above: Performed By: #### F ER, CMP, FE and TIBC, CBC #### [address] Monocytes (Bld) [#/Vol] 0.6 10*3/uL Normal 0.0-0.8 [facility] Comment on above: Performed By: #### F ER, CMP, FE and TIBC, CBC #### [address] Monocytes/100 WBC (Bld) 28.77 % High 0.00-20.00 [facility] Comment on above: Result Comment: For adults in ED, MDW > 20.0 may be associated with a higher risk of sepsis during the first 12 hrs of hospital admission Performed By: #### F ER, CMP, FE and TIBC, CBC #### [address] Monocytes/100 WBC (Bld) 14.4 % Normal . [facility] Comment on above: Performed By: #### F ER, CMP, FE and TIBC, CBC #### [address] Neutrophils (Bld) [#/Vol] 3.0 10*3/uL Normal 1.8-7.7 [facility] Comment on above: Performed By: #### F ER, CMP, FE and TIBC, CBC #### [place] [address] [place] Neutrophils/100 WBC (Bld) 68.7 % Normal . [facility] Comment on above: Performed By: #### F ER, CMP, FE and TIBC, CBC #### [place] [address] [place] NRBC% 0.1 /100{WBC} Normal 0-0.5 [facility] Comment on above: Performed By: #### F ER, CMP, FE and TIBC, CBC #### [place] [address] [place] Platelet mean volume (Bld) [Entitic vol] 8.6 fL Normal 6.6-10.1 [facility] Comment on above: Performed By: #### F ER, CMP, FE and TIBC, CBC #### [place] [address] [place] Platelets (Bld) [#/Vol] 81 10*3/uL Low 150-450 [facility] Comment on above: Performed By: #### F ER, CMP, FE and TIBC, CBC #### [address] RBC (Bld) [#/Vol] 3.84 10*6/uL Low 3.90-5.60 [facility] Comment on above: Performed By: #### F ER, CMP, FE and TIBC, CBC #### [address] WBC (Bld) [#/Vol] 4.3 10*3/uL Normal 4.1-10.5 [facility] Comment on above: Performed By: #### F ER, CMP, FE and TIBC, CBC #### [address] Comprehensive Metabolic Pane alejandra 2023 Albumin [Mass/Vol] 3.7 g/dL Normal 3.5-5.7 [facility] Comment on above: Performed By: #### F ER, CMP, FE and TIBC, CBC #### [address] Albumin/Globulin [Mass ratio] 1.2 {ratio} Normal [facility] Comment on above: Performed By: #### F ER, CMP, FE and TIBC, CBC #### [address] ALP [Catalytic activity/Vol] 55 U/L Normal 34-104 [facility] Comment on above: Performed By: #### F ER, CMP, FE and TIBC, CBC #### [address] ALT [Catalytic activity/Vol] 21 U/L Normal 7-52 [facility] Comment on above: Performed By: #### F ER, CMP, FE and TIBC, CBC #### [address] Anion gap [Moles/Vol] 12.0 mmol/L Normal 6.0-15.0 [facility] Comment on above: Performed By: #### F ER, CMP, FE and TIBC, CBC #### [facility] [address] AST [Catalytic activity/Vol] 22 U/L Normal 13-39 [facility] Comment on above: Performed By: #### F ER, CMP, FE and TIBC, CBC #### [address] Bilirubin [Mass/Vol] 1.1 mg/dL High 0.3-1.0 [facility] Comment on above: Performed By: #### F ER, CMP, FE and TIBC, CBC #### [address] Calcium [Mass/Vol] 8.8 mg/dL Normal 8.6-10.3 [facility] Comment on above: Performed By: #### F ER, CMP, FE and TIBC, CBC #### [address] Chloride [Moles/Vol] 107 mmol/L Normal 98-107 [facility] Comment on above: Performed By: #### F ER, CMP, FE and TIBC, CBC #### [address] CO2 [Moles/Vol] 22.6 mmol/L Normal 21.0-31.0 [facility] Comment on above: Performed By: #### F ER, CMP, FE and TIBC, CBC #### [address] Creatinine [Mass/Vol] 1.66 mg/dL High 0.70-1.30 [facility] Comment on above: Performed By: #### F ER, CMP, FE and TIBC, CBC #### [address] Creatinine Clr Calc Pharmacy 41.27 Normal [facility] Comment on above: Performed By: #### F ER, CMP, FE and TIBC, CBC #### [address] [place] [place] [address] [place] GFR/1.73 sq M.predicted MDRD (S/P/Bld) [Vol rate/Area] 41.416 mL/min/{1.73_m2} Normal [facility] Comment on above: Performed By: #### F ER, CMP, FE and TIBC, CBC #### [facility] [address] [place] [address] [place] Globulin (S) [Mass/Vol] 3.0 g/dL [facility] Comment on above: Performed By: #### F ER, CMP, FE and TIBC, CBC #### [facility] [address] [place] [address] [place] Glucose [Mass/Vol] 123 mg/dL High 70-100 [facility] Comment on above: Result Comment: [place] [facility] Glucose Reference Range is dependent on time and content of last meal. Glucose of more than 200 mg/dL in a nonstressed, ambulatory subject supports the diagnosis of Diabetes Mellitus. ADA recommended reference range Performed By: #### F ER, CMP, FE and TIBC, CBC #### [facility] [address] [place] [address] [place] Potassium [Moles/Vol] 3.6 mmol/L Normal 3.5-5.1 [facility] Comment on above: Performed By: #### F ER, CMP, FE and TIBC, CBC #### [facility] [address] [place] [id number] [place] Protein [Mass/Vol] 6.7 g/dL Normal 6.4-8.9 [facility] Comment on above: Performed By: #### F ER, CMP, FE and TIBC, CBC #### [facility] [address] [place] [id number] [place] Sodium [Moles/Vol] 138 mmol/L Normal 136-145 [facility] Comment on above: Performed By: #### F ER, CMP, FE and TIBC, CBC #### [facility] [address] [place] [id number] [place] Urea nitrogen [Mass/Vol] 41 mg/dL High 7-25 [facility] Comment on above: Performed By: #### F ER, CMP, FE and TIBC, CBC #### [facility] [address] [place] [address] [place] Dipstick and Microscopicon 0 2023 Appearance (U) Clear Normal Clear [facility] Comment on above: Order Comment: Name Collection Type:: Clean-Voided Midstream Performed By: #### F ER, CMP, FE and TIBC, CBC #### [facility] [address] [place] [address] [place] Bacteria,Urine None Seen Normal None Seen [facility] Comment on above: Order Comment: Name Collection Type:: Clean-Voided Midstream Performed By: #### F ER, CMP, FE and TIBC, CBC #### [facility] [address] [place] [address] [place] Bilirubin,Urine Negative Normal Negative [facility] Comment on above: Order Comment: Name Collection Type:: Clean-Voided Midstream Performed By: #### F ER, CMP, FE and TIBC, CBC #### [facility] [address] [place] [address] [place] Color (U) Yellow Normal Yellow [facility] Comment on above: Order Comment: Name Collection Type:: Clean-Voided Midstream Performed By: #### F ER, CMP, FE and TIBC, CBC #### [facility] [address] [place] [address] [place] Glucose Ql (U) Normal Normal Normal [facility] Comment on above: Order Comment: Name Collection Type:: Clean-Voided Midstream Performed By: #### F ER, CMP, FE and TIBC, CBC #### [facility] [address] [place] [address] [place] Hyaline Casts,Urine 9-19 High 0-8 [facility] Comment on above: Order Comment: Name Collection Type:: Clean-Voided Midstream Result Comment: PERF ORMED BY: [place] [address] PATHOLOGIST MASTER SHIP AGGIE ENGLISH M.D. Performed By: #### F ER, CMP, FE and TIBC, CBC #### [facility] [address] Ketones Ql (U) Trace High Negative [facility] Comment on above: Order Comment: Name Collection Type:: Clean-Voided Midstream Performed By: #### F ER, CMP, FE and TIBC, CBC #### [address] Leukocyte esterase Test strip Ql (U) Negative Normal Negative [facility] Comment on above: Order Comment: Name Collection Type:: Clean-Voided Midstream Performed By: #### F ER, CMP, FE and TIBC, CBC #### [place] [address] [place] Nitrite,Urine Negative Normal Negative [facility] Comment on above: Order Comment: Name Collection Type:: Clean-Voided Midstream Performed By: #### F ER, CMP, FE and TIBC, CBC #### [address] Occult Blood,Urine Negative Normal Negative [facility] Comment on above: Order Comment: Name Collection Type:: Clean-Voided Midstream Result Comment: PERF ORMED BY: [place] [address] PATHOLOGIST MASTER SHIP AGGIE ENGLISH M.D. Performed By: #### F ER, CMP, FE and TIBC, CBC #### [address] pH (U) 5.0 [pH] Normal 5.0-9.0 [facility] Comment on above: Order Comment: Name Collection Type:: Clean-Voided Midstream Performed By: #### F ER, CMP, FE and TIBC, CBC #### [place] [address] [place] Protein (U) [Mass/Vol] 30 mg/dL High Negative [facility] Comment on above: Order Comment: Name Collection Type:: Clean-Voided Midstream Performed By: #### F ER, CMP, FE and TIBC, CBC #### [address] RBC LM.HPF (Urine sed) [#/Area] 0 /[HPF] Normal 0-4 [facility] Comment on above: Order Comment: Name Collection Type:: Clean-Voided Midstream Performed By: #### F ER, CMP, FE and TIBC, CBC #### [address] Specificy [place],Urine 1.033 High 1.001-1.03 0 [facility] Comment on above: Order Comment: Name Collection Type:: Clean-Voided Midstream Performed By: #### F ER, CMP, FE and TIBC, CBC #### [address] Squamous Epithelial Cell,Urine 0-1 Normal 0-2 [facility] Comment on above: Order Comment: Name Collection Type:: Clean-Voided Midstream Performed By: #### F ER, CMP, FE and TIBC, CBC #### [address] Urobilinogen,Urine Normal Normal Normal [facility] Comment on above: Order Comment: Name Collection Type:: Clean-Voided Midstream Performed By: #### F ER, CMP, FE and TIBC, CBC #### [address] WBC,Urine 1-2 Normal 0-4 [facility] Comment on above: Order Comment: Name Collection Type:: Clean-Voided Midstream Performed By: #### F ER, CMP, FE and TIBC, CBC #### [address] ECG 12 lead ECGon 2023 ECG 12 lead ECG [facility] [place] [address] [place] [address] Electrocardiograph Report Signed Patient: Galen Doss JR MR#: [id number] : 1945 Acct:[id number] Age/Sex: 78 / M ADM Date: 12/01/23 Loc: ER Room: Type: [facility] ER Attending Dr: Ordering Provider: Simi [...] was found Confirmed by Terence Greene DO ([id number]) on 2023 3:25:13 PM Referred By: Electronically Signed By:Terence Greene DO Transcribed By: MUS Signed By Terence Greene DO 4 1525 Normal [facility] Lipaseon 2023 Lipase [Catalytic activity/Vol] 35.0 U/L Normal 11.0-82.0 [facility] Comment on above: Result Comment: PERF ORMED BY: [place] [address] PATHOLOGIST MASTER SHIP AGGIE ENGLISH M.D. Performed By: #### F ER, CMP, FE and TIB, CBC #### [address] OVA AND PARASITEon 4 OVA AND PARASITE Final report These results were obtained using wet preparation(s) and trichrome stained smear. This test does not include testing for Cryptosporidium parvum, Cyclospora, or Microsporidia. No ova, cysts, or parasites seen. One negative specimen does not rule out the possibility of a parasitic infection. Performed at: [address] [id number] Liquor Tester: Otis Sanders PhD, Phone: [phone] PERFORMED BY: [place] [address] PATHOLOGIST MASTER SHIP AGGIE ENGLISH M.D. [facility] Comment on above: Performed By: #### F ER, CMP, FE and TIBC, CBC #### [facility] [address] [place] [id number] [place] Partial Thromboplastin Timeo n 2023 aPTT Coag (Bld) [Time] 29.7 s Normal 25.1-36.5 [facility] Comment on above: Result Comment: A he matocrit value greater than 55% may lead to inaccurate results in coagulation testing. Patients having hematocrit values >55% require a special collection tube for coagulation studies. Please contact the laboratory at [phone] for redraw instructions. PERFORMED BY: [place] [address] PATHOLOGIST MASTER SHIP AGGIE ENGLISH M.D. Performed By: #### P TT, PT #### [place] [id number] [facility] Prothrombin Time INRon 12-01 INR Coag (PPP) [Relative time] 1.2 {INR} Normal [facility] Comment on above: Result Comment: INR [...] Performed By: #### P TT, PT #### [place] [id number] [facility] PT Coag (PPP) [Time] 13.1 s High 9.0-12.9 [facility] Comment on above: Result Comment: A he matocrit value greater than 55% may lead to inaccurate results in coagulation testing. Patients having hematocrit values >55% require a special collection tube for coagulation studies. Please contact the laboratory at [phone] for redraw instructions. Performed By: #### P TT, PT #### [place] [id number] [facility] Stool Cultureon 2023 Stool culture Negative for Shiga T oxin 1 Negative for Shiga Toxin 2 A negative Shiga Toxin result may occur if the antigen level in the specimen is below the detection limit of the assay. Stool culture results No Salmonella, Shigella, Campy or E. coli 0157:H7 Isolated PERFORMED BY: [facility] [address] [place] [address] PATHOLOGIST MASTER SHIP AGGIE ENGLISH M.D. Normal [facility] Comment on above: Performed By: #### F ER, CMP, FE and TIBC, CBC #### [facility] [address] [place] [address] Alanine aminotransferase [En zymatic activity/volume] in Serum or PlasmaOrdered By: Mariah Bernard on 06-22-2023 ALT [Catalytic activity/Vol] 17 U/L 7-52 [facility] Albumin [Mass/volume] in Ser um or Plasma by Bromocresol green (BCG) dye binding methoOrdered By: [facility] on 06-22-2023 Albumin BCG dye [Mass/Vol] 4.5 g/dL 3.5-5.7 [facility] Alkaline phosphatase [Enzyma tic activity/volume] in Serum or PlasmaOrdered By: [facility] on 06-22-2023 ALP [Catalytic activity/Vol] 59 U/L 34-104 [facility] Aspartate aminotransferase [ Enzymatic activity/volume] in Serum or PlasmaOrdered By: [facility] on 06-22-2023 AST [Catalytic activity/Vol] 28 U/L 13-39 [facility] Basophils Auto (Bld) [#/Vol] Ordered By: Mariah Ida on 06-22-2023 Basophils (Bld) [#/Vol] 0.0 10*3/uL 0.0-0.2 [facility] Basophils/100 WBC Auto (Bld) Ordered By: [facility] on 06-22-2023 Basophils/100 WBC (Bld) 0.4 % . [facility] Bilirubin.total [Mass/volume ] in Serum or PlasmaOrdered By: Mariah Bernard on 06-22-2023 Bilirubin [Mass/Vol] 1.2 mg/dL 0.3-1.0 [facility] Calcium [Mass/volume] in Ser um or PlasmaOrdered By: Mariah Bernard on 06-22-2023 Calcium [Mass/Vol] 9.5 mg/dL 8.6-10.3 [facility] Carbon dioxide, total [Moles /volume] in Serum or PlasmaOrdered By: Mariah Bernard on 06-22-2023 CO2 [Moles/Vol] 23.8 mmol/L 21.0-31.0 [facility] Chloride [Moles/volume] in S shy or PlasmaOrdered By: Mariah Bernard on 06-22-2023 Chloride [Moles/Vol] 106 mmol/L 98-107 [facility] Cholesterol [Mass/volume] in Serum or PlasmaOrdered By: Mariah Bernard on 06-22-2023 Cholesterol [Mass/Vol] 98 mg/dL 140-200 [facility] Comment on above: Chol less than 200 m g/dl low riskChol 201-239 mg/dl borderline riskChol 240 mg/dl and greater high risk Cholesterol in LDL Calc [Mas s/Vol]Ordered By: Mariah Bernard on 06-22-2023 Cholesterol in LDL [Mass/Vol] 42 mg/dL 0-100 [facility] Comment on above: LDL ATP III CLASSIFI CATIONLDL less than 100 mg/dL OptimalLDL 100-129 mg/dL Near or above optimalLDL 130-159 mg/dL Borderline highLDL 160-189 mg/dL HighLDL greater than 189 mg/dL Very high Cholesterol in VLDL Calc [Ma ss/Vol]Ordered By: Mariah Bernard on 06-22-2023 Cholesterol in VLDL [Mass/Vol] 28 mg/dL [facility] Complete Blood Count Auto Di ffon 06-22-2023 Basophils (Bld) [#/Vol] 0.0 10*3/uL Normal 0.0-0.2 [facility] Comment on above: Result Comment: PERF ORMED BY: [facility] [address] [place] [address] PATHOLOGIST MASTER SHIP AGGIE ENGLISH M.D. Performed By: #### C MP, URMACRERAT, LIPID, TSH3, CBC #### [address] Basophils/100 WBC (Bld) 0.4 % Normal . [facility] Comment on above: Performed By: #### C MP, URMACRERAT, LIPID, TSH3, CBC #### [address] Eosinophils (Bld) [#/Vol] 0.1 10*3/uL Normal 0.0-0.45 [facility] Comment on above: Performed By: #### C MP, URMACRERAT, LIPID, TSH3, CBC #### [address] Eosinophils/100 WBC (Bld) 2.1 % Normal . [facility] Comment on above: Performed By: #### C MP, URMACRERAT, LIPID, TSH3, CBC #### [address] Erythrocyte distribution width (RBC) [Ratio] 14.8 % Normal 12.0-14.8 [facility] Comment on above: Performed By: #### C MP, URMACRERAT, LIPID, TSH3, CBC #### [address] Hematocrit (Bld) [Volume fraction] 36.2 % Low 38.8-50.0 [facility] Comment on above: Performed By: #### C MP, URMACRERAT, LIPID, TSH3, CBC #### [address] Hemoglobin (Bld) [Mass/Vol] 12.3 g/dL Low 13.0-17.0 [facility] Comment on above: Performed By: #### C MP, URMACRERAT, LIPID, TSH3, CBC #### [address] Lymphocytes (Bld) [#/Vol] 1.4 10*3/uL Normal 1.00-4.8 [facility] Comment on above: Performed By: #### C MP, URMACRERAT, LIPID, TSH3, CBC #### [address] Lymphocytes/100 WBC (Bld) 40.1 % Normal . [facility] Comment on above: Performed By: #### C MP, URMACRERAT, LIPID, TSH3, CBC #### [address] MCH (RBC) [Entitic mass] 32.2 pg Normal 27.5-35.2 [facility] Comment on above: Performed By: #### C MP, URMACRERAT, LIPID, TSH3, CBC #### [address] MCV (RBC) [Entitic vol] 94.7 fL Normal 83.5-101 [facility] Comment on above: Performed By: #### C MP, URMACRERAT, LIPID, TSH3, CBC #### [address] Mean Corpuscular HGB Conc 34.0 g/dL Normal 32.5-35.6 [facility] Comment on above: Performed By: #### C MP, URMACRERAT, LIPID, TSH3, CBC #### [address] Monocytes (Bld) [#/Vol] 0.3 10*3/uL Normal 0.0-0.8 [facility] Comment on above: Performed By: #### C MP, URMACRERAT, LIPID, TSH3, CBC #### [address] Monocytes/100 WBC (Bld) 7.7 % Normal . [facility] Comment on above: Performed By: #### C MP, URMACRERAT, LIPID, TSH3, CBC #### [address] Neutrophils (Bld) [#/Vol] 1.7 10*3/uL Low 1.8-7.7 [facility] Comment on above: Performed By: #### C MP, URMACRERAT, LIPID, TSH3, CBC #### [facility] [address] Neutrophils/100 WBC (Bld) 49.7 % Normal . [facility] Comment on above: Performed By: #### C MP, URMACRERAT, LIPID, TSH3, CBC #### [facility] [address] NRBC% 0.1 /100{WBC} Normal 0-0.5 [facility] Comment on above: Performed By: #### C MP, URMACRERAT, LIPID, TSH3, CBC #### [address] Platelet mean volume (Bld) [Entitic vol] 9.4 fL Normal 6.6-10.1 [facility] Comment on above: Performed By: #### C MP, URMACRERAT, LIPID, TSH3, CBC #### [facility] [address] Platelets (Bld) [#/Vol] 56 10*3/uL Low 150-450 [facility] Comment on above: Performed By: #### C MP, URMACRERAT, LIPID, TSH3, CBC #### [facility] [address] RBC (Bld) [#/Vol] 3.82 10*6/uL Low 3.90-5.60 [facility] Comment on above: Performed By: #### C MP, URMACRERAT, LIPID, TSH3, CBC #### [facility] [address] WBC (Bld) [#/Vol] 3.4 10*3/uL Low 4.1-10.5 [facility] Comment on above: Performed By: #### C MP, URMACRERAT, LIPID, TSH3, CBC #### [facility] [address] Comprehensive Metabolic Pane alejandra 06-22-2023 Albumin [Mass/Vol] 4.5 g/dL Normal 3.5-5.7 [facility] Comment on above: Performed By: #### C MP, URMACRERAT, LIPID, TSH3, CBC #### [facility] [address] Albumin/Globulin [Mass ratio] 1.7 {ratio} Normal [facility] Comment on above: Performed By: #### C MP, URMACRERAT, LIPID, TSH3, CBC #### [facility] [address] ALP [Catalytic activity/Vol] 59 U/L Normal 34-104 [facility] Comment on above: Performed By: #### C MP, URMACRERAT, LIPID, TSH3, CBC #### [facility] [address] [place] [address] ALT [Catalytic activity/Vol] 17 U/L Normal 7-52 [facility] Comment on above: Performed By: #### C MP, URMACRERAT, LIPID, TSH3, CBC #### [facility] [address] [place] [address] Anion gap [Moles/Vol] 13.8 mmol/L Normal 6.0-15.0 [facility] Comment on above: Performed By: #### C MP, URMACRERAT, LIPID, TSH3, CBC #### [address] AST [Catalytic activity/Vol] 28 U/L Normal 13-39 [facility] Comment on above: Performed By: #### C MP, URMACRERAT, LIPID, TSH3, CBC #### [address] Bilirubin [Mass/Vol] 1.2 mg/dL High 0.3-1.0 [facility] Comment on above: Performed By: #### C MP, URMACRERAT, LIPID, TSH3, CBC #### [place] [address] Calcium [Mass/Vol] 9.5 mg/dL Normal 8.6-10.3 [facility] Comment on above: Performed By: #### C MP, URMACRERAT, LIPID, TSH3, CBC #### [facility] [address] Chloride [Moles/Vol] 106 mmol/L Normal 98-107 [facility] Comment on above: Performed By: #### C MP, URMACRERAT, LIPID, TSH3, CBC #### [facility] [address] CO2 [Moles/Vol] 23.8 mmol/L Normal 21.0-31.0 [facility] Comment on above: Performed By: #### C MP, URMACRERAT, LIPID, TSH3, CBC #### [facility] [address] Creatinine [Mass/Vol] 1.46 mg/dL High 0.70-1.30 [facility] Comment on above: Performed By: #### C MP, URMACRERAT, LIPID, TSH3, CBC #### [facility] [address] GFR/1.73 sq M.predicted MDRD (S/P/Bld) [Vol rate/Area] 48.616 mL/min/{1.73_m2} [facility] Comment on above: Performed By: #### C MP, URMACRERAT, LIPID, TSH3, CBC #### [facility] [address] Globulin (S) [Mass/Vol] 2.6 g/dL [facility] Comment on above: Performed By: #### C MP, URMACRERAT, LIPID, TSH3, CBC #### [facility] [address] Glucose [Mass/Vol] 73 mg/dL Normal 70-100 [facility] Comment on above: Result Comment: [place] Glucose Reference Range is dependent on time and content of last meal. Glucose of more than 200 mg/dL in a nonstressed, ambulatory subject supports the diagnosis of Diabetes Mellitus. ADA recommended reference range Performed By: #### C MP, URMACRERAT, LIPID, TSH3, CBC #### [facility] [address] Potassium [Moles/Vol] 5.6 mmol/L High 3.5-5.1 [facility] Comment on above: Result Comment: Hemo lysis is present at a level that could interfere with the result. Performed By: #### C MP, URMACRERAT, LIPID, TSH3, CBC #### [address] Protein [Mass/Vol] 7.1 g/dL Normal 6.4-8.9 [facility] Comment on above: Performed By: #### C MP, URMACRERAT, LIPID, TSH3, CBC #### [address] Sodium [Moles/Vol] 138 mmol/L Normal 136-145 [facility] Comment on above: Performed By: #### C MP, URMACRERAT, LIPID, TSH3, CBC #### [address] Urea nitrogen [Mass/Vol] 34 mg/dL High 7-25 [facility] Comment on above: Performed By: #### C MP, URMACRERAT, LIPID, TSH3, CBC #### [address] Creatinine [Mass/volume] in Serum or PlasmaOrdered By: Mariah Bernard on 06-22-2023 Creatinine [Mass/Vol] 1.46 mg/dL 0.70-1.30 [facility] Creatinine [Mass/volume] in UrineOrdered By: Mariah Bernard on 06-22-2023 Creatinine (U) [Mass/Vol] 116.0 mg/dL 14.0-26.0 [facility] Eosinophils Auto (Bld) [#/Vo l]Ordered By: Mariah Bernard on 06-22-2023 Eosinophils (Bld) [#/Vol] 0.1 10*3/uL 0.0-0.45 [facility] Eosinophils/100 WBC Auto (Bl d)Ordered By: Mariah Bernard on 06-22-2023 Eosinophils/100 WBC (Bld) 2.1 % . [facility] Erythrocyte distribution wid th Auto (RBC) [Ratio]Ordered By: Mariah Bernard on 06-22-2023 Erythrocyte distribution width (RBC) [Ratio] 14.8 % 12.0-14.8 [facility] Globulin Calc (S) [Mass/Vol] Ordered By: [facility] on 06-22-2023 Globulin (S) [Mass/Vol] 2.6 g/dL [facility] Glucose [Mass/volume] in Ser um or PlasmaOrdered By: Mariah Bernard on 06-22-2023 Glucose [Mass/Vol] 73 mg/dL 70-100 [facility] Comment on above: ADA recommended refe rence rangeRandom Glucose Reference Range is dependent on time and content of last meal. Glucose of more than 200 mg/dL in a nonstressed, ambulatory subject supports the diagnosis of Diabetes Mellitus. Hematocrit Auto (Bld) [Volum e fraction]Ordered By: Mariah Bernard on 06-22-2023 Hematocrit (Bld) [Volume fraction] 36.2 % 38.8-50.0 [facility] Hemoglobin [Mass/volume] in BloodOrdered By: Mariah Bernard on 06-22-2023 Hemoglobin (Bld) [Mass/Vol] 12.3 g/dL 13.0-17.0 [facility] Leukocytes [#/volume] correc [place] for nucleated erythrocytes in Blood by Automated counOrdered By: Mariah Bernard on 06-22-2023 WBC corrected for nucl RBC Auto (Bld) [#/Vol] 3.4 10*3/uL 4.1-10.5 [facility] Lipid Panelon 06-22-2023 Cholesterol [Mass/Vol] 98 mg/dL Low 140-200 [facility] Comment on above: Result Comment: Chol less than 200 mg/dl low risk Chol 201-239 mg/dl borderline risk Chol 240 mg/dl and greater high risk Performed By: #### P TT, PT #### [facility] [address] Cholesterol in HDL [Mass/Vol] 28 mg/dL Normal 23-92 [facility] Comment on above: Result Comment: HDL CHOL ATP-III CLASSIFICATION Cardiovascular Risk HDL > or equal to 60 mg/dL LOW HDL < 40 mg/dL HIGH Performed By: #### P TT, PT #### [facility] [address] Cholesterol.total/Chol esterol in HDL [Mass ratio] 3.5 {ratio} Normal <5.0 [facility] Comment on above: Performed By: #### P TT, PT #### [facility] [address] LDL Cholesterol,Calculated 42 mg/dL Normal 0-100 [facility] Comment on above: Result Comment: LDL ATP III CLASSIFICATION LDL less than 100 mg/dL Optimal LDL 100-129 mg/dL Near or above optimal LDL 130-159 mg/dL Borderline high LDL 160-189 mg/dL High LDL greater than 189 mg/dL Very high Performed By: #### P TT, PT #### [facility] [address] [place] [address] [place] Triglyceride w/Reflex 140 mg/dL Normal 0-149 [facility] Comment on above: Result Comment: TRIG ATP III CLASSIFICATION TRIG less than 150 mg/dL Normal TRIG 150-199 mg/dL Borderline high TRIG 200-500 mg/dL High TRIG greater than 500 mg/dL Very high Standard traceable to the Center for Disease Conrtrol and Prevention (CDC) test method. Performed By: #### P TT, PT #### [facility] [address] [place] [address] [place] VLDL CHOLESTEROL 28 mg/dL Normal [facility] Comment on above: Performed By: #### P TT, PT #### [facility] [address] [place] [address] [place] Lymphocytes Auto (Bld) [#/Vo l]Ordered By: Mariah Bernard on 06-22-2023 Lymphocytes (Bld) [#/Vol] 1.4 10*3/uL 1.00-4.8 [facility] Lymphocytes/100 WBC Auto (Bl d)Ordered By: Mariah Ida on 06-22-2023 Lymphocytes/100 WBC (Bld) 40.1 % . [facility] MCH Auto (RBC) [Entitic mass ]Ordered By: Mariah Ida on 06-22-2023 MCH (RBC) [Entitic mass] 32.2 pg 27.5-35.2 [facility] MCHC Auto (RBC) [Mass/Vol]Or dered By: Mariah Bernard on 06-22-2023 MCHC (RBC) [Mass/Vol] 34.0 g/dL 32.5-35.6 [facility] MCV Auto (RBC) [Entitic vol] Ordered By: Mariah Ida on 06-22-2023 MCV (RBC) [Entitic vol] 94.7 fL 83.5-101 [facility] MicroAlb Creat Ratio,Uon Albumin DL <= 20 mg/L (U) [Mass/Vol] 2.0 mg/dL High 0.0-1.8 [facility] Comment on above: Performed By: #### C MP, URMACRERAT, LIPID, TSH3, CBC #### [facility] [address] Creatinine, Urine (Random) 116.0 mg/dL High 14.0-26.0 [facility] Comment on above: Performed By: #### C MP, URMACRERAT, LIPID, TSH3, CBC #### [facility] [address] Microalbumin/Creatinin e Ratio 17.0 mg/g Normal 0.0-30.0 [facility] Comment on above: Result Comment: 30-3 00 mg/g indicates an increased risk for diabetic nephropathy. Greater than 300 mg/g is consistent with clinical nephropathy. (Am. J. Kidney Disease 1995, 25:107) PERFORMED BY: [place] [address] PATHOLOGIST MASTER [employer] JIANLAN SUN M.D. Performed By: #### C MP, URMACRERAT, LIPID, TSH3, CBC #### [facility] [address] Microalbumin [Mass/volume] i n UrineOrdered By: Mariah Bernard on 06-22-2023 Albumin DL <= 20 mg/L (U) [Mass/Vol] 2.0 mg/dL 0.0-1.8 [facility] Monocytes Auto (Bld) [#/Vol] Ordered By: Mariah Bernard on 06-22-2023 Monocytes (Bld) [#/Vol] 0.3 10*3/uL 0.0-0.8 [facility] Monocytes/100 WBC Auto (Bld) Ordered By: Mariah Bernard on 06-22-2023 Monocytes/100 WBC (Bld) 7.7 % . [facility] [facility] Auto (Bld) [#/Vo l]Ordered By: Lamont Ida on 06-22-2023 Neutrophils (Bld) [#/Vol] 1.7 10*3/uL 1.8-7.7 [facility] Neutrophils/100 WBC Auto (Bl d)Ordered By: Mariah Ida on 06-22-2023 Neutrophils/100 WBC (Bld) 49.7 % . [facility] No Panel InformationOrdered By: Mariah Bernard on 06-22-2023 Estimated GFR (CKD-EPI) 48.616 mL/Min [facility] Creatinine Clearance (Chem N/A [facility] Nucleated erythrocytes [Pres ence] in Blood by Automated countOrdered By: Mariah Bernard on 06-22-2023 Nucleated RBC Auto Ql (Bld) 0.1 /100{WBC} 0-0.5 [facility] Platelet mean volume Auto (B ld) [Entitic vol]Ordered By: Mariah Bernard on 06-22-2023 Platelet mean volume (Bld) [Entitic vol] 9.4 fL 6.6-10.1 [facility] Platelets Auto (Bld) [#/Vol] Ordered By: Mariah Bernard on 06-22-2023 Platelets (Bld) [#/Vol] 56 10*3/uL 150-450 [facility] Potassium [Moles/volume] in Serum or PlasmaOrdered By: Mariah Bernard on 06-22-2023 Potassium [Moles/Vol] 5.6 mmol/L 3.5-5.1 [facility] Comment on above: Hemolysis is present at a level that could interfere with the result. Protein [Mass/volume] in Ser um or PlasmaOrdered By: Mariah Bernard on 06-22-2023 Protein [Mass/Vol] 7.1 g/dL 6.4-8.9 [facility] RBC Auto (Bld) [#/Vol]Ordere d By: Mariah Bernard on 06-22-2023 RBC (Bld) [#/Vol] 3.82 10*6/uL 3.90-5.60 [facility] Serum or plasma albumin/glob ulin mass ratioOrdered By: Mariah Bernard on 06-22-2023 Albumin/Globulin [Mass ratio] 1.7 {ratio} [facility] Serum or plasma anion gap de terminationOrdered By: Mariah Bernard on 06-22-2023 Anion gap [Moles/Vol] 13.8 mmol/L 6.0-15.0 [facility] Serum or plasma high density lipoprotein (HDL) cholesterol measurementOrdered By: Mariah Bernard on 06-22-2023 Cholesterol in HDL [Mass/Vol] 28 mg/dL 23-92 [facility] Comment on above: HDL CHOL ATP-III CLA SSIFICATION Cardiovascular RiskHDL > or equal to 60 mg/dL LOWHDL < 40 mg/dL HIGH Serum or plasma total choles terol/high density lipoprotein (HDL) cholesterol mass ratOrdered By: Mariah Bernard on 06-22-2023 Cholesterol.total/Chol esterol in HDL [Mass ratio] 3.5 {ratio} <5.0 [facility] Sodium [Moles/volume] in Ser um or PlasmaOrdered By: Mariah Bernard on 06-22-2023 Sodium [Moles/Vol] 138 mmol/L 136-145 [facility] Thyroid Stimulating Hormoneo n 06-22-2023 TSH Qn 2.99 m[IU]/L Normal 0.45-5.33 [facility] Comment on above: Result Comment: PERF ORMED BY: [facility] [address] [place] [address] PATHOLOGIST [employer] AGGIE ENGLISH M.D. Performed By: #### P TT, PT #### [facility] [address] Thyrotropin [Units/volume] i n Serum or PlasmaOrdered By: Mariah Bernard on 06-22-2023 TSH Qn 2.99 m[IU]/L 0.45-5.33 [facility] Triglyceride [Mass/volume] i n Serum or PlasmaOrdered By: Mariah Bernard on 06-22-2023 Triglyceride [Mass/Vol] 140 mg/dL 0-149 [facility] Comment on above: TRIG ATP III CLASSIF ICATIONTRIG less than 150 mg/dL NormalTRIG 150-199 mg/dL Borderline highTRIG 200-500 mg/dL High TRIG greater than 500 mg/dL Very highStandard traceable to the Center for Disease Conrtrol and Prevention (CDC) test method. Urea nitrogen [Mass/volume] in Serum or PlasmaOrdered By: Mariah Bernard on 06-22-2023 Urea nitrogen [Mass/Vol] 34 mg/dL 06-16 [facility] Urine microalbumin/creatinin e mass ratioOrdered By: Mariah Bernard on 06-22-2023 Albumin/Creatinine DL <= 20 mg/L (U) [Mass ratio] 17.0 mg/g 0.0-30.0 [facility] Comment on above: 30-300 mg/g indicate s an increased risk for diabetic nephropathy. Greater than 300 mg/g is consistent with clinical nephropathy. (Am. J. Kidney Disease 1995, 25:107) WBC Auto (Bld) [#/Vol]Ordere d By: Mariah Bernard on 06-22-2023 WBC (Bld) [#/Vol] 3.4 10*3/uL 4.1-10.5 [facility] Alanine aminotransferase [En zymatic activity/volume] in Serum or PlasmaOrdered By: Alisha Soares on 06-19-2023 ALT [Catalytic activity/Vol] 18 U/L 7-52 [facility] Albumin [Mass/volume] in Ser um or Plasma by Bromocresol green (BCG) dye binding methoOrdered By: Alisha Soares on 06-19-2023 Albumin BCG dye [Mass/Vol] 4.5 g/dL 3.5-5.7 [facility] Alkaline phosphatase [Enzyma tic activity/volume] in Serum or PlasmaOrdered By: Alisha Soares on 06-19-2023 ALP [Catalytic activity/Vol] 63 U/L 34-104 [facility] Aspartate aminotransferase [ Enzymatic activity/volume] in Serum or PlasmaOrdered By: Alisha Soares on 06-19-2023 AST [Catalytic activity/Vol] 23 U/L 13-39 [facility] Basophils Auto (Bld) [#/Vol] Ordered By: Luciano Ramirez on 06-19-2023 Basophils (Bld) [#/Vol] 0.0 10*3/uL 0.0-0.2 [facility] Basophils/100 WBC Auto (Bld) Ordered By: Luciano Ramirez on 06-19-2023 Basophils/100 WBC (Bld) 0.4 % . [facility] Bilirubin.total [Mass/volume ] in Serum or PlasmaOrdered By: Alisha Soares on 06-19-2023 Bilirubin [Mass/Vol] 1.1 mg/dL 0.3-1.0 [facility] Calcium [Mass/volume] in Ser um or PlasmaOrdered By: Alisha Soares on 06-19-2023 Calcium [Mass/Vol] 9.6 mg/dL 8.6-10.3 [facility] Carbon dioxide, total [Moles /volume] in Serum or PlasmaOrdered By: Alisha Soares on 06-19-2023 CO2 [Moles/Vol] 26.0 mmol/L 21.0-31.0 [facility] Chloride [Moles/volume] in S shy or PlasmaOrdered By: Alisha Soares on 06-19-2023 Chloride [Moles/Vol] 103 mmol/L 98-107 [facility] Complete Blood Count Auto Di ffon 06-19-2023 Basophils (Bld) [#/Vol] 0.0 10*3/uL Normal 0.0-0.2 [facility] Comment on above: Result Comment: PERF ORMED BY: [place] [address] PATHOLOGIST [employer] AGGIE ENGLISH M.D. Performed By: #### C BC #### [address] Basophils/100 WBC (Bld) 0.4 % Normal . [facility] Comment on above: Performed By: #### C BC #### [address] Eosinophils (Bld) [#/Vol] 0.1 10*3/uL Normal 0.0-0.45 [facility] Comment on above: Performed By: #### C BC #### [address] Eosinophils/100 WBC (Bld) 1.6 % Normal . [facility] Comment on above: Performed By: #### C BC #### [address] Erythrocyte distribution width (RBC) [Ratio] 15.4 % High 12.0-14.8 [facility] Comment on above: Performed By: #### C BC #### [address] Hematocrit (Bld) [Volume fraction] 36.4 % Low 38.8-50.0 [facility] Comment on above: Performed By: #### C BC #### [address] Hemoglobin (Bld) [Mass/Vol] 12.3 g/dL Low 13.0-17.0 [facility] Comment on above: Performed By: #### C BC #### [address] Lymphocytes (Bld) [#/Vol] 1.6 10*3/uL Normal 1.00-4.8 [facility] Comment on above: Performed By: #### C BC #### [address] Lymphocytes/100 WBC (Bld) 34.7 % Normal . [facility] Comment on above: Performed By: #### C BC #### [address] MCH (RBC) [Entitic mass] 31.8 pg Normal 27.5-35.2 [facility] Comment on above: Performed By: #### C BC #### [address] MCV (RBC) [Entitic vol] 93.8 fL Normal 83.5-101 [facility] Comment on above: Performed By: #### C BC #### [address] Mean Corpuscular HGB Conc 33.9 g/dL Normal 32.5-35.6 [facility] Comment on above: Performed By: #### C BC #### [address] Monocytes (Bld) [#/Vol] 0.4 10*3/uL Normal 0.0-0.8 [facility] Comment on above: Performed By: #### C BC #### [address] Monocytes/100 WBC (Bld) 7.9 % Normal . [facility] Comment on above: Performed By: #### C BC #### [address] Neutrophils (Bld) [#/Vol] 2.5 10*3/uL Normal 1.8-7.7 [facility] Comment on above: Performed By: #### C BC #### [address] Neutrophils/100 WBC (Bld) 55.4 % Normal . [facility] Comment on above: Performed By: #### C BC #### [address] NRBC% 0.2 /100{WBC} Normal 0-0.5 [facility] Comment on above: Performed By: #### C BC #### [facility] [address] Platelet mean volume (Bld) [Entitic vol] 9.2 fL Normal 6.6-10.1 [facility] Comment on above: Performed By: #### C BC #### [facility] [address] Platelets (Bld) [#/Vol] 56 10*3/uL Low 150-450 [facility] Comment on above: Performed By: #### C BC #### [facility] [address] RBC (Bld) [#/Vol] 3.88 10*6/uL Low 3.90-5.60 [facility] Comment on above: Performed By: #### C BC #### [address] WBC (Bld) [#/Vol] 4.5 10*3/uL Normal 4.1-10.5 [facility] Comment on above: Performed By: #### C BC #### [address] Comprehensive Metabolic Pane alejandra 06-19-2023 Albumin [Mass/Vol] 4.5 g/dL Normal 3.5-5.7 [facility] Comment on above: Performed By: #### P TT, PT #### [address] Albumin/Globulin [Mass ratio] 1.8 {ratio} Normal [facility] Comment on above: Performed By: #### P TT, PT #### [address] ALP [Catalytic activity/Vol] 63 U/L Normal 34-104 [facility] Comment on above: Performed By: #### P TT, PT #### [address] ALT [Catalytic activity/Vol] 18 U/L Normal 7-52 [facility] Comment on above: Performed By: #### P TT, PT #### [facility] [address] [place] [address] [place] Anion gap [Moles/Vol] 12.8 mmol/L Normal 6.0-15.0 [facility] Comment on above: Performed By: #### P TT, PT #### [facility] [address] AST [Catalytic activity/Vol] 23 U/L Normal 13-39 [facility] Comment on above: Performed By: #### P TT, PT #### [facility] [address] Bilirubin [Mass/Vol] 1.1 mg/dL High 0.3-1.0 [facility] Comment on above: Performed By: #### P TT, PT #### [facility] [address] Calcium [Mass/Vol] 9.6 mg/dL Normal 8.6-10.3 [facility] Comment on above: Performed By: #### P TT, PT #### [facility] [address] [place] [address] [place] Chloride [Moles/Vol] 103 mmol/L Normal 98-107 [facility] Comment on above: Performed By: #### P TT, PT #### [facility] [address] [place] [address] [place] CO2 [Moles/Vol] 26.0 mmol/L Normal 21.0-31.0 [facility] Comment on above: Performed By: #### P TT, PT #### [facility] [address] [place] [address] [place] Creatinine [Mass/Vol] 1.78 mg/dL High 0.70-1.30 [facility] Comment on above: Performed By: #### P TT, PT #### [facility] [address] [place] [address] [place] Creatinine Clr Calc Pharmacy 42.82 Normal [facility] Comment on above: Performed By: #### P TT, PT #### [facility] [address] [place] [address] [place] GFR/1.73 sq M.predicted MDRD (S/P/Bld) [Vol rate/Area] 38.326 mL/min/{1.73_m2} Normal [facility] Comment on above: Performed By: #### P TT, PT #### [facility] [address] Globulin (S) [Mass/Vol] 2.5 g/dL [facility] Comment on above: Performed By: #### P TT, PT #### [address] Glucose [Mass/Vol] 82 mg/dL Normal 70-100 [facility] Comment on above: Result Comment: [place] Glucose Reference Range is dependent on time and content of last meal. Glucose of more than 200 mg/dL in a nonstressed, ambulatory subject supports the diagnosis of Diabetes Mellitus. ADA recommended reference range Performed By: #### P TT, PT #### [address] Potassium [Moles/Vol] 5.8 mmol/L High 3.5-5.1 [facility] Comment on above: Performed By: #### P TT, PT #### [place] [address] [place] Protein [Mass/Vol] 7.0 g/dL Normal 6.4-8.9 [facility] Comment on above: Performed By: #### P TT, PT #### [place] [address] [place] Sodium [Moles/Vol] 136 mmol/L Normal 136-145 [facility] Comment on above: Performed By: #### P TT, PT #### [place] [address] [place] Urea nitrogen [Mass/Vol] 37 mg/dL High 7-25 [facility] Comment on above: Performed By: #### P TT, PT #### [place] [address] [place] Creatinine [Mass/volume] in Serum or PlasmaOrdered By: Alisha Soares on 06-19-2023 Creatinine [Mass/Vol] 1.78 mg/dL 0.70-1.30 [facility] Eosinophils Auto (Bld) [#/Vo l]Ordered By: Luciano Ramirez on 06-19-2023 Eosinophils (Bld) [#/Vol] 0.1 10*3/uL 0.0-0.45 [facility] Eosinophils/100 WBC Auto (Bl d)Ordered By: Luciano Ramirez on 06-19-2023 Eosinophils/100 WBC (Bld) 1.6 % . [facility] Erythrocyte distribution wid th Auto (RBC) [Ratio]Ordered By: Luciano Ramirez on 06-19-2023 Erythrocyte distribution width (RBC) [Ratio] 15.4 % 12.0-14.8 [facility] Ferritinon 06-19-2023 Ferritin [Mass/Vol] 195.7 ng/mL Normal 23.9-336.2 [facility] Comment on above: Result Comment: PERF ORMED BY: [place] [address] PATHOLOGIST [employer] AGGIE ENGLISH M.D. Performed By: #### F ER, CMP, FE and TIBC, CBC #### [address] Ferritin [Mass/volume] in Se rum or PlasmaOrdered By: Alisha Soares on 06-19-2023 Ferritin [Mass/Vol] 195.7 ng/mL 23.9-336.2 [facility] Globulin Calc (S) [Mass/Vol] Ordered By: Alisha Soares on 06-19-2023 Globulin (S) [Mass/Vol] 2.5 g/dL [facility] Glucose [Mass/volume] in Ser um or PlasmaOrdered By: Alisha Soares on 06-19-2023 Glucose [Mass/Vol] 82 mg/dL 70-100 [facility] Comment on above: ADA recommended refe rence rangeRandom Glucose Reference Range is dependent on time and content of last meal. Glucose of more than 200 mg/dL in a nonstressed, ambulatory subject supports the diagnosis of Diabetes Mellitus. Hematocrit Auto (Bld) [Volum e fraction]Ordered By: Luciano Ramirez on 06-19-2023 Hematocrit (Bld) [Volume fraction] 36.4 % 38.8-50.0 [facility] Hemoglobin [Mass/volume] in BloodOrdered By: Luciano Ramirez on 06-19-2023 Hemoglobin (Bld) [Mass/Vol] 12.3 g/dL 13.0-17.0 [facility] Iron [Mass/volume] in Serum or PlasmaOrdered By: Alisha Soares on 06-19-2023 Iron [Mass/Vol] 102 ug/dL 50-212 [facility] Iron and TIBC Profileon 05-24 % Iron Saturation 31.4 % Normal 20-[address] [facility] Comment on above: Performed By: #### F ER, CMP, FE and TIBC, CBC #### [facility] [address] [place] [address] [facility] Iron [Mass/Vol] 102 ug/dL Normal 50-212 [facility] Comment on above: Performed By: #### F ER, CMP, FE and TIBC, CBC #### [facility] [address] [place] [address] [place] Total Iron Binding Capacity 325 ug/dL Normal 255-450 [facility] Comment on above: Performed By: #### F ER, CMP, FE and TIBC, CBC #### [facility] [address] [place] [address] [place] Transferrin [Mass/Vol] 232 mg/dL Normal 203-362 [facility] Comment on above: Performed By: #### F ER, CMP, FE and TIBC, CBC #### [facility] [address] [place] [address] [place] Iron binding capacity [Mass/ volume] in Serum or PlasmaOrdered By: Alisha Soares on 06-19-2023 Iron binding capacity [Mass/Vol] 325 ug/dL 255-450 [facility] Iron saturation [Mass Fracti on] in Serum or PlasmaOrdered By: Alisha Soares on 06-19-2023 Iron saturation [Mass fraction] 31.4 % 20-50 [facility] Leukocytes [#/volume] correc [place] for nucleated erythrocytes in Blood by Automated counOrdered By: Luciano Ramirez on 06-19-2023 WBC corrected for nucl RBC Auto (Bld) [#/Vol] 4.5 10*3/uL 4.1-10.5 [facility] Lymphocytes Auto (Bld) [#/Vo l]Ordered By: Luciano Ramirez on 06-19-2023 Lymphocytes (Bld) [#/Vol] 1.6 10*3/uL 1.00-4.8 [facility] Lymphocytes/100 WBC Auto (Bl d)Ordered By: Luciano Ramirez on 06-19-2023 Lymphocytes/100 WBC (Bld) 34.7 % . [facility] MCH Auto (RBC) [Entitic mass ]Ordered By: Luciano Ramirez on 06-19-2023 MCH (RBC) [Entitic mass] 31.8 pg 27.5-35.2 [facility] MCHC Auto (RBC) [Mass/Vol]Or dered By: Luciano Ramirez on 06-19-2023 MCHC (RBC) [Mass/Vol] 33.9 g/dL 32.5-35.6 [facility] MCV Auto (RBC) [Entitic vol] Ordered By: Luciano Ramirez on 06-19-2023 MCV (RBC) [Entitic vol] 93.8 fL 83.5-101 [facility] Monocytes Auto (Bld) [#/Vol] Ordered By: Luciano Ramirez on 06-19-2023 Monocytes (Bld) [#/Vol] 0.4 10*3/uL 0.0-0.8 [facility] Monocytes/100 WBC Auto (Bld) Ordered By: Luciano Ramirez on 06-19-2023 Monocytes/100 WBC (Bld) 7.9 % . [facility] Neutrophils Auto (Bld) [#/Vo l]Ordered By: Luciano Ramirez on 06-19-2023 Neutrophils (Bld) [#/Vol] 2.5 10*3/uL 1.8-7.7 [facility] Neutrophils/100 WBC Auto (Bl d)Ordered By: Luciano Ramirez on 06-19-2023 Neutrophils/100 WBC (Bld) 55.4 % . [facility] No Panel InformationOrdered By: Alisha Soares on 06-19-2023 Estimated GFR (CKD-EPI) 38.326 mL/Min [facility] Creatinine Clearance (Chem 42.82 [facility] Nucleated erythrocytes [Pres ence] in Blood by Automated countOrdered By: Luciano Ramirez on 06-19-2023 Nucleated RBC Auto Ql (Bld) 0.2 /100{WBC} 0-0.5 [facility] Platelet mean volume Auto (B ld) [Entitic vol]Ordered By: Luciano Ramirez on 06-19-2023 Platelet mean volume (Bld) [Entitic vol] 9.2 fL 6.6-10.1 [facility] Platelets Auto (Bld) [#/Vol] Ordered By: Luciano Ramirez on 06-19-2023 Platelets (Bld) [#/Vol] 56 10*3/uL 150-450 [facility] Potassium [Moles/volume] in Serum or PlasmaOrdered By: Alisha Soares on 06-19-2023 Potassium [Moles/Vol] 5.8 mmol/L 3.5-5.1 [facility] Protein [Mass/volume] in Ser um or PlasmaOrdered By: Alisha Soares on 06-19-2023 Protein [Mass/Vol] 7.0 g/dL 6.4-8.9 [facility] RBC Auto (Bld) [#/Vol]Ordere d By: Luciano Ramirez on 06-19-2023 RBC (Bld) [#/Vol] 3.88 10*6/uL 3.90-5.60 [facility] Serum or plasma albumin/glob ulin mass ratioOrdered By: Alisha Soares on 06-19-2023 Albumin/Globulin [Mass ratio] 1.8 {ratio} [facility] Serum or plasma anion gap de terminationOrdered By: Alisha Soares on 06-19-2023 Anion gap [Moles/Vol] 12.8 mmol/L 6.0-15.0 [facility] Sodium [Moles/volume] in Ser um or PlasmaOrdered By: Alisha Soares on 06-19-2023 Sodium [Moles/Vol] 136 mmol/L 136-145 [facility] Transferrin [Mass/volume] in Serum or PlasmaOrdered By: Alisha Rodger on 06-19-2023 Transferrin [Mass/Vol] 232 mg/dL 203-362 [facility] Urea nitrogen [Mass/volume] in Serum or PlasmaOrdered By: Alisha Soares on 06-19-2023 Urea nitrogen [Mass/Vol] 37 mg/dL 7-25 [facility] WBC Auto (Bld) [#/Vol]Ordere d By: Luciano Ramirez on 06-19-2023 WBC (Bld) [#/Vol] 4.5 10*3/uL 4.1-10.5 [facility] Alanine aminotransferase [En zymatic activity/volume] in Serum or PlasmaOrdered By: Luciano Ramirez on 03-18-2023 ALT [Catalytic activity/Vol] 19 U/L 7-52 [facility] Albumin [Mass/volume] in Ser um or Plasma by Bromocresol green (BCG) dye binding methoOrdered By: Luciano Ramirez on 03-18-2023 Albumin BCG dye [Mass/Vol] 4.0 g/dL 3.5-5.7 [facility] Alkaline phosphatase [Enzyma tic activity/volume] in Serum or PlasmaOrdered By: Luciano Ramirez on 03-18-2023 ALP [Catalytic activity/Vol] 58 U/L 34-104 [facility] Aspartate aminotransferase [ Enzymatic activity/volume] in Serum or PlasmaOrdered By: Luciano Ramirez on 03-18-2023 AST [Catalytic activity/Vol] 27 U/L 13-39 [facility] Basophils Auto (Bld) [#/Vol] Ordered By: Luciano Ramirez on 03-18-2023 Basophils (Bld) [#/Vol] 0.0 10*3/uL 0.0-0.2 [facility] Basophils/100 WBC Auto (Bld) Ordered By: Luciano Ramirez on 03-18-2023 Basophils/100 WBC (Bld) 0.3 % . [facility] Bilirubin.total [Mass/volume ] in Serum or PlasmaOrdered By: Luciano Ramirez on 03-18-2023 Bilirubin [Mass/Vol] 0.7 mg/dL 0.3-1.0 [facility] Calcium [Mass/volume] in Ser um or PlasmaOrdered By: Luciano Ramirez on 03-18-2023 Calcium [Mass/Vol] 8.9 mg/dL 8.6-10.3 [facility] Carbon dioxide, total [Moles /volume] in Serum or PlasmaOrdered By: Luciano Ramirez on 03-18-2023 CO2 [Moles/Vol] 25.7 mmol/L 21.0-31.0 [facility] Chloride [Moles/volume] in S shy or PlasmaOrdered By: Luciano Ramirez on 03-18-2023 Chloride [Moles/Vol] 106 mmol/L 98-107 [facility] Complete Blood Count Auto Di ffon 03-18-2023 Basophils (Bld) [#/Vol] 0.0 10*3/uL Normal 0.0-0.2 [facility] Comment on above: Result Comment: PERF ORMED BY: [place] [address] PATHOLOGIST [employer]GGIE ENGLISH M.D. Performed By: #### F ER, CMP, FE and TIBC, CBC #### [facility] [address] Basophils/100 WBC (Bld) 0.3 % Normal . [facility] Comment on above: Performed By: #### F ER, CMP, FE and TIBC, CBC #### [facility] [address] [place] [address] [place] Eosinophils (Bld) [#/Vol] 0.1 10*3/uL Normal 0.0-0.45 [facility] Comment on above: Performed By: #### F ER, CMP, FE and TIBC, CBC #### [facility] [address] [place] [address] [place] Eosinophils/100 WBC (Bld) 1.9 % Normal . [facility] Comment on above: Performed By: #### F ER, CMP, FE and TIBC, CBC #### [address] Erythrocyte distribution width (RBC) [Ratio] 14.9 % High 12.0-14.8 [facility] Comment on above: Performed By: #### F ER, CMP, FE and TIBC, CBC #### [address] Hematocrit (Bld) [Volume fraction] 31.2 % Low 38.8-50.0 [facility] Comment on above: Performed By: #### F ER, CMP, FE and TIBC, CBC #### [address] Hemoglobin (Bld) [Mass/Vol] 10.2 g/dL Low 13.0-17.0 [facility] Comment on above: Performed By: #### F ER, CMP, FE and TIBC, CBC #### [address] Lymphocytes (Bld) [#/Vol] 0.9 10*3/uL Low 1.00-4.8 [facility] Comment on above: Performed By: #### F ER, CMP, FE and TIBC, CBC #### [address] Lymphocytes/100 WBC (Bld) 33.2 % Normal . [facility] Comment on above: Performed By: #### F ER, CMP, FE and TIBC, CBC #### [address] MCH (RBC) [Entitic mass] 28.9 pg Normal 27.5-35.2 [facility] Comment on above: Performed By: #### F ER, CMP, FE and TIBC, CBC #### [address] MCV (RBC) [Entitic vol] 88.7 fL Normal 83.5-101 [facility] Comment on above: Performed By: #### F ER, CMP, FE and TIBC, CBC #### [address] Mean Corpuscular HGB Conc 32.6 g/dL Normal 32.5-35.6 [facility] Comment on above: Performed By: #### F ER, CMP, FE and TIBC, CBC #### [address] Monocytes (Bld) [#/Vol] 0.3 10*3/uL Normal 0.0-0.8 [facility] Comment on above: Performed By: #### F ER, CMP, FE and TIBC, CBC #### [address] Monocytes/100 WBC (Bld) 10.0 % Normal . [facility] Comment on above: Performed By: #### F ER, CMP, FE and TIBC, CBC #### [address] Neutrophils (Bld) [#/Vol] 1.5 10*3/uL Low 1.8-7.7 [facility] Comment on above: Performed By: #### F ER, CMP, FE and TIBC, CBC #### [address] Neutrophils/100 WBC (Bld) 54.6 % Normal . [facility] Comment on above: Performed By: #### F ER, CMP, FE and TIBC, CBC #### [address] NRBC% 0.1 /100{WBC} Normal 0-0.5 [facility] Comment on above: Performed By: #### F ER, CMP, FE and TIBC, CBC #### [address] Platelet mean volume (Bld) [Entitic vol] 9.0 fL Normal 6.6-10.1 [facility] Comment on above: Performed By: #### F ER, CMP, FE and TIBC, CBC #### [place] [address] [place] Platelets (Bld) [#/Vol] 51 10*3/uL Low 150-450 [facility] Comment on above: Performed By: #### F ER, CMP, FE and TIBC, CBC #### [address] RBC (Bld) [#/Vol] 3.51 10*6/uL Low 3.90-5.60 [facility] Comment on above: Performed By: #### F ER, CMP, FE and TIBC, CBC #### [address] WBC (Bld) [#/Vol] 2.8 10*3/uL Low 4.1-10.5 [facility] Comment on above: Performed By: #### F ER, CMP, FE and TIBC, CBC #### [address] Comprehensive Metabolic Pane alejandra 03-18-2023 Albumin [Mass/Vol] 4.0 g/dL Normal 3.5-5.7 [facility] Comment on above: Performed By: #### F ER, CMP, FE and TIBC, CBC #### [address] Albumin/Globulin [Mass ratio] 1.5 {ratio} Normal [facility] Comment on above: Performed By: #### F ER, CMP, FE and TIBC, CBC #### [address] ALP [Catalytic activity/Vol] 58 U/L Normal 34-104 [facility] Comment on above: Performed By: #### F ER, CMP, FE and TIBC, CBC #### [address] ALT [Catalytic activity/Vol] 19 U/L Normal 7-52 [facility] Comment on above: Performed By: #### F ER, CMP, FE and TIBC, CBC #### [address] Anion gap [Moles/Vol] 10.9 mmol/L Normal 6.0-15.0 [facility] Comment on above: Performed By: #### F ER, CMP, FE and TIBC, CBC #### [address] AST [Catalytic activity/Vol] 27 U/L Normal 13-39 [facility] Comment on above: Performed By: #### F ER, CMP, FE and TIBC, CBC #### [address] Bilirubin [Mass/Vol] 0.7 mg/dL Normal 0.3-1.0 [facility] Comment on above: Performed By: #### F ER, CMP, FE and TIBC, CBC #### [address] Calcium [Mass/Vol] 8.9 mg/dL Normal 8.6-10.3 [facility] Comment on above: Performed By: #### F ER, CMP, FE and TIBC, CBC #### [address] Chloride [Moles/Vol] 106 mmol/L Normal 98-107 [facility] Comment on above: Performed By: #### F ER, CMP, FE and TIBC, CBC #### [address] CO2 [Moles/Vol] 25.7 mmol/L Normal 21.0-31.0 [facility] Comment on above: Performed By: #### F ER, CMP, FE and TIBC, CBC #### [address] Creatinine [Mass/Vol] 1.11 mg/dL Normal 0.70-1.30 [facility] Comment on above: Performed By: #### F ER, CMP, FE and TIBC, CBC #### [address] Creatinine Clr Calc Pharmacy 68.72 Normal [facility] Comment on above: Performed By: #### F ER, CMP, FE and TIBC, CBC #### [address] [place] [address] [place] GFR/1.73 sq M.predicted MDRD (S/P/Bld) [Vol rate/Area] mL/min/{1.73_m2} [facility] Comment on above: Performed By: #### F ER, CMP, FE and TIBC, CBC #### [facility] [address] [place] [address] [place] Globulin (S) [Mass/Vol] 2.7 g/dL [facility] Comment on above: Performed By: #### F ER, CMP, FE and TIBC, CBC #### [facility] [address] [place] [address] [place] Glucose [Mass/Vol] 120 mg/dL High 70-100 [facility] Comment on above: Result Comment: [facility] Glucose Reference Range is dependent on time and content of last meal. Glucose of more than 200 mg/dL in a nonstressed, ambulatory subject supports the diagnosis of Diabetes Mellitus. ADA recommended reference range Performed By: #### F ER, CMP, FE and TIBC, CBC #### [facility] [address] [place] [address] [place] Potassium [Moles/Vol] 4.6 mmol/L Normal 3.5-5.1 [facility] Comment on above: Performed By: #### F ER, CMP, FE and TIBC, CBC #### [facility] [address] [place] [id number] [place] Protein [Mass/Vol] 6.7 g/dL Normal 6.4-8.9 [facility] Comment on above: Performed By: #### F ER, CMP, FE and TIBC, CBC #### [facility] [address] [place] [id number] [place] Sodium [Moles/Vol] 138 mmol/L Normal 136-145 [facility] Comment on above: Performed By: #### F ER, CMP, FE and TIBC, CBC #### [facility] [address] [place] [id number] [place] Urea nitrogen [Mass/Vol] 21 mg/dL Normal 7-25 [facility] Comment on above: Performed By: #### F ER, CMP, FE and TIBC, CBC #### [facility] [address] Creatinine [Mass/volume] in Serum or PlasmaOrdered By: Luciano Ramirez on 03-18-2023 Creatinine [Mass/Vol] 1.11 mg/dL 0.70-1.30 [facility] Eosinophils Auto (Bld) [#/Vo l]Ordered By: Luciano Ramirez on 03-18-2023 Eosinophils (Bld) [#/Vol] 0.1 10*3/uL 0.0-0.45 [facility] Eosinophils/100 WBC Auto (Bl d)Ordered By: Luciano Ramirez on 03-18-2023 Eosinophils/100 WBC (Bld) 1.9 % . [facility] Erythrocyte distribution wid th Auto (RBC) [Ratio]Ordered By: Luciano Ramirez on 03-18-2023 Erythrocyte distribution width (RBC) [Ratio] 14.9 % 12.0-14.8 [facility] Ferritinon 03-18-2023 Ferritin [Mass/Vol] 7.3 ng/mL Low 23.9-336.2 [facility] Comment on above: Result Comment: PERF ORMED BY: [place] [address] PATHOLOGIST [employer]STER [employer] AGGIE ENGLISH M.D. Performed By: #### F ER, CMP, FE and TIBC, CBC #### [facility] [address] Ferritin [Mass/volume] in Se rum or PlasmaOrdered By: Luciano Ramirez on 03-18-2023 Ferritin [Mass/Vol] 7.3 ng/mL 23.9-336.2 [facility] Globulin Calc (S) [Mass/Vol] Ordered By: Luciano Ramirez on 03-18-2023 Globulin (S) [Mass/Vol] 2.7 g/dL [facility] Glucose [Mass/volume] in Ser um or PlasmaOrdered By: Luciano Ramirez on 03-18-2023 Glucose [Mass/Vol] 120 mg/dL 70-100 [facility] Comment on above: ADA recommended refe rence rangeRandom Glucose Reference Range is dependent on time and content of last meal. Glucose of more than 200 mg/dL in a nonstressed, ambulatory subject supports the diagnosis of Diabetes Mellitus. Hematocrit Auto (Bld) [Volum e fraction]Ordered By: Luciano Ramirez on 03-18-2023 Hematocrit (Bld) [Volume fraction] 31.2 % 38.8-50.0 [facility] Hemoglobin [Mass/volume] in BloodOrdered By: Luciano Ramirez on 03-18-2023 Hemoglobin (Bld) [Mass/Vol] 10.2 g/dL 13.0-17.0 [facility] Iron [Mass/volume] in Serum or PlasmaOrdered By: Luciano Ramirez on 03-18-2023 Iron [Mass/Vol] 50 ug/dL 50-212 [facility] Iron and TIBC Profileon 02-22 % Iron Saturation 10.0 % Low 20-[address] [facility] Comment on above: Performed By: #### F ER, CMP, FE and TIBC, CBC #### [facility] [address] [place] [id number] [place] Iron [Mass/Vol] 50 ug/dL Normal 50-212 [facility] Comment on above: Performed By: #### F ER, CMP, FE and TIBC, CBC #### [facility] [address] [place] [address] [place] Total Iron Binding Capacity 501 ug/dL High 255-450 [facility] Comment on above: Performed By: #### F ER, CMP, FE and TIBC, CBC #### [facility] [address] [place] [address] [place] Transferrin [Mass/Vol] 358 mg/dL Normal 203-362 [facility] Comment on above: Performed By: #### F ER, CMP, FE and TIBC, CBC #### [facility] [address] [place] [id number] [place] Iron binding capacity [Mass/ volume] in Serum or PlasmaOrdered By: Luciano Ramirez on 03-18-2023 Iron binding capacity [Mass/Vol] 501 ug/dL 255-450 [facility] Iron saturation [Mass Fracti on] in Serum or PlasmaOrdered By: Luciano Ramirez on 03-18-2023 Iron saturation [Mass fraction] 10.0 % 20-50 [facility] Leukocytes [#/volume] correc lebron for nucleated erythrocytes in Blood by Automated counOrdered By: Luciano Ramirez on 03-18-2023 WBC corrected for nucl RBC Auto (Bld) [#/Vol] 2.8 10*3/uL 4.1-10.5 [facility] Lymphocytes Auto (Bld) [#/Vo l]Ordered By: Luciano Ramirez on 03-18-2023 Lymphocytes (Bld) [#/Vol] 0.9 10*3/uL 1.00-4.8 [facility] Lymphocytes/100 WBC Auto (Bl d)Ordered By: Luciano Ramirez on 03-18-2023 Lymphocytes/100 WBC (Bld) 33.2 % . [facility] MCH Auto (RBC) [Entitic mass ]Ordered By: Luciano Ramirez on 03-18-2023 MCH (RBC) [Entitic mass] 28.9 pg 27.5-35.2 [facility] MCHC Auto (RBC) [Mass/Vol]Or dered By: uLciano Ramirez on 03-18-2023 MCHC (RBC) [Mass/Vol] 32.6 g/dL 32.5-35.6 [facility] MCV Auto (RBC) [Entitic vol] Ordered By: Luciano Ramirez on 03-18-2023 MCV (RBC) [Entitic vol] 88.7 fL 83.5-101 [facility] Monocytes Auto (Bld) [#/Vol] Ordered By: Luciano Ramirez on 03-18-2023 Monocytes (Bld) [#/Vol] 0.3 10*3/uL 0.0-0.8 [facility] Monocytes/100 WBC Auto (Bld) Ordered By: Luciano Ramirez on 03-18-2023 Monocytes/100 WBC (Bld) 10.0 % . [facility] Neutrophils Auto (Bld) [#/Vo l]Ordered By: Luciano Ramirez on 03-18-2023 Neutrophils (Bld) [#/Vol] 1.5 10*3/uL 1.8-7.7 [facility] Neutrophils/100 WBC Auto (Bl d)Ordered By: Luciano Ramirez on 03-18-2023 Neutrophils/100 WBC (Bld) 54.6 % . [facility] No Panel InformationOrdered By: Luciano Ramirez on 03-18-2023 Estimated GFR (CKD-EPI) > 60.0 mL/Min [facility] Creatinine Clearance (Chem 68.72 [facility] Nucleated erythrocytes [Pres ence] in Blood by Automated countOrdered By: Luciano Ramirez on 03-18-2023 Nucleated RBC Auto Ql (Bld) 0.1 /100{WBC} 0-0.5 [facility] Platelet mean volume Auto (B ld) [Entitic vol]Ordered By: Luciano Ramirez on 03-18-2023 Platelet mean volume (Bld) [Entitic vol] 9.0 fL 6.6-10.1 [facility] Platelets Auto (Bld) [#/Vol] Ordered By: Luciano Ramirez on 03-18-2023 Platelets (Bld) [#/Vol] 51 10*3/uL 150-450 [facility] Potassium [Moles/volume] in Serum or PlasmaOrdered By: Luciano Ramirez on 03-18-2023 Potassium [Moles/Vol] 4.6 mmol/L 3.5-5.1 [facility] Protein [Mass/volume] in Ser um or PlasmaOrdered By: Luciano Ramirez on 03-18-2023 Protein [Mass/Vol] 6.7 g/dL 6.4-8.9 [facility] RBC Auto (Bld) [#/Vol]Ordere d By: Luciano Ramirez on 03-18-2023 RBC (Bld) [#/Vol] 3.51 10*6/uL 3.90-5.60 [facility] Serum or plasma albumin/glob ulin mass ratioOrdered By: Luciano Ramirez on 03-18-2023 Albumin/Globulin [Mass ratio] 1.5 {ratio} [facility] Serum or plasma anion gap de terminationOrdered By: Luciano Ramirez on 03-18-2023 Anion gap [Moles/Vol] 10.9 mmol/L 6.0-15.0 [facility] Sodium [Moles/volume] in Ser um or PlasmaOrdered By: Luciano Ramirez on 03-18-2023 Sodium [Moles/Vol] 138 mmol/L 136-145 [facility] Transferrin [Mass/volume] in Serum or PlasmaOrdered By: Luciano Ramirez on 03-18-2023 Transferrin [Mass/Vol] 358 mg/dL 203-362 [facility] Urea nitrogen [Mass/volume] in Serum or PlasmaOrdered By: Luciano Ramirez on 03-18-2023 Urea nitrogen [Mass/Vol] 21 mg/dL 7-25 [facility] WBC Auto (Bld) [#/Vol]Ordere d By: Luciano Ramirez on 03-18-2023 WBC (Bld) [#/Vol] 2.8 10*3/uL 4.1-10.5 [facility] Complete Blood Count Auto Di ffon 03-04-2023 Basophils (Bld) [#/Vol] 0.0 10*3/uL Normal 0.0-0.2 [facility] Comment on above: Result Comment: PERF ORMED BY: [place] [address] PATHOLOGIST [employer]STER [employer] AGGIE ENGLISH M.D. Performed By: #### P TT, PT #### [facility] [address] [place] [address] [place] Basophils/100 WBC (Bld) 0.2 % Normal . [facility] Comment on above: Performed By: #### P TT, PT #### [facility] [address] [place] [address] [place] Eosinophils (Bld) [#/Vol] 0.0 10*3/uL Normal 0.0-0.45 [facility] Comment on above: Performed By: #### P TT, PT #### [facility] [address] [place] [address] [place] Eosinophils/100 WBC (Bld) 1.1 % Normal . [facility] Comment on above: Performed By: #### P TT, PT #### [address] Erythrocyte distribution width (RBC) [Ratio] 14.8 % Normal 12.0-14.8 [facility] Comment on above: Performed By: #### P TT, PT #### [address] Hematocrit (Bld) [Volume fraction] 32.7 % Low 38.8-50.0 [facility] Comment on above: Performed By: #### P TT, PT #### [address] Hemoglobin (Bld) [Mass/Vol] 10.7 g/dL Low 13.0-17.0 [facility] Comment on above: Performed By: #### P TT, PT #### [address] Lymphocytes (Bld) [#/Vol] 1.0 10*3/uL Normal 1.00-4.8 [facility] Comment on above: Performed By: #### P TT, PT #### [address] Lymphocytes/100 WBC (Bld) 31.9 % Normal . [facility] Comment on above: Performed By: #### P TT, PT #### [address] MCH (RBC) [Entitic mass] 29.0 pg Normal 27.5-35.2 [facility] Comment on above: Performed By: #### P TT, PT #### [address] MCV (RBC) [Entitic vol] 88.7 fL Normal 83.5-101 [facility] Comment on above: Performed By: #### P TT, PT #### [address] Mean Corpuscular HGB Conc 32.7 g/dL Normal 32.5-35.6 [facility] Comment on above: Performed By: #### P TT, PT #### [facility] [address] [place] [address] [place] Monocytes (Bld) [#/Vol] 0.2 10*3/uL Normal 0.0-0.8 [facility] Comment on above: Performed By: #### P TT, PT #### [facility] [address] [place] [address] [place] Monocytes/100 WBC (Bld) 8.3 % Normal . [facility] Comment on above: Performed By: #### P TT, PT #### [facility] [address] Neutrophils (Bld) [#/Vol] 1.7 10*3/uL Low 1.8-7.7 [facility] Comment on above: Performed By: #### P TT, PT #### [address] Neutrophils/100 WBC (Bld) 58.5 % Normal . [facility] Comment on above: Performed By: #### P TT, PT #### [facility] [address] [place] [address] NRBC% 0.3 /100{WBC} Normal 0-0.5 [facility] Comment on above: Performed By: #### P TT, PT #### [facility] [address] Platelet mean volume (Bld) [Entitic vol] 9.6 fL Normal 6.6-10.1 [facility] Comment on above: Performed By: #### P TT, PT #### [facility] [address] [place] [address] [place] Platelets (Bld) [#/Vol] 59 10*3/uL Low 150-450 [facility] Comment on above: Performed By: #### P TT, PT #### [facility] [address] [place] [address] [place] RBC (Bld) [#/Vol] 3.69 10*6/uL Low 3.90-5.60 [facility] Comment on above: Performed By: #### P TT, PT #### [facility] [address] [place] [address] WBC (Bld) [#/Vol] 3.0 10*3/uL Low 4.1-10.5 [facility] Comment on above: Performed By: #### P TT, PT #### [address] Ferritinon 03-04-2023 Ferritin [Mass/Vol] 6.6 ng/mL Low 23.9-336.2 [facility] Comment on above: Result Comment: PERF ORMED BY: [place] [address] PATHOLOGIST MASTER [employer] AGGIE ENGLISH M.D. Performed By: #### P TT, PT #### [address] Iron and TIBC Profileon 02-21 % Iron Saturation 8.4 % Low 20-[address] [facility] Comment on above: Performed By: #### P TT, PT #### [address] Iron [Mass/Vol] 44 ug/dL Low 50-212 [facility] Comment on above: Performed By: #### P TT, PT #### [address] Total Iron Binding Capacity 525 ug/dL High 255-450 [facility] Comment on above: Performed By: #### P TT, PT #### [address] Transferrin [Mass/Vol] 375 mg/dL High 203-362 [facility] Comment on above: Performed By: #### P TT, PT #### [address] Complete Blood Count Auto Di ffon 02-10-2023 Basophils (Bld) [#/Vol] 0.0 10*3/uL Normal 0.0-0.2 [facility] Comment on above: Result Comment: PERF ORMED BY: [place] [address] PATHOLOGIST MASTER [employer] AGGIE ENGLISH M.D. Performed By: #### P TT, PT #### [address] Basophils/100 WBC (Bld) 0.3 % Normal . [facility] Comment on above: Performed By: #### P TT, PT #### [facility] [address] [place] [address] [place] Eosinophils (Bld) [#/Vol] 0.0 10*3/uL Normal 0.0-0.45 [facility] Comment on above: Performed By: #### P TT, PT #### [address] Eosinophils/100 WBC (Bld) 0.9 % Normal . [facility] Comment on above: Performed By: #### P TT, PT #### [address] Erythrocyte distribution width (RBC) [Ratio] 13.9 % Normal 12.0-14.8 [facility] Comment on above: Performed By: #### P TT, PT #### [address] Hematocrit (Bld) [Volume fraction] 32.3 % Low 38.8-50.0 [facility] Comment on above: Performed By: #### P TT, PT #### [place] [address] [place] Hemoglobin (Bld) [Mass/Vol] 10.7 g/dL Low 13.0-17.0 [facility] Comment on above: Performed By: #### P TT, PT #### [address] Lymphocytes (Bld) [#/Vol] 1.3 10*3/uL Normal 1.00-4.8 [facility] Comment on above: Performed By: #### P TT, PT #### [address] Lymphocytes/100 WBC (Bld) 32.0 % Normal . [facility] Comment on above: Performed By: #### P TT, PT #### [address] MCH (RBC) [Entitic mass] 29.6 pg Normal 27.5-35.2 [facility] Comment on above: Performed By: #### P TT, PT #### [address] MCV (RBC) [Entitic vol] 89.3 fL Normal 83.5-101 [facility] Comment on above: Performed By: #### P TT, PT #### [address] Mean Corpuscular HGB Conc 33.1 g/dL Normal 32.5-35.6 [facility] Comment on above: Performed By: #### P TT, PT #### [address] Monocytes (Bld) [#/Vol] 0.4 10*3/uL Normal 0.0-0.8 [facility] Comment on above: Performed By: #### P TT, PT #### [address] Monocytes/100 WBC (Bld) 9.4 % Normal . [facility] Comment on above: Performed By: #### P TT, PT #### [address] Neutrophils (Bld) [#/Vol] 2.3 10*3/uL Normal 1.8-7.7 [facility] Comment on above: Performed By: #### P TT, PT #### [address] Neutrophils/100 WBC (Bld) 57.4 % Normal . [facility] Comment on above: Performed By: #### P TT, PT #### [place] [address] [place] NRBC% 0.1 /100{WBC} Normal 0-0.5 [facility] Comment on above: Performed By: #### P TT, PT #### [address] Platelet mean volume (Bld) [Entitic vol] 9.3 fL Normal 6.6-10.1 [facility] Comment on above: Performed By: #### P TT, PT #### [address] Platelets (Bld) [#/Vol] 61 10*3/uL Low 150-450 [facility] Comment on above: Performed By: #### P TT, PT #### [address] RBC (Bld) [#/Vol] 3.62 10*6/uL Low 3.90-5.60 [facility] Comment on above: Performed By: #### P TT, PT #### [address] WBC (Bld) [#/Vol] 3.9 10*3/uL Low 4.1-10.5 [facility] Comment on above: Performed By: #### P TT, PT #### [address] Ferritinon 02-10-2023 Ferritin [Mass/Vol] 9.5 ng/mL Low 23.9-336.2 [facility] Comment on above: Result Comment: PERF ORMED BY: [place] [address] PATHOLOGIST MASTER [employer] AGGIE ENGLISH M.D. Performed By: #### P TT, PT #### [address] Iron and TIBC Profileon 01-22 % Iron Saturation 16.1 % Low 20-[address] [facility] Comment on above: Performed By: #### P TT, PT #### [address] Iron [Mass/Vol] 85 ug/dL Normal 50-212 [facility] Comment on above: Performed By: #### P TT, PT #### [facility] [address] Total Iron Binding Capacity 528 ug/dL High 255-450 [facility] Comment on above: Performed By: #### P TT, PT #### [facility] [address] Transferrin [Mass/Vol] 377 mg/dL High 203-362 [facility] Comment on above: Performed By: #### P TT, PT #### [facility] [address] Basophils Auto (Bld) [#/Vol] Ordered By: Estevan Lester on 12-16-2022 Basophils (Bld) [#/Vol] 0.0 10*3/uL 0.0-0.2 [facility] Basophils/100 WBC Auto (Bld) Ordered By: Estevan Lester on 12-16-2022 Basophils/100 WBC (Bld) 0.3 % . [facility] Eosinophils Auto (Bld) [#/Vo l]Ordered By: Estevan Lester on 12-16-2022 Eosinophils (Bld) [#/Vol] 0.0 10*3/uL 0.0-0.45 [facility] Eosinophils/100 WBC Auto (Bl d)Ordered By: Estevan Lester on 12-16-2022 Eosinophils/100 WBC (Bld) 1.0 % . [facility] Erythrocyte distribution wid th Auto (RBC) [Ratio]Ordered By: Estevan Lester on 12-16-2022 Erythrocyte distribution width (RBC) [Ratio] 15.2 % 12.0-14.8 [facility] Glucose Glucometer (BldC) [M ass/Vol]Ordered By: Estevan Lester on 12-16-2022 Glucose [Mass/Vol] 230 mg/dL [facility] Comment on above: Random Glucose Refer ence Range is dependent on time and content of last meal. Glucose of more than 200 mg/dL in a nonstressed, ambulatory subject supports the diagnosis of Diabetes Mellitus. Hematocrit Auto (Bld) [Volum e fraction]Ordered By: Estevan Lester on 12-16-2022 Hematocrit (Bld) [Volume fraction] 31.5 % 38.8-50.0 [facility] Hemoglobin [Mass/volume] in BloodOrdered By: Estevan Lester on 12-16-2022 Hemoglobin (Bld) [Mass/Vol] 10.5 g/dL 13.0-17.0 [facility] - CoagulationOrde red By: Estevan Lester on 12-16-2022 PT Coag (PPP) [Time] 12.9 s 9.0-12.9 [facility] Leukocytes [#/volume] correc lebron for nucleated erythrocytes in Blood by Automated counOrdered By: Estevan Lester on 12-16-2022 WBC corrected for nucl RBC Auto (Bld) [#/Vol] 3.0 10*3/uL 4.1-10.5 [facility] Lymphocytes Auto (Bld) [#/Vo l]Ordered By: Estevan Lester on 12-16-2022 Lymphocytes (Bld) [#/Vol] 0.7 10*3/uL 1.00-4.8 [facility] Lymphocytes/100 WBC Auto (Bl d)Ordered By: Estevan Lester on 12-16-2022 Lymphocytes/100 WBC (Bld) 23.9 % . [facility] MCH Auto (RBC) [Entitic mass ]Ordered By: Estevan Lester on 12-16-2022 MCH (RBC) [Entitic mass] 30.3 pg 27.5-35.2 [facility] MCHC Auto (RBC) [Mass/Vol]Or dered By: Estevan Lester on 12-16-2022 MCHC (RBC) [Mass/Vol] 33.4 g/dL 32.5-35.6 [facility] MCV Auto (RBC) [Entitic vol] Ordered By: Estevan Lester on 12-16-2022 MCV (RBC) [Entitic vol] 90.9 fL 83.5-101 [facility] Monocytes Auto (Bld) [#/Vol] Ordered By: Estevan Lester on 12-16-2022 Monocytes (Bld) [#/Vol] 0.3 10*3/uL 0.0-0.8 [facility] Monocytes/100 WBC Auto (Bld) Ordered By: Estevan Lester on 12-16-2022 Monocytes/100 WBC (Bld) 10.1 % . [facility] Neutrophils Auto (Bld) [#/Vo l]Ordered By: Estevan Lester on 12-16-2022 Neutrophils (Bld) [#/Vol] 2.0 10*3/uL 1.8-7.7 [facility] Neutrophils/100 WBC Auto (Bl d)Ordered By: Estevan Lester on 12-16-2022 Neutrophils/100 WBC (Bld) 64.7 % . [facility] No Panel InformationOrdered By: Estevan Lester on 12-16-2022 Bedside Glucose Comment Glu2: cleaned meter [facility] Nucleated erythrocytes [Pres ence] in Blood by Automated countOrdered By: Estevan Lester on 12-16-2022 Nucleated RBC Auto Ql (Bld) 0.2 /100{WBC} 0-0.5 [facility] Platelet mean volume Auto (B ld) [Entitic vol]Ordered By: Estevan Lester on 12-16-2022 Platelet mean volume (Bld) [Entitic vol] 8.6 fL 6.6-10.1 [facility] Platelet poor plasma interna tional normalized ratio (INR) by coagulation assay (relatOrdered By: Estevan Lester on 12-16-2022 INR Coag (PPP) [Relative time] 1.1 {INR} [facility] Comment on above: INR Therapeutic Rang [...] 12-16-2022 Platelets (Bld) [#/Vol] 54 10*3/uL 150-450 [facility] RBC Auto (Bld) [#/Vol]Ordere d By: Estevan Lester on 12-16-2022 RBC (Bld) [#/Vol] 3.46 10*6/uL 3.90-5.60 [facility] WBC Auto (Bld) [#/Vol]Ordere d By: Estevan Lester on 12-16-2022 WBC (Bld) [#/Vol] 3.0 10*3/uL 4.1-10.5 [facility] Basophils Auto (Bld) [#/Vol] Ordered By: Luciano Ramirez on 12-15-2022 Basophils (Bld) [#/Vol] 0.0 10*3/uL 0.0-0.2 [facility] Basophils/100 WBC Auto (Bld) Ordered By: Luciano Ramirez on 12-15-2022 Basophils/100 WBC (Bld) 0.4 % . [facility] CT biopsyOrdered By: Luciano Ramirez on 12-15-2022 Transferrin [Mass/Vol] 337 mg/dL 180-380 [facility] Eosinophils Auto (Bld) [#/Vo l]Ordered By: Luciano Ramirez on 12-15-2022 Eosinophils (Bld) [#/Vol] 0.0 10*3/uL 0.0-0.45 [facility] Eosinophils/100 WBC Auto (Bl d)Ordered By: Luciano Ramirez on 12-15-2022 Eosinophils/100 WBC (Bld) 1.4 % . [facility] Erythrocyte distribution wid th Auto (RBC) [Ratio]Ordered By: Luciano Ramirez on 12-15-2022 Erythrocyte distribution width (RBC) [Ratio] 15.7 % 12.0-14.8 [facility] Ferritin [Mass/volume] in Se rum or PlasmaOrdered By: Luciano Ramirez on 12-15-2022 Ferritin [Mass/Vol] See comment 23.9-336.2 [facility] Comment on above: REDRAW SPECIMEN Hematocrit Auto (Bld) [Volum e fraction]Ordered By: Luciano Ramirez on 12-15-2022 Hematocrit (Bld) [Volume fraction] 33.3 % 38.8-50.0 [facility] Hemoglobin [Mass/volume] in BloodOrdered By: Luciano Ramirez on 12-15-2022 Hemoglobin (Bld) [Mass/Vol] 10.9 g/dL 13.0-17.0 [facility] Iron [Mass/volume] in Serum or PlasmaOrdered By: Luciano Ramirez on 12-15-2022 Iron [Mass/Vol] 64 ug/dL 40-160 [facility] Iron binding capacity [Mass/ volume] in Serum or PlasmaOrdered By: Luciano Ramirez on 12-15-2022 Iron binding capacity [Mass/Vol] 472 ug/dL 255-450 [facility] Iron saturation [Mass Fracti on] in Serum or PlasmaOrdered By: Luciano Ramirez on 12-15-2022 Iron saturation [Mass fraction] 13.6 % 20-50 [facility] Leukocytes [#/volume] correc lebron for nucleated erythrocytes in Blood by Automated counOrdered By: Luciano Ramirez on 12-15-2022 WBC corrected for nucl RBC Auto (Bld) [#/Vol] 3.5 10*3/uL 4.1-10.5 [facility] Lymphocytes Auto (Bld) [#/Vo l]Ordered By: Luciano Ramirez on 12-15-2022 Lymphocytes (Bld) [#/Vol] 1.1 10*3/uL 1.00-4.8 [facility] Lymphocytes/100 WBC Auto (Bl d)Ordered By: Luciano Ramirez on 12-15-2022 Lymphocytes/100 WBC (Bld) 31.2 % . [facility] MCH Auto (RBC) [Entitic mass ]Ordered By: Luciano Ramirez on 12-15-2022 MCH (RBC) [Entitic mass] 30.0 pg 27.5-35.2 [facility] MCHC Auto (RBC) [Mass/Vol]Or dered By: Luciano Ramirez on 12-15-2022 MCHC (RBC) [Mass/Vol] 32.7 g/dL 32.5-35.6 [facility] MCV Auto (RBC) [Entitic vol] Ordered By: Luciano Ramirez on 12-15-2022 MCV (RBC) [Entitic vol] 91.5 fL 83.5-101 [facility] Monocytes Auto (Bld) [#/Vol] Ordered By: Luciano Ramirez on 12-15-2022 Monocytes (Bld) [#/Vol] 0.3 10*3/uL 0.0-0.8 [facility] Monocytes/100 WBC Auto (Bld) Ordered By: Luciano Ramirez on 12-15-2022 Monocytes/100 WBC (Bld) 9.7 % . [facility] Neutrophils Auto (Bld) [#/Vo l]Ordered By: Luciano Ramirez on 12-15-2022 Neutrophils (Bld) [#/Vol] 2.0 10*3/uL 1.8-7.7 [facility] Neutrophils/100 WBC Auto (Bl d)Ordered By: Luciano Ramirez on 12-15-2022 Neutrophils/100 WBC (Bld) 57.3 % . [facility] Nucleated erythrocytes [Pres ence] in Blood by Automated countOrdered By: Luciano Ramirez on 12-15-2022 Nucleated RBC Auto Ql (Bld) 0.2 /100{WBC} 0-0.5 [facility] Platelet mean volume Auto (B ld) [Entitic vol]Ordered By: Luciano Ramirez on 12-15-2022 Platelet mean volume (Bld) [Entitic vol] 8.9 fL 6.6-10.1 [facility] Platelets Auto (Bld) [#/Vol] Ordered By: Luciano Ramirez on 12-15-2022 Platelets (Bld) [#/Vol] 71 10*3/uL 150-450 [facility] RBC Auto (Bld) [#/Vol]Ordere d By: Luciano Ramirez on 12-15-2022 RBC (Bld) [#/Vol] 3.64 10*6/uL 3.90-5.60 [facility] WBC Auto (Bld) [#/Vol]Ordere d By: Luciano Ramirez on 12-15-2022 WBC (Bld) [#/Vol] 3.5 10*3/uL 4.1-10.5 [facility] Laboratory - Hematology and Cell countsOrdered By: Luciano Ramirez on 10-09-2022 Nucleated RBC/100 WBC (Bld) [Ratio] 0.2 % 0-0.5 [facility] Basophils Auto (Bld) [#/Vol] Ordered By: Alisha Soares on 09-15-2022 Basophils (Bld) [#/Vol] 0.0 10*3/uL 0.0-0.2 [facility] Basophils/100 WBC Auto (Bld) Ordered By: Alisha Soares on 09-15-2022 Basophils/100 WBC (Bld) 0.3 % . [facility] CT biopsyOrdered By: Alisha Gonzalez on 09-15-2022 Transferrin [Mass/Vol] 396 mg/dL 180-380 [facility] Eosinophils Auto (Bld) [#/Vo l]Ordered By: Alisha Soares on 09-15-2022 Eosinophils (Bld) [#/Vol] 0.0 10*3/uL 0.0-0.45 [facility] Eosinophils/100 WBC Auto (Bl d)Ordered By: Alisha Soares on 09-15-2022 Eosinophils/100 WBC (Bld) 1.2 % . [facility] Erythrocyte distribution wid th Auto (RBC) [Ratio]Ordered By: Alisha Soares on 09-15-2022 Erythrocyte distribution width (RBC) [Ratio] 16.3 % 12.0-14.8 [facility] Ferritin [Mass/volume] in Se rum or PlasmaOrdered By: Alisha Soares on 09-15-2022 Ferritin [Mass/Vol] 29.4 ng/mL 23.9-336.2 [facility] Hematocrit Auto (Bld) [Volum e fraction]Ordered By: Alisha Soares on 09-15-2022 Hematocrit (Bld) [Volume fraction] 30.3 % 38.8-50.0 [facility] Hemoglobin [Mass/volume] in BloodOrdered By: Alisha Soares on 09-15-2022 Hemoglobin (Bld) [Mass/Vol] 9.7 g/dL 13.0-17.0 [facility] Iron [Mass/volume] in Serum or PlasmaOrdered By: Alisha Soares on 09-15-2022 Iron [Mass/Vol] 42 ug/dL 40-160 [facility] Iron binding capacity [Mass/ volume] in Serum or PlasmaOrdered By: Alisha Soares on 09-15-2022 Iron binding capacity [Mass/Vol] 554 ug/dL 255-450 [facility] Iron saturation [Mass Fracti on] in Serum or PlasmaOrdered By: Alisha Soares on 09-15-2022 Iron saturation [Mass fraction] 7.0 % 20-50 [facility] Laboratory - Hematology and Cell countsOrdered By: Alisha Soares on 09-15-2022 Nucleated RBC/100 WBC (Bld) [Ratio] 0.1 % 0-0.5 [facility] Leukocytes [#/volume] in Blo od by Automated countOrdered By: Alisha Soares on 09-15-2022 WBC (Bld) [#/Vol] 3.6 10*3/uL 4.5-11.0 [facility] Lymphocytes Auto (Bld) [#/Vo l]Ordered By: Alisha Soares on 09-15-2022 Lymphocytes (Bld) [#/Vol] 1.0 10*3/uL 1.00-4.8 [facility] Lymphocytes/100 WBC Auto (Bl d)Ordered By: Alisha Soares on 09-15-2022 Lymphocytes/100 WBC (Bld) 27.1 % . [facility] MCH Auto (RBC) [Entitic mass ]Ordered By: Alisha Soares on 09-15-2022 MCH (RBC) [Entitic mass] 26.6 pg 27.5-35.2 [facility] MCHC Auto (RBC) [Mass/Vol]Or dered By: Alisha Soares on 09-15-2022 MCHC (RBC) [Mass/Vol] 32.1 g/dL 32.5-35.6 [facility] MCV Auto (RBC) [Entitic vol] Ordered By: Alisha Soares on 09-15-2022 MCV (RBC) [Entitic vol] 83.1 fL 83.5-101 [facility] Monocytes Auto (Bld) [#/Vol] Ordered By: Alisha Soares on 09-15-2022 Monocytes (Bld) [#/Vol] 0.3 10*3/uL 0.0-0.8 [facility] Monocytes/100 WBC Auto (Bld) Ordered By: Alisha Rodger on 09-15-2022 Monocytes/100 WBC (Bld) 8.3 % . [facility] Neutrophils Auto (Bld) [#/Vo l]Ordered By: Alisha Rodger on 09-15-2022 Neutrophils (Bld) [#/Vol] 2.3 10*3/uL 1.8-7.7 [facility] Neutrophils/100 WBC Auto (Bl d)Ordered By: Alisha Rodger on 09-15-2022 Neutrophils/100 WBC (Bld) 63.1 % . [facility] Platelet mean volume Auto (B ld) [Entitic vol]Ordered By: Alisha Rodger on 09-15-2022 Platelet mean volume (Bld) [Entitic vol] 8.9 fL 6.6-10.1 [facility] Platelets Auto (Bld) [#/Vol] Ordered By: Alisha Rodger on 09-15-2022 Platelets (Bld) [#/Vol] 77 10*3/uL 150-450 [facility] RBC Auto (Bld) [#/Vol]Ordere d By: Alisha Rodger on 09-15-2022 RBC (Bld) [#/Vol] 3.65 10*6/uL 3.90-5.60 [facility] Glucose Glucometer (dC) [M ass/Vol]Ordered By: Estevan Lester on 09-09-2022 Glucose [Mass/Vol] 139 mg/dL [facility] Comment on above: Random Glucose Refer ence Range is dependent on time and content of last meal. Glucose of more than 200 mg/dL in a nonstressed, ambulatory subject supports the diagnosis of Diabetes Mellitus. No Panel InformationOrdered By: Estevan Lester on 09-09-2022 Bedside Glucose Comment Glu2: cleaned meter [facility] COVID-19 Positive/NegativeOr dered By: Estevan Lester on 09-05-2022 SARS-CoV-2 (COVID-19) N gene SHERI+probe Ql (Resp) Negative Negative [facility] Comment on above: Testing for SARS-CoV -2 by RT-PCRThis test was developed and its performance characteristics determined by [employer] ([employer]) and validated at the [facility]. This test has not been FDA [...] muscle IgG Qn (S) 10 Units 0-19 [facility] Comment on above: Negative 0 - 19 Weak positive 20 - 30 Moderate to strong positive >30 Actin Antibodies are found in 52-85% of patients with autoimmune hepatitis or chronic active hepatitis and in 22% of patients with primary biliary cirrhosis.Performed at: [facility] [address] [id number] Director: Otis Sanders PhD, Phone: [phone] Albumin [Mass/volume] in Ser um or PlasmaOrdered By: Estevan Lester on 08-15-2022 Albumin [Mass/Vol] 3.8 g/dL 3.2-5.5 [facility] Basophils Auto (Bld) [#/Vol] Ordered By: Estevan Lester on 08-15-2022 Basophils (Bld) [#/Vol] 0.0 10*3/uL 0.0-0.2 [facility] Basophils/100 WBC Auto (Bld) Ordered By: Estevan Lester on 08-15-2022 Basophils/100 WBC (Bld) 0.3 % . [facility] CT biopsyOrdered By: Estevan Lester on 08-15-2022 Transferrin [Mass/Vol] 392 mg/dL 180-380 [facility] Cholesterol [Mass/volume] in Serum or PlasmaOrdered By: Estevan Lester on 08-15-2022 Cholesterol [Mass/Vol] 119 mg/dL 140-200 [facility] Comment on above: Chol less than 200 m g/dl low riskChol 201-239 mg/dl borderline riskChol 240 mg/dl and greater high risk Cholesterol in LDL Calc [Mas s/Vol]Ordered By: Estevan Lester on 08-15-2022 Cholesterol in LDL [Mass/Vol] 68 mg/dL 0-100 [facility] Comment on above: LDL ATP III CLASSIFI CATIONLDL less than 100 mg/dL OptimalLDL 100-129 mg/dL Near or above optimalLDL 130-159 mg/dL Borderline highLDL 160-189 mg/dL HighLDL greater than 189 mg/dL Very high Cholesterol in VLDL Calc [Ma ss/Vol]Ordered By: Estevan Lester on 08-15-2022 Cholesterol in VLDL [Mass/Vol] 16 mg/dL [facility] Creatinine and Glomerular fi ltration rate.predicted panel (S/P/Bld)Ordered By: Estevan Lester on 08-15-2022 Creatinine [Mass/Vol] 0.82 mg/dL 0.64-1.27 [facility] Direct bilirubin measurement Ordered By: Estevan Lester on 08-15-2022 Bilirubin.direct [Mass/Vol] 0.2 mg/dL 0.0-0.4 [facility] Eosinophils Auto (Bld) [#/Vo l]Ordered By: Estevan Lester on 08-15-2022 Eosinophils (Bld) [#/Vol] 0.0 10*3/uL 0.0-0.45 [facility] Eosinophils/100 WBC Auto (Bl d)Ordered By: Estevan Lester on 08-15-2022 Eosinophils/100 WBC (Bld) 0.5 % . [facility] Erythrocyte distribution wid th Auto (RBC) [Ratio]Ordered By: Estevan Lester on 08-15-2022 Erythrocyte distribution width (RBC) [Ratio] 15.3 % 12.0-14.8 [facility] Estimated glomerular filtrat ion rate (GFR) non- AmericanOrdered By: Estevan Lester on 08-15-2022 GFR/1.73 sq M.predicted among non-blacks MDRD (S/P/Bld) [Vol rate/Area] > 60 mL/Min [facility] Ferritin [Mass/volume] in Se rum or PlasmaOrdered By: Estevan Lester on 08-15-2022 Ferritin [Mass/Vol] 6.4 ng/mL 23.9-336.2 [facility] Globulin Calc (S) [Mass/Vol] Ordered By: Estevan Lester on 08-15-2022 Globulin (S) [Mass/Vol] 3.1 g/dL [facility] Hematocrit Auto (Bld) [Volum e fraction]Ordered By: Estevan Lester on 08-15-2022 Hematocrit (Bld) [Volume fraction] 31.8 % 38.8-50.0 [facility] Hemoglobin [Mass/volume] in BloodOrdered By: Estevan Lester on 08-15-2022 Hemoglobin (Bld) [Mass/Vol] 10.3 g/dL 13.0-17.0 [facility] Hepatitis B virus surface Ag [Presence] in Serum or Plasma by ImmunoassayOrdered By: Estevan Lester on 08-15-2022 HBV surface Ag IA Ql Negative Negative [facility] Iron [Mass/volume] in Serum or PlasmaOrdered By: Estevan Lester on 08-15-2022 Iron [Mass/Vol] 40 ug/dL 40-160 [facility] Iron binding capacity [Mass/ volume] in Serum or PlasmaOrdered By: Estevan Lester on 08-15-2022 Iron binding capacity [Mass/Vol] 549 ug/dL 255-450 [facility] Iron saturation [Mass Fracti on] in Serum or PlasmaOrdered By: Estevan Lester on 08-15-2022 Iron saturation [Mass fraction] 7.0 % 20-50 [facility] Laboratory - CoagulationOrde red By: Estevan Lester on 08-15-2022 PT Coag (PPP) [Time] 12.8 s 9.0-12.9 [facility] Laboratory - Hematology and Cell countsOrdered By: Estevan Lester on 08-15-2022 Nucleated RBC/100 WBC (Bld) [Ratio] 0.0 % 0-0.5 [facility] Leukocytes [#/volume] in Blo od by Automated countOrdered By: Estevan Lester on 08-15-2022 WBC (Bld) [#/Vol] 2.9 10*3/uL 4.5-11.0 [facility] Lymphocytes Auto (Bld) [#/Vo l]Ordered By: Estevan Lester on 08-15-2022 Lymphocytes (Bld) [#/Vol] 0.6 10*3/uL 1.00-4.8 [facility] Lymphocytes/100 WBC Auto (Bl d)Ordered By: Estevan Lester on 08-15-2022 Lymphocytes/100 WBC (Bld) 19.3 % . [facility] MCH Auto (RBC) [Entitic mass ]Ordered By: Estevan Lester on 08-15-2022 MCH (RBC) [Entitic mass] 27.2 pg 27.5-35.2 [facility] MCHC Auto (RBC) [Mass/Vol]Or dered By: Estevan Lester on 08-15-2022 MCHC (RBC) [Mass/Vol] 32.4 g/dL 32.5-35.6 [facility] MCV Auto (RBC) [Entitic vol] Ordered By: Estevan Lester on 08-15-2022 MCV (RBC) [Entitic vol] 83.9 fL 83.5-101 [facility] Monocytes Auto (Bld) [#/Vol] Ordered By: Estevan Lester on 08-15-2022 Monocytes (Bld) [#/Vol] 0.2 10*3/uL 0.0-0.8 [facility] Monocytes/100 WBC Auto (Bld) Ordered By: Estevan Lester on 08-15-2022 Monocytes/100 WBC (Bld) 6.8 % . [facility] Neutrophils Auto (Bld) [#/Vo l]Ordered By: Estevan Lester on 08-15-2022 Neutrophils (Bld) [#/Vol] 2.1 10*3/uL 1.8-7.7 [facility] Neutrophils/100 WBC Auto (Bl d)Ordered By: Estevan Lester on 08-15-2022 Neutrophils/100 WBC (Bld) 73.1 % . [facility] No Panel InformationOrdered By: Estevan Lester on 08-15-2022 Estimated GFR () > 60 mL/Min [facility] Comment on above: GFR estimated refere nce range: According to KDOQI guidelines, <60 ml/min/1.73m2 is sufficient to diagnose a patient with chronic kidney disease. Hepatitis B Core Total Antibody Negative Negative [facility] Comment on above: Performed at: [facility] [address] [id number] Director: Otis Sanders PhD, Phone: [phone] Hepatitis C Interpretation See comment . [facility] Comment on above: NegativeNot infected with HCV, unless recent infection issuspected or other evidence exists to indicate HCVinfection. Hepatitis C RNA Quantitative N/A [facility] Creatinine Clearance (Chem N/A [facility] Platelet mean volume Auto (B ld) [Entitic vol]Ordered By: Estevan Lester on 08-15-2022 Platelet mean volume (Bld) [Entitic vol] 8.6 fL 6.6-10.1 [facility] Platelet poor plasma interna tional normalized ratio (INR) by coagulation assay (relatOrdered By: Estevan Lester on 08-15-2022 INR Coag (PPP) [Relative time] 1.1 {INR} [facility] Comment on above: INR Therapeutic Rang [...] 08-15-2022 Platelets (Bld) [#/Vol] 68 10*3/uL 150-450 [facility] Protein [Mass/volume] in Ser um or PlasmaOrdered By: Estevan Lester on 08-15-2022 Protein [Mass/Vol] 6.9 g/dL 6.1-7.9 [facility] RBC Auto (Bld) [#/Vol]Ordere d By: Estevan Lester on 08-15-2022 RBC (Bld) [#/Vol] 3.79 10*6/uL 3.90-5.60 [facility] Serum [id number] me asurementOrdered By: Estevan Lester on 08-15-2022 Alpha 1 antitrypsin [Mass/Vol] 173 mg/dL 101-187 [facility] Comment on above: Performed at: [address] Director: Otis Sanders PhD, Phone: [phone] Serum hepatitis B virus surf ida antibody detectionOrdered By: Estevan Lester on 08-15-2022 HBV surface Ab Ql (S) Non-Reactive . [facility] Comment on above: Non Reactive: Incons istent with immunity, less than 10 mIU/mL Reactive: Consistent with immunity, greater than 9.9 mIU/mL Serum or plasma alanine abraham otransferase measurement without P-5'-P (enzymatic activiOrdered By: Estevan Lester on 08-15-2022 ALT No additional P-5'-P [Catalytic activity/Vol] 26 U/L 10-60 [facility] Serum or plasma albumin/glob ulin mass ratioOrdered By: Estevan Lester on 08-15-2022 Albumin/Globulin [Mass ratio] 1.2 {ratio} [facility] Serum or plasma alkaline clayton sphatase measurement (enzymatic activity/volume)Ordered By: Estevan Lester on 08-15-2022 ALP [Catalytic activity/Vol] 63 U/L 32-92 [facility] Serum or plasma [id number]-[id number] protein tumor marker measurement (mass/volume)Ordered By: Estevan Lester on 08-15-2022 AFP.tumor marker [Mass/Vol] 1.6 ng/mL 0.0-8.4 [facility] Comment on above: [facility] El ectrochemiluminescence Immunoassay(ECLIA)Values obtained with different assay methods or kits cannotbe used interchangeably. Results cannot be interpreted asabsolute evidence of the presence or absence of malignantdisease.This test is not interpretable in females.Performed at: [facility] [address] [id number] Director: Otis Sanders PhD, Phone: [phone] Serum or plasma anion gap de terminationOrdered By: Estevan Lester on 08-15-2022 Anion gap [Moles/Vol] 14.7 mmol/L 6.0-15.0 [facility] Serum or plasma aspartate am inotransferase measurement (enzymatic activity/volume)Ordered By: Estevan Lester on 08-15-2022 AST [Catalytic activity/Vol] 34 U/L 10-42 [facility] Serum or plasma calcium avelina urement (mass/volume)Ordered By: Estevan Lester on 08-15-2022 Calcium [Mass/Vol] 9.4 mg/dL 8.2-10.2 [facility] Serum or plasma ceruloplasmi n measurement (mass/volume)Ordered By: Estevan Lester on 08-15-2022 Ceruloplasmin [Mass/Vol] 26.4 mg/dL 16.0-31.0 [facility] Serum or plasma chloride veronica surement (moles/volume)Ordered By: Estevan Lester on 08-15-2022 Chloride [Moles/Vol] 101 mmol/L 95-114 [facility] Serum or plasma free cefurox george measurement (mass/volume)Ordered By: Estevan Lester on 08-15-2022 Cefuroxime free [Mass/Vol] Negative Negative [facility] Comment on above: Performed at: [facility] [address] [id number] Director: Otis Sanders PhD, Phone: [phone] Serum or plasma glucose avelina urement (mass/volume)Ordered By: Estevan Lester on 08-15-2022 Glucose [Mass/Vol] 139 mg/dL 70-100 [facility] Comment on above: ADA recommended refe rence [...] IA [Rel units/Vol] <0.1 s/co ratio 0.0-0.9 [facility] Serum or plasma high density lipoprotein (HDL) cholesterol measurementOrdered By: Estevan Lester on 08-15-2022 Cholesterol in HDL [Mass/Vol] 35 mg/dL 29-71 [facility] Comment on above: HDL CHOL ATP-III CLA SSIFICATION Cardiovascular RiskHDL > or equal to 60 mg/dL LOWHDL < 40 mg/dL HIGH Serum or plasma non-glucuron idated bilirubin measurement (mass/volume)Ordered By: Estevan Lester on 08-15-2022 Bilirubin.indirect [Mass/Vol] 0.8 mg/dL [facility] Serum or plasma potassium me asurement (moles/volume)Ordered By: Estevan Lester on 08-15-2022 Potassium [Moles/Vol] 4.3 mmol/L 3.5-5.1 [facility] Serum or plasma sodium measu rement (moles/volume)Ordered By: Estevan Lester on 08-15-2022 Sodium [Moles/Vol] 138 mmol/L 136-146 [facility] Serum or plasma total biliru bin measurement (mass/volume)Ordered By: Estevan Lester on 08-15-2022 Bilirubin [Mass/Vol] 1.0 mg/dL 0.3-1.2 [facility] Serum or plasma total carbon dioxide measurement (moles/volume)Ordered By: Estevan Lester on 08-15-2022 CO2 [Moles/Vol] 26.6 mmol/L 22.0-30.0 [facility] Serum or plasma total choles terol/high density lipoprotein (HDL) cholesterol mass ratOrdered By: Estevan Lester on 08-15-2022 Cholesterol.total/Chol esterol in HDL [Mass ratio] 3.4 {ratio} <5.0 [facility] Serum or plasma urea nitroge n measurement (mass/volume)Ordered By: Estevan Lester on 08-15-2022 Urea nitrogen [Mass/Vol] 12 mg/dL 08-15 [facility] Triglyceride [Mass/volume] i n Serum or PlasmaOrdered By: Estevan Lester on 08-15-2022 Triglyceride [Mass/Vol] 80 mg/dL 35-149 [facility] Comment on above: TRIG ATP III [...] p24 Ag IA Ql Non-Reactive Non Reactive [facility] Comment on above: HIV Negative HIV-1/HIV-2 antibodies and HIV-1 p24 antigen were NOT detected. There is no laboratory evidence of HIV infection. Performed at: [facility] [id number] Liquor Tester: Otis Sanders PhD, Phone: [phone] HIV NegativeHIV-1/HI V-2 antibodies and HIV-1 p24 antigen were NOTdetected. There is no laboratory evidence of HIV infection.Performed at: [facility] [id number] Director: Otis Sanders PhD, Phone: [phone] Hepatitis B virus surface Ag [Presence] in Serum or Plasma by ImmunoassayOrdered By: Alisha Soares on 07-22-2022 HBV surface Ag IA Ql Negative Negative [facility] Monocyte %Ordered By: Alisha tucker on 07-22-2022 Monocyte % 133 ug/dL 69-132 [facility] Comment on above: This test was christopher deal and its performance characteristics determined by [employer]. It has not been cleared or approved by the Food and Drug Administration. Detection Limit = 5 Performed at: [facility] [employer] [id number] Liquor Tester: Di Matamoros MD, Phone: [phone] This test was develo ped and its performance characteristicsdetermined by [employer]. It has not been cleared orapproved by the Food and Drug Administration. Detection Limit = 5Performed at: [facility] [employer] [id number] Director: Di Matamoros MD, Phone: [phone] No Panel InformationOrdered By: Alisha Soares on 07-22-2022 Hepatitis B Core Total Antibody Negative Negative [facility] Comment on above: Performed at: [facility] [address] [id number] Liquor Tester: Otis Sanders PhD, Phone: [phone] Performed at: [facility] [address] [id number] Director: Otis Sanders PhD, Phone: [phone] Hepatitis C Interpretation See comment . [facility] Comment on above: Negative Not infected with HCV, unless recent infection is suspected or other evidence exists to indicate HCV infection. NegativeNot infected with HCV, unless recent infection issuspected or other evidence exists to indicate HCVinfection. Hepatitis C RNA Quantitative N/A [facility] Serum hepatitis B virus surf ida antibody detectionOrdered By: Alisha Soares on 07-22-2022 HBV surface Ab Ql (S) Non-Reactive . [facility] Comment on above: Non Reactive: Incons istent with immunity, less than 10 mIU/mL Reactive: Consistent with immunity, greater than 9.9 mIU/mL Non Reactive: Incons istent with immunity, less than 10 mIU/mL Reactive: Consistent with immunity, greater than 9.9 mIU/mL Serum mitochondria M2 IgG an tibody assay (units/volume)Ordered By: Alisha Soares on 07-22-2022 Mitochondria M2 IgG Qn (S) <20.0 Units 0.0-20.0 [facility] Comment on above: Negative 0.0 - 20.0 Equivocal 20.1 - 24.9 Positive >24.9 Mitochondrial (M2) Antibodies are found in 90-96% of patients with primary biliary cirrhosis. Performed at: [facility] [address] [place], [place] [id number] Liquor Tester: Otsi Sanders PhD, Phone: [phone] Negative 0.0 - 20.0 Equivocal 20.1 - 24.9 Positive >24.9Mitochondrial (M2) Antibodies are found in 90-96% ofpatients with primary biliary cirrhosis.Performed at: [facility] [employer] [id number] Director: Otis Sanders PhD, Phone: [phone] Serum or plasma hepatitis C virus antibody signal/cutoff ratio by immunoassay (relatiOrdered By: Alisha Soares on 07-22-2022 HCV Ab Signal/Cutoff IA [Rel units/Vol] <0.1 s/co ratio 0.0-0.9 [facility] Basophils Auto (Bld) [#/Vol] Ordered By: John Ventura on 07-04-2022 Basophils (Bld) [#/Vol] 0.0 10*3/uL 0.0-0.2 [facility] Basophils/100 WBC Auto (Bld) Ordered By: John Ventura on 07-04-2022 Basophils/100 WBC (Bld) 0.2 % . [facility] Blood hemoglobin measurement (mass/volume)Ordered By: John Ventura on 07-04-2022 Hemoglobin (Bld) [Mass/Vol] 11.2 g/dL 13.0-17.0 [facility] Blood leukocytes automated c ount (number/volume)Ordered By: John Ventura on 07-04-2022 WBC (Bld) [#/Vol] 2.5 10*3/uL 4.5-11.0 [facility] CT biopsyOrdered By: John hinojosa on 07-04-2022 Transferrin [Mass/Vol] 387 mg/dL 180-380 [facility] Eosinophils Auto (Bld) [#/Vo l]Ordered By: John Ventura on 07-04-2022 Eosinophils (Bld) [#/Vol] 0.0 10*3/uL 0.0-0.45 [facility] Eosinophils/100 WBC Auto (Bl d)Ordered By: John Ventura on 07-04-2022 Eosinophils/100 WBC (Bld) 0.7 % . [facility] Erythrocyte distribution wid th Auto (RBC) [Ratio]Ordered By: John Ventura on 07-04-2022 Erythrocyte distribution width (RBC) [Ratio] 15.4 % 12.0-14.8 [facility] Ferritin [Mass/volume] in Se rum or PlasmaOrdered By: John Ventura on 07-04-2022 Ferritin [Mass/Vol] 7.1 ng/mL 23.9-336.2 [facility] Hematocrit Auto (Bld) [Volum e fraction]Ordered By: John Ventura on 07-04-2022 Hematocrit (Bld) [Volume fraction] 34.5 % 38.8-50.0 [facility] Iron [Mass/volume] in Serum or PlasmaOrdered By: John Ventura on 07-04-2022 Iron [Mass/Vol] 46 ug/dL 40-160 [facility] Iron binding capacity [Mass/ volume] in Serum or PlasmaOrdered By: John Ventura on 07-04-2022 Iron binding capacity [Mass/Vol] 542 ug/dL 255-450 [facility] Iron saturation [Mass Fracti on] in Serum or PlasmaOrdered By: John Ventura on 07-04-2022 Iron saturation [Mass fraction] 8.0 % 20-50 [facility] - Hematology and Cell countsOrdered By: John Ventura on 07-04-2022 Nucleated RBC/100 WBC (Bld) [Ratio] 0.1 % 0-0.5 [facility] Lymphocytes Auto (Bld) [#/Vo l]Ordered By: John Ventura on 07-04-2022 Lymphocytes (Bld) [#/Vol] 0.7 10*3/uL 1.00-4.8 [facility] Lymphocytes/100 WBC Auto (Bl d)Ordered By: John Ventura on 07-04-2022 Lymphocytes/100 WBC (Bld) 27.6 % . [facility] MCH Auto (RBC) [Entitic mass ]Ordered By: John Ventura on 07-04-2022 MCH (RBC) [Entitic mass] 27.8 pg 27.5-35.2 [facility] MCHC Auto (RBC) [Mass/Vol]Or dered By: John Ventura on 07-04-2022 MCHC (RBC) [Mass/Vol] 32.4 g/dL 32.5-35.6 [facility] MCV Auto (RBC) [Entitic vol] Ordered By: John Ventura on 07-04-2022 MCV (RBC) [Entitic vol] 85.8 fL 83.5-101 [facility] Monocytes Auto (Bld) [#/Vol] Ordered By: John Ventura on 07-04-2022 Monocytes (Bld) [#/Vol] 0.2 10*3/uL 0.0-0.8 [facility] Monocytes/100 WBC Auto (Bld) Ordered By: John Ventura on 07-04-2022 Monocytes/100 WBC (Bld) 10.0 % . [facility] Neutrophils Auto (Bld) [#/Vo l]Ordered By: John Ventura on 07-04-2022 Neutrophils (Bld) [#/Vol] 1.5 10*3/uL 1.8-7.7 [facility] Neutrophils/100 WBC Auto (Bl d)Ordered By: John Ventura on 07-04-2022 Neutrophils/100 WBC (Bld) 61.5 % . [facility] Platelet mean volume Auto (B ld) [Entitic vol]Ordered By: John Ventura on 07-04-2022 Platelet mean volume (Bld) [Entitic vol] 8.8 fL 6.6-10.1 [facility] Platelets Auto (Bld) [#/Vol] Ordered By: John Ventura on 07-04-2022 Platelets (Bld) [#/Vol] 69 10*3/uL 150-450 [facility] RBC Auto (Bld) [#/Vol]Ordere d By: John Ventura on 07-04-2022 RBC (Bld) [#/Vol] 4.03 10*6/uL 3.90-5.60 [facility] Creatinine and Glomerular fi ltration rate.predicted panel (S/P/Bld)Ordered By: Lasr Zhang on 09-23-2021 Creatinine [Mass/Vol] 0.84 mg/dL 0.64-1.27 [facility] Estimated glomerular filtrat ion rate (GFR) non- AmericanOrdered By: Lars Zhang on 09-23-2021 GFR/1.73 sq M.predicted among non-blacks MDRD (S/P/Bld) [Vol rate/Area] > 60 mL/Min [facility] No Panel InformationOrdered By: Lars Zhang on 09-23-2021 Estimated GFR () > 60 mL/Min [facility] Comment on above: GFR estimated refere nce range: According to KDOQI guidelines, <60 ml/min/1.73m2 is sufficient to diagnose a patient with chronic kidney disease. Pharmacy Creatinine Clearance (Chem 92.77 [facility] Serum or plasma urea nitroge n measurement (mass/volume)Ordered By: Lars Zhang on 09-23-2021 Urea nitrogen [Mass/Vol] 18 mg/dL 9 [facility] Body fluid albumin measureme nt (mass/volume)Ordered By: John Ventura on 06-25-2021 Albumin (Body fld) [Mass/Vol] 4.0 g/dL 3.2-5.5 [facility] Globulin Calc (S) [Mass/Vol] Ordered By: John Ventura on 06-25-2021 Globulin (S) [Mass/Vol] 2.4 g/dL [facility] No Panel InformationOrdered By: Lars Zhang on 06-25-2021 Methylmalonic Acid Comment See comment . [facility] Comment on above: This test was develo ped and its performance characteristics determined by [employer]. It has not been cleared or approved by the Food and Drug Administration. Performed at: [facility] [address] [id number] Liquor Tester: Di Matamoros MD, Phone: [phone] This test was develo ped and its performance characteristicsdetermined by [employer]. It has not been cleared orapproved by the Food and Drug Administration.Performed at: [facility] [address] [id number] Director: Di Matamoros MD, Phone: [phone] Vitamin B12 Level > 7500 pg/mL 180-914 [facility] Protein [Mass/volume] in Ser um or PlasmaOrdered By: John Ventura on 06-25-2021 Protein [Mass/Vol] 6.4 g/dL 6.1-7.9 [facility] Serum or plasma alanine abraham otransferase measurement without P-5'-P (enzymatic activiOrdered By: John Ventura on 06-25-2021 ALT No additional P-5'-P [Catalytic activity/Vol] 36 U/L 10-60 [facility] Serum or plasma albumin/glob ulin mass ratioOrdered By: John Ventura on 06-25-2021 Albumin/Globulin [Mass ratio] 1.7 {ratio} [facility] Serum or plasma alkaline clayton sphatase measurement (enzymatic activity/volume)Ordered By: John Ventura on 06-25-2021 ALP [Catalytic activity/Vol] 64 U/L 32-92 [facility] Serum or plasma aspartate am inotransferase measurement (enzymatic activity/volume)Ordered By: John Ventura on 06-25-2021 AST [Catalytic activity/Vol] 50 U/L 10-42 [facility] Serum or plasma calcium avelina urement (mass/volume)Ordered By: John Ventura on 06-25-2021 Calcium [Mass/Vol] 9.0 mg/dL 8.2-10.2 [facility] Serum or plasma chloride veronica surement (moles/volume)Ordered By: John Ventura on 06-25-2021 Chloride [Moles/Vol] 98 mmol/L 95-114 [facility] Serum or plasma glucose avelina urement (mass/volume)Ordered By: John Ventura on 06-25-2021 Glucose [Mass/Vol] 133 mg/dL 70-100 [facility] Comment on above: ADA recommended refe rence [...] on 06-25-2021 Methylmalonate [Moles/Vol] 287 nmol/L 0-378 [facility] Serum or plasma potassium me asurement (moles/volume)Ordered By: John Ventura on 06-25-2021 Potassium [Moles/Vol] See comment 3.5-5.1 [facility] Comment on above: Specimen hemolyzed, redraw requested Serum or plasma sodium measu rement (moles/volume)Ordered By: John Ventura on 06-25-2021 Sodium [Moles/Vol] 135 mmol/L 136-146 [facility] Serum or plasma total biliru bin measurement (mass/volume)Ordered By: John Ventura on 06-25-2021 Bilirubin [Mass/Vol] 1.4 mg/dL 0.3-1.2 [facility] Comment on above: Samples from patient s who have taken Naproxen have shown spurious elevation in Total Bilirubin levels. A metabolite of Naproxen, O-desmethylnaproxen, has been shown to interfere with the Sahara-Jomar method for measuring Total Bilirubin. Serum or plasma total carbon dioxide measurement (moles/volume)Ordered By: John Ventura on 06-25-2021 CO2 [Moles/Vol] 27.4 mmol/L 22.0-30.0 [facility] Blood copper measurement (ma ss/volume)on 03-27-2021 Copper (Bld) [Mass/Vol] 0.72 ug/mL 0.50-1.50 [facility] Comment on above: Analysis performed b y Inductively-Coupled Plasma/Mass Spectrometry (ICP/MS). This test was developed and its performance characteristics determined by [employer]. It has not been cleared or approved by the Food and Drug Administration. Performed at: [facility] [address] [place] [id number] Liquor Tester: Aura Ramires [facility], Phone: [phone] Analysis performed b y Inductively-Coupled Plasma/MassSpectrometry (ICP/MS).This test was developed and its performance characteristicsdetermined by [employer]. It has not been cleared or approvedby the Food and Drug Administration.Performed at: [facility] [place] [id number] Director: Aura Ramires [facility], Phone: [phone] Folate [Mass/volume] in Seru m or Plasmaon 03-27-2021 Folate [Mass/Vol] ng/mL >5.[address] [facility] Comment on above: Folate reference ran ge: >5.9 ng/ml The WHO technical consultation on folate and vitamin b12 deficiencies has determined that folate concentrations less than 4 ng/ml are considered deficient. Folate reference ran ge: >5.9 ng/mlThe [facility] technical consultation on folate and vitamin [id number] has determined that folate concentrations lessthan 4 ng/ml are considered deficient. No Panel Informationon 03-27 Whole Blood Zinc 660 ug/dL 440-860 [facility] Comment on above: Performed at: [facility] [address] [id number] Liquor Tester: Di Matamoros MD, Phone: [phone] Performed at: [facility] [address] [id number] Director: Di Matamoros MD, Phone: [phone] CBC AUTO DIFFon 12-04-2020 Basophils (Bld) [#/Vol] 0.0 103/ul Normal 0.0-0.1 [facility] Comment on above: Performed By: #### C BC #### [facility] [address] [place] [address] Iram Allison Basophils/100 WBC (Bld) 0.5 % Normal 0.2-2.0 [facility] Comment on above: Performed By: #### C BC #### [facility] [address] [place], [place] [address] Iram Allison Eosinophils (Bld) [#/Vol] 0.0 103/ul Normal 0.0-0.7 [facility] Comment on above: Performed By: #### C BC #### [facility] [address] [place], [place] [address] Iram Allison Eosinophils/100 WBC (Bld) 0.8 % Critically low 0.9-7.0 [facility] Comment on above: Performed By: #### C BC #### [facility] [address] [place], [place] [id number] Iram Allison Erythrocyte distribution width (RBC) [Ratio] 14.6 % Normal 11.0-15.0 [facility] Comment on above: Performed By: #### C BC #### [facility] [address] [place], [place] [address] Iram Allison Hematocrit (Bld) [Volume fraction] 43.2 % Normal 42.0-54.0 [facility] Comment on above: Performed By: #### C BC #### [facility] [address] [place] [address] Iram Allison Hemoglobin (Bld) [Mass/Vol] 13.7 g/dL Critically low 14.0-18.0 [facility] Comment on above: Performed By: #### C BC #### [facility] [address] [place] [address] Iram Allison IG # 0.02 10e3/ul Normal 0.00-0.03 [facility] Comment on above: Performed By: #### C BC #### [facility] [address] [place] [address] Iram Allison IG % 0.5 % Normal 0.0-0.5 [facility] Comment on above: Performed By: #### C BC #### [facility] [address] [place] [address] Iram Allison Lymphocytes (Bld) [#/Vol] 1.4 103/ul Normal 1.2-3.8 [facility] Comment on above: Performed By: #### C BC #### [facility] [address] [place], [place] [address] Iram Allison Lymphocytes/100 WBC (Bld) 34.8 % Normal 20.5-60.0 [facility] Comment on above: Performed By: #### C BC #### [facility] [address] [place] [address] Iram Allison MANUAL DIFF REQ NO Normal [facility] Comment on above: Performed By: #### C BC #### [facility] [address] [place] [address] Iram Cooper MCH (RBC) [Entitic mass] 29.7 pg Normal 25.9-34.0 [facility] Comment on above: Performed By: #### C BC #### [facility] [address] [place] [id number] Iram Cooper MCHC (RBC) [Mass/Vol] 31.7 g/dL Normal 29.9-35.2 [facility] Comment on above: Performed By: #### C BC #### [facility] [address] [place], [place] [address] Iramelvira Cooper MCV (RBC) [Entitic vol] 93.5 fL Normal 80.0-94.0 [facility] Comment on above: Performed By: #### C BC #### [facility] [address] [place], [place] [address] Iram Allison Monocytes (Bld) [#/Vol] 0.3 103/ul Normal 0.3-0.8 [facility] Comment on above: Performed By: #### C BC #### [facility] [address] [place], [place] [address] Iramelvira Nielsonen Monocytes/100 WBC (Bld) 8.4 % Normal 1.7-12.0 [facility] Comment on above: Performed By: #### C BC #### [facility] [address] [place], [place] [address] Iram Allison Neutrophils (Bld) [#/Vol] 2.2 103/ul Normal 1.4-6.5 [facility] Comment on above: Performed By: #### C BC #### [facility] [address] [place], [place] [address] Iram Allison Neutrophils/100 WBC (Bld) 55.0 % Normal 43.0-75.0 [facility] Comment on above: Performed By: #### C BC #### [facility] [address] [place], [place] [address] Iramelvira Cooper Platelet mean volume (Bld) [Entitic vol] 10.7 fL Normal 9.5-13.5 [facility] Comment on above: Performed By: #### C BC #### [facility] [address] [place], [place] [address] Iramelvira Cooper Platelets (Bld) [#/Vol] 76 103/ul Critically low 150-450 [facility] Comment on above: Performed By: #### C BC #### [facility] [address] [place] [address] Iramelvira Nielsonen RBC (Bld) [#/Vol] 4.62 106/ul Critically low 4.70-6.10 [facility] Comment on above: Performed By: #### C BC #### [facility] [address] [place], [place] [address] Iram Allison WBC (Bld) [#/Vol] 3.9 103/ul Critically low 4.0-11.0 [facility] Comment on above: Performed By: #### C BC #### [facility] [address] [place], [place] [address] Iram Cooper PROF 14(COMP METB)on 021 Albumin [Mass/Vol] 3.7 g/dL Normal 3.5-5.0 [facility] Comment on above: Performed By: #### C MP #### [facility] [address] [place], [place] [address] Iram Allison Albumin/Globulin [Mass ratio] 0.9 {ratio} Normal [facility] Comment on above: Performed By: #### C MP #### [facility] [address] [place], [place] [address] Iram Allison ALP [Catalytic activity/Vol] 79 U/L Normal 38-126 [facility] Comment on above: Performed By: #### C MP #### [facility] [address] [place], [place] [address] Iram Allison ALT [Catalytic activity/Vol] 48 U/L Normal 21-72 [facility] Comment on above: Performed By: #### C MP #### [facility] [address] [place], [place] [address] Iram Allison Anion gap [Moles/Vol] 10.5 mmol/L Normal [facility] Comment on above: Performed By: #### C MP #### [facility] [address] [place] [address] Iram Allison AST [Catalytic activity/Vol] 47 U/L Normal 17-59 [facility] Comment on above: Performed By: #### C MP #### [facility] [address] [place] [address] Iram Allison Bilirubin Ql (U) 0.6 mg/dL Normal 0.2-1.3 [facility] Comment on above: Performed By: #### C MP #### [facility] [address] [place] [address] Iram Allison Calcium [Mass/Vol] 9.8 mg/dL Normal 8.4-10.2 [facility] Comment on above: Performed By: #### C MP #### [facility] [address] [place] [address] Iram Allison Chloride [Moles/Vol] 101 mmol/L Normal 98-107 [facility] Comment on above: Performed By: #### C MP #### [facility] [address] [place] [address] Iram Allison CO2 [Moles/Vol] 30.0 mmol/L Normal 22.0-30.0 [facility] Comment on above: Performed By: #### C MP #### [facility] [address] [place] [address] Iram Allison Creatinine [Mass/Vol] 0.89 mg/dL Normal 0.66-1.25 [facility] Comment on above: Performed By: #### C MP #### [facility] [address] [place] [address] Iram Allison EGFR-AF ANGOLAN >60 Normal >=60 [facility] Comment on above: Performed By: #### C MP #### [facility] [address] [place], [place] [address] Iram Allison EGFR-NON AF ANGOLAN >60 Normal >=60 [facility] Comment on above: Performed By: #### C MP #### [facility] [address] [place], [place] [address] Iram Allison Globulin (S) [Mass/Vol] 3.9 g/dL Normal [facility] Comment on above: Performed By: #### C MP #### [facility] [address] [place] [id number] Iram Allison Glucose [Mass/Vol] 154 mg/dL Critically high 74-106 [facility] Comment on above: Performed By: #### C MP #### [facility] [address] [place] [phone] Iram Allison Potassium [Moles/Vol] 4.5 mmol/L Normal 3.4-5.0 [facility] Comment on above: Performed By: #### C MP #### [facility] [address] [place] [address] Iram Allison Protein [Mass/Vol] 7.6 g/dL Normal 6.1-8.2 [facility] Comment on above: Performed By: #### C MP #### [facility] [address] [place] [address] Iram Allison Sodium [Moles/Vol] 137 mmol/L Normal 137-145 [facility] Comment on above: Performed By: #### C MP #### [facility] [address] [place] [id number] Iram Allison Urea nitrogen [Mass/Vol] 20.0 mg/dL Normal 9.0-20.0 [facility] Comment on above: Performed By: #### C MP #### [facility] [address] [place] [id number] Iram Allison Urea nitrogen/Creatinine [Mass ratio] 22.5 mg/mg Normal [facility] Comment on above: Performed By: #### C MP #### [facility] [address] [place], [place] [address] [facility] - Hematology and Cell countson 10-16-2020 WBC (Bld) [#/Vol] 3.7 10*3/uL 4.5-11.0 [facility] POINT OF CARE GLUCOSEon 08-23 Glucose [Mass/Vol] 169 mg/dL Critically high 74-106 [facility] Comment on above: Performed By: #### P OCGLUC #### [facility] [address] [place] [id number] Iram Cooper COVID-19 PCRon 09-01-2020 SARS-CoV-2, SHERI Not Detected Normal Not Detected [facility] Comment on above: Result Comment: This nucleic acid amplification test was developed and its performance characteristics determined by [employer]. Nucleic acid amplification tests include PCR and [...] Performed By: #### C VDSTAT, CVDPCR #### [facility] [address] [place] [address] Iram Cooper PRIORITY COVID PROCESSINGon 09-01-2020 Comment Comment Normal [facility] Comment on above: Result Comment: Rece ived Performed By: #### C VDSTAT, CVDPCR #### [facility] [address] [place] [address] Iram Cooper Serum or plasma gastrin avelina urement (mass/volume)on 08-21-2020 Gastrin [Mass/Vol] 238 pg/mL 0-115 [facility] Comment on above: Siemens Immulite 200 0 Immunochemiluminometric assay (ICMA) Values obtained with different assay methods or kits cannot be used interchangeably. Results cannot be interpreted as absolute evidence of the presence or absence of malignant disease. Performed at: [address] [id number] Liquor Tester: Di Matamoros MD, Phone: [phone] Siemens Immulite 200 0 Immunochemiluminometric assay (ICMA)Values obtained with different assay methods or kits cannotbe used interchangeably. Results cannot be interpreted asabsolute evidence of the presence or absence of malignantdisease.Performed at: [facility] [address] [id number] Director: Di Matamoros MD, Phone: [phone] Serum parietal cell antibody assay (units/volume)on 08-21-2020 Parietal cell Ab Qn (S) 84.7 Units 0.0-20.0 [facility] Comment on above: Negative 0.0 - 20.0 Equivocal 20.1 - 24.9 Positive >24.9 Parietal Cell Antibodies are found in 90% of patients with pernicious anemia and 30% of first degree relatives with pernicious anemia. Performed at: [facility] [address] [id number] Liquor Tester: Otis Sanders PhD, Phone: [phone] Negative 0.0 - 20.0 Equivocal 20.1 - 24.9 Positive >24.9Parietal Cell Antibodies are found in 90% of patientswith pernicious anemia and 30% of first degreerelatives with pernicious anemia.Performed at: [employer] [id number] Director: Otis Sanders PhD, Phone: [phone] Albumin [Mass/volume] in Ser um or Plasmaon 08-14-2020 Albumin [Mass/Vol] 3.6 g/dL 2.9-4.4 [facility] Direct bilirubin measurement on 08-14-2020 Bilirubin.direct [Mass/Vol] 0.2 mg/dL 0.0-0.4 [facility] Immunoglobulin light chains. kappa.free [Mass/volume] in Serumon 08-14-2020 Immunoglobulin light chains.kappa.free (S) [Mass/Vol] 36.3 mg/L 3.3-19.4 [facility] Immunoglobulin light chains. kappa.free/Immunoglobulin light chains.lambda.free [Mariana 08-14-2020 Immunoglobulin light chains.kappa.free/Immu noglobulin light chains.lambda.free (S) [Mass ratio] 2.11 0.26-1.65 [facility] Comment on above: Performed at: [address] [id number] Liquor Tester: Otis Sanders PhD, Phone: [phone] Performed at: [address] [id number] Director: Otis Sanders PhD, Phone: [phone] Immunoglobulin light chains. lambda.free [Mass/volume] in Serum or Plasmaon 08-14-2020 Immunoglobulin light chains.lambda.free [Mass/Vol] 17.2 mg/L 5.7-26.3 [facility] No Panel Informationon 08-14 Absolute Reticulocyte Count 0.078 10*6/uL 0.024-0.08 4 [facility] Percent Reticulocyte Count 1.9 % 0.5-1.5 [facility] Protein Electrophoresis M-Sean Not observed g/dL Not Observed [facility] Protein Electrophoresis Note See comment . [facility] Comment on above: Protein electrophore sis scan will follow via computer, mail, or economic history teacher delivery. Performed at: [facility] [address] [id number] Liquor Tester: Otis Sanders PhD, Phone: [phone] Protein electrophore sis scan will follow via computer,mail, or economic history teacher delivery.Performed at: [facility] [address] [id number] Director: Otis Sanders PhD, Phone: [phone] Serum Immunofixation Reflexed N/A [facility] Protein [Mass/volume] in Ser um or Plasmaon 08-14-2020 Protein [Mass/Vol] 7.2 g/dL 6.0-8.5 [facility] Serum globulin measurement ( mass/volume)on 08-14-2020 Globulin (S) [Mass/Vol] 3.6 g/dL 2.2-3.9 [facility] Serum or plasma albumin/glob ulin mass ratioon 08-14-2020 Albumin/Globulin [Mass ratio] 1.0 {ratio} 0.7-1.7 [facility] Serum or plasma alpha 1 glob ulin measurement by electrophoresis (mass/volume)on 08-14-2020 Alpha 1 globulin Elph [Mass/Vol] 0.3 g/dL 0.0-0.4 [facility] Serum or plasma alpha 2 glob ulin measurement by electrophoresis (mass/volume)on 08-14-2020 Alpha 2 globulin Elph [Mass/Vol] 0.9 g/dL 0.4-1.0 [facility] Serum or plasma beta globuli n measurement by electrophoresis (mass/volume)on 08-14-2020 Beta globulin Elph [Mass/Vol] 1.2 g/dL 0.7-1.3 [facility] Serum or plasma gamma globul in measurement by electrophoresis (mass/volume)on 08-14-2020 Gamma globulin Elph [Mass/Vol] 1.1 g/dL 0.4-1.8 [facility] Serum or plasma non-glucuron idated bilirubin measurement (mass/volume)on 08-14-2020 Bilirubin.indirect [Mass/Vol] 0.8 mg/dL [facility] TSH DL <= 0.005 mIU/L Qnon 0 08-14-2020 TSH Qn 4.44 m[IU]/L 0.45-5.33 [facility] US SINGLE QUAD RT UPPERon US [...] 32 cm/s. 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 No visible gallstones, [...] by: FABI MADRIGAL Date: 2020-06-21 09:49 Normal [facility] Vital Signs Date Time Vital Sign Value Performing Clinician Facility 10-01-2023 14:30-0500 Body height 187.96 cm Estevan Lester Other [facility] Other 10-01-2023 14:30-0500 Body mass index (BMI) [Ratio] 26.86 kg/m2 Estevan Lester Other [facility] Other 10-01-2023 14:30-0500 Body weight 94.89 kg Estevan Lester Other [facility] Other 10-01-2023 14:30-0500 Diastolic blood pressure 69 mm[Hg] Estevan Lester Other [facility] Other 10-01-2023 14:30-0500 Systolic blood pressure 151 mm[Hg] Estevan Lester Other [facility] Other 06-22-2023 09:37-0400 Body height 187.96 cm II Matti Ash Work Phone: [facility] 06-22-2023 09:37-0400 Body temperature 97.4 [degF] II Matti Ash Work Phone: [facility] 06-22-2023 09:37-0400 Body weight 92.44 kg II Matti Ash Work Phone: [facility] 06-22-2023 09:37-0400 Diastolic blood pressure 68 mm[Hg] II Matti Ash Work Phone: [facility] 06-22-2023 09:37-0400 Heart rate 52 /min II Matti Ash Work Phone: [facility] 06-22-2023 09:37-0400 Respiratory rate 20 /min II Matti Ash Work Phone: [facility] 06-22-2023 09:37-0400 SaO2% (BldA) [Mass fraction] 96 % II Matti Ash Work Phone: [facility] 06-22-2023 09:37-0400 Systolic blood pressure 121 mm[Hg] II Matti Ash Work Phone: [facility] 03-20-2023 13:21-0400 Body temperature 97.8 [degF] II Matti Ash Work Phone: [facility] 03-20-2023 13:21-0400 Body weight 101.6 kg II Matti Ash Work Phone: [facility] 03-20-2023 13:21-0400 Diastolic blood pressure 78 mm[Hg] II Matti Ash Work Phone: [facility] 03-20-2023 13:21-0400 Heart rate 66 /min II Matti Ash Work Phone: [facility] 03-20-2023 13:21-0400 Respiratory rate 16 /min II Matti Ash Work Phone: [facility] 03-20-2023 13:21-0400 SaO2% (BldA) [Mass fraction] 98 % II Matti Ash Work Phone: [facility] 03-20-2023 13:21-0400 Systolic blood pressure 122 mm[Hg] II Matti Ash Work Phone: [facility] 01-21-2023 13:00-0500 Body height 187.96 cm Estevan Lester Other [facility] Other 01-21-2023 13:00-0500 Body mass index (BMI) [Ratio] 29.53 kg/m2 Estevan Lester Other [facility] Other 01-21-2023 13:00-0500 Body weight 104.33 kg Estevan Lester Other [facility] [employer] Other 01-21-2023 13:00-0500 Diastolic blood pressure 64 mm[Hg] Estevan Lester Other [facility] [employer] Other 01-21-2023 13:00-0500 Systolic blood pressure 133 mm[Hg] Estevan Lester Other [facility] [employer] Other 12-16-2022 13:12-0500 Diastolic blood pressure 73 mm[Hg] II Matti Ash Work Phone: [facility] 12-16-2022 13:12-0500 Heart rate 61 /min II Matti Ash Work Phone: [facility] 12-16-2022 13:12-0500 Respiratory rate 18 /min II Matti Ash Work Phone: [facility] 12-16-2022 13:12-0500 SaO2% (BldA) [Mass fraction] 100 % II Matti Ash Work Phone: [facility] 12-16-2022 13:12-0500 Systolic blood pressure 146 mm[Hg] II Matti Ash Work Phone: [facility] 12-16-2022 11:34-0500 Body height 187.96 cm II Matti Ash Work Phone: [facility] 12-16-2022 11:34-0500 Body temperature 98.2 [degF] II Matti Ash Work Phone: [facility] 12-16-2022 11:34-0500 Body weight 104.32 kg II Matti Ash Work Phone: [facility] 09-26-2022 15:02-0400 Body temperature 97.8 [degF] II Matti Ash Work Phone: [facility] 09-26-2022 15:02-0400 Diastolic blood pressure 57 mm[Hg] II Matti Ash Work Phone: [facility] 09-26-2022 15:02-0400 Heart rate 68 /min II Matti Ash Work Phone: [facility] 09-26-2022 15:02-0400 Respiratory rate 18 /min II Matti Ash Work Phone: [facility] 09-26-2022 15:02-0400 SaO2% (BldA) [Mass fraction] 99 % II Matti Ash Work Phone: [facility] 09-26-2022 15:02-0400 Systolic blood pressure 133 mm[Hg] II Matti Ash Work Phone: [facility] 09-15-2022 14:40-0400 Body height 187.96 cm II Matti Ash Work Phone: [facility] 09-15-2022 14:40-0400 Body weight 101.78 kg II Matti Ash Work Phone: [facility] 09-15-2022 14:40-0400 Diastolic blood pressure 91 mm[Hg] II Matti Ash Work Phone: [facility] 09-15-2022 14:40-0400 Heart rate 55 /min II Matti Ash Work Phone: [facility] 09-15-2022 14:40-0400 Respiratory rate 18 /min II Matti Ash Work Phone: [facility] 09-15-2022 14:40-0400 SaO2% (BldA) [Mass fraction] 99 % II Matti Ash Work Phone: [facility] 09-15-2022 14:40-0400 Systolic blood pressure 151 mm[Hg] II Matti Ash Work Phone: [facility] 09-09-2022 14:17-0400 Diastolic blood pressure 64 mm[Hg] II Matti Ash Work Phone: [facility] 09-09-2022 14:17-0400 Heart rate 88 /min II Matti Ash Work Phone: [facility] 09-09-2022 14:17-0400 Respiratory rate 16 /min II Matti Ash Work Phone: [facility] 09-09-2022 14:17-0400 SaO2% (BldA) [Mass fraction] 98 % II Matti Ash Work Phone: [facility] 09-09-2022 14:17-0400 Systolic blood pressure 125 mm[Hg] II Matti Ash Work Phone: [facility] 09-09-2022 12:49-0400 Body height 187.96 cm II Matti Ash Work Phone: [facility] 09-09-2022 12:49-0400 Body weight 97.52 kg II Matti Ash Work Phone: [facility] 08-15-2022 10:45-0400 Body weight 102.06 kg Estevan Lester Other [facility] [employer] Other 07-08-2022 12:01-0400 Body weight 0 kg II Matti Ash Work Phone: [facility] 07-08-2022 11:04-0400 Body temperature 97.5 [degF] II Matti Ash Work Phone: [facility] 07-08-2022 11:04-0400 Body weight 103.87 kg II Matti Ash Work Phone: [facility] 07-08-2022 11:04-0400 Diastolic blood pressure 80 mm[Hg] II Matti Ash Work Phone: [facility] 07-08-2022 11:04-0400 Heart rate 59 /min II Matti Ash Work Phone: [facility] 07-08-2022 11:04-0400 Respiratory rate 16 /min II Matti Ash Work Phone: [facility] 07-08-2022 11:04-0400 SaO2% (BldA) [Mass fraction] 98 % II Matti Ash Work Phone: [facility] 07-08-2022 11:04-0400 Systolic blood pressure 158 mm[Hg] II Matti Ash Work Phone: [facility] 08-14-2020 09:08-0400 Body height 187.96 cm II Matti Ash Work Phone: [facility] Encounters Encounter Date Encounter Type Care Provider Facility Start: 12-25-2023 ambulatory Matti Ash Facility:[facility] Start: 12-23-2023 External Result Encounter Luciano Ramirez DO Work Phone: [facility] Unsolicited Start: 12-23-2023 External Result Encounter Luciano Ryanne Ramirez DO Work Phone: [facility] External Department Unsolicited Start: 12-15-2023 End: 12-15-2023 ambulatory Estevan Lester Other [facility] [employer] Other Start: 12-15-2023 Telephone encounter [facility] Start: 12-03-2023 End: 12-03-2023 ambulatory RIOS CURRY Not Available Start: 12-02-2023 End: 12-02-2023 ambulatory Estevan Lester Other [facility] Other Start: 12-02-2023 Telephone encounter Est[facility]an [facility] Start: 2023 End: 2023 Emergency department patient visit Matti Ash Facility:[facility] Start: 10-05-2023 End: 10-05-2023 ambulatory MATTI Raj ARMANI Not Available Start: 10-01-2023 End: 10-01-2023 ambulatory Estevan Lester Other [facility] [employer] Other Start: 10-01-2023 Patient encounter procedure Estevan Fannieantoinettemaicol [facility] Start: 07-30-2023 End: 07-30-2023 ambulatory Estevan Fannieantoinettemaicol Other [facility] [employer] Other Start: 07-30-2023 Telephone encounter Estevan Lester [facility] Start: 06-22-2023 End: 06-22-2023 ambulatory Mariah Bernard Facility:[facility] Start: 06-22-2023 End: 06-22-2023 Patient encounter procedure II Matti Ash Work Phone: [facility] Work Phone: Start: 06-22-2023 End: 06-22-2023 ambulatory II Matti Ash Work Phone: [facility] Work Phone: Start: 06-22-2023 End: 06-22-2023 Registered Recurring II Matti Ash Work Phone: [facility] Work Phone: Start: 03-20-2023 End: 03-20-2023 ambulatory II Matti Ash Work Phone: [facility] Work Phone: Start: 03-20-2023 End: 03-20-2023 Registered Recurring II Matti Ash Work Phone: [facility] Work Phone: Start: 01-21-2023 End: 01-21-2023 ambulatory Estevan Fannieantoinettemaicol Other [facility] Other Start: 01-21-2023 Patient encounter procedure Estevan Fanniewest [facility] Start: 01-08-2023 End: 01-08-2023 ambulatory Estevan Fannieantoinettemaicol Other [facility] [employer] Other Start: 01-08-2023 Telephone encounter Estevan ADAM [facility] Start: 12-17-2022 End: 12-17-2022 ambulatory Estevan Lester Other [facility] [employer] Other Start: 12-17-2022 Telephone encounter Estevan ADAM [facility] Start: 12-16-2022 End: 12-16-2022 Admission to same day surgery center II Matti Ash Work Phone: [facility] Work Phone: Start: 12-16-2022 End: 12-16-2022 ambulatory II Matti Ash Work Phone: [facility] Work Phone: Start: 12-15-2022 End: 12-15-2022 ambulatory Estevan Lester Other [employer] Other Start: 12-15-2022 Telephone encounter Estevan ADAM [facility] Start: 12-15-2022 Registered Recurring II Matti Ash Work Phone: [facility] Work Phone: Start: 11-13-2022 End: 11-13-2022 ambulatory Estevan Lester Other [employer] Other Start: 11-13-2022 Telephone encounter Estevan ADAM [facility] Start: 09-15-2022 End: 09-15-2022 ambulatory II Matti Ash Work Phone: [facility] Work Phone: Start: 09-15-2022 End: 09-15-2022 Registered Recurring II [facility] Start: 09-10-2022 End: 09-10-2022 ambulatory Estevan Lester Other [facility] [employer] Other Start: 09-10-2022 Telephone encounter Estevan ADAM [facility] Start: 09-09-2022 End: 09-09-2022 Admission to same day surgery center II Matti Ash Work Phone: [facility] Start: 09-09-2022 End: 09-09-2022 ambulatory II Matti Ash Work Phone: [facility] Work Phone: Start: 09-05-2022 End: 09-05-2022 Patient encounter procedure II Matti Ash Work Phone: [facility] Start: 08-15-2022 End: 08-15-2022 ambulatory Estevan Lester Other [facility] [employer] Other Start: 08-15-2022 End: 08-15-2022 Patient encounter procedure Estevan PLATA [facility] Start: 07-22-2022 Registered Recurring II Matti Ash Work Phone: [facility] Start: 07-09-2022 End: 07-09-2022 Patient encounter procedure II Matti Ash Work Phone: [facility] Start: 12-04-2020 End: 12-05-2020 Patient encounter procedure JOHN VENTURA Facility:[facility] Start: 09-05-2020 End: 09-05-2020 Patient encounter procedure MATTI ASH Facility:[facility] Start: 08-31-2020 End: 09-01-2020 Patient encounter procedure AMTTI ASH Facility:[facility] Start: 06-21-2020 End: 06-22-2020 Patient [...] Well ness (AWV) Medicare Annual Wellness (AWV) [facility] Start: 07-06-2024 Urine screening for protein Diabetes: Urine Protein Screening [facility] Start: 05-22-2024 Influenza vaccination Influenza Vacc ine (#1) [facility] Comment on above: Postponed from 07/24 (Patient Refused) Start: 04-04-2024 End: 04-04-2024 Patient encounter procedure 04/04/2024 8:30 AM EDT Office Visit [facility] [address] [facility] [address] [place] [address] Matti Ash MD [address] [facility] [address] [place] [address] [facility] Start: 01-21-2024 End: 01-21-2024 Patient encounter procedure 01/21/2024 9:45 AM EST Office Visit [facility] [address] [place] [id number] Mariah Bernard DO [address] [place] [address] [facility] Start: 12-23-2023 Hemoglobin A1c measurement Luz betes: Hemoglobin A1C [facility] Start: 08-01-2023 Glaucoma screening Diabetes: R etinopathy Screening [facility] Start: 06-22-2023 [facility] Start: 05-13-2023 [facility] Start: 03-27-2023 [facility] Start: 03-20-2023 [facility] Start: 03-09-2023 [facility] Start: 12-19-2022 [facility] Start: 12-16-2022 [facility] Start: 11-11-2022 [facility] Start: 10-14-2022 [facility] Start: 09-26-2022 [facility] Start: 09-19-2022 [facility] Start: 09-09-2022 [facility] Start: 07-22-2022 Registered Recurring B12 deficiency [facility] Start: 07-09-2022 [facility] Start: 04-14-2022 [facility] Start: 03-04-2022 End: 03-04-2022 [facility] Start: 12-10-2021 [facility] Start: 02-19-2021 [facility] Start: 02-12-2021 [facility] Start: 01-07-2021 [facility] Start: 09-19-2020 [facility] Start: 09-04-2020 [facility] Start: 08-28-2020 End: 08-28-2020 [facility] Start: 08-28-2020 [facility] Start: 1951 Pneumococcal Vaccine : 65+ Years (1 - PCV) Pneumococcal Vaccine: 65+ Years (1 - PCV) [facility] Alanine aminotransfe rase [Enzymatic activity/volume] in Serum or Plasma by No addition of P-5'-P [facility] Albumin [Mass/volume ] in Serum or Plasma [facility] Albumin/Globulin ratio [facility] Alkaline phosphatase [Enzymatic activity/volume] in Serum or Plasma [facility] Mkbaj-2-sbcxpenmebf. tumor marker [Mass/volume] in Serum or Plasma [facility] Anion gap measurement [facility] Aspartate aminotrans ferase [Enzymatic activity/volume] in Serum or Plasma [facility] Bilirubin.total [Mass/volume] in Serum or Plasma [facility] Calcium [Mass/volume ] in Serum or Plasma [facility] Carbon dioxide, tota l [Moles/volume] in Serum or Plasma [facility] Chloride [Moles/volu me] in Serum or Plasma [facility] Comprehensive metabo lic 1999 panel - Serum or Plasma [facility] Comprehensive metabo lic 1999 panel - Serum or Plasma [facility] Comprehensive metabo lic 1999 panel - Serum or Plasma [facility] Creatinine and Glome rular filtration rate.predicted panel - Serum, Plasma or Blood [facility] Erythropoietin (EPO) [Units/volume] in Serum or Plasma [facility] Ferritin [Mass/volum e] in Serum or Plasma [facility] Work Phone: Ferritin [Mass/volum e] in Serum or Plasma [facility] Ferritin [Mass/volum e] in Serum or Plasma [facility] Globulin [Mass/volum e] in Serum [facility] Glucose [Mass/volume ] in Serum or Plasma [facility] IMMUNOFIXATION,SERUM ([facility]) IMMUNOFIXATION,SERUM ([facility]) Lab Routine 12/23/2023 12:11 PM EST [facility] Work Phone: Measurement of renal function [facility] Patient Education Gastritis [facility] Work Phone: Potassium [Moles/vol ume] in Serum or Plasma [facility] Protein [Mass/volume ] in Serum or Plasma [facility] Sodium [Moles/volume ] in Serum or Plasma [facility] Urea nitrogen [Mass/volume] in Serum or Plasma [facility] Work Phone: [facility] Immunizations Immunization Date Immunization Notes Care Provider Lea irby 10-24-2022 Moderna Bivalent [place] [facility] Vaccination Luciano Ramirez DO Work Phone: [facility] Payers Date Payer Category Payer Self-pay [id number] 2022 Unknown AARP AARP [id number] 2022-Present [address] [place] [address] [id number] 2008 Medicare MEDICARE MEDICAR E PART B [id number] 2008-Present [address] [address] [place] [address] Medicare [id number] 1959 Medicare [id number] 1959 Unknown [id number] 1943 Unknown [id number] 1943 Unknown [id number] 1943 Unknown [id number] 1943 Unknown [id number] 1943 Unknown [id number] 1943 Unknown [id number] Unknown [id number] Unknown [id number] Unknown [id number] Social History Date Type Detail Facility Start: 07-08-2022 End: 05-02-2023 Tobacco smoking status NHIS Never smoked tobacco (finding) [facility] Start: 1945 Sex Assigned At Male [facility] Start: 06-19-2023 End: 07-30-2023 Sex Assigned At [facility] Other Start: 05-02-2023 Tobacco use and exposure [...] each by Other route in the morning. [id number] INJECT SUBCUTANE OUSLY TWICE A DAY [id number] Start: 04-30-2023 1 each by Other route in the morning. [id number] Start: 06-19-2023 End: 06-18-2024 Goals Date Patient Goal Desired Activity /State Clinical Notes 08-14-2020 to 12-15-2023 Note Date & Type Note Facility 12-15-2023 Evaluation note Encounter Date Diagnosis Assessment Notes Nov, Cirrhosis of liver (ICD-10 - K74.60) [facility] Other 11-09-2023 Evaluation note* Encounter Date Diagnosis Assessment Notes Treatment Notes Treatment Clinical Notes Sep, Cirrhosis of liver (ICD-10 - K74.60) Pt states he is moving his bowels ok Pt RTO in 6 months Labs ordered Sep, Esophageal varices (ICD-10 - I85.00) [facility] Other 09-07-2023 Evaluation note* Encounter Date Diagnosis Assessment Notes Treatment Notes Treatment Clinical Notes Jul, Cirrhosis of liver (ICD-10 - K74.60) [facility] Other 04-28-2023 Progress note Author Alisha Soares [facility] March 20, 2023 3:21pm Note Date/Time March 20, 2023 2:0 4pm [facility] at [address] [address] Hem/Onc Follow Up Note - OP Signed Patient: Galen Doss JR MR#: [id number] : 1945 Acct:[id number] Age/Sex: 77 / M Type: REG RCR [...] be iron deficient despite IV replacement 09/15/22 [facility] EGD perforemd by Dr. Lester. STOMACH: [...] for coordination of care (as documented) and yovo-zj-jybv counseling of patient and/or family. [facility] - Medical History Medical History: Medical History [...] % (Auto) 54.6, Lymph % (Auto) 33.2, Tift % (Auto) 10.0, Eos % (Auto) 1.9, Baso % (Auto) 0.3, Nucleat RBC Rel Count 0.1, Neut # (Auto) 1.5 L, Lymph # (Auto) 0.9 L, Tift # (Auto) 0.3, Eos # (Auto) 0.1, [...] <Electronically signed by LISA Soares> 03/20/23 1521 [facility] Work Phone: 1(615) 609-883003-01-2023 Evaluation note* Encounter Date Diagnosis Assessment Notes Treatment Notes Treatment Clinical Notes Jan, Cirrhosis of liver (ICD-10 - K74.60) Continue Aldactone 50 mg daily Continue Xifaxan 550 mg twice a day Continue Lasix 20 mg daily Rto 6 months Jan, Esophageal varices (ICD-10 - I85.00) [facility] Other 02-16-2023 Evaluation note* Encounter Date Diagnosis Assessment Notes Treatment Notes Treatment Clinical Notes Dec, Cirrhosis of liver (ICD-10 - K74.60) [facility] Other [facility] Progress note Author Luciano Ramirez [facility] September 15, 2022 3:31pm Note Date/Time September 15, 2022 3 :13pm [facility] at [address] [address] Hem/Onc Follow Up Note - OP Signed Patient: Galen Doss JR MR#: [id number] : 1945 Acct:[id number] Age/Sex: 76 / M Type: REG RCR [...] be iron deficient despite IV [facility] Dr. Lester. STOMACH: [...] for coordination of care (as documented) and irmx-hb-kets counseling of patient and/or family. [facility] - Medical History Medical History: Medical History [...] % (Auto) 63.1, Lymph % (Auto) 27.1, Tift % (Auto) 8.3, Eos % (Auto) 1.2, Baso % (Auto) 0.3, Neut # (Auto) 2.3, Lymph # (Auto) 1.0, Tift# (Auto) 0.3, Eos # (Auto) 0.0, Baso [...] by Luciano Ramirez II, DO> 09/15/22 1531 [facility] Work Phone: 1(572) 571-717110-19-2022 Evaluation note* Encounter Date Diagnosis Assessment Notes Treatment Notes Treatment Clinical Notes Aug, Cirrhosis of liver (ICD-10 - K74.60) [facility] Other 10-19-2022 Evaluation note* Encounter Date Diagnosis Assessment Notes Treatment Notes Treatment Clinical Notes Aug, Cirrhosis (ICD-10 - K74.60) Aug, Esophageal varices (ICD-10 - I85.00) [facility] Other 10-18-[facility]22 [facility]* Encounter Date Diagnosis Assessment Notes Treatment Notes Treatment Clinical Notes Jul, Cirrhosis of liver (ICD-10 - K74.60) no family history of liver, lung disease patient was not a heavy alcohol drinker, no auto immune disease patient is advised we will order some labs at this time we will order the above medication at this time. [facility] Other 08-17-2022 Reason for visit NarrativePATIENT HERE AT THE REQUEST OF ALISHA PEARL NP FOR EVALUATION & TREATMENT OF CIRRHOSIS. (FIBROS CAN DONE 07/09/22), PATIENT DENIES ANY PAIN OR DISCOMFORT, PATIENT HAS NOT NOTICED ANY JAUNDICE. PATIENT STATES IMMUNE SYSTEM IS DOWN AND THATS WHY HE WAS SENT HERE.[facility] Other 08-16-2022 Progress note Author Luciano Ramirez [facility] July 08, 2022 3:04pm Note Date/Time July 08, 2022 12 :49pm [facility] [place] [address] Hem/Onc Follow Up Note - OP Signed Patient: Galen Doss JR MR#: [id number] : 1945 Acct:[id number] Age/Sex: 76 / M Type: REG RCR [...] for coordination of care (as documented) and pciy-vh-xqyj counseling of patient and/or family. [facility] - Medical History Medical History: Medical History [...] % (Auto) 61.5, Lymph % (Auto) 27.6, Tift % (Auto) 10.0, Eos % (Auto) 0.7, Baso % (Auto) 0.2, Neut # (Auto) 1.5 L, Lymph # (Auto) 0.7 L, Tift #(Auto) 0.2, Eos # (Auto) 0.0, Baso [...] by Luciano Ramirez II, DO> 07/08/22 1504 [facility] Work Phone: 1(987) 679-528211-16-2021 Progress note Author John Ventura [facility] October 08, 2021 10:15am Note Date/Time October 08, 2021 10:10am [facility] [place] [address] Hem/Onc Follow Up Note - OP Signed Patient: Galen Doss JR MR#: [id number] : 1945 Acct:[id number] Age/Sex: 75 / M Type: REG RCR [...] Subjective/ROS - Narrative: Overall negative and noncontributory. [facility] - Medical History Medical History: Medical History [...] mL (18 mg/3 mL) subcutaneous pen injector (Spare to Share[employer] 2- Ulices)1.8 mg SUBCUT Q24H 08/14/20 [History [...] for coordination of care (as documented) and qrsw-ke-qyaf counseling of patient and/or family. Dictated By: John Ventura MD DD/ [id number] Signed By: <Electronically signed by MD John Ventura> 10/08/21 101 [facility] Work Phone: 1(103) 287-377408-10-2021 Progress note Author Bill Leal [facility] July 02, 2021 10:36am Note Date/Time July 02, 2021 10 :30am [facility] [place] [address] Hem/Onc Follow Up Note - OP Signed Patient: Galen Doss JR MR#: [id number] : 1945 Acct:[id number] Age/Sex: 75 / M Type: REG RCR [...] denies bleeding. His EGD and colonoscopy at [place] were negative. He denies infections, he does [...] Depressed Mood [-], Anxiety [-], Stressed [-] [facility] - Medical History Medical History: Medical History [...] % (Auto) 28.2 % (.) 06/25/21 10:59 Tift % (Auto) 7.5 % (.) 06/25/21 10:59 Eos % (Auto) 1.2 % (.) 06/25/21 10:59 Baso % (Auto) 0.4 % (.) 06/25/21 10:59 Neut # (Auto) 2.2 x10E3/uL (1.8-7.7) 06/25/21 10:59 Lymph # (Auto) 1.0 x10E3/uL (1.00-4.8) 06/25/21 10:59 Tift # (Auto) 0.3 x10E3/uL (0.0-0.8) 06/25/21 10:59 [...] 09:38 Albumin 4.0 gm/dL (3.2-5.5) 06/25/21 10:59 Kvyvn-1-Uibdjdyvs 0.3 g/dL (0.0-0.4) 08/14/20 09:38 Exktn-6-Svqlypvzf 0.9 g/dL (0.4-1.0) 08/14/20 09:38 Beta Globulins [...] 84.7 Units (0.0-20.0) H 08/21/20 09:32 Free [place] LC, Quant 36.3 mg/L (3.3-19.4) H 08/14/20 09:38 Free [place] LC, Quant 17.2 mg/L (5.7-26.3) 08/14/20 09:38 Free [place]/Lambda Ratio 2.11 (0.26-1.65) H 08/14/20 09:38 Assessment [...] alcohol, no liver diseaseon ultrasound done at [place] except for a small patch of fatty [...] for coordination of care (as documented) and nkih-fz-sdyk counseling of patient and/or family. Dictated By: Bill Leal MD DD/ [id number] Signed By: <Electronically signed by Bill Leal MD> 07/02/21 1036 [facility] Work Phone: 1(169) 770-572205-11-2021 Progress note Author Lars Zhang [facility] April 02, 2021 6:05pm Note Date/Time April 02, 2021 6:01p m [facility] [place] [address] Hem/Onc Follow Up Note - OP Signed Patient: Galen Doss JR MR#: [id number] : 1945 Acct:[id number] Age/Sex: 75 / M Type: REG RCR [...] denies bleeding. His EGD and colonoscopy at [place] were negative. He denies infections, he does not drink alcohol. ROS Details: All systems reviewed & no additional complaints except as documented [facility] - Medical History Medical History: Medical History [...] % (Auto) 61.4, Lymph % (Auto) 29.2, Tift % (Auto) 7.7, Eos % (Auto) 1.1, Baso % (Auto) 0.6, Neut # (Auto) 2.0, Lymph # (Auto) 1.0, Tift # (Auto) 0.3, Eos # (Auto) 0.0, [...] alcohol, no liver diseaseon ultrasound done at [place]. Normal santiago copper level. -It is stable, [...] for coordination of care (as documented) and dirm-jb-icgi counseling of patient and/or family. Dictated By: Lars Zhang MD DD/ 1800 Signed By: <Electronically signed by Lars Zhang MD> 04/02/21 1603 [facility] Work Phone: 1([phone]) 467-989703-16-2021 Progress note Author Lars Zhang [facility] February 05, 2021 11:20am Note Date/Time February 05, 2021 11: 15am [facility] [place] at [address] [address] Hem/Onc Follow Up Note - OP Signed Patient: Galen Doss JR MR#: [id number] : 1945 Acct:[id number] Age/Sex: 75 / M Type: REG RCR [...] denies bleeding. His EGD and colonoscopy at [place] were negative. He denies infections, he does not drink alcohol. He thinks he had imaging studies of the abdomen about a year ago, but could not remember for sure. ROS Details: All systems reviewed & no additional complaints except as documented [facility] - Medical History Medical History: Medical History [...] % (Auto) 58.1, Lymph % (Auto) 32.5, Tift % (Auto) 8.4, Eos % (Auto) 0.7, Baso % (Auto) 0.3, Neut # (Auto) 2.1, Lymph # (Auto) 1.2, Tift # (Auto) 0.3, Eos # (Auto) 0.0, [...] for coordination of care (as documented) and rsqc-qc-dtxp counseling of patient and/or family. Dictated By: Lars Zhang MD DD/ 1114 Signed By: <Electronically signed by Lars Zhang MD> 02/05/21 1120 [facility] Work Phone: [phone]) 491-824601-19-2021 Progress note Author Lars Zhang [facility] December 11, 2020 8:35pm Note Date/Time December 11, 2020 3 :00pm [facility] [place] [id number] Hem/Onc Follow Up Note - OP Signed Patient: Galen Doss JR MR#: [id number] : 1945 Acct:[id number] Age/Sex: 75 / M Type: REG RCR [...] denies bleeding. His EGD and colonoscopy at [place] were negative. He denies infections, he does not drink alcohol. ROS Details: All systems reviewed & no additional complaints except as documented [facility] - Medical History Medical History: Medical History [...] for coordination of care (as documented) and hszo-er-haqu counseling of patient and/or family. Dictated By: Lars Zhang MD DD/ 1500 Signed By: <Electronically signed by Lars Zhang MD> 12/11/202034 [facility] Work Phone: 1([phone]) 461-641711-24-2020 Progress note Author John Ventura [facility] October 16, 2020 2:32pm Note Date/Time October 16, 2020 2:31pm [facility] at [address] [address] Hem/Onc Follow Up Note - OP Signed Patient: Galen Doss JR MR#: [id number] : 1945 Acct:[id number] Age/Sex: 74 / M Type: REG RCR [...] IM B12 and did receive IV iron. [facility] - Medical History Medical History: Medical History [...] for coordination of care (as documented) and izea-fh-hioa counseling of patient and/or family. Dictated By: John Ventura MD DD/ 29 Signed By: <Electronically signed by MD John Ventura> 10/16/20 143 [facility] Work Phone: 1([phone]) 789-748811-03-2020 Progress note Author John Ventura [facility] September 25, 2020 12:45pm Note Date/Time September 25, 2020 1 2:40pm [facility] [place] [address] Hem/Onc Follow Up Note - OP Signed Patient: Galen Doss JR MR#: [id number] : 1945 Acct:[id number] Age/Sex: 74 / M Type: REG RCR [...] IM B12 and did receive IV iron. [facility] - Medical History Medical History: Medical History [...] % (Auto) 62.5, Lymph % (Auto) 28.3, Tift % (Auto) 7.9, Eos % (Auto) 1.1, Baso % (Auto) 0.2, Neut # (Auto) 2.1, Lymph # (Auto) 0.9 L, Tift # (Auto) 0.3, Eos # (Auto) 0.0, [...] for coordination of care (as documented) and jpck-gt-wmqu counseling of patient and/or family. Dictated By: John Ventura MD DD/ 1239 Signed By: <Electronically signed by MD John Ventura> 09/25/20 1245 [facility] Work Phone: 1(183) 752-114410-06-2020 Progress note Author John Ventura [facility] August 28, 2020 9:24am Note Date/Time August 28, 2020 9: 21am [facility] [place] [address] Hem/Onc Follow Up Note - OP Signed Patient: Galen Doss JR MR#: [id number] : 1945 Acct:[id number] Age/Sex: 74 / M Type: REG RCR [...] be getting colonoscopy next on September 05. [facility] - Medical History Medical History: Medical History [...] for coordination of care (as documented) and yaai-pq-dztq counseling of patient and/or family. Dictated By: John Ventura MD DD/ 6 Signed By: <Electronically signed by MD John Ventura> 08/28/20923 [facility] Work Phone: [phone] Progress note Author John Ventura [facility] August 21, 2020 9:33am Note Date/Time August 21, 2020 9:27am [facility] [place] [address] Hem/Onc Follow Up Note - OP Signed Patient: Galen Doss JR MR#: [id number] : 1945 Acct:[id number] Age/Sex: 74 / M Type: REG RCR [...] is retired and used to work at [employer]. He has been for 52 years. He denies night sweats fevers or weight loss. He presented August 14, 2020 in consultation. [facility] - Medical History Medical History: Medical History [...] 3.6, Globulin (PEP) 3.6, Albumin/Globulin (PEP) 1.0, Musdu-8-Zpuorihjw 0.3, Dcmzy-5-Vvlohmnhb 0.9, Beta Globulins 1.2, Gamma Globulins 1.1, M-Sean Not observed, PEP Note , Methylmalonic Acid 1016 H, MMA Comment , Serum Immunofix Reflex N/A, Free [place] LC, Quant 36.3 H, Free Lambda LC, Quant 17.2, Free [place]/Lambda Ratio 2.11 H 08/14/20 09:38: PHA Creatinine [...] Neut% (Auto) 63.5, Lymph % (Auto) 29.3, Tift % (Auto) 6.4, Eos % (Auto) 0.5, Baso % (Auto) 0.3, Neut # (Auto) 1.6 L, Lymph # (Auto) 0.7 L, Tift # (Auto) 0.2, Eos # (Auto) 0.0, [...] for coordination of care (as documented) and hlzb-ea-gcio counseling of patient and/or family. Dictated By: John Ventura MD DD/ 6 Signed By: <Electronically signed by MD John eVntura> 08/21/20932 [facility] Work Phone: [phone] Consult note Author John Ventura [facility] August 14, 2020 9:38am Note Date/Time August 14, 2020 9:29am [facility] [place] [address] Hem/Onc Consult Note - OP Signed Patient: Galen Doss JR MR#: [id number] : 1945 Acct:[id number] Age/Sex: 74 / M Type: REG RCR [...] is retired and used to work at [employer]. He has been for 52 years. He denies night sweats fevers or weight loss. He is presenting today August 14, 2020 in consultation. [facility] - Medical History Medical History: Medical History [...] for coordination of care (as documented) and ilyf-vl-wfob counseling of patient and/or family. Dictated By: John Ventura MD DD/ 7 Signed By: <Electronically signed by MD John Ventura> 08/14/20937 [facility] Work Phone: Evaluation note* Diagnosis Onset Date Resolution Status B12 deficiency acute Pancytopenia acute Splenomegaly acute Iron deficiency chronic Leukopenia chronic Peripheral neuropathy chroni c Thrombocytopenia chronic [facility] Work Phone: Evaluation noteNo [facility] [employer] Other History and physical note Author Estevan Lester [facility] September 09, 2022 1:31pm Note Date/Time September 09, 2022 1 :31pm [facility] [address] [place] [address] Gastroenterology H&P Signed Patient: Galen Doss JR MR#: [id number] : 1945 Acct:[id number] Age/Sex: 76 / M Adm Date: 2 Loc: Room: Type: [facility] Attending Dr: Estevan Lester MD Copies to: [...] <Electronically signed by Estevan Lester MD> 09/09/221 [facility] Work Phone: History and physical note Author Estevan Lester [facility] December 16, 2022 12:34pm Note Date/Time December 16, 2022 1 2:34pm [facility] [address] [place] [address] Gastroenterology H&P Signed Patient: Galen Doss JR MR#: [id number] : 1945 Acct:[id number] Age/Sex: 77 / M Adm Date: 3 Loc: Room: Type: [facility] Attending Dr: Estevan Lester MD Copies to: [...] MD Documented By: Estevan Lester MD 12/16/22 1234 Signed By: <Electronically signed by Estevan Lester MD> 12/16/22 0048 [facility] Work Phone: Hospital Discharge instructions Additional Instructions [...] NOT operate machinery such as power tools, [employer] mowers, snow [employer], sewing machines, etc. for 24 hours. - [...] Follow up with PCP. - Office number [phone].[facility] Work Phone: Hospital Discharge instructions Additional Instructions [...] NOT operate machinery such as power tools, [employer] mowers, snow blowers, sewing machines, etc. for [...] problems. -Follow up with PCP. -Office number [phone].[facility] Work Phone: Progress note Author Luciano Ramirez [facility] September 15, 2022 3:31pm Note Date/Time September 15, 2022 3 :13pm [facility] [place] [address] Hem/Onc Follow Up Note - OP Signed Patient: Galen Doss JR MR#: [id number] : 1945 Acct:[id number] Age/Sex: 76 / M Type: REG RCR [...] be iron deficient despite IV [facility] Dr. Lester. STOMACH: [...] for coordination of care (as documented) and rgeq-an-hcbr counseling of patient and/or family. [facility] - Medical History Medical History: Medical History [...] % (Auto) 63.1, Lymph % (Auto) 27.1, Tift % (Auto) 8.3, Eos % (Auto) 1.2, Baso % (Auto) 0.3, Neut # (Auto) 2.3, Lymph # (Auto) 1.0, Tift# (Auto) 0.3, Eos # (Auto) 0.0, Baso # (Auto) 0.0, Nucleated RBC % (auto) 0.1 - Home Medications and Allergies Allergies/Adverse Reactions: Allergies ropinirole [From Requip] Allergy (Verified 09/15/22 14:40) Fainting Home Medications: Home Medications liraglutide 0.6 mg/0.1 mL (18 mg/3 mL) subcutaneous pen injector (Symptom.lyza 2- Ulices)1.8 mg subcut Q24H 08/14/20 [History [...] by Luciano Ramirez II DO> 09/15/22 1531 [facility] Work Phone: Progress note Author Alisha Soares [facility] March 20, 2023 3:21pm Note Date/Time March 20, 2023 2:0 4pm [facility] [place] [address] Hem/Onc Follow Up Note - OP Signed Patient: ArmidaeleazarGalen JR MR#: [id number] : 1945 Acct:[id number] Age/Sex: 77 / M Type: REG RCR [...] be iron deficient despite IV replacement 09/15/22 [facility] EGD perforemd by Dr. Lester. STOMACH: [...] for coordination of care (as documented) and bluw-wj-ioam counseling of patient and/or family. [facility] - Medical History Medical History: Medical History [...] % (Auto) 54.6, Lymph % (Auto) 33.2, Tift % (Auto) 10.0, Eos % (Auto) 1.9, Baso % (Auto) 0.3, Nucleat RBC Rel Count 0.1, Neut # (Auto) 1.5 L, Lymph # (Auto) 0.9 L, Tift # (Auto) 0.3, Eos # (Auto) 0.1, [...] <Electronically signed by LISA Soares> 03/20/23 1521 [facility] Work Phone: Progress note Author Luciano Ramirez [facility] June 23, 2023 4:06pm Note Date/Time June 22, 2023 10:1 8am [facility] at [address] [address] Hem/Onc Follow Up Note - OP Signed Patient: Galen Doss MR#: [id number] : 1945 Acct:[id number] Age/Sex: 77 / M Type: REG RCR [...] be iron deficient despite IV replacement 09/15/22 [facility] EGD perforemd by Dr. Lester. STOMACH: [...] is doing well. just got back from [place] and upcoming [place] [facility] [place] iron good. follows with [facility] for DM [...] for coordination of care (as documented) and zaqv-fj-fozq counseling of patient and/or family. [facility] - Medical History Medical History: Medical History [...] % (Auto) 55.4, Lymph % (Auto) 34.7, Tift % (Auto) 7.9, Eos % (Auto) 1.6, Baso % (Auto) 0.4, Nucleat RBC Rel Count 0.2, Neut # (Auto) 2.5, Lymph # (Auto) 1.6, Tift # (Auto) 0.4, Eos # (Auto) 0.1, [...] by Luciano Ramirez II, DO> 06/23/23 1606 [facility] Work Phone: Summary Purpose Family History No [...] EGD. cc:Dr. Matti Ash. Dr. John Ventura. [facility] Signed and Approved by: DR KWAME CRUZ [...] and content) DATE CREATED AUTHOR 12/12/2020 [facility] DATE CREATED AUTHOR AUTHOR'S ORGANIZ ATION 12/05/2023 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 [employer] provides no warranty or guarantee of the accuracy or completeness of information in this document.
[2024-01-08 17:00] LABS: Lactate/Lactic Acid 2.8 mmol/L (0.4-2.0)
[2024-01-08 17:23] LABS: Glucometer 231 mg/dL (74-106)
[2024-01-08] MEDS: 0.9 % SODIUM CHLORIDE 1,000 ML 80 ML IV (17:26)
[2024-01-08 17:50] LABS: Adenovirus NOT DETECTED (NOT DETECTE); Bordetella parapertussis NOT DETECTED (NOT DETECTE); Coronavirus 229E NOT DETECTED (NOT DETECTE); Coronavirus HKU1 NOT DETECTED (NOT DETECTE); Coronavirus NL63 NOT DETECTED (NOT DETECTE); Coronavirus OC43 NOT DETECTED (NOT DETECTE); Human Metapneumovirus NOT DETECTED (NOT DETECTE); Human Rhinovirus/Enterovirus NOT DETECTED (NOT DETECTE); Influenza A NOT DETECTED (NOT DETECTE); Influenza B NOT DETECTED (NOT DETECTE); Mycoplasma pneumoniae NOT DETECTED (NOT DETECTE); Parainfluenza Virus 1 NOT DETECTED (NOT DETECTE); Parainfluenza Virus 2 NOT DETECTED (NOT DETECTE); Parainfluenza Virus 3 NOT DETECTED (NOT DETECTE); Parainfluenza Virus 4 NOT DETECTED (NOT DETECTE); Respiratory Syncytial Virus NOT DETECTED (NOT DETECTE)
[2024-01-08 18:54] LABS: SARS-CoV-2 DETECTED (NOT DETECTE)
--- NOTE | 2024-01-08 18:55 | PC.NURSE ---
family notifed of positive covid results, notified physician
[2024-01-08 20:10] LABS: Lactate/Lactic Acid 2.8 mmol/L (0.4-2.0)
[2024-01-08 20:32] LABS: Glucometer 211 mg/dL (74-106)
[2024-01-08] MEDS: PRAMIPEXOLE 0.125 MG TABLET 0.25 MG PO (21:11)
[2024-01-08] MEDS: CARVEDILOL 3.125 MG TABLET PO (21:12)
[2024-01-08] MEDS: PREGABALIN 100 MG CAPSULE 200 MG PO (21:12)
[2024-01-08] MEDS: METFORMIN HCL 500 MG TABLET 1000 MG PO (21:12)
[2024-01-08] MEDS: ATORVASTATIN CALCIUM 10 MG TABLET PO (21:12)
[2024-01-08] MEDS: RIFAXIMIN 550 MG TABLET PO (21:12)
[2024-01-08] MEDS: INSULIN ASPART 300 UNIT/3 ML PEN SUBQ (21:28)
[2024-01-08 23:49] LABS: Lactate/Lactic Acid 2.6 mmol/L (0.4-2.0)
[2024-01-09 03:39] LABS: Basophils Percent Auto 0.4 % (0.2-2.0); Eosinophils Absolute Auto 0.1 10^3/uL (0.0-0.7); Hematocrit 27.6 % (42.0-54.0); Hemoglobin 8.5 g/dL (14.0-18.0); Immature Granulocytes Abs Auto 0.03 10^3/uL (0.00-0.03); Immature Granulocytes Pct Auto 1.2 % (0.0-0.5); Lymphocytes Absolute Auto 0.6 10^3/uL (1.2-3.8); Lymphocytes Percent Auto 23.3 % (20.5-60.0); Mean Corpuscular HGB Conc 30.8 g/dL (29.9-35.2); Mean Corpuscular Hemoglobin 29.4 pg (25.9-34.0); Mean Corpuscular Volume 95.5 fL (80.0-94.0); Mean Platelet Volume 10.7 fL (9.5-13.5); Monocytes Absolute Auto 0.3 10^3/uL (0.3-0.8); Monocytes Percent Auto 13.9 % (1.7-12.0); Neutrophils Absolute Auto 1.5 10^3/uL (1.4-6.5); Neutrophils Percent Auto 59.2 % (43.0-75.0); Platelet Count 51 10^3/uL (150-450); Red Blood Count 2.89 10^6/uL (4.70-6.10); White Blood Count 2.5 10^3/uL (4.0-11.0)
[2024-01-09 03:49] LABS: Alanine Aminotransferase 22 U/L (16-63); Albumin Globulin Ratio 0.8; Albumin Level 2.5 g/dL (3.4-5.0); Alkaline Phosphatase 68 U/L (46-116); Anion Gap 10.2; Aspartate Amino Transferase 25 U/L (15-37); BUN Creatinine Ratio 21.7; Bilirubin Total 0.9 mg/dL (0.2-1.0); Calcium 8.1 mg/dL (8.5-10.1); Carbon Dioxide 25.7 mmol/L (21.0-32.0); Chloride 111 mmol/L (98-107); Estimated GFR (African America >60 (>=60); Estimated GFR (Non-African Ame >60 (>=60); Globulin 3.2 g/dL; Glucose 137 mg/dL (74-106); Potassium 3.9 mmol/L (3.5-5.1); Sodium 143 mmol/L (136-145); Total Protein 5.7 g/dL (6.4-8.2)
[2024-01-09 03:57] LABS: Ammonia 75 umol/L (11-32)
[2024-01-09 05:08] VITALS: BP 114/63; PULSE 70; RESP 18; TEMP 36.6; O2SAT 93
[2024-01-09] MEDS: 0.9 % SODIUM CHLORIDE 1,000 ML 80 ML IV (05:50)
[2024-01-09] MEDS: OMEPRAZOLE 40 MG CAPSULE.DR PO (05:51)
[2024-01-09 07:00] LABS: Lactate/Lactic Acid 1.6 mmol/L (0.4-2.0)
[2024-01-09] MEDS: METFORMIN HCL 500 MG TABLET 1000 MG PO (08:45)
[2024-01-09] MEDS: FUROSEMIDE 20 MG TABLET PO (08:46)
[2024-01-09] MEDS: PRAMIPEXOLE 0.125 MG TABLET 0.25 MG PO (08:46)
[2024-01-09] MEDS: PREGABALIN 100 MG CAPSULE 200 MG PO (08:46)
[2024-01-09] MEDS: CARVEDILOL 3.125 MG TABLET PO (08:46)
[2024-01-09] MEDS: SPIRONOLACTONE 25 MG TABLET 50 MG PO (08:47)
[2024-01-09] MEDS: RIFAXIMIN 550 MG TABLET PO (08:47)
[2024-01-09 11:22] LABS: Glucometer 208 mg/dL (74-106)
--- NOTE | 2024-01-09 11:26 | P.HP_ITS ---
H&P: HPI History of Present Illness Chief complaint: ABD PAIN Weakness Near Sycopal Dehydration Narrative: 78 y/o male to ER with nausea, vomiting, and diarrhea for several days. 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 Patient went to [place] 1 month ago and developed diarrhea. Admitted to [facility] [place] and treated for traveler's diarrhea with antibiotics. Symptoms resolved and did well until few days ago. Developed loose stool with mucus. Increased weakness and lightheaded. Had episode where felt very lightheaded but no LOC. Severe weakness and not able to get off commode and to ER. WBC normal and afebrile. CT normal other than changes from cirrhosis. Given IV fluids and admitted. Continued fluids. Respiratory panel positive for covid-19. Much improved overnight. No further diarrhea and stools formed. No pain or cramping. Not lightheaded or dizzy. Ammonia elevated. Review of Systems ROS Constitutional Denies: fever, chills or fatigue Cardiovascular Denies: chest pain, palpitations or edema Respiratory Denies: shortness of breath, cough or wheezing Gastrointestinal Reports: nausea, vomiting and diarrhea; Denies: abdominal pain Genitourinary Denies: painful urination [facility] Medical History (Updated 01/09/24 @ 11:04 by Geovany Lazar MD) Gastroenteritis ?K52.9 - Noninfective gastroenteritis and colitis, unspecified (ICD-10) Diabetes mellitus ?E11.9 - Type 2 diabetes mellitus without complications (ICD-10) Surgical History (Updated 01/08/24 @ 16:33 by Nia Sullivan LPN) S/P tonsillectomy ?Z90.89 - Acquired absence of other organs (ICD-10) 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 (ICD-10) Family History (Updated 01/08/24 @ 16:35 by Nia Sullivan LPN) Father Family history of stroke Family history of diabetes mellitus Mother Family history of cancer Family history of diabetes mellitus Sister Family history of diabetes mellitus Other Family history of CHF (congestive heart failure) Social History (Updated 01/08/24 @ 16:36 by Nia Sullivan LPN) Within the past year, how often did you have a drink containing alcohol: never Within the past year, how often did you have six or more drinks on one occasion: never Score interpretation: A score less than 4 is consistent with normal alcohol consumption. Smoking status: Never smoker Second hand tobacco smoke exposure: No Non-prescribed substance use: denies use Known occupational exposures/hazards: No Highest level of school completed/degree received: some college, no degree Are you now , , , , never or living with a partner: In a typical week, how many times do you talk on the telephone with family, friends, or neighbors: twice per week How often do you get together with friends or relatives: twice per week How often do you attend religion or zoroastrianism services: never Do you belong to any clubs or organizations such as religion groups unions, [employer] or athletic groups, or school groups: yes Total score: 3 Score interpretation: A score of greater than or equal to 2 indicates the lowest level of social isolation. Little interest or pleasure in doing things: not at all Feeling down, depressed, or hopeless: not at all Feel stressed/tense/nervous/anxious/difficulty sleeping: not at all Due to disability, difficulty making decisions: No Do you think of yourself as: straight/heterosexual Gender Identity: male Meds Home Medications and Allergies Home Medications Medication Instructions Recorded Confirmed Type carvedilol 3.125 mg tablet 3.125 mg PO BID 01/08/24 01/08/24 History furosemide 20 mg tablet 20 mg PO DAILY 01/08/24 01/08/24 History insulin glargine 100 unit/mL (3 30 unit subcut QAM 01/08/24 01/08/24 History mL) subcutaneous pen (Basaglar KwikPen U-100 Insulin) metformin 1,000 mg tablet 1,000 mg PO BID 01/08/24 01/08/24 History omeprazole 40 mg capsule,delayed 40 mg PO QAM 01/08/24 01/08/24 History release pramipexole 0.125 mg tablet 0.25 mg PO BID 01/08/24 01/08/24 History pregabalin 100 mg capsule 200 mg PO BID 01/08/24 01/08/24 History rifaximin 550 mg tablet (Xifaxan) 550 mg PO BID 01/08/24 01/08/24 History semaglutide 1 mg/dose (4 mg/3 mL) 1 mg subcut QWEEK 01/08/24 01/08/24 History subcutaneous pen injector (Ozempic) simvastatin 20 mg tablet 20 mg PO QPM 01/08/24 01/08/24 History spironolactone 50 mg tablet 50 mg PO DAILY 01/08/24 01/08/24 History Allergies Allergy/AdvReac Type Severity Reaction Status Date / Time calcium carbonate Allergy Severe Verified 01/08/24 12:58 [From Equilet] Exam Constitutional Vital Signs, click to edit/add: Last Vital Signs Temp 98 F 01/09/24 05:08 Pulse 70 01/09/24 05:08 Resp 18 01/09/24 05:08 BP 114/63 01/09/24 05:08 Pulse Ox 93 L 01/09/24 05:08 O2 Del Method Room Air 01/09/24 05:08 Documenting provider has reviewed patient's vital signs: yes Common normals: no apparent distress, oriented x3 and alert HENMT Common normals: normocephalic Eye Common normals: PERRL and EOMs intact bilaterally Respiratory Common normals: normal respiratory effort and clear to auscultation bilaterally Cardio Common normals: regular rate, regular rhythm, no gallops, no murmurs and no rub GI Common normals: Normal to inspection, nondistended, normoactive bowel sounds present and non-tender Extremity Common normals: no pedal edema Results Labs Labs: Short CBC 01/08/24 01/09/24 Range/Units 13:10 03:25 WBC 6.4 2.5 L (4.0-11.0) 10^3/uL Hgb 11.1 L 8.5 L (14.0-18.0) g/dL Hct 35.5 L 27.6 L (42.0-54.0) % Plt Count 65 L 51 L (150-450) 10^3/uL BMP 01/08/24 01/09/24 13:10 03:25 Sodium 140 143 Potassium 4.2 3.9 Chloride 105 111 H Carbon Dioxide 25.4 25.7 BUN 24.0 H 23.0 H Creatinine 1.08 1.06 Glucose 260 H 137 H Calcium 9.3 8.1 L Cardiac Enzymes 01/08/24 Range/Units 13:10 Total Creatine Kinase 54 (39-308) U/L CK-MB (CK-2) 1.54 (<=3.60) ng/mL Liver Function 01/08/24 01/09/24 Range/Units 13:10 03:25 Total Bilirubin 1.3 H 0.9 (0.2-1.0) mg/dL AST 31 25 (15-37) U/L ALT 29 22 (16-63) U/L Alkaline Phosphatase 90 68 (46-116) U/L Albumin 3.5 2.5 L (3.4-5.0) g/dL Assessment and Plan Assessment and Plan (1) COVID-19: (2) Cirrhosis of liver not due to alcohol: (3) Weakness: (4) Nausea & vomiting: (5) Near syncope: (6) Hepatic encephalopathy: (7) Type 2 diabetes mellitus with hyperglycemia: (8) CAD (coronary artery disease): Plan Patient much improved after IV fluids. Covid positive and likely causing GI symptoms. Normal appetite. Discharge home. Increase fluid intake. Ammonia elevated and resume home medication including xifaxin. Avoid lactulose for now due to diarrhea. Follow up with PCP in 1 week to monitor labs. History of CAD and should have outpatient follow up with cardiology.
[2024-01-09] MEDS: INSULIN ASPART 300 UNIT/3 ML PEN SUBQ (11:36)
[2024-01-09 12:31] LABS: C. Difficile PCR NEGATIVE (NEGATIVE)
== END 2024-01-09 13:11 | disposition home or self-care (01) ==
LOC: ER 15:36 → MS 16:19
PROVIDERS: Physician Assistant; Admitting Provider Family Medicine; Emergency Provider Emergency Medicine; PCP Internal Medicine; Visit Provider Family Medicine
DX: U07.1 COVID-19 (principal); K74.60 Unspecified cirrhosis of liver; R53.1 Weakness; R11.2 Nausea with vomiting, unspecified; R55 Syncope and collapse; K76.82 Hepatic encephalopathy; E11.65 Type 2 diabetes mellitus with hyperglycemia; I25.10 Atherosclerotic heart disease of native coronary artery without angina pectoris; Z79.4 Long term (current) use of insulin; R16.1 Splenomegaly, not elsewhere classified; Z79.84 Long term (current) use of oral hypoglycemic drugs; Z79.899 Other long term (current) drug therapy; Z95.1 Presence of aortocoronary bypass graft; Z90.89 Acquired absence of other organs
CPT/HCPCS: 0202U; 36415; 74176; 80053; 81001; 82140; 82550; 82553; 82948; 83605; 84484; 85007; 85025; 85027; 85610; 87493; 93005; 96361; 96374; 99285; G0378; J2405

== ENCOUNTER 2024-03-31 11:58 | Outpatient (REF) | payer MEDICARE, SELFPAY ==
[2024-03-31 15:36] LABS: C. Difficile PCR NEGATIVE (NEGATIVE)
== END 2024-03-31 11:59 | disposition home or self-care (01) ==
LOC: LAB 11:58
PROVIDERS: PCP Internal Medicine; Visit Provider Internal Medicine
DX: R19.7 Diarrhea, unspecified (principal)
CPT/HCPCS: 87493